=== PATIENT | female | born 1940 | race Caucasian/White ===

== ENCOUNTER 2019-03-17 21:21 | Inpatient (IN) ==
[2019-03-17 21:36] LABS: Basophils % 0.5 % (0.1-2.0); Eosinophils # 0.1 K/mm3 (0.0-0.4); Eosinophils % 1.5 % (0.1-12.0); Hemoglobin 13.2 g/dL (12.2-16.2); Lymphocytes # 1.2 K/mm3 (0.7-4.5); Lymphocytes % 20.3 % (10-50); Mean Corpuscular HGB Conc 34.8 g/dL (31.8-35.4); Mean Corpuscular Hemoglobin 29.3 pg (27.0-31.2); Mean Corpuscular Volume 84.2 fl (81-99); Monocytes # 0.4 K/mm3 (0.1-1.0); Monocytes % 6.9 % (1.7-9.3); Neutrophils # 4.1 K/mm3 (1.8-7.8); Neutrophils % 70.8 % (37.0-80.0); Platelet Count 175 K/mm3 (142-424); Red Blood Count 4.51 M/mm3 (4.20-5.40); Red Cell Distribution Width 13.1 % (11.5-17.5); White Blood Count 5.8 K/mm3 (4.8-10.8)
--- NOTE | 2019-03-17 21:46 | Emergency Department Note ---
ED Disposition Clinical Impression: Renal insufficiency, LBBB (left bundle branch block), Hypokalemia Hip fracture Qualifiers: Encounter type: initial encounter Fracture type: closed Laterality: right Qualified Code(s): S72.001A - Fracture of unspecified part of neck of right femur, initial encounter for closed fracture Disposition: Admitted As Inpatient Condition on Discharge: Good - Critical Care Critical Care Time: No Attestation: On 03/17/19, the high probability of a clinically significant, sudden or life threatening deterioration of the following system(s) required my full and direct attention, intervention and personal management. The time I documented below is in addition to time spent performing reported procedures but includes the following listed in this critical care notation. Medical Decision Making - Medical Records Medical records reviewed: Yes: I reviewed the patient's medical records. - David Inquiry Pt receiving controlled substance: No Vital Signs: 03/17/19 21:39 Temperature 98.1 F Temperature Source Oral Pulse Rate [Right] 91 H Respiratory Rate 18 Blood Pressure [Right Arm] 153/91 H Blood Pressure Mean [Right Arm] 111 Blood Pressure Source [Right Arm] Automatic Cuff Blood Pressure Position [Right Arm] Supine 02 Sat by Pulse Oximetry 98 Oxygen Delivery Method Room Air - Lab Data Lab results reviewed: Yes: I reviewed the patient's lab results. Lab Results 03/17/19 21:25: WBC 5.8, RBC 4.51, Hgb 13.2, Hct 38.0, MCV 84.2, MCH 29.3, MCHC 34.8, RDW 13.1, Plt Count 175, MPV 7.0 L, Neut % (Auto) 70.8, Lymph % (Auto) 20.3, [place] % (Auto) 6.9, Eos % (Auto) 1.5, Baso % (Auto) 0.5, Neut # (Auto) 4.1, Lymph # (Auto) 1.2, [place] # (Auto) 0.4, Eos # (Auto) 0.1, Baso # (Auto) 0.0 03/17/19 21:25: Sodium 139, Potassium 3.2 L, Chloride 104, Carbon Dioxide 22, Anion Gap 16.2 H, BUN 23 H, Creatinine 1.13 H, Estimated Creat Clear 37, Estimated GFR 47 L, Est GFR ( Amer) 56 L, Glucose 124 H, Calcium 8.7, Total Bilirubin 0.6, AST 13 L, ALT 24, Alkaline Phosphatase 77, Total Protein 6.8, Albumin 3.7, Globulin 3.1, Albumin/Globulin Ratio 1.2 Result diagrams: 03/17/19 21:25 03/17/19 21:25 Orders (Tests/Meds): ED MEDICATIONS Discontinued Medications Generic Name Dose Route Start Last Admin Trade Name Freq PRN Reason Stop Dose Admin Morphine Sulfate 2 mg 03/17/19 22:27 Morphine 2mg/Ml Syringe IV 03/17/19 22:28 ONCE ONE Ondansetron HCl 4 mg 03/17/19 22:28 Zofran 4mg/2ml Vial IV 03/17/19 22:29 ONCE ONE ORDERS Category Date Time Status CT cervical spine wo con Stat Cat Scan 03/17/19 21:[address] head/brain wo con Stat Cat Scan 03/17/19 21:22 Taken XR ankle RT min 3V Stat Exams 03/17/19 21:22 Taken XR chest AP Stat Exams 03/17/19 21:22 Taken XR hip RT 2-3V w/pelvis Stat Exams 03/17/19 21:22 Taken PT/PTT Stat Lab 03/17/19 21:25 Received Urinalysis and Microscopic Routine Lab 03/17/19 22:28 Ordered - Radiology Data #1 Image(s): Chest, Pelvis, Hip, Ankle Image Reviewed: Yes I reviewed the patient's radiology image Preliminary Findings: Abnormal (fx seen) - CT Data CT Scan: Head, C-Spine Time Received: 22:[address] Reviewed: Yes: I have viewed the radiologist's interpretation Preliminary Findings: No Fracture Seen - ECG Data Tracing #1 Normal Sinus Rhythm: Yes Conduction abnormalities present: LBBB Fall HPI - General Chief Complaint: Fall Stated Complaint: Fall Time Seen by Provider: 03/17/19 21:45 Mode of Arrival: EMS Source of Information: Patient, EMS, Medical Record Limitations: Physical Limitations Description of Symptoms (Recalled from ER Triage Doc. by RN): Pt fell in yard c/o right hip and ankle pain - History of Present Illness HPI Narrative: trip and fell in yard with rt hip pain - no chest pain MD complaint: fall Onset (ago): hour(s) Fall from: standing Fall witnessed: no Place fall occurred: home Loss of consciousness: none Prolonged down time: no Symptoms prior to fall: none Context: tripped/slipped Location of injury - extremities: Right: thigh, ankle Severity: moderate Associated symptoms (after fall): denies - Related Data Home Medications Medication Instructions Recorded Confirmed Amitriptyline HCl [Elavil 10mg 10 mg PO HS 03/17/19 03/17/19 tablet] Potassium Chloride 20 meq PO BID 03/17/19 03/17/19 Triamterene/Hydrochlorothiazid 1 each PO DAILY 03/17/19 03/17/19 [Maxzide 37.5 mg-25 mg Tablet] Zolpidem Tartrate [Ambien 10mg 10 mg PO HS 03/17/19 03/17/19 tablet] Allergies Allergy/AdvReac Type Severity Reaction Status Date / Time acetaminophen [From TYLENOL] Allergy Unknown Unverified 10/18/17 15:32 atenolol [ATENOLOL] Allergy Unknown Unverified 10/18/17 15:32 bismuth subsalicylate Allergy Unknown Unverified 10/18/17 15:32 [From PEPTO-BISMOL] cimetidine [From TAGAMET] Allergy Unknown Unverified 10/18/17 15:32 diazepam [From VALIUM] Allergy Unknown Unverified 10/18/17 15:32 dicyclomine [From BENTYL] Allergy Unknown Unverified 10/18/17 15:32 docusate [DOCUSATE] Allergy Unknown Unverified 10/18/17 15:32 escitalopram [From LEXAPRO] Allergy Unknown Unverified 10/18/17 15:32 famotidine [From PEPCID] Allergy Unknown Unverified 10/18/17 15:32 fenofibrate [From TRICOR] Allergy Unknown Unverified 10/18/17 15:32 fish oil [FISH OIL] Allergy Unknown Unverified 10/18/17 15:32 hydrocortisone [From LOCOID] Allergy Unknown Unverified 10/18/17 15:32 mirtazapine [From REMERON] Allergy Unknown Unverified 10/18/17 15:32 niacin [NIACIN] Allergy Unknown Unverified 10/18/17 15:32 nortriptyline [NORTRIPTYLINE] Allergy Unknown Unverified 10/18/17 15:32 omeprazole [From PRILOSEC] Allergy Unknown Unverified 10/18/17 15:32 pravastatin [From Pravachol] Allergy Unknown Unverified 10/18/17 15:32 promethazine [PROMETHAZINE] Allergy Unknown Unverified 10/18/17 15:32 rosuvastatin Allergy Unknown Unverified 10/18/17 15:32 simvastatin Allergy Unknown Unverified 10/18/17 15:32 Ewfnxqx-Ocj-Pua Reductase Allergy Unknown Unverified 10/18/17 15:32 Inhibitor Sulfa (Sulfonamide Allergy Unknown Unverified 10/18/17 15:32 Antibiotics) [SULFA (SULFONAMIDE ANTIBIOTICS)] sulfamethoxazole Allergy Unknown Unverified 10/18/17 15:32 [From BACTRIM] trimethoprim [From BACTRIM] Allergy Unknown Unverified 10/18/17 15:32 [facility] History - Hepatitis A Screen Drug use history?: No High risk sexual behaviors?: No History of sexually transmitted infection?: No Currently employed?: No Childcare worker?: No Do you have indoor plumbing?: Yes Do you have electricity?: Yes Attestation statement:: This patient has been screened for Hepatitis A risk factors. I have reviewed the patient's past medical history: Yes Medical History: Denies:: Diabetes Mellitus Type 1, Diabetes Mellitus Type 2 - Social History Alcohol Intake: never Occupational Status: retired - Psychiatric History Expresses thoughts of harming self/others: None Suicide Plan Description: No Plan ROS Obtained: Yes All systems reviewed & no additional complaints - Constitutional Constitutional: Denies fever(s) - Eyes Eyes: Denies change in vision - ENT Ears, Nose, Mouth, and Throat: Denies sore throat - Cardiovascular Cardiovascular: Denies chest pain at rest - Respiratory Respiratory: No cough - Gastrointestinal Gastrointestingal: Denies: abdominal pain - Genitourinary Female Genitourinary: Denies hematuria - Musculoskeletal Musculoskeletal: Reports as per HPI, Reports joint pain, Reports joint swelling, Reports limited range of motion, Denies neck pain - Integumentary/Breasts Skin/Breast: Denies rash - Neurologic Neurologic: Denies seizure-like activity Physical Exam - General General appearance: alert - Head Head exam: normocephalic - Eye Eye exam: Present: PERRL, EOMI - ENT ENT exam: Present: mucous membranes dry - Neck Neck exam: Present: trachea midline - Respiratory Respiratory exam: Present: normal lung sounds bilaterally - Cardiovascular Cardiovascular exam: Present: regular rate, systolic murmur - Abdominal Exam Abdominal exam: Present: soft - Expanded Lower Extremity Exam Right Hip/Pelvis exam: Present: tenderness, pelvis stable, pain on hip/pelvis palpation. Absent: full ROM Ankle exam: Present: tenderness - Neurological Exam Neurological exam: Present: alert, oriented X3, CN II-XII intact - Psychiatric Psychiatric exam: Present: normal affect - Skin Skin exam: Absent: rash
[2019-03-17 21:50] LABS: Albumin Level 3.7 gm/dL (3.4-5.0); Albumin/Globulin Ratio 1.2 (1.1-1.8); Anion Gap 16.2 mEq/L (5-15); Bilirubin,Total 0.6 mg/dL (0.2-1.0); Calcium 8.7 mg/dL (8.5-10.1); Globulin 3.1 gm/dl (1.3-3.2); Potassium 3.2 mmoL/L (3.5-5.1); Total Protein,Serum 6.8 gm/dL (6.4-8.2)
[2019-03-17 22:42] LABS: Activated Partial Thrombo Time 26.6 seconds (23.6-34.0); INR 1.06 (0.9-1.1)
[2019-03-17 22:53] LABS: Appearance,Urine CLEAR (Clear); Bilirubin,Urine Negative (Negative); Blood, Urine Negative (Negative); Color,Urine YELLOW (Yellow); Glucose,Urine (UA) Negative (Negative); Ketones,Urine Negative (Negative); Leukocyte Esterase,Urine Negative (Negative); Microscopic, Urine URINE MICROSCOPIC (MICROSCOPIC); Protein,Urine Negative (Negative); Urobilinogen,Urine 0.2 EU/dl (0.2)
[2019-03-17 22:55] LABS: Amorphous Sediment,Urine Trace /lpf; WBC,Urine Occasional #/hpf (0-3)
[2019-03-18 05:36] LABS: Basophils % 0.1 % (0.1-2.0); Eosinophils % 0.1 % (0.1-12.0); Hematocrit 37.5 % (37.0-47.0); Hemoglobin 13.3 g/dL (12.2-16.2); Lymphocytes # 0.5 K/mm3 (0.7-4.5); Lymphocytes % 6.7 % (10-50); Mean Corpuscular HGB Conc 35.4 g/dL (31.8-35.4); Mean Corpuscular Hemoglobin 29.8 pg (27.0-31.2); Mean Corpuscular Volume 84.1 fl (81-99); Monocytes # 0.4 K/mm3 (0.1-1.0); Platelet Count 157 K/mm3 (142-424); Red Blood Count 4.46 M/mm3 (4.20-5.40); Red Cell Distribution Width 13.1 % (11.5-17.5)
[2019-03-18 05:52] LABS: Anion Gap 17.1 mEq/L (5-15); Blood Urea Nitrogen 18 mg/dL (7-18); Calcium 8.4 mg/dL (8.5-10.1); Carbon Dioxide 22 mmol/L (21.0-32.0); Chloride 102 mmol/L (98-107); Glucose 144 mg/dL (74-106); Potassium 3.1 mmoL/L (3.5-5.1); Sodium 138 mmol/L (136-145)
[2019-03-18 06:02] LABS: Lymphocytes % 5 % (10-50); Monocytes % 4 % (2-9); Neutrophils % 85 % (42-76); Total Cells Counted 100
[2019-03-18 06:03] LABS: RBC Morphology Normal
--- NOTE | 2019-03-18 09:06 | History & Physical Report ---
*Admission Date: 03/18/19 *Chief complaint: Fall with hip fracture *History of present illness: 78-year-old white female who struggles with anxiety, OCD and chronic insomnia but otherwise has enjoyed very good health and lives independently, was watering her morris yesterday and tugging a garden hose when she slipped in some dirt and twisted to try to avoid falling but then fell, causing significant right leg/hip injury and was unable to walk. Came to the emergency department where she was found to have a right femoral neck fracture. Admitted to hospital for orthopedic consultation and further observation. She denies recent shortness of air, leg swelling over baseline, orthopnea or dyspnea with activity. She maintains excellent activity levels at home and has no cardiac history. [facility] History I have reviewed the patient's past medical history: Yes Medical History: Reports:: Hypertension Denies:: Cancer, Diabetes Mellitus Type 1, Diabetes Mellitus Type 2, MRSA *Have you ever received a pneumonia vaccine?: Yes *Have you received a flu vaccine this season?: Yes Laterality Cases: Bilateral: Tonsillectomy Other Surgeries: Yes: Cholecystectomy, Colonoscopy, Colon Resection Amputation: No - *Social History Educational Level: Completed High School Smoking Status: Never smoker Alcohol Intake: never *Occupational Status:: retired *Travel in the last 8 weeks: None - Psychiatric History Expresses thoughts of harming self/others: None Suicide Plan Description: No Plan Family Hx:: Asthma, Coronary Artery Disease, Diabetes, Heart Attack, Hyperlipidemia, Hypertension Review of Systems - Review of Systems Review of systems:: pertinent systems reviewed and negative unless documented below See HPI. Denies other organ system issues as noted. - *Neurologic Denies seizure-like activity Meds Home Medications Medication Instructions Recorded Confirmed Type Amitriptyline HCl [Elavil 10mg 10 mg PO HS 03/17/19 03/17/19 History tablet] Potassium Chloride 20 meq PO BID 03/17/19 03/17/19 History Triamterene/Hydrochlorothiazid 1 each PO DAILY 03/17/19 03/17/19 History [Maxzide 37.5 mg-25 mg Tablet] Zolpidem Tartrate [Ambien 10mg 10 mg PO HS 03/17/19 03/17/19 History tablet] Allergies Allergy/AdvReac Type Severity Reaction Status Date / Time acetaminophen [From TYLENOL] Allergy Unknown Verified 05/18/19 23:14 atenolol [ATENOLOL] Allergy Unknown Verified 03/17/19 23:14 bismuth subsalicylate Allergy Unknown Verified 03/17/19 23:14 [From PEPTO-BISMOL] cimetidine [From TAGAMET] Allergy Unknown Verified 03/17/19 23:14 diazepam [From VALIUM] Allergy Unknown Verified 03/17/19 23:14 dicyclomine [From BENTYL] Allergy Unknown Verified 03/17/19 23:14 docusate [DOCUSATE] Allergy Unknown Verified 03/17/19 23:14 escitalopram [From LEXAPRO] Allergy Unknown Verified 03/17/19 23:14 famotidine [From PEPCID] Allergy Unknown Verified 03/17/19 23:14 fenofibrate [From TRICOR] Allergy Unknown Verified 03/17/19 23:14 fish oil [FISH OIL] Allergy Unknown Verified 03/17/19 23:14 hydrocortisone [From LOCOID] Allergy Unknown Verified 03/17/19 23:14 mirtazapine [From REMERON] Allergy Unknown Verified 03/17/19 23:13 niacin [NIACIN] Allergy Unknown Verified 03/17/19 23:13 nortriptyline [NORTRIPTYLINE] Allergy Unknown Verified 03/17/19 23:13 omeprazole [From PRILOSEC] Allergy Unknown Verified 03/17/19 23:13 pravastatin [From Pravachol] Allergy Unknown Verified 03/17/19 23:13 promethazine [PROMETHAZINE] Allergy Unknown Verified 03/17/19 23:13 rosuvastatin Allergy Unknown Verified 03/17/19 23:13 simvastatin Allergy Unknown Verified 03/17/19 23:13 Stkobrq-Dvi-Eyy Reductase Allergy Unknown Verified 03/17/19 23:13 Inhibitor Sulfa (Sulfonamide Allergy Unknown Verified 03/17/19 23:13 Antibiotics) [SULFA (SULFONAMIDE ANTIBIOTICS)] sulfamethoxazole Allergy Unknown Verified 03/17/19 23:15 [From BACTRIM] trimethoprim [From BACTRIM] Allergy Unknown Verified 03/17/19 23:15 Exam Vital signs and Labs for Last 24 Hours: Temp Pulse Resp BP Pulse Ox 99.4 F 89 17 138/72 95 03/18/19 08:00 03/18/19 08:00 03/18/19 08:00 03/18/19 08:00 03/18/19 08:00 Laboratory Results - last 24 hr 03/17/19 21:25: WBC 5.8, RBC 4.51, Hgb 13.2, Hct 38.0, MCV 84.2, MCH 29.3, MCHC 34.8, RDW 13.1, Plt Count 175, MPV 7.0 L, Neut % (Auto) 70.8, Lymph % (Auto) 20.3, [place] % (Auto) 6.9, Eos % (Auto) 1.5, Baso % (Auto) 0.5, Neut # (Auto) 4.1, Lymph # (Auto) 1.2, [place] # (Auto) 0.4, Eos # (Auto) 0.1, Baso # (Auto) 0.0 03/17/19 21:25: Sodium 139, Potassium 3.2 L, Chloride 104, Carbon Dioxide 22, Anion Gap 16.2 H, BUN 23 H, Creatinine 1.13 H, Estimated Creat Clear 37, Estimated GFR 47 L, Est GFR ( Amer) 56 L, Glucose 124 H, Calcium 8.7, Total Bilirubin 0.6, AST 13 L, ALT 24, Alkaline Phosphatase 77, Total Protein 6.8, Albumin 3.7, Globulin 3.1, Albumin/Globulin Ratio 1.2 03/17/19 21:25: PT 11.0, INR 1.06, APTT 26.6 03/17/19 22:45: Urine Color Yellow, Urine Appearance Clear, Urine pH 7.0, Ur Specific [place] 1.020, Urine Protein Negative, Urine Glucose (UA) Negative, Urine Ketones Negative, Urine Blood Negative, Urine Nitrate Negative, Urine Bilirubin Negative, Urine Urobilinogen 0.2, Ur Leukocyte Esterase Negative, Urine WBC Occasional, Amorphous Sediment Trace 03/18/19 02:00: Troponin I < 0.02 03/18/19 05:10: Sodium 138, Potassium 3.1 L, Chloride 102, Carbon Dioxide 22, Anion Gap 17.1 H, BUN 18, Creatinine 1.12 H, Estimated Creat Clear 37, Estimated GFR 47 L, Est GFR ( Amer) 57 L, Glucose 144 H, Calcium 8.4 L, Magnesium 1.9, Troponin I < 0.02 03/18/19 05:10: WBC 8.0 D, RBC 4.46, Hgb 13.3, Hct 37.5, MCV 84.1, MCH 29.8, MCHC 35.4, RDW 13.1, Plt Count 157, MPV 7.0 L, Neut % (Auto) 88.0 H, Lymph % (Auto) 6.7 L, [place] % (Auto) 5.0, Eos % (Auto) 0.1, Baso % (Auto) 0.1, Neut # (Auto) 7.0, Lymph # (Auto) 0.5 L, [place] # (Auto) 0.4, Eos # (Auto) 0.0, Baso # (Auto) 0.0, Total Counted 100, Neutrophils % (Manual) 85 H, Band Neutrophils % 6.0, Lymphocytes % (Manual) 5 L, Monocytes % (Manual) 4, Platelet Estimate Normal, RBC Morphology Normal I & O for Last 24 hours: Intake & Output 03/15/19 03/16/19 03/17/19 03/18/19 11:59 11:59 11:59 11:59 Intake Total 193 / 193 Output Total 850 / 850 Balance -657 / -657 Weight 124 lb 7 oz Narrative: Patient is alert. Pleasant. ENT exam clear. Lungs have good air movement and are clear. Heart rate regular with 2/6 holosystolic murmur at baseline. Abdomen soft and nontender. No edema or clubbing. Right leg is shortened. Good distal pulses and warm extremities that are well perfused. Neurologic exam intact, oriented x3. Assessment and Plan (1) Fracture of femoral neck, right Current visit: Yes Status: Acute Category: Medical Code(s): S72.001A - Fracture of unspecified part of neck of right femur, initial encounter for closed fracture No contraindication to surgical fixation. Patient has done well with previous surgeries, no history of free bleeding, cardiac issues or difficulties with anesthesia. (2) Hypertension, essential Current visit: Yes Status: Acute Category: Medical Code(s): I10 - Essential (primary) hypertension Watch while in hospital. (3) Generalized anxiety disorder Current visit: Yes Status: Acute Category: Medical Code(s): F41.1 - Generalized anxiety disorder Comorbid psychiatric condition but otherwise stable (4) Chronic insomnia Current visit: Yes Status: Acute Category: Medical Code(s): F51.04 - Psychophysiologic insomnia
--- NOTE | 2019-03-18 09:44 | Progress Note ---
[facility] Anesthesia Checklist - Patient Identification Patient Identification: Arm Band, Verbal (Name & ) - Structural Data Admitted From: Inpatient Planned Operative Procedure/s: r hip hemiarthroplasty Consent for Planned Operative Procedure(s) Verified: Yes Verified Documents: History and Physical - NPO Status Verified Time NPO: 00:00 - Additional verifications Patient : No Anesthesia Reactions: No Hx Blood Transfusions: No Blood Transfusion Reaction: No Cephalosporin Allergy: No Previous Colonoscopy: Yes - Cardiovascular Assessment Heart Sounds: S1 & S2 Pulse Strength: Baseline Pulse Rhythm: Regular Peripheral Edema: No - Airway Assessment C-Spine Mobility Assessed: Yes TMJ Mobility Assessed: Yes Dentition: Good Dentition - Neurological Assessment Level of Consciousness: Awake, Alert, Appropriate Hx Seizures: No Numbness or tingling in extremities: No - Anesthesia Plan Anesthesia Risk discussed: Yes Anesthesia Plan: Verified ASA Class: II Anesthesia Type: General [facility] History I have reviewed the patient's past medical history: Yes Medical History: Reports:: Hypertension Denies:: Cancer, Diabetes Mellitus Type 1, Diabetes Mellitus Type 2, MRSA *Have you ever received a pneumonia vaccine?: Yes *Have you received a flu vaccine this season?: Yes Laterality Cases: Bilateral: Tonsillectomy Other Surgeries: Yes: Cholecystectomy, Colonoscopy, Colon Resection Amputation: No - *Social History Educational Level: Completed High School Smoking Status: Never smoker Alcohol Intake: never *Occupational Status:: retired *Travel in the last 8 weeks: None - Psychiatric History Expresses thoughts of harming self/others: None Suicide Plan Description: No Plan Family Hx:: Asthma, Coronary Artery Disease, Diabetes, Heart Attack, Hyperlipidemia, Hypertension
--- NOTE | 2019-03-18 12:36 | Progress Note ---
[facility] Anesthesia Record Part I Intake, IV Amount: 900 Estimated blood loss (mL): 100 Urine output (mL): 150 Blood Products used (#): none Blood Pressure: 130/70 SaO2: 93 Pulse Rate: 105 Respiratory Rate: 18 Temperature: 99.7 F Patient is:: Drowsy, Nasal O2, Stable Stable to PACU at:: 12:30
--- NOTE | 2019-03-18 12:37 | Progress Note ---
[facility] Anesthesia Record Part II Discharge Time: 13:00 Destination: Medical Surgical Department PACU nurse assessment reviewed?: Yes Patient Condition:: Good Anesthesia Complications:: None Swallowing reflex intact?: Yes Cyanosis?: No
--- NOTE | 2019-03-18 12:46 | Consult Report ---
*Admission Date: 03/18/19 *Chief complaint: R hip pain *History of present illness: 78yo F admitted overnight after sustaining a mechanical fall at home last night. She was watering her morris and attempting to pull the hose to the opposite side of her house, when she got her feet tangled up and fell to the ground. She had immediate pain in the right hip and was unable to ambulate. Denies chest pain, shortness of breath or dizziness either preceding the fall or in the interval since. She complains of pain in the right hip but no numbness or tingling distally. No anticoagulant use at baseline. Review of Systems - Review of Systems Review of systems:: pertinent systems reviewed and negative unless documented below - *Neurologic Denies seizure-like activity [facility] History I have reviewed the patient's past medical history: Yes Medical History: Reports:: Hypertension Denies:: Cancer, Diabetes Mellitus Type 1, Diabetes Mellitus Type 2, MRSA, Seizures *Have you ever received a pneumonia vaccine?: Yes *Have you received a flu vaccine this season?: Yes Other Medical History: Denies: Blood Transfusion Reaction Laterality Cases: Bilateral: Tonsillectomy Other Surgeries: Yes: Cholecystectomy, Colonoscopy, Colon Resection Amputation: No - *Social History Educational Level: Completed High School Smoking Status: Never smoker Alcohol Intake: never *Occupational Status:: retired *Travel in the last 8 weeks: None - Psychiatric History Expresses thoughts of harming self/others: None Suicide Plan Description: No Plan Family Hx:: Asthma, Coronary Artery Disease, Diabetes, Heart Attack, Hyperlipidemia, Hypertension Meds Home Medications Medication Instructions Recorded Confirmed Type Amitriptyline HCl [Elavil 10mg 10 mg PO HS 03/17/19 03/17/19 History tablet] Potassium Chloride 20 meq PO BID 03/17/19 03/17/19 History Triamterene/Hydrochlorothiazid 1 each PO DAILY 03/17/19 03/17/19 History [Maxzide 37.5 mg-25 mg Tablet] Zolpidem Tartrate [Ambien 10mg 10 mg PO HS 03/17/19 03/17/19 History tablet] Allergies Allergy/AdvReac Type Severity Reaction Status Date / Time acetaminophen [From TYLENOL] Allergy Unknown Verified 03/17/19 23:14 atenolol [ATENOLOL] Allergy Unknown Verified 03/17/19 23:14 bismuth subsalicylate Allergy Unknown Verified 03/17/19 23:14 [From PEPTO-BISMOL] cimetidine [From TAGAMET] Allergy Unknown Verified 03/17/19 23:14 diazepam [From VALIUM] Allergy Unknown Verified 03/17/19 23:14 dicyclomine [From BENTYL] Allergy Unknown Verified 03/17/19 23:14 docusate [DOCUSATE] Allergy Unknown Verified 03/17/19 23:14 escitalopram [From LEXAPRO] Allergy Unknown Verified 03/17/19 23:14 famotidine [From PEPCID] Allergy Unknown Verified 03/17/19 23:14 fenofibrate [From TRICOR] Allergy Unknown Verified 03/17/19 23:14 fish oil [FISH OIL] Allergy Unknown Verified 03/17/19 23:14 hydrocortisone [From LOCOID] Allergy Unknown Verified 03/17/19 23:14 mirtazapine [From REMERON] Allergy Unknown Verified 03/17/19 23:13 niacin [NIACIN] Allergy Unknown Verified 03/17/19 23:13 nortriptyline [NORTRIPTYLINE] Allergy Unknown Verified 03/17/19 23:13 omeprazole [From PRILOSEC] Allergy Unknown Verified 03/17/19 23:13 pravastatin [From Pravachol] Allergy Unknown Verified 03/17/19 23:13 promethazine [PROMETHAZINE] Allergy Unknown Verified 03/17/19 23:13 rosuvastatin Allergy Unknown Verified 03/17/19 23:13 simvastatin Allergy Unknown Verified 03/17/19 23:13 Cyhxgmi-Joe-Inf Reductase Allergy Unknown Verified 03/17/19 23:13 Inhibitor Sulfa (Sulfonamide Allergy Unknown Verified 03/17/19 23:13 Antibiotics) [SULFA (SULFONAMIDE ANTIBIOTICS)] sulfamethoxazole Allergy Unknown Verified 03/17/19 23:15 [From BACTRIM] trimethoprim [From BACTRIM] Allergy Unknown Verified 03/17/19 23:15 Exam Vital signs and Labs for Last 24 Hours: Temp Pulse Resp BP Pulse Ox 99.7 F H 105 H 18 130/70 95 03/18/19 12:36 03/18/19 12:36 03/18/19 12:36 03/18/19 12:36 03/18/19 08:00 Laboratory Results - last 24 hr 03/17/19 21:25: WBC 5.8, RBC 4.51, Hgb 13.2, Hct 38.0, MCV 84.2, MCH 29.3, MCHC 34.8, RDW 13.1, Plt Count 175, MPV 7.0 L, Neut % (Auto) 70.8, Lymph % (Auto) 20.3, [place] % (Auto) 6.9, Eos % (Auto) 1.5, Baso % (Auto) 0.5, Neut # (Auto) 4.1, Lymph # (Auto) 1.2, [place] # (Auto) 0.4, Eos # (Auto) 0.1, Baso # (Auto) 0.0 03/17/19 21:25: Sodium 139, Potassium 3.2 L, Chloride 104, Carbon Dioxide 22, Anion Gap 16.2 H, BUN 23 H, Creatinine 1.13 H, Estimated Creat Clear 37, Estimated GFR 47 L, Est GFR ( Amer) 56 L, Glucose 124 H, Calcium 8.7, Total Bilirubin 0.6, AST 13 L, ALT 24, Alkaline Phosphatase 77, Total Protein 6.8, Albumin 3.7, Globulin 3.1, Albumin/Globulin Ratio 1.2 03/17/19 21:25: PT 11.0, INR 1.06, APTT 26.6 03/17/19 22:45: Urine Color Yellow, Urine Appearance Clear, Urine pH 7.0, Ur Specific [place] 1.020, Urine Protein Negative, Urine Glucose (UA) Negative, Urine Ketones Negative, Urine Blood Negative, Urine Nitrate Negative, Urine Bilirubin Negative, Urine Urobilinogen 0.2, Ur Leukocyte Esterase Negative, Urine WBC Occasional, Amorphous Sediment Trace 03/18/19 02:00: Troponin I < 0.02 03/18/19 05:10: Sodium 138, Potassium 3.1 L, Chloride 102, Carbon Dioxide 22, Anion Gap 17.1 H, BUN 18, Creatinine 1.12 H, Estimated Creat Clear 37, Estimated GFR 47 L, Est GFR ( Amer) 57 L, Glucose 144 H, Calcium 8.4 L, Magnesium 1.9, Troponin I < 0.02 03/18/19 05:10: WBC 8.0 D, RBC 4.46, Hgb 13.3, Hct 37.5, MCV 84.1, MCH 29.8, MCHC 35.4, RDW 13.1, Plt Count 157, MPV 7.0 L, Neut % (Auto) 88.0 H, Lymph % (Auto) 6.7 L, [place] % (Auto) 5.0, Eos % (Auto) 0.1, Baso % (Auto) 0.1, Neut # (Auto) 7.0, Lymph # (Auto) 0.5 L, [place] # (Auto) 0.4, Eos # (Auto) 0.0, Baso # (Auto) 0.0, Total Counted 100, Neutrophils % (Manual) 85 H, Band Neutrophils % 6.0, Lymphocytes % (Manual) 5 L, Monocytes % (Manual) 4, Platelet Estimate Normal, RBC Morphology Normal I & O for Last 24 hours: Intake & Output 03/16/19 03/17/19 03/18/19 03/19/19 11:59 11:59 11:59 11:59 Intake Total 243 / 243 900 / 900 Output Total 850 / 850 Balance -607 / -607 900 / 900 Weight 124 lb 7 oz - Constitutional no acute distress, average body habitus, cooperative - *Routine HEENT Exam Head: Present: normocephalic, atraumatic Eye: Present: EOMI ENT: Present: mucous membranes moist - *Routine Respiratory Exam Present: CTA bilaterally. Absent: accessory muscle use, wheezes - *Routine Cardiovascular Exam Present: RRR - *Routine Abdominal Exam Present: soft. Absent: tenderness - *Routine Extremities Exam Comments: RLE shortened and externally rotated no abrasions, lacerations, ecchymosis or other lesions over the R hip tender over R groin/lateral hip +DF/PF/EHL RLE SILT distally RLE R calf soft, non-tender palpable pedal pulses RLE, foot warm/well-perfused - *Routine Skin Exam Present: intact, dry, warm. Absent: lesions, ecchymosis - *Routine Neurological Exam Present: alert, oriented X3, normal tone. Absent: sensory deficit, motor deficit, altered mental status - Routine Psychiatric Exam Present: normal affect Results - Labs Result Diagrams: 03/18/19 05:10 03/18/19 05:10 Labs: Abnormal lab results 03/17/19 03/17/19 03/18/19 Range/Units 21:25 21:25 05:10 MPV 7.0 L (7.4-10.4) fl Neut % (Auto) (37.0-80.0) % Lymph % (Auto) (10-50) % Lymph # (Auto) (0.7-4.5) K/mm3 Neutrophils % (Manual) (42-76) % Lymphocytes % (Manual) (10-50) % Potassium 3.2 L 3.1 L (3.5-5.1) mmoL/L Anion Gap 16.2 H 17.1 H (5-15) mEq/L BUN 23 H (7-18) mg/dL Creatinine 1.13 H 1.12 H (0.55-1.02) mg/dL Estimated GFR 47 L 47 L (>60) ml/min Est GFR ( Amer) 56 L 57 L (>60) ML/MIN Glucose 124 H 144 H (74-106) mg/dL Calcium 8.4 L (8.5-10.1) mg/dL AST 13 L (15-37) U/L 03/18/19 Range/Units 05:10 MPV 7.0 L (7.4-10.4) fl Neut % (Auto) 88.0 H (37.0-80.0) % Lymph % (Auto) 6.7 L (10-50) % Lymph # (Auto) 0.5 L (0.7-4.5) K/mm3 Neutrophils % (Manual) 85 H (42-76) % Lymphocytes % (Manual) 5 L (10-50) % Potassium (3.5-5.1) mmoL/L Anion Gap (5-15) mEq/L BUN (7-18) mg/dL Creatinine (0.55-1.02) mg/dL Estimated GFR (>60) ml/min Est GFR ( Amer) (>60) ML/MIN Glucose (74-106) mg/dL Calcium (8.5-10.1) mg/dL AST (15-37) U/L H & H 03/17/19 03/18/19 Range/Units 21:25 05:10 Hgb 13.2 13.3 (12.2-16.2) g/dL Hct 38.0 37.5 (37.0-47.0) % Coagulation 03/17/19 Range/Units 21:25 INR 1.06 (0.9-1.1) All other labs normal. - Diagnostic results Hip x-ray: image reviewed (displaced R femoral neck fracture ) Assessment and Plan (1) Fracture of femoral neck, right Current visit: Yes Status: Acute Category: Medical Code(s): S72.001A - Fracture of unspecified part of neck of right femur, initial encounter for closed fracture (2) Hypertension, essential Current visit: Yes Status: Acute Category: Medical Code(s): I10 - Essential (primary) hypertension (3) Generalized anxiety disorder Current visit: Yes Status: Acute Category: Medical Code(s): F41.1 - Generalized anxiety disorder (4) Chronic insomnia Current visit: Yes Status: Acute Category: Medical Code(s): F51.04 - Psychophysiologic insomnia - Assessment and plan all Dx Assessment and Plan for all problems:: 78yo F with displaced R femoral neck fracture -- recommend surgical intervention, risks/benefits of surgery discussed with the patient. I recommend hemiarthroplasty; the procedure was discussed with the patient, including the risk of: bleeding, infection, fracture, dislocation, persistent pain and/or limp, need for later conversion to total hip arthroplasty, and the risks of anesthesia. The patient vocalized understanding and provided informed consent. -- no family at bedside; she lives alone in a home next door to her son, who was with her at the hospital until late last night. Phone call to him was attempted but voicemail reached. Dereck Sylvester [phone] -- to OR this morning for R hip hemiarthroplasty
--- NOTE | 2019-03-18 12:54 | Operative Note ---
Date of procedure: 03/18/19 Pre-op Diagnosis:: R femoral neck fracture Post-op Diagnosis:: R femoral neck fracture Procedure performed:: R hip hemiarthroplasty Surgeon:: Hazel Gonzalez MD Air Compressor Mechanic(s):: Deirdre Galeana CST INDEPENDENT LIVING INSTRUCTOR:: Jamie Carter Anesthesia: GETA Estimated blood loss (mL): 100 Clinical Note:: 78yo F admitted overnight after sustaining a mechanical fall at home last night. She was watering her morris and attempting to pull the hose to the opposite side of her house, when she got her feet tangled up and fell to the ground. She had immediate pain in the right hip and was unable to ambulate. Denies chest pain, shortness of breath or dizziness either preceding the fall or in the interval since. She complains of pain in the right hip but no numbness or tingling distally. No anticoagulant use at baseline. I recommend surgical intervention, risks/benefits of surgery discussed with the patient. I recommend hemiarthroplasty; the procedure was discussed with the patient, including the risk of: bleeding, infection, fracture, dislocation, persistent pain and/or limp, need for later conversion to total hip arthroplasty, and the risks of anesthesia. The patient vocalized understanding and provided informed consent. Operative findings:: displaced R femoral neck fracture implants: [place] hip hemiarthroplasty system Accolade II 127 degree neck angle hip stem, size 4 w/35mm neck UHR universal head/bipolar component, 47mm OD LFIT V40 femoral head, 28mm OD, +0 offset Operative note:: The patient was identified in preoperative holding and the R hip signed by myself. She was then taken to the operating room where 1g Ancef was infused intravenously and general anesthesia induced. Once the patient was asleep, she was placed in the left lateral decubitus position with a muhammad bag positioner, and the right hip prepped and draped in the usual sterile fashion. Timeout was performed, identifying the correct patient, correct procedure and correct site. The procedure was begun by making a longitudinal, curvilinear incision over the posterolateral aspect the the right hip, centered over the greater trochanter. Subcutaneous tissue was dissected with cautery until fascia was encountered. The fascia was incised in line with the shaft of the femur distally and curved proximally; fibers of the gluteus netta were bluntly spread with finger dissection. Charnley retractor was placed under the fascia. The hip joint was visualized and there was moderate fracture hematoma present. This was evacuated and the short external rotators identified. The piriformis was tagged and reflected off the femur. Capsulotomy was completed and leaflets tagged. Corkscrew was inserted into the femoral head and it was removed intact; it measured around 46-47mm in diameter. It fit well through the 47mm hole on the sizer. A size 46mm femoral head trial was placed into the acetabulum and found to be too small; a 47 trial was used and appeared to give a good fit; 48mm appeared too large. Oscillating saw was then used to clean up the femoral neck fracture site; the neck was not resected any lower than the fracture line, but the edges cleaned up and excess bone removed. Cookie cutter was used to remove bone proximally in the femoral neck/greater trochanter and create a lateralized starting point for my broach. Canal finder was passed to find/open the femoral canal, followed by lateralizing reamer. Size 0 broach was then passed, taking care to retain the patient's natural femoral anteversion. Broaches of increasing size were sequentially passed, until a size 4 appeared to give the best fit in the proximal femur. This was the desired femoral stem size. Next, a trial neck of standard length was placed on the stem/broach and size 47 trial head placed on the neck. The hip was then reduced and taken through a range of motion; it was found to be stable in full extension and did not dislocate until around 60 degrees internal rotation with the hip flexed to 90 degrees. The hip felt very stable, so we decided upon this configuration of components for the final implants. All trial implants were removed, the wound irrigated with pulsivac, and the final components were placed: size 4 femoral stem with standard neck, 47mm bipolar head with +0 offset. The head was impacted into place and the hip reduced. Piriformis and capsule were repaired with drill holes in the greater trochanter and tied over a bone bridge. The wound was closed in a layered fashion using dayne on the skin. Sterile dressing was applied to the hip and an abduction pillow placed between the patient's legs. She was then extubated, transferred to her bed and taken to PACU in good condition. There were no complications during this case Tourniquet time (min): 0 Condition: stable Disposition: PACU Specimens:: R femoral head Complications:: none
--- NOTE | 2019-03-18 12:56 | Pharmacy Consult Notes ---
[facility] Pharmacy VTE Monitoring - Patient Demographics Admission date: 03/18/19 Report Date: 03/18/19 Time: 12:55 Allergies/Adverse Reactions: Patient Allergies acetaminophen [From TYLENOL] Allergy (Unknown, Verified 03/17/19 23:14) atenolol [ATENOLOL] Allergy (Unknown, Verified 03/17/19 23:14) bismuth subsalicylate [From PEPTO-BISMOL] Allergy (Unknown, Verified 03/17/19 23:14) cimetidine [From TAGAMET] Allergy (Unknown, Verified 03/17/19 23:14) diazepam [From VALIUM] Allergy (Unknown, Verified 03/17/19 23:14) dicyclomine [From BENTYL] Allergy (Unknown, Verified 03/17/19 23:14) docusate [DOCUSATE] Allergy (Unknown, Verified 03/17/19 23:14) escitalopram [From LEXAPRO] Allergy (Unknown, Verified 03/17/19 23:14) famotidine [From PEPCID] Allergy (Unknown, Verified 03/17/19 23:14) fenofibrate [From TRICOR] Allergy (Unknown, Verified 03/17/19 23:14) fish oil [FISH OIL] Allergy (Unknown, Verified 03/17/19 23:14) hydrocortisone [From LOCOID] Allergy (Unknown, Verified 03/17/19 23:14) mirtazapine [From REMERON] Allergy (Unknown, Verified 03/17/19 23:13) niacin [NIACIN] Allergy (Unknown, Verified 03/17/19 23:13) nortriptyline [NORTRIPTYLINE] Allergy (Unknown, Verified 03/17/19 23:13) omeprazole [From PRILOSEC] Allergy (Unknown, Verified 03/17/19 23:13) pravastatin [From Pravachol] Allergy (Unknown, Verified 03/17/19 23:13) promethazine [PROMETHAZINE] Allergy (Unknown, Verified 03/17/19 23:13) rosuvastatin Allergy (Unknown, Verified 03/17/19 23:13) simvastatin Allergy (Unknown, Verified 03/17/19 23:13) Nrqsfai-Tar-Khq Reductase Inhibitor Allergy (Unknown, Verified 03/17/19 23:13) Sulfa (Sulfonamide Antibiotics) [SULFA (SULFONAMIDE ANTIBIOTICS)] Allergy (Unknown, Verified 03/17/19 23:13) sulfamethoxazole [From BACTRIM] Allergy (Unknown, Verified 03/17/19 23:15) trimethoprim [From BACTRIM] Allergy (Unknown, Verified 03/17/19 23:15) Height: 1.68 m Weight: 56.444 kg Patient Problems: Current Active Problems (Updated 03/18/19 @ 09:06 by Jamie Belle MD) Hip fracture (Acute) Renal insufficiency (Acute) LBBB (left bundle branch block) (Acute) Hypokalemia (Acute) Fracture of femoral neck, right (Acute) Hypertension, essential (Acute) Generalized anxiety disorder (Acute) Chronic insomnia (Acute) - VTE Risk Labs: VTE Related Lab Results Hgb 13.3 g/dL (12.2-16.2) 03/18/19 05:10 Hct 37.5 % (37.0-47.0) 03/18/19 05:10 Plt Count 157 K/mm3 (142-424) 03/18/19 05:10 PT 11.0 seconds (9.4-11.8) 03/17/19 21:25 INR 1.06 (0.9-1.1) 03/17/19 21:25 APTT 26.6 seconds (23.6-34.0) 03/17/19 21:25 BUN 18 mg/dL (7-18) 03/18/19 05:10 Creatinine 1.12 mg/dL (0.55-1.02) H 03/18/19 05:10 Estimated Creat Clear 37 mL/min (50-200) 03/18/19 05:10 Was VTE Risk Assessment Performed: No VTE Score: 3 VTE Risk Level: Low Risk - Prophylaxis VTE Prophylaxis Ordered?: Yes Types of VTE Prophylaxis: IPCS Thigh High Location of Applied Device: Bilateral Lower Extremeties - VTE Diagnosis Confirmed Treatment or plan recommended: Continue Current Treatment
[2019-03-19 06:04] LABS: Hematocrit 33.3 % (37.0-47.0); Hemoglobin 11.8 g/dL (12.2-16.2); Lymphocytes # 0.5 K/mm3 (0.7-4.5); Lymphocytes % 5.7 % (10-50); Mean Corpuscular HGB Conc 35.6 g/dL (31.8-35.4); Mean Corpuscular Hemoglobin 30.4 pg (27.0-31.2); Mean Corpuscular Volume 85.4 fl (81-99); Mean Platelet Volume 7.1 fl (7.4-10.4); Monocytes # 0.7 K/mm3 (0.1-1.0); Monocytes % 7.7 % (1.7-9.3); Neutrophils # 7.4 K/mm3 (1.8-7.8); Neutrophils % 86.6 % (37.0-80.0); Platelet Count 152 K/mm3 (142-424); White Blood Count 8.6 K/mm3 (4.8-10.8)
[2019-03-19 06:10] LABS: Calcium 7.8 mg/dL (8.5-10.1)
--- NOTE | 2019-03-19 07:59 | Progress Note ---
Internal Medicine - PN: Subj *Date: 03/19/19 *Time: 07:57 Interval history: Patient did well overnight and states "I feel like I could get out of bed and run." Exam Vital signs and Labs for Last 24 Hours: Temp Pulse Resp BP Pulse Ox 98.4 F 98 H 16 116/62 94 L 03/19/19 03:59 03/19/19 03:59 03/19/19 03:59 03/19/19 03:59 03/19/19 07:50 Laboratory Results - last 24 hr 03/19/19 05:41: WBC 8.6, RBC 3.90 L, Hgb 11.8 L, Hct 33.3 L, MCV 85.4, MCH 30.4, MCHC 35.6 H, RDW 13.0, Plt Count 152, MPV 7.1 L, Neut % (Auto) 86.6 H, Lymph % (Auto) 5.7 L, [place] % (Auto) 7.7, Eos % (Auto) 0.0 L, Baso % (Auto) 0.0 L, Neut # (Auto) 7.4, Lymph # (Auto) 0.5 L, [place] # (Auto) 0.7, Eos # (Auto) 0.0, Baso # (Auto) 0.0 03/19/19 05:41: Sodium 139, Potassium 3.0 L, Chloride 104, Carbon Dioxide 25, Anion Gap 13.0, BUN 15, Creatinine 1.00, Estimated Creat Clear 42, Estimated GFR 54 L, Est GFR ( Amer) 65, Glucose 149 H, Calcium 7.8 L I & O for Last 24 hours: Intake & Output 03/16/19 03/17/19 03/18/19 03/19/19 11:59 11:59 11:59 11:59 Intake Total 243 / 243 1122 / 1122 Output Total 850 / 850 1050 / 1050 Balance -607 / -607 72 / 72 Weight 124 lb 7 oz 124 lb 7 oz Narrative: Patient is pleasant and talkative. [place] catheter in place, draining clear yellow urine. Heart rate regular. No JVD. Oropharynx clear. Lungs clear in the anterior hale. Able to move toes well without pain. Feet are warm and well-perfused. Assessment and Plan (1) Fracture of femoral neck, right Current visit: Yes Status: Acute Category: Medical Code(s): S72.001A - Fracture of unspecified part of neck of right femur, initial encounter for closed fracture (2) Hypertension, essential Current visit: Yes Status: Acute Category: Medical Code(s): I10 - Essential (primary) hypertension (3) Generalized anxiety disorder Current visit: Yes Status: Acute Category: Medical Code(s): F41.1 - Generalized anxiety disorder (4) Chronic insomnia Current visit: Yes Status: Acute Category: Medical Code(s): F51.04 - Psychophysiologic insomnia - Assessment and plan all Dx Assessment and Plan for all problems:: Overall patient is doing very nicely. Continue current post fracture repair management. PT/OT evaluation today.
[2019-03-19 08:57] LABS: Lymphocytes % 5 % (10-50); Monocytes % 6 % (2-9); Neutrophils % 85 % (42-76); Total Cells Counted 100
[2019-03-19 08:58] LABS: RBC Morphology Normal
--- NOTE | 2019-03-19 12:56 | Progress Note ---
Subjective Date: 03/19/19 Time: 10:00 Principal diagnosis: s/p R hip hemiarthroplasty Interval history: The patient had nausea overnight with IV morphine, which improved after phernergan and switching to oral norco. She was very happy when I saw her and said her pain was much better today. She expressed eagerness to work with PT and get out of bed, but when they evaluated her she refused to get out of bed at all. PN: Obj Ex Vital signs: Temp Pulse Resp BP Pulse Ox 98.5 F 89 17 118/58 L 96 03/19/19 11:18 03/19/19 11:18 03/19/19 11:18 03/19/19 11:18 03/19/19 11:18 - Routine Extremities Exam Comments: AAOx3, NAD R hip dressing c/d/i, no strikethrough/drainage abduction pillow in place +DF/PF/EHL RLE R calf soft, non-tender; negative Homans SILT distally RLE R foot warm, well-perfused, palpable pedal pulses - Urinary Catheter Management Arevalo Cath placed during this visit: yes Urethral indwelling: Yes Reason for continuing: Decision to DC catheter Insertion date: 03/17/19 Insertion time: 22:45 Progress Note: A&P (1) Fracture of femoral neck, right Status: Acute Current Visit: Yes (2) Hypertension, essential Status: Acute Current Visit: Yes (3) Generalized anxiety disorder Status: Acute Current Visit: Yes (4) Chronic insomnia Status: Acute Current Visit: Yes Assessment and Plan for All Diagnoses:: 78yo F POD 1 s/p R hip hemiarthroplasty for femoral neck fracture -- WBAT RLE, posterior hip precautions, PT/OT -- ice pack to R hip PRN -- arevalo out this morning -- finish 24hr antbx prophy -- encourage IS -- SCDs BLE -- DVT prophy: lovenox -- dispo planning: strongly recommend SNF, care mgmt to eval
--- NOTE | 2019-03-19 23:33 | Discharge Summary ---
General - General Admission date:: 03/17/19 Discharge date: 03/20/19 HPI HPI: 78-year-old white female who struggles with anxiety, OCD and chronic insomnia but otherwise has enjoyed very good health and lives independently, was watering her morris yesterday and tugging a garden hose when she slipped in some dirt and twisted to try to avoid falling but then fell, causing significant right leg/hip injury and was unable to walk. Came to the emergency department where she was found to have a right femoral neck fracture. Admitted to hospital for orthopedic consultation and further observation. She denies recent shortness of air, leg swelling over baseline, orthopnea or dyspnea with activity. She maintains excellent activity levels at home and has no cardiac history. Hospital Course Hospital Course: Admitted for Right femoral neck fracture. Ortho consulted for surgical fixation. Due to fracture location, partial hip replacement performed. Patient tolerated procedure well. Started on Lovenox for DVT prophy during admission. PT assessed and recommended placement for rehab. Accepted to [facility] for therapy and nursing. Medically stable, no fever, wound CDI. Meeting criteria for DC to [facility]. Plan for transition to ASA 325mg daily at time of DC for DVT prophy. Objective Vital signs: Temp Pulse Resp BP Pulse Ox 98.8 F 88 20 127/64 97 03/19/19 20:00 03/19/19 20:00 03/19/19 20:00 03/19/19 20:00 03/19/19 20:00 Narrative: Patient is pleasant and talkative. Wakefield catheter in place, draining clear yellow urine. Heart rate regular. No JVD. Oropharynx clear. Lungs clear in the anterior hale. no wheeze or rhonchi Able to move toes well without pain. Feet are warm and well-perfused. Alert and oriented x 3 Results Labs on day of discharge: Labs from last 24 hours 03/19/19 03/19/19 05:41 05:41 WBC 8.6 RBC 3.90 L Hgb 11.8 L Hct 33.3 L MCV 85.4 MCH 30.4 MCHC 35.6 H RDW 13.0 Plt Count 152 MPV 7.1 L Neut % (Auto) 86.6 H Lymph % (Auto) 5.7 L Spencer % (Auto) 7.7 Eos % (Auto) 0.0 L Baso % (Auto) 0.0 L Neut # (Auto) 7.4 Lymph # (Auto) 0.5 L Spencer # (Auto) 0.7 Eos # (Auto) 0.0 Baso # (Auto) 0.0 Total Counted 100 Neutrophils % (Manual) 85 H Band Neutrophils % 4.0 Lymphocytes % (Manual) 5 L Monocytes % (Manual) 6 Platelet Estimate Normal RBC Morphology Normal Sodium 139 Potassium 3.0 L Chloride 104 Carbon Dioxide 25 Anion Gap 13.0 BUN 15 Creatinine 1.00 Estimated Creat Clear 42 Estimated GFR 54 L Est GFR ( Amer) 65 Glucose 149 H Calcium 7.8 L DS: Diagnosis - Discharge Diagnosis (1) Fracture of femoral neck, right Status: Acute (2) Hypertension, essential Status: Chronic (3) Generalized anxiety disorder Status: Chronic (4) Chronic insomnia Status: Chronic Discharge Plan - Patient Discharge Instructions ACTIVITY: Ambulate as tolerated DIET: continue same diet Patient Instructions: How to Care for a Surgical Wound, DI for Hip Fracture, DI for Surgical Site Infection - Follow up Plan Follow up with: Jamie Belle MD [Staff Physician] - Hazel Gonzalez MD [Physician] - Disposition: er [facility] Home Medications: Home Medications Medication Instructions Recorded Confirmed Type Amitriptyline HCl [Elavil 10mg 10 mg PO HS 03/17/19 03/17/19 History tablet] Potassium Chloride 20 meq PO BID 03/17/19 03/17/19 History Triamterene/Hydrochlorothiazid 1 each PO DAILY 03/17/19 03/17/19 History [Maxzide 37.5 mg-25 mg Tablet] Zolpidem Tartrate [Ambien 10mg 10 mg PO HS 03/17/19 03/17/19 History tablet] Hydrocodone/Acetaminophen 1 each PO Q6HP PRN 5 Days #20 03/20/19 Rx [Hydrocodone-Acetamin 5-325 mg] tablet Prescriptions/Medication Reconciliation: New Acetaminophen [Acetaminophen 325mg tab] 650 mg PO Q6HP PRN tablet PRN Reason: Mild To Moderate Pain Continued Zolpidem Tartrate [Ambien 10mg tablet] 10 mg PO HS Triamterene/Hydrochlorothiazid [Maxzide 37.5 mg-25 mg Tablet] 1 each PO DAILY Potassium Chloride 20 meq PO BID Amitriptyline HCl [Elavil 10mg tablet] 10 mg PO HS
[2019-03-20 07:20] LABS: Basophils % 0.4 % (0.1-2.0); Eosinophils # 0.1 K/mm3 (0.0-0.4); Eosinophils % 1.5 % (0.1-12.0); Hematocrit 31.3 % (37.0-47.0); Hemoglobin 10.9 g/dL (12.2-16.2); Lymphocytes % 13.9 % (10-50); Mean Corpuscular HGB Conc 34.9 g/dL (31.8-35.4); Mean Platelet Volume 7.2 fl (7.4-10.4); Monocytes # 0.6 K/mm3 (0.1-1.0); Monocytes % 7.6 % (1.7-9.3); Neutrophils # 5.5 K/mm3 (1.8-7.8); Neutrophils % 76.7 % (37.0-80.0); Platelet Count 141 K/mm3 (142-424); Red Blood Count 3.64 M/mm3 (4.20-5.40); Red Cell Distribution Width 13.1 % (11.5-17.5); White Blood Count 7.2 K/mm3 (4.8-10.8)
[2019-03-20 07:24] LABS: Anion Gap 12.2 mEq/L (5-15); Calcium 7.6 mg/dL (8.5-10.1); Potassium 3.2 mmoL/L (3.5-5.1)
--- NOTE | 2019-03-20 09:06 | Progress Note ---
Subjective Date: 03/20/19 Time: 08:00 Principal diagnosis: s/p R hip hemiarthroplasty Interval history: The patient is cheerful this morning, reports little pain in the hip while in bed. Pain increases with activity, and she has not been able to do much with therapy because of the pain. She is not happy with PT and think they're trying to make her do too much too fast; she has been resistant to participating in therapy. PN: Obj Ex Vital signs: Temp Pulse Resp BP Pulse Ox 98.4 F 89 18 116/67 95 03/20/19 08:00 03/20/19 08:00 03/20/19 08:00 03/20/19 08:00 03/20/19 08:00 - Routine Extremities Exam Comments: AAOx3, NAD R hip dressing c/d/i, no drainage --> removed, incision w/o erythema or drainage, fresh dressing applied abduction pillow in place +DF/PF/EHL RLE R calf soft, non-tender; negative Homans SILT distally RLE R foot warm, well-perfused, palpable pedal pulses - Urinary Catheter Management Wakefield Cath placed during this visit: yes Urethral indwelling: Yes Reason for continuing: Not indwelling catheter Insertion date: 03/17/19 Insertion time: 22:45 Progress Note: A&P (1) Fracture of femoral neck, right Status: Acute Current Visit: Yes (2) Hypertension, essential Status: Chronic Current Visit: Yes (3) Generalized anxiety disorder Status: Chronic Current Visit: Yes (4) Chronic insomnia Status: Chronic Current Visit: Yes Assessment and Plan for All Diagnoses:: 78yo F POD 2 s/p R hip hemiarthroplasty for femoral neck fracture -- ok to d/c to SNF today from ortho standpoint -- continue WBAT, posterior hip precautions, abduction pillow -- PT/OT to continue at SNF -- change dressing daily, apply ice to hip PRN -- DVT prophy per PCP; I am ok with ASA -- f/u with me in 2 weeks
== END 2019-03-20 12:40 | DRG 470 ==
LOC: ER 21:21 → 2ND 22:33
PROVIDERS: ADMIT Emergency Medicine; ATTEND Internal Medicine Adolescent Medicine
CPT/HCPCS: 36415; 70450; 71010; 71045; 72125; 72170; 73502; 73600; 73610; 80048; 80053; 81001; 83735; 84484; 85007; 85025; 85610; 85730; 93005; 96374; 96375; 97161; 97166; 97535; 99284; C1713; C1776; J2405

== ENCOUNTER → 2019-03-30 12:25 | Outpatient (CLI) | payer MEDICARE, BC, SELFPAY ==
--- NOTE | 2019-03-30 12:32 | XR_ITS ---
XR hip RT 2-3V w/pelvis HISTORY: : Follow-up hip replacement ITS.REASON: 2 views standing ORDERING PHYSICIAN: Hazel Gonzalez MD PATIENT AGE: 78 years COMPARISON: 03/18/2019 FINDINGS: Status post bipolar prosthesis placement with good alignment. No evidence of dislocation. There is some residual soft tissue gas. Skin clips are present. IMPRESSION: Good alignment status post bipolar prosthesis placement
== END ==
PROVIDERS: Visit Provider Orthopaedic Surgery
DX: S72.009A Fracture of unspecified part of neck of unspecified femur, initial encounter for closed fracture (principal)
CPT/HCPCS: 73502

== ENCOUNTER → 2019-06-11 13:35 | Outpatient (CLI) | payer MEDICARE, BC, SELFPAY ==
--- NOTE | 2019-06-11 13:40 | XR_ITS ---
XR hip RT 2-3V w/pelvis HISTORY: Follow-up surgery ITS.REASON: s/p hip sx ORDERING PHYSICIAN: Hazel Gonzalez MD PATIENT AGE: 78 years COMPARISON: 03/30/2019. FINDINGS: Good alignment status post bipolar prosthesis placement. No acute fracture or dislocation. Skin clips of been removed. IMPRESSION: Good alignment status post bipolar prosthesis placement
--- NOTE | 2019-06-11 14:49 | XR_ITS ---
EXAM: XR lumbar spine min 4V HISTORY: ITS.REASON: back pain ORDERING PHYSICIAN: Hazel Gonzalez MD PATIENT AGE: 78 years COMPARISON: None FINDINGS: Mild lumbar curvature convex right. Multilevel degenerative disc disease from T12 to S1 worse at the L2-L3 level. There is mild retrolisthesis of L3 on L4 of 3 mm. No fracture or dislocation. No lytic or blastic change. There is slight straightening of the lumbar lordosis. IMPRESSION: Multilevel degenerative disc disease
--- NOTE | 2019-06-11 14:49 | XR_ITS ---
XR sacroiliac joint BI min 3V CLINICAL INDICATION: ITS.REASON: back pain ORDERING PHYSICIAN: Hazel Gonzalez MD PATIENT AGE: 78 years Comparison: None FINDINGS: The SI joints have an unremarkable appearance. No fusion or lytic change. IMPRESSION: Unremarkable SI joints
== END ==
PROVIDERS: PCP Internal Medicine Adolescent Medicine; Visit Provider Orthopaedic Surgery
DX: Z96.649 Presence of unspecified artificial hip joint (principal); M54.9 Dorsalgia, unspecified
CPT/HCPCS: 72110; 72202; 73502

== ENCOUNTER → 2019-06-18 17:41 | Outpatient (CLI) | payer MEDICARE, BC, SELFPAY ==
[2019-06-18 18:02] LABS: Basophils # 0.1 K/mm3 (0-0.2); Basophils % 1.1 % (0.1-2.0); Eosinophils # 0.2 K/mm3 (0.0-0.4); Eosinophils % 3.7 % (0.1-12.0); Hemoglobin 14.1 g/dL (12.2-16.2); Lymphocytes # 1.4 K/mm3 (0.7-4.5); Lymphocytes % 30.4 % (10-50); Mean Corpuscular HGB Conc 33.5 g/dL (31.8-35.4); Mean Corpuscular Hemoglobin 28.6 pg (27.0-31.2); Mean Corpuscular Volume 85.4 fl (81-99); Mean Platelet Volume 7.2 fl (7.4-10.4); Monocytes # 0.4 K/mm3 (0.1-1.0); Monocytes % 8.2 % (1.7-9.3); Neutrophils # 2.7 K/mm3 (1.8-7.8); Neutrophils % 56.6 % (37.0-80.0); Platelet Count 189 K/mm3 (142-424); Red Blood Count 4.92 M/mm3 (4.20-5.40); Red Cell Distribution Width 14.3 % (11.5-17.5); White Blood Count 4.7 K/mm3 (4.8-10.8)
[2019-06-18 21:49] LABS: Alanine Aminotransferase 27 U/L (12-78); Albumin Level 4.2 gm/dL (3.4-5.0); Albumin/Globulin Ratio 1.4 (1.1-1.8); Alkaline Phosphatase 72 U/L (46-116); Anion Gap 15.6 mEq/L (5-15); Aspartate Amino Transferase 18 U/L (15-37); Bilirubin,Total 0.6 mg/dL (0.2-1.0); Blood Urea Nitrogen 21 mg/dL (7-18); Calcium 9.4 mg/dL (8.5-10.1); Carbon Dioxide 25 mmol/L (21.0-32.0); Chloride 105 mmol/L (98-107); Creatinine,Serum 1.05 mg/dL (0.55-1.02); Estimated Glomerular Filt Rate 51 ml/min (>60); Ferritin 289 ng/mL (8-388); GFR (African American) 61 ML/MIN (>60); Globulin 2.9 gm/dl (1.3-3.2); Glucose 90 mg/dL (74-106); Potassium 3.6 mmoL/L (3.5-5.1); Sodium 142 mmol/L (136-145); Total Protein,Serum 7.1 gm/dL (6.4-8.2)
[2019-06-20 08:18] LABS: Iron 67 ug/dL (27-139); UIBC 207 ug/dL (118-369)
[2019-06-21 06:06] LABS: Iron Saturation 24 % (15-55); Vitamin B12 769 pg/mL (232-1245)
== END ==
PROVIDERS: Visit Provider Nurse Practitioner Family
DX: D64.9 Anemia, unspecified (principal)
CPT/HCPCS: 36415; 80053; 82607; 82728; 83540; 83550; 85025

== ENCOUNTER → 2019-08-23 14:25 | Outpatient (CLI) | payer MEDICARE, BC, SELFPAY ==
--- NOTE | 2019-08-23 14:35 | XR_ITS ---
PROCEDURE: XR DEXA AXIAL SKELETON CLINICAL HISTORY: POST MENOPAUSAL COMPARISON: No exams were available for comparison FINDINGS: L1-L4 bone density is 1.047 grams/centimeter sq with a T-score of -1.1 consistent with osteopenia. Left femoral neck density is 0.689 grams/centimeters sq with a T-score of -2.5 consistent with osteoporosis. Radius 33 percent density is 0.554 grams/centimeters squared with a T-score of -3.8 consistent with osteoporosis. IMPRESSION: Osteoporosis with high fracture risk. Treatment advised. Suggest follow-up exam July 2020 Dictated by: Paulo Astorga MD 08/23/2019 15:16 Electronically signed by Paulo Astorga MD in [facility] 08/23/2019 15:16
[2019-08-23 18:01] LABS: Basophils # 0.1 K/mm3 (0-0.2); Basophils % 1.1 % (0.1-2.0); Eosinophils # 0.1 K/mm3 (0.0-0.4); Eosinophils % 2.7 % (0.1-12.0); Hematocrit 44.9 % (37.0-47.0); Hemoglobin 15.3 g/dL (12.2-16.2); Lymphocytes # 1.5 K/mm3 (0.7-4.5); Lymphocytes % 28.4 % (10-50); Mean Corpuscular Hemoglobin 29.8 pg (27.0-31.2); Mean Corpuscular Volume 87.5 fl (81-99); Monocytes # 0.4 K/mm3 (0.1-1.0); Monocytes % 8.2 % (1.7-9.3); Neutrophils % 59.7 % (37.0-80.0); Platelet Count 224 K/mm3 (142-424); Red Blood Count 5.13 M/mm3 (4.20-5.40); Red Cell Distribution Width 13.9 % (11.5-17.5); White Blood Count 5.1 K/mm3 (4.8-10.8)
[2019-08-23 19:14] LABS: Alanine Aminotransferase 22 U/L (12-78); Albumin Level 4.3 gm/dL (3.4-5.0); Albumin/Globulin Ratio 1.4 (1.1-1.8); Alkaline Phosphatase 89 U/L (46-116); Anion Gap 14.8 mEq/L (5-15); Aspartate Amino Transferase 15 U/L (15-37); Bilirubin,Total 0.7 mg/dL (0.2-1.0); Blood Urea Nitrogen 22 mg/dL (7-18); Calcium 9.5 mg/dL (8.5-10.1); Carbon Dioxide 24 mmol/L (21.0-32.0); Chloride 104 mmol/L (98-107); Creatinine,Serum 1.03 mg/dL (0.55-1.02); Erythrocyte Sedimentation Rate 15 mm/hr (0-30); Estimated Glomerular Filt Rate 52 ml/min (>60); GFR (African American) 63 ML/MIN (>60); Globulin 3.1 gm/dl (1.3-3.2); Glucose 103 mg/dL (74-106); Potassium 3.8 mmoL/L (3.5-5.1); Sodium 139 mmol/L (136-145); Total Protein,Serum 7.4 gm/dL (6.4-8.2)
[2019-08-23 19:17] LABS: C-Reactive Protein < 0.2 mg/dL (0.0-0.9)
[2019-08-27 11:14] LABS: Sjogren's Anti-SS-A <0.2 AI (0.0-0.9)
[2019-08-28 12:54] LABS: Sjogren's Anti-SS-B <0.2 AI (0.0-0.9)
[2019-08-28 12:56] LABS: Antinuclear Antibodies, IFA Negative (.)
== END ==
PROVIDERS: PCP Nurse Practitioner Family; Visit Provider Nurse Practitioner Family
DX: M81.0 Age-related osteoporosis without current pathological fracture (principal); R68.2 Dry mouth, unspecified; H04.123 Dry eye syndrome of bilateral lacrimal glands; Z79.899 Other long term (current) drug therapy
CPT/HCPCS: 36415; 77080; 80053; 85025; 85651; 86038; 86140; 86235

== ENCOUNTER → 2021-03-28 12:03 | Outpatient (CLI) | payer MEDICARE, BC, SELFPAY ==
[2021-03-28 12:41] LABS: Basophils # 0.1 K/mm3 (0-0.2); Basophils % 1.6 % (0.1-2.0); Eosinophils # 0.2 K/mm3 (0.0-0.4); Eosinophils % 4.4 % (0.1-12.0); Hematocrit 43.7 % (37.0-47.0); Hemoglobin 15.1 g/dL (12.2-16.2); Lymphocytes # 1.8 K/mm3 (0.7-4.5); Lymphocytes % 39.7 % (10-50); Mean Corpuscular HGB Conc 34.6 g/dL (31.8-35.4); Mean Corpuscular Hemoglobin 30.2 pg (27.0-31.2); Mean Corpuscular Volume 87.3 fl (81-99); Mean Platelet Volume 7.7 fl (7.4-10.4); Monocytes # 0.4 K/mm3 (0.1-1.0); Monocytes % 8.1 % (1.7-9.3); Neutrophils # 2.1 K/mm3 (1.8-7.8); Neutrophils % 46.2 % (37.0-80.0); Platelet Count 161 K/mm3 (142-424); Red Cell Distribution Width 13.3 % (11.5-17.5); White Blood Count 4.5 K/mm3 (4.8-10.8)
[2021-03-28 12:50] LABS: Chloride 107 mmol/L (98-107)
[2021-03-28 12:51] LABS: Potassium 4.5 mmoL/L (3.5-5.1); Sodium 139 mmol/L (136-145)
[2021-03-28 12:53] LABS: Alanine Aminotransferase 19 U/L (12-78); Aspartate Amino Transferase 28 U/L (14-36); Blood Urea Nitrogen 18 mg/dl (7-17); Estimated Glomerular Filt Rate 48 ml/min (>60); GFR (African American) 58 ML/MIN (>60)
[2021-03-28 12:54] LABS: Albumin Level 4.6 g/dl (3.5-5.0); Albumin/Globulin Ratio 1.8 (1.1-1.8); Alkaline Phosphatase 95 U/L (38-126); Anion Gap 12.5 mEq/L (5-15); Bilirubin,Total 1.1 mg/dl (0.2-1.3); Calcium 9.5 mg/dl (8.4-10.2); Carbon Dioxide 24 mmol/L (22.0-30.0); Chol/HDL Ratio 5.7 (1-3.5); Cholesterol 205 mg/dl (140-200); Globulin 2.5 g/dL (1.3-3.2); Glucose 108 mg/dl (74-100); HDL Cholesterol 36 mg/dl (40-60); Total Protein,Serum 7.1 g/dl (6.3-8.2)
[2021-03-28 13:01] LABS: Triglycerides 570 mg/dl (30-150)
[2021-03-28 13:05] LABS: Direct LDL Cholesterol 60.59 mg/dL (100-129)
== END ==
PROVIDERS: Visit Provider Nurse Practitioner Family
DX: I10 Essential (primary) hypertension (principal); E78.1 Pure hyperglyceridemia
CPT/HCPCS: 80053; 80061; 85025

== ENCOUNTER → 2021-11-10 15:07 | Outpatient (POV) | payer MEDICARE, BC, SELFPAY | PROVIDERS: Visit Provider Dermatology | DX: Z00.00 Encounter for general adult medical examination without abnormal findings (principal) ==

== ENCOUNTER → 2022-01-26 15:06 | Outpatient (POV) | payer MEDICARE, BC, SELFPAY | PROVIDERS: Visit Provider Dermatology | DX: Z00.00 Encounter for general adult medical examination without abnormal findings (principal) ==

== ENCOUNTER → 2022-03-24 13:11 | Outpatient (CLI) | payer MEDICARE, BC, SELFPAY ==
--- NOTE | 2022-03-24 13:29 | XR_ITS ---
FINAL REPORT CLINICAL HISTORY: . cough FINDINGS: PA and lateral views of the chest are obtained. There is no prior exam for comparison. The cardiac and mediastinal silhouettes are within normal limits. Note is made of emphysema. There is no pleural effusion, pneumothorax, or acute osseous abnormality. IMPRESSION: No radiographic evidence of acute cardiac or pulmonary disease. Reviewed, Interpreted and Dictated by Danyell Vinson MD Transcribed by Penny Calderon Authenticated by Danyell Vinson MD on 03/24/2022 04:00:54 PM [facility]
[2022-03-24 14:01] LABS: Basophils # 0.1 K/mm3 (0-0.2); Basophils % 2.1 % (0.1-2.0); Eosinophils # 0.5 K/mm3 (0.0-0.4); Eosinophils % 10.5 % (0.1-12.0); Hematocrit 42.5 % (37.0-47.0); Hemoglobin 14.8 g/dL (12.2-16.2); Lymphocytes # 1.6 K/mm3 (0.7-4.5); Lymphocytes % 32.6 % (10-50); Mean Corpuscular HGB Conc 34.8 g/dL (31.8-35.4); Mean Corpuscular Hemoglobin 30.5 pg (27.0-31.2); Mean Corpuscular Volume 87.7 fl (81-99); Mean Platelet Volume 7.7 fl (7.4-10.4); Monocytes # 0.4 K/mm3 (0.1-1.0); Monocytes % 8.2 % (1.7-9.3); Neutrophils # 2.3 K/mm3 (1.8-7.8); Neutrophils % 46.7 % (37.0-80.0); Platelet Count 205 K/mm3 (142-424); Red Blood Count 4.84 M/mm3 (4.20-5.40)
[2022-03-24 15:13] LABS: Chloride 104 mmol/L (98-107); Sodium 138 mmol/L (136-145)
[2022-03-24 15:16] LABS: Blood Urea Nitrogen 18 mg/dl (7-17); Estimated Glomerular Filt Rate 53 ml/min (>60); GFR (African American) 65 ML/MIN (>60)
[2022-03-24 15:17] LABS: Carbon Dioxide 26 mmol/L (22.0-30.0); Glucose 106 mg/dl (74-100)
== END ==
PROVIDERS: PCP Nurse Practitioner Family; Visit Provider Nurse Practitioner Family
DX: R05.9 Cough, unspecified (principal)
CPT/HCPCS: 36415; 71046; 80048; 85025

== ENCOUNTER 2022-04-21 16:11 | Emergency (ER) | payer MEDICARE, BC, SELFPAY ==
--- NOTE | 2022-04-21 16:36 | HMH.EDGENADL ---
ED Disposition Clinical Impression: Cough Disposition: Home, Self-Care Condition on Discharge: Good Additional Instructions: Cough medication as prescribed. Prednisone as prescribed. Follow-up with program review director, Dr. Rios, call for appointment. Prescriptions: Codeine Phosphate/Guaifenesin [Codeine-Guaifen 10-100 mg/5 ml] 10 ml PO Q4HP PRN #240 ml PRN Reason: Cough Transmission Status: Sent to [facility] predniSONE [Prednisone 20mg Tab] 20 mg PO BID #10 tab Transmission Status: Pending to [facility] Referrals: Naomi Saldana APRN [Primary Care Provider] - Nadira Rios MD [Physician] - - Critical Care Critical Care Time: No Attestation: On , the high probability of a clinically significant, sudden or life threatening deterioration of the following system(s) required my full and direct attention, intervention and personal management. The time I documented below is in addition to time spent performing reported procedures but includes the following listed in this critical care notation. Medical Decision Making - David Inquiry Pt receiving controlled substance: No Vital Signs: 04/21/22 16:37 04/21/22 17:58 04/21/22 18:00 Temperature 98.7 F Temperature Source Oral Pulse Rate 79 67 Pulse Rate [Right Radial] 100 H Respiratory Rate 20 Blood Pressure 152/82 H 143/74 H Blood Pressure [Right Arm] 158/100 H Blood Pressure Mean 104 97 Blood Pressure Mean [Right Arm] 119 Blood Pressure Source [Right Arm] Automatic Cuff Blood Pressure Position [Right Arm] Sitting 02 Sat by Pulse Oximetry 93 L 96 95 Oxygen Delivery Method Room Air Room Air Room Air - Lab Data Lab Results 04/21/22 18:00: WBC 6.2, RBC 5.03, Hgb 15.2, Hct 43.5, MCV 86.3, MCH 30.2, MCHC 35.0, RDW 13.9, Plt Count 187, MPV 7.7, Neut % (Auto) 57.0, Lymph % (Auto) 28.3, Hanson % (Auto) 8.4, Eos % (Auto) 6.3, Baso % (Auto) 4.6 H, Neut # (Auto) 3.5, Lymph # (Auto) 1.8, Hanson # (Auto) 0.5, Eos # (Auto) 0.4, Baso # (Auto) 0.3 H 04/21/22 18:00: Sodium 136, Potassium 3.7, Chloride 102, Carbon Dioxide 23, Anion Gap 14.7, BUN 15, Creatinine 1.00, Estimated Creat Clear 42, Estimated GFR 53 L, Est GFR ( Amer) 65, Glucose 114 H, Calcium 10.2, Total Bilirubin 0.6, AST 34, ALT 25, Alkaline Phosphatase 87, Total Protein 7.3, Albumin 4.3, Globulin 3.0, Albumin/Globulin Ratio 1.4 Result diagrams: 04/21/22 18:00 04/21/22 18:00 Orders (Tests/Meds): ORDERS Category Date Time Status Full Resp Panel w/COVID ([facility]) Routine Lab 04/21/22 17:50 Received - CT Data CT Scan: Chest Time Received: 18:[address] Reviewed: Yes: I have viewed the radiologist's interpretation Findings Narrative: PROCEDURE INFORMATION: Exam: CT Chest Without Contrast; Diagnostic Exam date and time: 04/21/2022 5:02 PM Age: 81 years old Clinical indication: Cough; Additional info: Cough and SOA for 50 days TECHNIQUE: Imaging protocol: Diagnostic computed tomography of the chest without contrast. Radiation optimization: All CT scans at this facility use at least one of these dose optimization techniques: automated exposure control; mA and/or kV adjustment per patient size (includes targeted exams where dose is matched to clinical indication); or iterative reconstruction. COMPARISON: CR XR CHEST 2V 03/24/2022 1:46 PM FINDINGS: Lungs: No acute findings. There is no pulmonary consolidation. No masses. Patchy subsegmental atelectasis or scarring at the lung bases right greater than left. Pleural spaces: Unremarkable. No significant pleural effusion. No pneumothorax. Heart: The heart is not enlarged. Small pericardial effusion, low-density fluid. Multiple coronary artery calcifications are present. Lymph nodes: No significantly enlarged lymph nodes by short axis criteria. Vasculature: Tortuous thoracic aorta. Borderline dilated aortic root up to 4 cm, no significant aortic aneurysm. Mi
[2022-04-21 16:37] VITALS: BP 158/100; PULSE 100; RESP 20; TEMP 37.1; O2SAT 93; BMI 20.9
--- NOTE | 2022-04-21 16:46 | CT_ITS ---
PROCEDURE INFORMATION: Exam: CT Chest Without Contrast; Diagnostic Exam date and time: 04/21/2022 5:02 PM Age: 81 years old Clinical indication: Cough; Additional info: Cough and SOA for 50 days TECHNIQUE: Imaging protocol: Diagnostic computed tomography of the chest without contrast. Radiation optimization: All CT scans at this facility use at least one of these dose optimization techniques: automated exposure control; mA and/or kV adjustment per patient size (includes targeted exams where dose is matched to clinical indication); or iterative reconstruction. COMPARISON: CR XR CHEST 2V 03/24/2022 1:46 PM FINDINGS: Lungs: No acute findings. There is no pulmonary consolidation. No masses. Patchy subsegmental atelectasis or scarring at the lung bases right greater than left. Pleural spaces: Unremarkable. No significant pleural effusion. No pneumothorax. Heart: The heart is not enlarged. Small pericardial effusion, low-density fluid. Multiple coronary artery calcifications are present. Lymph nodes: No significantly enlarged lymph nodes by short axis criteria. Vasculature: Tortuous thoracic aorta. Borderline dilated aortic root up to 4 cm, no significant aortic aneurysm. Minimal calcified plaques. A 1 cm rim calcified splenic hilar lesion, possible small chronic calcified aneurysm or cyst, series 3, image 81, incompletely characterized without IV contrast. Bones/joints: Bones appear diffusely demineralized suggesting osteopenia.There are spinal degenerative changes, with multilevel disc narrrowing and spondylosis. No acute appearing fracture or high-grade listhesis. Soft tissues: Minimal nonspecific breast calcifications, not accurately characterized on CT. There are no soft tissue masses or fluid collections. IMPRESSION: 1. No acute cardiopulmonary findings. 2. Patchy subsegmental atelectasis or scarring at the lung bases right greater than left. No consolidation or mass. 3. Coronary artery disease. Small pericardial effusion. No findings of vascular congestion. 4. Additional nonemergency and chronic findings as above.
[2022-04-21 17:58] VITALS: BP 152/82; PULSE 79; O2SAT 96
[2022-04-21 17:58] LABS: Adenovirus,PCR Not Detected (NotDetected); Bordetella Pertussis Not Detected (NotDetected); Chlamydophila Pneumoniae, PCR Not Detected (NotDetected); Coronavirus 19, PCR Not Detected (NotDetected); Coronavirus 229E Not Detected (NotDetected); Coronavirus NL63 Not Detected (NotDetected); Coronavirus OC43 Not Detected (NotDetected); Coronovirus HKU1,PCR Not Detected (NotDetected); Human Metapneumovirus Not Detected (NotDetected); Influenza A, PCR Not Detected (NotDetected); Influenza AH1, 2009 Not Detected (NotDetected); Influenza AH1, PCR Not Detected (NotDetected); Influenza AH3,PCR Not Detected (NotDetected); Influenza B, PCR Not Detected (NotDetected); Mycoplasma Pneumoniae, PCR Not Detected (NotDetected); Parainfluenza 1, PCR Not Detected (NotDetected); Parainfluenza 2, PCR Not Detected (NotDetected); Parainfluenza 3, PCR Not Detected (NotDetected); Parainfluenza 4, PCR Not Detected (NotDetected); Respiratory Syncytial Virus Not Detected (NotDetected); Rhinovirus/Enterovirus Not Detected (NotDetected)
[2022-04-21 18:00] VITALS: BP 143/74; PULSE 67; O2SAT 95
[2022-04-21 18:07] LABS: Basophils # 0.3 K/mm3 (0-0.2); Basophils % 4.6 % (0.1-2.0); Eosinophils # 0.4 K/mm3 (0.0-0.4); Eosinophils % 6.3 % (0.1-12.0); Hematocrit 43.5 % (37.0-47.0); Hemoglobin 15.2 g/dL (12.2-16.2); Lymphocytes # 1.8 K/mm3 (0.7-4.5); Lymphocytes % 28.3 % (10-50); Mean Corpuscular Hemoglobin 30.2 pg (27.0-31.2); Mean Corpuscular Volume 86.3 fl (81-99); Mean Platelet Volume 7.7 fl (7.4-10.4); Monocytes # 0.5 K/mm3 (0.1-1.0); Monocytes % 8.4 % (1.7-9.3); Neutrophils # 3.5 K/mm3 (1.8-7.8); Platelet Count 187 K/mm3 (142-424); Red Blood Count 5.03 M/mm3 (4.20-5.40); Red Cell Distribution Width 13.9 % (11.5-17.5); White Blood Count 6.2 K/mm3 (4.8-10.8)
[2022-04-21 18:20] LABS: Alanine Aminotransferase 25 U/L (12-78); Albumin Level 4.3 g/dl (3.5-5.0); Albumin/Globulin Ratio 1.4 (1.1-1.8); Alkaline Phosphatase 87 U/L (38-126); Anion Gap 14.7 mEq/L (5-15); Aspartate Amino Transferase 34 U/L (14-36); Bilirubin,Total 0.6 mg/dl (0.2-1.3); Blood Urea Nitrogen 15 mg/dl (7-17); Calcium 10.2 mg/dl (8.4-10.2); Carbon Dioxide 23 mmol/L (22.0-30.0); Chloride 102 mmol/L (98-107); Creatinine Clearance Estimated 42 mL/min (50-200); Estimated Glomerular Filt Rate 53 ml/min (>60); GFR (African American) 65 ML/MIN (>60); Glucose 114 mg/dl (74-100); Potassium 3.7 mmoL/L (3.5-5.1); Sodium 136 mmol/L (136-145); Total Protein,Serum 7.3 g/dl (6.3-8.2)
--- NOTE | 2022-04-21 18:44 | PC.NURSE ---
has been paged.
--- NOTE | 2022-04-21 19:25 | PC.NURSE ---
ED doctor on phone with Dr. Miranda
[2022-04-21 20:05] VITALS: BP 129/70; PULSE 68; RESP 16; TEMP 37.1; O2SAT 95
--- NOTE | 2022-04-22 13:44 | PC.NURSE ---
called and reported negative urp results to pt's tim. kathy
== END 2022-04-21 20:06 | disposition home or self-care (01) ==
PROVIDERS: Emergency Provider Emergency Medicine; PCP Nurse Practitioner Family
DX: R05.9 Cough, unspecified (principal); R53.1 Weakness; R09.89 Other specified symptoms and signs involving the circulatory and respiratory systems
CPT/HCPCS: 71250; 80053; 85025; 87581; 87632; 87798; 99283; 99284; C9803; U0003; U0005

== ENCOUNTER → 2022-05-17 17:52 | Outpatient (CLI) | payer MEDICARE, BC, SELFPAY ==
[2022-05-17 17:59] LABS: Adenovirus,PCR Not Detected (NotDetected); Bordetella Pertussis Not Detected (NotDetected); Chlamydophila Pneumoniae, PCR Not Detected (NotDetected); Coronavirus 229E Not Detected (NotDetected); Coronavirus NL63 Not Detected (NotDetected); Coronavirus OC43 Not Detected (NotDetected); Coronovirus HKU1,PCR Not Detected (NotDetected); Human Metapneumovirus Not Detected (NotDetected); Influenza A, PCR Not Detected (NotDetected); Influenza AH1, 2009 Not Detected (NotDetected); Influenza AH1, PCR Not Detected (NotDetected); Influenza AH3,PCR Not Detected (NotDetected); Influenza B, PCR Not Detected (NotDetected); Mycoplasma Pneumoniae, PCR Not Detected (NotDetected); Parainfluenza 1, PCR Not Detected (NotDetected); Parainfluenza 2, PCR Not Detected (NotDetected); Parainfluenza 3, PCR Not Detected (NotDetected); Parainfluenza 4, PCR Not Detected (NotDetected); Respiratory Syncytial Virus Not Detected (NotDetected); Rhinovirus/Enterovirus Not Detected (NotDetected)
== END ==
PROVIDERS: PCP Nurse Practitioner Family; Visit Provider Nurse Practitioner Family
DX: Z20.822 Contact with and (suspected) exposure to COVID-19 (principal); R05.2 Subacute cough
CPT/HCPCS: 87486; 87581; 87632; 87798

== ENCOUNTER 2022-07-14 20:56 | Emergency (ER) | payer MEDICARE, BC, SELFPAY ==
[2022-07-14 20:58] VITALS: BP 152/76; PULSE 62; RESP 21; TEMP 36.6; O2SAT 97; BMI 24.1
--- NOTE | 2022-07-14 21:08 | HMH.EDGENADL ---
Discharge Plan Disposition Patient Disposition: Home, Self-Care Condition: Good Prescriptions Prescriptions: New prednisone 20 mg tablet 20 mg PO DAILY Qty: 5 0RF No Action gabapentin 100 mg capsule 100 mg PO DAILY buspirone 5 mg tablet 5 mg PO DAILY pantoprazole 40 mg tablet,delayed release (DR/EC) 40 mg PO DAILY Qty: 30 2RF budesonide-formoterol [Symbicort] 160-4.5 mcg/actuation HFA aerosol inhaler 2 puff IH BID 90 Days Qty: 10.2 3RF amitriptyline 10 MG tablet 10 mg PO HS triamterene-hydrochlorothiazid 1 EACH tablet 1 each PO DAILY zolpidem 10 MG tablet 10 mg PO HS potassium chloride 20 MEQ tablet extended release 20 meq PO BID acetaminophen 325 MG tablet 650 mg PO Q6HP PRN (Reason: Mild To Moderate Pain) 0RF prednisone 20 MG tablet 20 mg PO BID Qty: 10 0RF codeine-guaifenesin 120 ML liquid 10 ml PO Q4HP PRN (Reason: Cough) Qty: 240 0RF Referrals Follow up/Referrals: Naomi Saldana APRN [Primary Care Provider] - See instructions Activity Restrictions/Add. Instructions Additional Instructions/Restrictions: You have been evaluated for cough, chest congestion. Please take 5 days of steroids. Continue using cough medication as needed. Use your inhaler. Follow-up with your family doctor. Return to the emergency department once for any new or worsening symptoms, chest pain, difficulty breathing, other concerns. Clinical Impressions Clinical Impression: Bronchitis, Chest congestion Discharge ED Provider: Huma Rehman Adult HPI General Stated complaint: SOA,cough,weakness Time Seen by Provider: 07/14/22 21:09 Mode of Arrival: Ambulatory Source of Information: Patient Limitations: No Limitations History of Present Illness HPI narrative: 82-year-old female presenting to the emergency department with cough and chest congestion. She has had the symptoms for the last 3 weeks. Initially started as an upper respiratory infection, bronchitis. Has not gotten any better. She has seen her primary care physician as well as pulmonology, Dr. Garcia. She has sinus congestion as well as chest congestion. Cough is worse at night. She is unable to sleep. She has been trying [id number] cough and cold medication with some relief. Is using Symbicort inhaler as well as seasonal allergy medication. No chest pain. No shortness of breath. No recent antibiotics or steroids. She has had significant relief with steroid shots before. Related Data Home Medications Medication Instructions Recorded Confirmed amitriptyline 10 mg tablet 10 mg PO HS Insomnia 03/17/19 06/02/22 potassium chloride 20 mEq 20 meq PO BID Supplement 03/17/19 06/02/22 tablet,extended release triamterene 37.5 1 each PO DAILY Hypertension 03/17/19 06/02/22 mg-hydrochlorothiazide 25 mg tablet zolpidem 10 mg tablet 10 mg PO HS Insomnia 03/17/19 06/02/22 buspirone 5 mg tablet 5 mg PO DAILY 12/29/21 06/02/22 gabapentin 100 mg capsule 100 mg PO DAILY 12/29/21 06/02/22 Previous Rx's Medication Instructions Recorded acetaminophen 325 mg tablet 650 mg PO Q6HP PRN Mild To 03/19/19 Moderate Pain codeine 10 mg-guaifenesin 100 mg/5 10 ml PO Q4HP PRN Cough #240 mL 04/21/22 mL oral liquid prednisone 20 mg tablet 20 mg PO BID #10 tabs 04/21/22 pantoprazole 40 mg tablet,delayed 40 mg PO DAILY #30 tabs 06/02/22 release Symbicort 160 mcg-4.5 2 puff inhalation BID 90 days 06/14/22 mcg/actuation HFA aerosol inhaler #10.2 grams (budesonide-formoterol) prednisone 20 mg tablet 20 mg PO DAILY #5 tabs 07/14/22 Allergies Allergy/AdvReac Type Severity Reaction Status Date / Time atenolol [ATENOLOL] Allergy Unknown Verified 06/02/22 15:52 bismuth subsalicylate Allergy Unknown Verified 06/02/22 15:52 [From PEPTO-BISMOL] cimetidine [From TAGAMET] Allergy Unknown Verified 06/02/22 15:52 diazepam [From VALIUM] Allergy Unknown Verified 06/02/22 15:52 dicyclomine
--- NOTE | 2022-07-14 21:54 | PC.NURSE ---
pt son came to nurses station for info on discharge she was feeling better. advised she would work on getting them out.
[2022-07-14 22:17] VITALS: BP 149/76; PULSE 65; RESP 20; TEMP 36.6; O2SAT 97
== END 2022-07-14 22:20 | disposition home or self-care (01) ==
PROVIDERS: Emergency Provider Emergency Medicine; PCP Nurse Practitioner Family
DX: J40 Bronchitis, not specified as acute or chronic (principal); Z79.899 Other long term (current) drug therapy; Z88.1 Allergy status to other antibiotic agents; Z88.2 Allergy status to sulfonamides; Z88.8 Allergy status to other drugs, medicaments and biological substances; I10 Essential (primary) hypertension; F51.04 Psychophysiologic insomnia; F41.1 Generalized anxiety disorder; I44.7 Left bundle-branch block, unspecified
CPT/HCPCS: 99283

== ENCOUNTER 2022-08-12 19:10 | Emergency (ER) | payer MEDICARE, BC, SELFPAY ==
[2022-08-12 19:11] VITALS: BP 165/98; PULSE 98; RESP 16; TEMP 36.7; O2SAT 97; BMI 18.8
--- NOTE | 2022-08-12 19:20 | ECG_ITS ---
APPROVED REPORT Exam: Resting ECG HR:81 bpm ECG Measurements Heart Rate 81 AXES OH 157 P 83 QRSd 138 QRS 77 QT 419 T 96 QTc 456 Conclusion SINUS RHYTHM WITH OCCASIONAL SUPRAVENTRICULAR PREMATURE COMPLEXES INTRAVENTRICULAR CONDUCTION DELAY [130+ ms QRS DURATION] ABNORMAL ECG UNCONFIRMED REPORT Electronically signed by : Jamie Belle MD 08/13/2022 15:25:13
[2022-08-12 19:30] VITALS: BP 128/105; PULSE 75; O2SAT 98
--- NOTE | 2022-08-12 19:38 | XR_ITS ---
PROCEDURE INFORMATION: Exam: XR Chest Exam date and time: 08/12/2022 8:05 PM Age: 82 years old Clinical indication: Shortness of breath; Additional info: SOA TECHNIQUE: Imaging protocol: Radiologic exam of the chest. Views: 1 view. COMPARISON: CT CHEST WO CON 04/21/2022 5:02 PM FINDINGS: Lungs: No consolidation. Pleural spaces: No pneumothorax. Heart/Mediastinum: No cardiomegaly. Diaphragm: Mild elevation of the right hemidiaphragm. Bones/joints: Degenerative changes of the shoulders. IMPRESSION: No acute findings.
[2022-08-12 19:54] LABS: Coronavirus 19, PCR Not Detected (NotDetected); Influenza A, PCR Not Detected (NotDetected); Influenza B, PCR Not Detected (NotDetected)
[2022-08-12 20:02] VITALS: BP 142/88; PULSE 77; O2SAT 98
[2022-08-12 20:10] LABS: Basophils # 0.1 K/mm3 (0-0.2); Basophils % 2.2 % (0.1-2.0); Eosinophils # 0.3 K/mm3 (0.0-0.4); Eosinophils % 4.9 % (0.1-12.0); Hematocrit 43.9 % (37.0-47.0); Lymphocytes # 1.8 K/mm3 (0.7-4.5); Lymphocytes % 30.6 % (10-50); Mean Corpuscular Hemoglobin 30.1 pg (27.0-31.2); Mean Corpuscular Volume 88.4 fl (81-99); Mean Platelet Volume 7.9 fl (7.4-10.4); Monocytes # 0.6 K/mm3 (0.1-1.0); Monocytes % 9.4 % (1.7-9.3); Neutrophils # 3.1 K/mm3 (1.8-7.8); Platelet Count 248 K/mm3 (142-424); Red Blood Count 4.97 M/mm3 (4.20-5.40); Red Cell Distribution Width 14.3 % (11.5-17.5); White Blood Count 5.9 K/mm3 (4.8-10.8)
[2022-08-12 20:16] LABS: Chloride 107 mmol/L (98-107); Potassium 3.3 mmoL/L (3.5-5.1); Sodium 141 mmol/L (136-145)
[2022-08-12 20:18] LABS: Blood Urea Nitrogen 17 mg/dl (7-17); Creatinine Clearance Estimated 38 mL/min (50-200); Estimated Glomerular Filt Rate 53 ml/min (>60); GFR (African American) 64 ML/MIN (>60)
[2022-08-12 20:19] LABS: Alanine Aminotransferase 24 U/L (12-78); Albumin Level 4.5 g/dl (3.5-5.0); Albumin/Globulin Ratio 1.4 (1.1-1.8); Alkaline Phosphatase 217 U/L (38-126); Anion Gap 17.3 mEq/L (5-15); Aspartate Amino Transferase 35 U/L (14-36); Bilirubin,Total 1.3 mg/dl (0.2-1.3); Calcium 9.5 mg/dl (8.4-10.2); Carbon Dioxide 20 mmol/L (22.0-30.0); Globulin 3.3 g/dL (1.3-3.2); Glucose 106 mg/dl (74-100); Total Protein,Serum 7.8 g/dl (6.3-8.2)
[2022-08-12 20:28] LABS: NT Pro Brain Natriuretic Pep. 105 pg/mL (0-450)
[2022-08-12 20:30] VITALS: BP 124/80; PULSE 69; O2SAT 98
[2022-08-12 20:30] LABS: Troponin I < 0.01 ng/ml (0.00-0.034)
--- NOTE | 2022-08-12 20:33 | HMH.EDSOB ---
Discharge Plan Disposition Patient Disposition: Home, Self-Care Chief Complaint: Shortness of Breath/Dyspnea Prescriptions Prescriptions: No Action albuterol sulfate [Ventolin HFA] 90 mcg/actuation HFA aerosol inhaler 2 puff inhalation Q4-6H PRN azelastine 137 mcg (0.1 %) aerosol,spray 2 spray intranasal BID 90 Days Qty: 30 3RF Rx Instructions: administer into each nostril gabapentin 100 mg capsule 100 mg PO DAILY budesonide 0.5 mg/2 mL suspension for nebulization 0.5 mg inhalation Q12H Qty: 180 3RF ipratropium-albuterol 0.5 mg-3 mg(2.5 mg base)/3 mL solution for nebulization 3 ml inhalation Q6H PRN (Reason: shortness of breath or wheezing) Qty: 180 3RF formoterol fumarate [Perforomist] 20 mcg/2 mL solution for nebulization 2 ml inhalation BID 90 Days Qty: 180 3RF Spiriva with HandiHaler 18 mcg capsule, w/inhalation device 1 cap inhalation DAILY 90 Days Qty: 90 3RF Rx Instructions: puncture 1 cap using device; one dose = 2 inhalations triamterene-hydrochlorothiazid 1 EACH tablet 1 each PO DAILY zolpidem 10 MG tablet 10 mg PO HS potassium chloride 20 MEQ tablet extended release 20 meq PO BID acetaminophen 325 MG tablet 650 mg PO Q6HP PRN (Reason: Mild To Moderate Pain) 0RF Referrals Follow up/Referrals: Jamie Belle MD [Primary Care Provider] - See instructions Clinical Impressions Clinical Impression: Chronic cough, Cough variant asthma Instructions Patient Instructions: Cough Discharge ED Provider: Heath Giraldo Resp/SOB HPI General Chief Complaint: Shortness of Breath/Dyspnea Stated Complaint: PROBLEMS BREATHING Time Seen by Provider: 08/12/22 20:33 Mode of Arrival: Ambulatory Source of Information: Patient and Medical Record Limitations: No Limitations Description of Symptoms (Recalled from ER Triage Doc. by RN): pt states has been sick since february and has have several er visits, seen by pcp and lung specalist. pt c/o cough,SOA, weakness. History of Present Illness cough and sob which has been ongoing and intermittent - has seen pcp and pul - no def inc or dec factors - MD Complaint: shortness of breath and cough Onset (ago): week(s) Severity: moderate Known history of: asthma Associated symptoms: cough Treatment prior to arrival: bronchodilator Related Data Home oxygen amount: none Home Medications Medication Instructions Recorded Confirmed potassium chloride 20 mEq 20 meq PO BID Supplement 03/17/19 07/28/22 tablet,extended release triamterene 37.5 1 each PO DAILY Hypertension 03/17/19 07/28/22 mg-hydrochlorothiazide 25 mg tablet zolpidem 10 mg tablet 10 mg PO HS Insomnia 03/17/19 07/28/22 gabapentin 100 mg capsule 100 mg PO DAILY 12/29/21 07/28/22 albuterol sulfate 90 mcg/actuation 2 puff inhalation Q4-6H PRN 07/28/22 07/28/22 aerosol inhaler (Ventolin HFA) Previous Rx's Medication Instructions Recorded acetaminophen 325 mg tablet 650 mg PO Q6HP PRN Mild To 03/19/19 Moderate Pain azelastine 137 mcg (0.1 %) nasal 2 spray intranasal BID 90 days #30 07/28/22 spray aerosol mL budesonide 0.5 mg/2 mL suspension 0.5 mg (2 mL) inhalation Q12H #180 08/02/22 for nebulization mL formoterol fumarate 20 mcg/2 mL 2 ml inhalation BID 90 days #180 mL 08/02/22 solution for nebulization (Perforomist) ipratropium 0.5 mg-albuterol 3 mg 3 ml inhalation Q6H PRN shortness 08/02/22 (2.5 mg base)/3 mL nebulization of breath or wheezing #180 mL soln tiotropium bromide 18 mcg capsule 1 cap inhalation DAILY 90 days #90 08/06/22 with inhalation device (Spiriva puffs with HandiHaler) Allergies Allergy/AdvReac Type Severity Reaction Status Date / Time atenolol [ATENOLOL] Allergy Unknown Verified 06/02/22 15:52 bismuth subsalicylate Allergy Unknown Verified 06/02/22 15:52 [From PEPTO-BISMOL] cimetidine [From TAGAMET] Allergy Unknown Verified 06/02/22 15:52 diazepam [From VALIUM] Allergy Unknown Verified
--- NOTE | 2022-08-12 20:51 | PC.NURSE ---
ER in room speaking with pt at this time
[2022-08-12 21:04] VITALS: BP 126/87; PULSE 69; RESP 16; TEMP 36.7; O2SAT 98
== END 2022-08-12 21:19 | disposition home or self-care (01) ==
PROVIDERS: Emergency Medicine; Emergency Provider Emergency Medicine; PCP Internal Medicine Adolescent Medicine
DX: J45.991 Cough variant asthma (principal); R05.3 Chronic cough; Z79.899 Other long term (current) drug therapy; I10 Essential (primary) hypertension; G47.00 Insomnia, unspecified; Z88.2 Allergy status to sulfonamides; Z88.8 Allergy status to other drugs, medicaments and biological substances; Z87.19 Personal history of other diseases of the digestive system; D70.9 Neutropenia, unspecified; Z83.3 Family history of diabetes mellitus; Z82.3 Family history of stroke; Z82.5 Family history of asthma and other chronic lower respiratory diseases
CPT/HCPCS: 71045; 80053; 83880; 84484; 85025; 93005; 99285; C9803; U0003; U0005

== ENCOUNTER 2022-09-11 10:33 | Emergency (ER) | payer MEDICARE, BC, SELFPAY ==
[2022-09-11] VITALS (8 sets, daily range): BP systolic 138–155; BP diastolic 71–78; PULSE 58–66; RESP 16–20; TEMP 36.7; O2SAT 97–100; BMI 15.6
--- NOTE | 2022-09-11 10:34 | PC.NURSE ---
1030 ED MD AT BEDSIDE FOR EVALUATION
--- NOTE | 2022-09-11 10:35 | CT_ITS ---
PROCEDURE INFORMATION: Exam: CT Abdomen And Pelvis With Contrast Exam date and time: 09/11/2022 12:05 PM Age: 82 years old Clinical indication: Abdominal pain; Prior surgery; Surgery date: 3-7 days post-operative; Surgery type: Scope TECHNIQUE: Imaging protocol: Computed tomography of the abdomen and pelvis with contrast. Radiation optimization: All CT scans at this facility use at least one of these dose optimization techniques: automated exposure control; mA and/or kV adjustment per patient size (includes targeted exams where dose is matched to clinical indication); or iterative reconstruction. Contrast material: ISOVUE; Contrast volume: 75 ml; Contrast route: IV; COMPARISON: CR XR HIP RT 2-3V W/PELVIS 06/11/2019 1:48 PM FINDINGS: Lungs: Atelectatic changes noted within both lung bases. Liver: There is a diffuse decrease in hepatic parenchymal density, consistent with mild fatty infiltration. Cystic changes noted within the left lobe of the liver. Gallbladder and bile ducts: There has been a cholecystectomy. Pancreas: Normal. No ductal dilation. Spleen: Normal. No splenomegaly. Adrenal glands: Normal. No mass. Kidneys and ureters: Nonspecific low-density foci of the kidneys statistically favor benign cysts, no further follow-up needed, as large as 4.8 cm on the right. Stomach and bowel: A large amount of stool is noted throughout the colon. Postoperative changes noted within the rectosigmoid colon. Appendix: No evidence of appendicitis. Intraperitoneal space: Normal. No significant fluid collection. Vasculature: Unremarkable. No abdominal aortic aneurysm. Lymph nodes: No mesenteric or retroperitoneal lymphadenopathy. Urinary bladder: Unremarkable as visualized. Reproductive: Unremarkable as visualized. Bones/joints: Status post right total hip replacement without evidence of complications. The lumbar spine demonstrates mild degenerative changes at multiple levels. Compression deformity of L3 is present. Age is indeterminate. Soft tissues: Soft tissues are normal. IMPRESSION: 1. Atelectatic changes noted within both lung bases. 2. There is a diffuse decrease in hepatic parenchymal density, consistent with mild fatty infiltration. 3. Nonspecific low-density foci of the kidneys statistically favor benign cysts, no further follow-up needed, as large as 4.8 cm on the right. 4. No mesenteric or retroperitoneal lymphadenopathy. 5. A large amount of stool is noted throughout the colon. 6. Postoperative changes noted within the rectosigmoid colon. 7. The lumbar spine demonstrates mild degenerative changes at multiple levels. 8. Compression deformity of L3 is present. Age is indeterminate. COMMENTS: Consistent with the [employer]'s Incidental Findings Committee white paper (J Am Romina Radiol 2018): Any incidental renal lesion less than 1 cm or classified as too small to characterize, or any incidental cystic renal lesion characterized as simple-appearing, is likely benign. No follow-up imaging is recommended for these lesions per consensus recommendations based on imaging criteria.
[2022-09-11 10:50] LABS: Basophils # 0.1 K/mm3 (0-0.2); Eosinophils # 0.1 K/mm3 (0.0-0.4); Eosinophils % 3.3 % (0.1-12.0); Hematocrit 43.3 % (37.0-47.0); Hemoglobin 14.7 g/dL (12.2-16.2); Lymphocytes # 1.1 K/mm3 (0.7-4.5); Lymphocytes % 26.7 % (10-50); Mean Corpuscular HGB Conc 33.9 g/dL (31.8-35.4); Mean Corpuscular Volume 88.4 fl (81-99); Mean Platelet Volume 7.8 fl (7.4-10.4); Monocytes # 0.3 K/mm3 (0.1-1.0); Monocytes % 7.1 % (1.7-9.3); Neutrophils # 2.6 K/mm3 (1.8-7.8); Neutrophils % 60.9 % (37.0-80.0); Platelet Count 208 K/mm3 (142-424); Red Blood Count 4.89 M/mm3 (4.20-5.40); Red Cell Distribution Width 14.4 % (11.5-17.5); White Blood Count 4.2 K/mm3 (4.8-10.8)
[2022-09-11 10:55] LABS: Alanine Aminotransferase 23 U/L (12-78); Albumin Level 4.5 g/dl (3.5-5.0); Albumin/Globulin Ratio 1.6 (1.1-1.8); Alkaline Phosphatase 143 U/L (38-126); Anion Gap 22.4 mEq/L (5-15); Aspartate Amino Transferase 27 U/L (14-36); Bilirubin,Total 2.3 mg/dl (0.2-1.3); Blood Urea Nitrogen 24 mg/dl (7-17); Carbon Dioxide 19 mmol/L (22.0-30.0); Chloride 107 mmol/L (98-107); Creatinine Clearance Estimated 32 mL/min (50-200); Estimated Glomerular Filt Rate 69 ml/min (>60); GFR (African American) 83 ML/MIN (>60); Globulin 2.8 g/dL (1.3-3.2); Glucose 88 mg/dl (74-100); Lipase 253 U/L (23-300); Potassium 3.4 mmoL/L (3.5-5.1); Sodium 145 mmol/L (136-145); Total Protein,Serum 7.3 g/dl (6.3-8.2)
[2022-09-11 11:00] LABS: Lactic Acid 1.1 mmol/L (0.7-2.1)
[2022-09-11 11:02] LABS: C-Reactive Protein 0.9 mg/L (0-4)
--- NOTE | 2022-09-11 11:02 | PC.NURSE ---
RN @ BS with straight cath kit for urine and covid swab
--- NOTE | 2022-09-11 11:07 | PC.WOUNDNOTE ---
UA COLLECTED PER STERILE TECHNIQUE. COVID/FLU SWAB COLLECTED AND SENT TO LAB. POC DISCUSSED WITH PT, CALL LIGHT WITHIN REACH
--- NOTE | 2022-09-11 11:09 | PC.NURSE ---
PT TO CT AT THIS TIME
[2022-09-11 11:14] LABS: Procalcitonin 0.068 ng/mL (0.0-2.0)
[2022-09-11 11:16] LABS: Coronavirus 19, PCR Not Detected (NotDetected); Influenza A, PCR Not Detected (NotDetected); Influenza B, PCR Not Detected (NotDetected)
[2022-09-11 11:16] LABS: Microscopic, Urine URINE MICROSCOPIC (MICROSCOPIC)
[2022-09-11 11:17] LABS: Appearance,Urine CLEAR (Clear); Blood, Urine TRACE-I (Negative); Color,Urine YELLOW (Yellow); Glucose,Urine (UA) Negative (Negative); Ketones,Urine 3+ (Negative); Leukocyte Esterase,Urine Negative (Negative); Nitrate,Urine Negative (Negative); Protein,Urine 1+ (Negative); Specific Gravity, Urine >= 1.030 (1.005-1.030); Urobilinogen,Urine 0.2 EU/dl (0.2)
--- NOTE | 2022-09-11 11:18 | PC.NURSE ---
PT RETURNED FROM CT
[2022-09-11 11:20] LABS: Erythrocyte Sedimentation Rate 21 mm/hr (0-30)
[2022-09-11 11:27] LABS: Bilirubin,Urine 2+ (Negative)
[2022-09-11 11:41] LABS: Mucus,Urine Trace /lpf; WBC,Urine Occasional #/hpf (0-3)
--- NOTE | 2022-09-11 12:40 | PC.NURSE ---
BLOOD DRAWN AT THIS TIME
--- NOTE | 2022-09-11 12:41 | PC.NURSE ---
ED MD AT BEDSIDE TO DISCUSS POC WITH PT AND FAMILY
--- NOTE | 2022-09-11 13:03 | PC.NURSE ---
Called [facility] for transfer they will call back.
--- NOTE | 2022-09-11 13:16 | PC.NURSE ---
DR. HUTCHINS AT BEDSIDE TO DISCUSS POC WITH PT AND FAMILY
--- NOTE | 2022-09-11 13:36 | PC.NURSE ---
PT MEDICATED PER EMAR AT THIS TIME. FAMILY AT BEDSIDE. CALL LIGHT WITHIN REACH. NO NEEDS VOICED
--- NOTE | 2022-09-11 14:22 | PC.NURSE ---
ROUNDED ON PT, TOLERATING JELLO. SON AND PT HAVE DECIDED THAT PT WANTS TO GO HOME
--- NOTE | 2022-09-11 15:28 | HMH.EDGENADL ---
Discharge Plan Disposition Patient Disposition: Home, Self-Care Condition: Fair Prescriptions Prescriptions: No Action albuterol sulfate [Ventolin HFA] 90 mcg/actuation HFA aerosol inhaler 2 puff inhalation Q4-6H PRN (Reason: BREATHING) gabapentin 100 mg capsule 100 mg PO DAILY ipratropium-albuterol 0.5 mg-3 mg(2.5 mg base)/3 mL solution for nebulization 3 ml inhalation Q6H PRN (Reason: shortness of breath or wheezing) Qty: 180 3RF triamterene-hydrochlorothiazid 1 EACH tablet 1 each PO DAILY zolpidem 10 MG tablet 10 mg PO HS potassium chloride 20 MEQ tablet extended release 20 meq PO BID acetaminophen 325 MG tablet 650 mg PO Q6HP PRN (Reason: Mild To Moderate Pain) 0RF budesonide 0.5 mg/2 mL suspension for nebulization 0.5 mg inhalation Q12H azelastine 137 mcg (0.1 %) aerosol,spray 2 spray intranasal BID Rx Instructions: administer into each nostril Spiriva with HandiHaler 18 mcg capsule, w/inhalation device 1 cap inhalation DAILY Rx Instructions: puncture 1 cap using device; one dose = 2 inhalations formoterol fumarate [Perforomist] 20 mcg/2 mL solution for nebulization 2 ml inhalation BID Referrals Follow up/Referrals: Jamie Belle MD [Primary Care Provider] - See instructions Clinical Impressions Clinical Impression: Cough Instructions Patient Instructions: DI for Acute Abdominal Pain Discharge ED Provider: Servando Alejandro General Adult HPI General Chief complaint: Abdominal Pain Stated complaint: Nausea Time Seen by Provider: 09/11/22 10:35 Mode of Arrival: EMS Limitations: No Limitations Description of Symptoms (Recalled from ER Triage Doc. by RN): PT REPORTS ABD PAIN, PT HAD ENDOSCOPIC PROCEDURE ON TUESDAY. REPORTS COUGH AND CONGESTION History of Present Illness HPI narrative: Patient is a 82-year-old female with a past medical history of chronic cough, Schatzki's ring, hypertension, renal insufficiency who presents with concern for cough, abdominal pain. Patient states that she was seen at [facility] earlier this week. She had an endoscopy performed and was diagnosed with a hiatal hernia, Schatzki's ring. The evaluation was to assess for the reason why she is having so much mucus production. She was told in the past that it was from reflux. She has been seen multiple times for this over the last 6 months. She has been evaluated by pulmonology, gastroenterology, ENT. Today she complains of some abdominal pain that is worsened since her scope. She locates it diffusely throughout her abdomen. Denies any hematemesis. Denies any diarrhea. Related Data Home Medications Medication Instructions Recorded Confirmed potassium chloride 20 mEq 20 meq PO BID Supplement 03/17/19 09/11/22 tablet,extended release triamterene 37.5 1 each PO DAILY Hypertension 03/17/19 09/11/22 mg-hydrochlorothiazide 25 mg tablet zolpidem 10 mg tablet 10 mg PO HS Insomnia 03/17/19 09/11/22 gabapentin 100 mg capsule 100 mg PO DAILY Pain 12/29/21 09/11/22 albuterol sulfate 90 mcg/actuation 2 puff inhalation Q4-6H PRN 07/28/22 09/11/22 aerosol inhaler (Ventolin HFA) BREATHING azelastine 137 mcg (0.1 %) nasal 2 spray intranasal BID Allergy 09/11/22 09/11/22 spray aerosol symptoms budesonide 0.5 mg/2 mL suspension 0.5 mg inhalation Q12H Breathing 09/11/22 09/11/22 for nebulization problems formoterol fumarate 20 mcg/2 mL 2 ml inhalation BID Breathing 09/11/22 09/11/22 solution for nebulization problems (Perforomist) tiotropium bromide 18 mcg capsule 1 cap inhalation DAILY Breathing 09/11/22 09/11/22 with inhalation device (Spiriva problems with HandiHaler) Previous Rx's Medication Instructions Recorded acetaminophen 325 mg tablet 650 mg PO Q6HP PRN Mild To 03/19/19 Moderate Pain ipratropium 0.5 mg-albuterol 3 mg 3 ml inhalation Q6H PRN shortness 08/02/22 (2.5 mg base)/3 mL nebulization of breath or wheezing #180
== END 2022-09-11 15:35 | disposition home or self-care (01) ==
PROVIDERS: Emergency Provider Student in an Organized Health Care Education/Training Program; PCP Internal Medicine Adolescent Medicine
DX: R05.9 Cough, unspecified (principal); R10.9 Unspecified abdominal pain; R11.0 Nausea; Z98.890 Other specified postprocedural states; Z87.19 Personal history of other diseases of the digestive system; Z79.51 Long term (current) use of inhaled steroids; Z79.899 Other long term (current) drug therapy; Z88.2 Allergy status to sulfonamides; Z88.8 Allergy status to other drugs, medicaments and biological substances; I10 Essential (primary) hypertension; N28.9 Disorder of kidney and ureter, unspecified; F41.1 Generalized anxiety disorder; J45.991 Cough variant asthma; D72.10 Eosinophilia, unspecified
CPT/HCPCS: 74177; 80053; 81001; 83605; 83690; 84145; 85025; 85651; 86140; 96365; 99284; C9803; Q9967; U0003; U0005

== ENCOUNTER 2022-11-06 05:59 | Emergency (ER) | payer OTHER, SELFPAY ==
[2022-11-06] VITALS (10 sets, daily range): BP systolic 122–152; BP diastolic 74–90; PULSE 71–101; RESP 14–18; TEMP 36.6–36.8; O2SAT 91–93; BMI 17.2
--- NOTE | 2022-11-06 05:55 | PC.NURSE ---
called and spoke with hospice director organizational. triage nurse states pt received one dose of lactulose yesterday @ 5:30 but pt refused to take anymore. [employer] reports pt has had daily nurse visits an enema was given and check for impaction.
--- NOTE | 2022-11-06 06:04 | CT_ITS ---
PROCEDURE INFORMATION: Exam: CT Abdomen And Pelvis With Contrast Exam date and time: 11/06/2022 6:55 AM Age: 82 years old Clinical indication: Constipation; Additional info: No bm in 5 weeks TECHNIQUE: Imaging protocol: Computed tomography of the abdomen and pelvis with contrast. Radiation optimization: All CT scans at this facility use at least one of these dose optimization techniques: automated exposure control; mA and/or kV adjustment per patient size (includes targeted exams where dose is matched to clinical indication); or iterative reconstruction. Contrast material: ISOVUE; Contrast volume: 75 ml; Contrast route: IV; COMPARISON: CT ABDOMEN PELVIS W CON 09/11/2022 12:05 PM FINDINGS: Pleural spaces: Streaky consolidation in both costophrenic angles, most likely atelectasis. Liver: Normal. No mass. Gallbladder and bile ducts: Prior cholecystectomy again noted. Normal bile ducts. Pancreas: Normal. No ductal dilation. Spleen: Normal. No splenomegaly. Adrenal glands: Normal. No mass. Kidneys and ureters: Again noted are numerous simple renal cortical cysts, the largest measuring 5.5 cm. Small nonobstructing left renal collecting system stone. No obstructing stones or hydronephrosis. Stomach and bowel: Again noted is the 3.7 cm diverticulum of the 3rd portion of the duodenum and the 4.4 cm diverticulum of the 4th portion of the duodenum. Both are distended with gas. The stomach is normal. Large amount of stool within the rectum. 19 x 5 mm metallic foreign body in the rectum. Surgical anastomosis of the small bowel in the pelvis. The remaining intestine is unremarkable. No other inflammatory change. No obstruction. Appendix: No evidence for appendicitis. Normal diameter. No inflammation. Intraperitoneal space: Unremarkable. No free air. No significant fluid collection. Vasculature: Again noted is the 8 mm calcified splenic artery aneurysm. No aortic aneurysm or dissection. Lymph nodes: Unremarkable. No enlarged lymph nodes. Urinary bladder: Decompressed with a Wakefield catheter. Reproductive: Unremarkable as visualized. Bones/joints: Osteopenia of the spine. Moderately severe degenerative changes. No acute fractures. Again noted is the right hip prosthesis. Soft tissues: Unremarkable. IMPRESSION: 1. Large amount of stool in the rectum may be impacted. 2. No other acute changes in the abdomen or pelvis.
[2022-11-06 06:12] LABS: Basophils # 0.2 K/mm3 (0-0.2); Basophils % 3.4 % (0.1-2.0); Eosinophils # 0.2 K/mm3 (0.0-0.4); Eosinophils % 4.5 % (0.1-12.0); Hematocrit 45.4 % (37.0-47.0); Hemoglobin 14.9 g/dL (12.2-16.2); Lymphocytes # 1.4 K/mm3 (0.7-4.5); Lymphocytes % 26.4 % (10-50); Mean Corpuscular HGB Conc 32.9 g/dL (31.8-35.4); Mean Corpuscular Hemoglobin 29.5 pg (27.0-31.2); Mean Corpuscular Volume 89.6 fl (81-99); Monocytes # 0.5 K/mm3 (0.1-1.0); Monocytes % 9.3 % (1.7-9.3); Neutrophils # 2.9 K/mm3 (1.8-7.8); Neutrophils % 56.4 % (37.0-80.0); Platelet Count 250 K/mm3 (142-424); Red Blood Count 5.07 M/mm3 (4.20-5.40); Red Cell Distribution Width 14.5 % (11.5-17.5); White Blood Count 5.2 K/mm3 (4.8-10.8)
[2022-11-06 06:17] LABS: Alanine Aminotransferase 13 U/L (12-78); Albumin Level 3.5 g/dl (3.5-5.0); Albumin/Globulin Ratio 1.3 (1.1-1.8); Alkaline Phosphatase 102 U/L (38-126); Amylase 48 U/L (30-110); Anion Gap 14.4 mEq/L (5-15); Aspartate Amino Transferase 26 U/L (14-36); Bilirubin,Total 1.1 mg/dl (0.2-1.3); Blood Urea Nitrogen 11 mg/dl (7-17); Calcium 8.8 mg/dl (8.4-10.2); Carbon Dioxide 26 mmol/L (22.0-30.0); Chloride 100 mmol/L (98-107); Creatinine Clearance Estimated 35 mL/min (50-200); Estimated Glomerular Filt Rate 80 ml/min (>60); GFR (African American) 97 ML/MIN (>60); Globulin 2.8 g/dL (1.3-3.2); Glucose 126 mg/dl (74-100); Lipase 76 U/L (23-300); Potassium 3.4 mmoL/L (3.5-5.1); Sodium 137 mmol/L (136-145); Total Protein,Serum 6.3 g/dl (6.3-8.2)
[2022-11-06 06:38] LABS: Microscopic, Urine URINE MICROSCOPIC (MICROSCOPIC)
--- NOTE | 2022-11-06 06:42 | HMH.EDABDPAI ---
Discharge Plan Disposition Patient Disposition: Home, Self-Care Chief Complaint: Abdominal Pain Prescriptions Prescriptions: No Action albuterol sulfate [Ventolin HFA] 90 mcg/actuation HFA aerosol inhaler 2 puff inhalation Q4-6H PRN (Reason: BREATHING) gabapentin 100 mg capsule 100 mg PO DAILY ipratropium-albuterol 0.5 mg-3 mg(2.5 mg base)/3 mL solution for nebulization 3 ml inhalation Q6H PRN (Reason: shortness of breath or wheezing) Qty: 180 3RF triamterene-hydrochlorothiazid 1 EACH tablet 1 each PO DAILY zolpidem 10 MG tablet 10 mg PO HS potassium chloride 20 MEQ tablet extended release 20 meq PO BID acetaminophen 325 MG tablet 650 mg PO Q6HP PRN (Reason: Mild To Moderate Pain) 0RF budesonide 0.5 mg/2 mL suspension for nebulization 0.5 mg inhalation Q12H azelastine 137 mcg (0.1 %) aerosol,spray 2 spray intranasal BID Rx Instructions: administer into each nostril Spiriva with HandiHaler 18 mcg capsule, w/inhalation device 1 cap inhalation DAILY Rx Instructions: puncture 1 cap using device; one dose = 2 inhalations formoterol fumarate [Perforomist] 20 mcg/2 mL solution for nebulization 2 ml inhalation BID Referrals Follow up/Referrals: Jamie Belle MD [Primary Care Provider] - See instructions Clinical Impressions Clinical Impression: Fecal impaction in rectum, Acute urinary retention Instructions Patient Instructions: DI for Fecal Impaction Discharge ED Provider: Heath Giraldo Abdominal Pain HPI General Chief Complaint: Abdominal Pain Stated Complaint: Constipation Time Seen by Provider: 11/06/22 06:00 Mode of Arrival: EMS Source of Information: Patient and Medical Record Limitations: Physical Limitations Description of Symptoms (Recalled from ER Triage Doc. by RN): pt arrived per EMS the pt family stated the pt was screaming in pain from not having a bowel movement in 5 weeks. the pt was asleep upon arrival to ED. the pt is currently being medicated by family with dilaudid for hospice treatment. the pt family did not get a definitive reasoning why the pt was under hospice care nor did they give reason why they were not giving her the lactulose on a schedule. pt is unable to answer all questions as to being under the influance of the medication. History of Present Illness HPI narrative: reported hospice pt with esophageal strictures and has dilaudid - at home - no reported bm and sent by son for martha- complaint: abdominal pain Onset (ago): day(s) Consistency: intermittent Severity: moderate Associated symptoms: denies other symptoms Related Data Home Medications Medication Instructions Recorded Confirmed potassium chloride 20 mEq 20 meq PO BID Supplement 03/17/19 09/11/22 tablet,extended release triamterene 37.5 1 each PO DAILY Hypertension 03/17/19 09/11/22 mg-hydrochlorothiazide 25 mg tablet zolpidem 10 mg tablet 10 mg PO HS Insomnia 03/17/19 09/11/22 gabapentin 100 mg capsule 100 mg PO DAILY Pain 12/29/21 09/11/22 albuterol sulfate 90 mcg/actuation 2 puff inhalation Q4-6H PRN 07/28/22 09/11/22 aerosol inhaler (Ventolin HFA) BREATHING azelastine 137 mcg (0.1 %) nasal 2 spray intranasal BID Allergy 09/11/22 09/11/22 spray aerosol symptoms budesonide 0.5 mg/2 mL suspension 0.5 mg inhalation Q12H Breathing 09/11/22 09/11/22 for nebulization problems formoterol fumarate 20 mcg/2 mL 2 ml inhalation BID Breathing 09/11/22 09/11/22 solution for nebulization problems (Perforomist) tiotropium bromide 18 mcg capsule 1 cap inhalation DAILY Breathing 09/11/22 09/11/22 with inhalation device (Spiriva problems with HandiHaler) Previous Rx's Medication Instructions Recorded acetaminophen 325 mg tablet 650 mg PO Q6HP PRN Mild To 03/19/19 Moderate Pain ipratropium 0.5 mg-albuterol 3 mg 3 ml inhalation Q6H PRN shortness 08/02/22 (2.5 mg base)/3 mL nebulization of breath or wheezing #180 mL soln
[2022-11-06 06:48] LABS: Appearance,Urine CLEAR (Clear); Blood, Urine Negative (Negative); Color,Urine YELLOW (Yellow); Glucose,Urine (UA) Negative (Negative); Ketones,Urine 1+ (Negative); Leukocyte Esterase,Urine Negative (Negative); Nitrate,Urine Negative (Negative); Protein,Urine TRACE (Negative); Specific Gravity, Urine 1.025 (1.005-1.030); Urobilinogen,Urine 0.2 EU/dl (0.2)
[2022-11-06 06:59] LABS: Bilirubin,Urine 1+ (Negative)
[2022-11-06 07:04] LABS: WBC,Urine Occasional #/hpf (0-3)
--- NOTE | 2022-11-06 07:47 | PC.NURSE ---
Pt refusing to have any help with her fecal impaction to the MD. States to the doctor that she had enough of that today and she just wants to lay there. PT states she just wants to be put to a sleep.
--- NOTE | 2022-11-06 08:08 | PC.NURSE ---
Denied taking any lactulose or anything else to help her bowels at this time. MD pradhan
--- NOTE | 2022-11-06 08:11 | PC.NURSE ---
on the phone with
--- NOTE | 2022-11-06 08:45 | PC.NURSE ---
Discussed with Ml the nurse with hospice, pt is refusing any further care at our facility for her impaction and stating she wants to go home. Ml states that a nurse will be out later to today for further evaluation with pt
--- NOTE | 2022-11-06 08:49 | PC.NURSE ---
Son talked with pt who discussed with son that she was not doing that again to removed her impaction. PT aware of the continued pain from this will continue. PT states she understands and was not doing it again. States they can do it a little at a time. Son aware arevalo will be left in place for pt for further evaluation from hospice.
== END 2022-11-06 09:52 | disposition home or self-care (01) ==
PROVIDERS: Emergency Provider Emergency Medicine; PCP Internal Medicine Adolescent Medicine
DX: K59.00 Constipation, unspecified (principal); R10.9 Unspecified abdominal pain; J30.9 Allergic rhinitis, unspecified; R05.3 Chronic cough; J45.991 Cough variant asthma; D72.10 Eosinophilia, unspecified; Z87.19 Personal history of other diseases of the digestive system; Z83.3 Family history of diabetes mellitus; Z83.42 Family history of familial hypercholesterolemia; Z82.49 Family history of ischemic heart disease and other diseases of the circulatory system; Z82.5 Family history of asthma and other chronic lower respiratory diseases
CPT/HCPCS: 51702; 74177; 80053; 81001; 82150; 83690; 85025; 96360; 99285; Q9967

== ENCOUNTER → 2022-11-10 09:51 | Outpatient (CLI) | payer OTHER, SELFPAY ==
[2022-11-10 15:47] LABS: Microscopic, Urine URINE MICROSCOPIC (MICROSCOPIC)
[2022-11-10 16:13] LABS: Appearance,Urine CLEAR (Clear); Blood, Urine 3+ (Negative); Color,Urine YELLOW (Yellow); Glucose,Urine (UA) Negative (Negative); Ketones,Urine 2+ (Negative); Leukocyte Esterase,Urine TRACE (Negative); Nitrate,Urine Negative (Negative); PH,Urine 5.5 (5.0-8.5); Protein,Urine 2+ (Negative); Specific Gravity, Urine >= 1.030 (1.005-1.030)
[2022-11-10 16:22] LABS: Bilirubin,Urine 2+ (Negative)
[2022-11-10 16:24] LABS: Bacteria,Urine Trace /lpf; Calcium Oxalate Crystals,Urine Trace /lpf
== END ==
PROVIDERS: PCP Family Medicine Hospice and Palliative Medicine; Visit Provider Family Medicine Hospice and Palliative Medicine
DX: E46 Unspecified protein-calorie malnutrition (principal); N39.0 Urinary tract infection, site not specified
CPT/HCPCS: 81001; 87086

== ENCOUNTER 2022-11-22 21:03 | Emergency (ER) | payer OTHER, MEDICARE, BC, SELFPAY ==
[2022-11-22 21:03] VITALS: BP 138/101; PULSE 99; RESP 18; TEMP 36.8; O2SAT 98; BMI 16.4
--- NOTE | 2022-11-22 21:10 | CT_ITS ---
PROCEDURE INFORMATION: Exam: CT Abdomen And Pelvis With Contrast Exam date and time: 11/22/2022 10:16 PM Age: 82 years old Clinical indication: Abdominal pain TECHNIQUE: Imaging protocol: Computed tomography of the abdomen and pelvis with contrast. Radiation optimization: All CT scans at this facility use at least one of these dose optimization techniques: automated exposure control; mA and/or kV adjustment per patient size (includes targeted exams where dose is matched to clinical indication); or iterative reconstruction. Contrast material: ISOVUE; Contrast volume: 75 ml; Contrast route: IV; COMPARISON: CT ABDOMEN PELVIS W CON 11/06/2022 6:55 AM FINDINGS: Tubes, catheters and devices: Wakefield catheter in place. Air in the urinary bladder; likely iatrogenic. Lungs: Mild patchy opacification medial basilar left lower lobe. This may represent atelectasis/infiltrate. Coronary arteries: Moderate coronary artery calcifications. Liver: Small 5 mm low-density well demarcated lesion left hepatic lobe; likely cysts and unchanged compared with 11/06/2022. Gallbladder and bile ducts: Cholecystectomy clips. Pancreas: Normal. No ductal dilation. Spleen: Normal. No splenomegaly. Adrenal glands: Normal. No mass. Kidneys and ureters: Multiple simple cysts associated with the right kidney. Previously demonstrated small stone in the left collecting system is not well demonstrated. Mild prominence of the intrarenal collecting structures of the left kidney. Stomach and bowel: There is redemonstration of a 3.7 cm duodenal diverticulum of the 3rd portion of the duodenum and a duodenal diverticulum measuring approximately 4.4 cm of the 4th portion of the duodenum. Both are distended with gas. Retained stool in the colon. The rectum is distended with stool and there is mild rectal wall thickening and presacral space edema consistent with fecal impaction and proctitis. Redemonstration of metallic density in the rectum similar to 11/06/2022. Fluid-filled minimally dilated small bowel loops. Surgical anastomosis of the small bowel in the pelvis. Metallic density in the right colon. This is similar to the prior exam. Appendix: No evidence of appendicitis. Intraperitoneal space: Unremarkable. No free air. No significant fluid collection. Vasculature: The aorta demonstrates moderate atherosclerotic calcification. Redemonstration of calcified 8 mm splenic artery aneurysm. Lymph nodes: Unremarkable. No enlarged lymph nodes. Urinary bladder: See Tubes, catheters and devices finding. Reproductive: Unremarkable as visualized. Bones/joints: Right hip arthroplasty. The lumbar spine demonstrates moderate degenerative changes at multiple levels. L4 vertebral body hemangioma. Soft tissues: Unremarkable. IMPRESSION: 1. No free air or fluid or adenopathy. 2. Mild patchy opacification medial basilar left lower lobe. This may represent atelectasis/infiltrate. 3. The rectum is distended with stool and there is mild rectal wall thickening and presacral space edema consistent with fecal impaction and proctitis. Redemonstration of metallic density in the rectum similar to 11/06/2022. 4. Fluid-filled minimally dilated small bowel loops. 5. Surgical anastomosis of the small bowel in the pelvis. 6. Metallic density in the right colon. This is similar to the prior exam. 7. Other (less critical/noncritical/incidental) findings as above; please refer to the body of report for further details. COMMENTS: Consistent with the [employer]'s Incidental Findings Committee white paper (J Am Romina Radiol 2018): Any incidental renal lesion less than 1 cm or classifi
[2022-11-22 21:30] VITALS: BP 150/89; PULSE 86; O2SAT 95
[2022-11-22 21:36] LABS: Basophils # 0.1 K/mm3 (0-0.2); Basophils % 1.1 % (0.1-2.0); Eosinophils # 0.1 K/mm3 (0.0-0.4); Eosinophils % 1.2 % (0.1-12.0); Hematocrit 42.3 % (37.0-47.0); Hemoglobin 14.1 g/dL (12.2-16.2); Lymphocytes # 1.1 K/mm3 (0.7-4.5); Lymphocytes % 18.9 % (10-50); Mean Corpuscular HGB Conc 33.3 g/dL (31.8-35.4); Mean Corpuscular Hemoglobin 28.4 pg (27.0-31.2); Mean Corpuscular Volume 85.5 fl (81-99); Mean Platelet Volume 8.3 fl (7.4-10.4); Monocytes # 0.3 K/mm3 (0.1-1.0); Monocytes % 5.2 % (1.7-9.3); Neutrophils # 4.1 K/mm3 (1.8-7.8); Neutrophils % 73.6 % (37.0-80.0); Platelet Count 210 K/mm3 (142-424); Red Blood Count 4.95 M/mm3 (4.20-5.40); Red Cell Distribution Width 14.8 % (11.5-17.5); White Blood Count 5.6 K/mm3 (4.8-10.8)
[2022-11-22 21:47] LABS: Alanine Aminotransferase 17 U/L (12-78); Albumin Level 3.6 g/dl (3.5-5.0); Albumin/Globulin Ratio 1.2 (1.1-1.8); Alkaline Phosphatase 94 U/L (38-126); Anion Gap 11.6 mEq/L (5-15); Aspartate Amino Transferase 31 U/L (14-36); Bilirubin,Total 1.8 mg/dl (0.2-1.3); Blood Urea Nitrogen 17 mg/dl (7-17); Calcium 8.6 mg/dl (8.4-10.2); Carbon Dioxide 22 mmol/L (22.0-30.0); Chloride 105 mmol/L (98-107); Creatinine Clearance Estimated 33 mL/min (50-200); Estimated Glomerular Filt Rate 80 ml/min (>60); GFR (African American) 97 ML/MIN (>60); Glucose 132 mg/dl (74-100); Sodium 136 mmol/L (136-145); Total Protein,Serum 6.6 g/dl (6.3-8.2)
[2022-11-22 22:00] LABS: Potassium 2.6 mmoL/L (3.5-5.1)
--- NOTE | 2022-11-22 22:00 | PC.NURSE ---
Dr. Giraldo notified of critical potassium
--- NOTE | 2022-11-22 22:12 | PC.NURSE ---
pt to CT scan via stretcher
[2022-11-22 22:30] VITALS: BP 156/84; PULSE 88; O2SAT 94
[2022-11-22 23:00] VITALS: BP 142/82; PULSE 76; O2SAT 93
--- NOTE | 2022-11-22 23:08 | HMH.EDABDPAI ---
Discharge Plan Disposition Patient Disposition: Home, Self-Care Chief Complaint: Abdominal Pain Prescriptions Prescriptions: No Action albuterol sulfate [Ventolin HFA] 90 mcg/actuation HFA aerosol inhaler 2 puff inhalation Q4-6H PRN (Reason: BREATHING) gabapentin 100 mg capsule 100 mg PO DAILY ipratropium-albuterol 0.5 mg-3 mg(2.5 mg base)/3 mL solution for nebulization 3 ml inhalation Q6H PRN (Reason: shortness of breath or wheezing) Qty: 180 3RF triamterene-hydrochlorothiazid 1 EACH tablet 1 each PO DAILY zolpidem 10 MG tablet 10 mg PO HS potassium chloride 20 MEQ tablet extended release 20 meq PO BID acetaminophen 325 MG tablet 650 mg PO Q6HP PRN (Reason: Mild To Moderate Pain) 0RF budesonide 0.5 mg/2 mL suspension for nebulization 0.5 mg inhalation Q12H azelastine 137 mcg (0.1 %) aerosol,spray 2 spray intranasal BID Rx Instructions: administer into each nostril Spiriva with HandiHaler 18 mcg capsule, w/inhalation device 1 cap inhalation DAILY Rx Instructions: puncture 1 cap using device; one dose = 2 inhalations formoterol fumarate [Perforomist] 20 mcg/2 mL solution for nebulization 2 ml inhalation BID Referrals Follow up/Referrals: Juan Antonio Brewer MD [Primary Care Provider] - See instructions Clinical Impressions Clinical Impression: Fecal impaction in rectum Instructions Patient Instructions: DI for Constipation Discharge ED Provider: Heath Giraldo Abdominal Pain HPI General Chief Complaint: Abdominal Pain Stated Complaint: constipation Time Seen by Provider: 11/22/22 23:08 Mode of Arrival: EMS Source of Information: Relative and EMS Limitations: No Limitations Description of Symptoms (Recalled from ER Triage Doc. by RN): Per son patient has been constipated for prior 6 weeks. Patient had an episode of diarrhea on 11/06/21 but per son has not had any diarrhea since. Son states that patient was given a suppository today at 1545 and lactulose at 2000. Pt also has been having severe abdominal pain since receiving the suppository at 1545. History of Present Illness HPI narrative: pt with constipation over the last few weeks - has hx of assoc abd pain - pt is hospice pt complaint: abdominal pain Onset (ago): day(s) Consistency: intermittent Severity: moderate Associated symptoms: constipation Related Data Home Medications Medication Instructions Recorded Confirmed potassium chloride 20 mEq 20 meq PO BID Supplement 03/17/19 09/11/22 tablet,extended release triamterene 37.5 1 each PO DAILY Hypertension 03/17/19 09/11/22 mg-hydrochlorothiazide 25 mg tablet zolpidem 10 mg tablet 10 mg PO HS Insomnia 03/17/19 09/11/22 gabapentin 100 mg capsule 100 mg PO DAILY Pain 12/29/21 09/11/22 albuterol sulfate 90 mcg/actuation 2 puff inhalation Q4-6H PRN 07/28/22 09/11/22 aerosol inhaler (Ventolin HFA) BREATHING azelastine 137 mcg (0.1 %) nasal 2 spray intranasal BID Allergy 09/11/22 09/11/22 spray aerosol symptoms budesonide 0.5 mg/2 mL suspension 0.5 mg inhalation Q12H Breathing 09/11/22 09/11/22 for nebulization problems formoterol fumarate 20 mcg/2 mL 2 ml inhalation BID Breathing 09/11/22 09/11/22 solution for nebulization problems (Perforomist) tiotropium bromide 18 mcg capsule 1 cap inhalation DAILY Breathing 09/11/22 09/11/22 with inhalation device (Spiriva problems with HandiHaler) Previous Rx's Medication Instructions Recorded acetaminophen 325 mg tablet 650 mg PO Q6HP PRN Mild To 03/19/19 Moderate Pain ipratropium 0.5 mg-albuterol 3 mg 3 ml inhalation Q6H PRN shortness 08/02/22 (2.5 mg base)/3 mL nebulization of breath or wheezing #180 mL soln Allergies Allergy/AdvReac Type Severity Reaction Status Date / Time atenolol [ATENOLOL] Allergy Unknown Verified 06/02/22 15:52 bismuth subsalicylate Allergy Unknown Verified 06/02/22 15:52 [From PEPTO-BISMOL] cimetidine [From TAGAM
--- NOTE | 2022-11-22 23:10 | PC.NURSE ---
Addendum entered by Qi Gallagher RN 11/22/22 23:15: with A Radha HUTSON Original Note: MD at bedside
[2022-11-22 23:31] VITALS: BP 140/79; O2SAT 92
--- NOTE | 2022-11-23 | PC.NURSE ---
& Juan Antonio Garcia RN at bedside for fecal dissempaction
[2022-11-23 00:01] VITALS: BP 175/116; PULSE 88; O2SAT 94
[2022-11-23 00:30] VITALS: BP 154/100; PULSE 88; O2SAT 95
[2022-11-23 00:40] VITALS: BP 154/100; PULSE 87; RESP 16; TEMP 36.6; O2SAT 96
== END 2022-11-23 00:56 | disposition home or self-care (01) ==
PROVIDERS: Emergency Provider Emergency Medicine; PCP Family Medicine Hospice and Palliative Medicine
DX: K56.41 Fecal impaction (principal); J30.9 Allergic rhinitis, unspecified; J45.991 Cough variant asthma; R05.3 Chronic cough; D72.10 Eosinophilia, unspecified; Z87.19 Personal history of other diseases of the digestive system; Z83.3 Family history of diabetes mellitus; Z83.42 Family history of familial hypercholesterolemia; Z82.49 Family history of ischemic heart disease and other diseases of the circulatory system; Z82.5 Family history of asthma and other chronic lower respiratory diseases
CPT/HCPCS: 74177; 80053; 85025; 96361; 96374; 96375; 99285; Q9967

== ENCOUNTER 2022-11-28 00:58 | Emergency (ER) | payer OTHER, SELFPAY ==
[2022-11-28 01:01] VITALS: BP 169/94; PULSE 78; RESP 18; TEMP 36.5; O2SAT 98; BMI 21.1
--- NOTE | 2022-11-28 01:10 | ECG_ITS ---
APPROVED REPORT Exam: Resting ECG HR:70 bpm ECG Measurements Heart Rate 70 AXES PA 167 P 71 QRSd 136 QRS 52 QT 442 T 93 QTc 463 Conclusion SINUS RHYTHM INTRAVENTRICULAR CONDUCTION DELAY [130+ ms QRS DURATION] ABNORMAL ECG UNCONFIRMED REPORT Electronically signed by : Jamie Belle MD 11/28/2022 15:15:02
--- NOTE | 2022-11-28 01:10 | CT_ITS ---
PROCEDURE INFORMATION: Exam: CT Abdomen And Pelvis With Contrast Exam date and time: 11/28/2022 3:18 AM Age: 82 years old Clinical indication: Abdominal pain; Additional info: Abd pain TECHNIQUE: Imaging protocol: Computed tomography of the abdomen and pelvis with contrast. Radiation optimization: All CT scans at this facility use at least one of these dose optimization techniques: automated exposure control; mA and/or kV adjustment per patient size (includes targeted exams where dose is matched to clinical indication); or iterative reconstruction. Contrast material: ISOVUE; Contrast volume: 75 ml; Contrast route: IV; Other protocol: This patient has received 4 known CTs and 0 known cardiac nuclear medicine studies in the 12 months prior to the current study. COMPARISON: CT ABDOMEN PELVIS W CON 11/22/2022 10:16 PM FINDINGS: Pleural spaces: Small bilateral pleural effusions and bibasilar atelectasis. Liver: Normal. No mass. Gallbladder and bile ducts: Prior cholecystectomy. Pancreas: Normal. No ductal dilation. Spleen: Normal. No splenomegaly. Adrenal glands: Normal. No mass. Kidneys and ureters: Multiple bilateral renal cysts unchanged. Stomach and bowel: The rectum is distended with stool. There is evidence of rectal wall inflammation and perirectal edema is present. Stable metallic density previously noted in the right colon is now in the left colon. Appendix: No evidence of appendicitis. Intraperitoneal space: Unremarkable. No free air. No significant fluid collection. Vasculature: Unremarkable. No abdominal aortic aneurysm. Lymph nodes: Unremarkable. No enlarged lymph nodes. Urinary bladder: Unremarkable as visualized. Reproductive: Unremarkable as visualized. Bones/joints: Prior right hip arthroplasty. Soft tissues: Unremarkable. IMPRESSION: 1. 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 2. Metallic foreign body is moved from the right to the left colon. 3. Small bilateral pleural effusions and bibasilar atelectasis. 4. Multiple renal cysts. 5. Prior cholecystectomy and right hip arthroplasty.
[2022-11-28 01:28] VITALS: BP 149/84; PULSE 70; O2SAT 99
--- NOTE | 2022-11-28 01:43 | HMH.EDGENADL ---
Discharge Plan Disposition Patient Disposition: Home, Self-Care Condition: Fair Prescriptions Prescriptions: New mineral oil [Fleet Mineral Oil] Enema 118 ml NE BID Qty: 3192 0RF Rx Instructions: discard any unused portion No Action albuterol sulfate [Ventolin HFA] 90 mcg/actuation HFA aerosol inhaler 2 puff inhalation Q4-6H PRN (Reason: BREATHING) gabapentin 100 mg capsule 100 mg PO DAILY ipratropium-albuterol 0.5 mg-3 mg(2.5 mg base)/3 mL solution for nebulization 3 ml inhalation Q6H PRN (Reason: shortness of breath or wheezing) Qty: 180 3RF triamterene-hydrochlorothiazid 1 EACH tablet 1 each PO DAILY zolpidem 10 MG tablet 10 mg PO HS potassium chloride 20 MEQ tablet extended release 20 meq PO BID acetaminophen 325 MG tablet 650 mg PO Q6HP PRN (Reason: Mild To Moderate Pain) 0RF budesonide 0.5 mg/2 mL suspension for nebulization 0.5 mg inhalation Q12H azelastine 137 mcg (0.1 %) aerosol,spray 2 spray intranasal BID Rx Instructions: administer into each nostril Spiriva with HandiHaler 18 mcg capsule, w/inhalation device 1 cap inhalation DAILY Rx Instructions: puncture 1 cap using device; one dose = 2 inhalations formoterol fumarate [Perforomist] 20 mcg/2 mL solution for nebulization 2 ml inhalation BID Referrals Follow up/Referrals: Jamie Belle MD [Primary Care Provider] - See instructions Clinical Impressions Clinical Impression: Fecal impaction, Stercoral colitis Instructions Patient Instructions: DI for Acute Abdominal Pain, DI for Fecal Impaction, Sodium Phosphate Rectal Discharge ED Provider: Cody Fatima General Adult HPI General Chief complaint: Abdominal Pain Stated complaint: Abdominal Pain,Rectal Pain Time Seen by Provider: 11/28/22 01:03 Mode of Arrival: Wheelchair Source of Information: Patient, Relative and Medical Record Limitations: Altered Mental Status Description of Symptoms (Recalled from ER Triage Doc. by RN): Pt c/o ABD pain and rectal pain. States she is in hospice care for . Her son reports pt had liquid BM's through Tuesday, then none since. She is taking Senna, Align, Prune juice, dulcolax, and lactulose without effect. States she has been eating and drinking this week and voiding withuot issue. 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 He did give her Dilaudid 4mg @ 2330. Pt seen here on 11/22 and was given versed to dissempact a good amount of hard stool. History of Present Illness HPI narrative: 82-year-old female past medical history of urinary retention, hypokalemia, hypertension, prior fecal impaction in the rectum for which she has been seen previously for here. She is in hospice care as well. She presents today complaining of abdominal pain that started this evening as well as rectal pain. Her son reports that she has had liquid bowel movements through Tuesday however none since. She has been taking Senokot, align, prune juice, Dulcolax, lactulose without effect. She has been eating and drinking this week and voiding without issue prior to this episode. Pain started approximately 2 hours prior to arrival. Son gave her 4 mg of Dilaudid p.o. at around 1130. On 11/22, she was seen here and was disimpacted after having otherwise unremarkable CT scan. She denies any fevers, nausea, vomiting or other symptoms at this time Related Data Home Medications Medication Instructions Recorded Confirmed potassium chloride 20 mEq 20 meq PO BID Supplement 03/17/19 09/11/22 tablet,extended release triamterene 37.5 1 each PO DAILY Hypertension 03/17/19 09/11/22 mg-hydrochlorothiazide 25 mg tablet zolpidem 10 mg tablet 10 mg PO HS Insomnia 03/17/19 09/11/22 gabapentin 100 mg capsule 100 mg PO DAILY Pain 12/29/21 09/11/22 albuterol sulfate 90 mcg/actuation 2 puff inhalation Q4-6H PRN 07/28/22 09/11/22 aerosol inhaler (Ventolin HFA) BREATHING azelastine 137 mcg (0.1 %) nasal 2 spray
[2022-11-28 02:00] VITALS: BP 146/76; PULSE 68; O2SAT 95
[2022-11-28 02:30] VITALS: BP 150/85; PULSE 74; O2SAT 97
[2022-11-28 03:00] VITALS: BP 152/91; PULSE 68; O2SAT 99
--- NOTE | 2022-11-28 03:20 | PC.NURSE ---
patient to CT
[2022-11-28 03:47] LABS: Basophils % 0.6 % (0.1-2.0); Eosinophils # 0.1 K/mm3 (0.0-0.4); Eosinophils % 1.3 % (0.1-12.0); Hematocrit 37.4 % (37.0-47.0); Hemoglobin 12.7 g/dL (12.2-16.2); Lymphocytes # 1.4 K/mm3 (0.7-4.5); Lymphocytes % 28.5 % (10-50); Mean Corpuscular HGB Conc 34.1 g/dL (31.8-35.4); Mean Corpuscular Hemoglobin 29.5 pg (27.0-31.2); Mean Corpuscular Volume 86.6 fl (81-99); Mean Platelet Volume 8.6 fl (7.4-10.4); Monocytes # 0.3 K/mm3 (0.1-1.0); Monocytes % 5.5 % (1.7-9.3); Neutrophils # 3.1 K/mm3 (1.8-7.8); Neutrophils % 64.2 % (37.0-80.0); Platelet Count 186 K/mm3 (142-424); Red Blood Count 4.32 M/mm3 (4.20-5.40); Red Cell Distribution Width 14.6 % (11.5-17.5); White Blood Count 4.9 K/mm3 (4.8-10.8)
[2022-11-28 03:50] LABS: Chloride 107 mmol/L (98-107)
[2022-11-28 03:51] LABS: Potassium 3.3 mmoL/L (3.5-5.1); Sodium 138 mmol/L (136-145)
[2022-11-28 03:53] LABS: Alanine Aminotransferase 12 U/L (12-78); Aspartate Amino Transferase 24 U/L (14-36); Bilirubin,Total 1.1 mg/dl (0.2-1.3); Blood Urea Nitrogen 15 mg/dl (7-17); Creatinine Clearance Estimated 34 mL/min (50-200); Estimated Glomerular Filt Rate 69 ml/min (>60); GFR (African American) 83 ML/MIN (>60); Lactic Acid 1.5 mmol/L (0.7-2.1)
[2022-11-28 03:54] LABS: Albumin Level 3.2 g/dl (3.5-5.0); Albumin/Globulin Ratio 1.1 (1.1-1.8); Alkaline Phosphatase 78 U/L (38-126); Anion Gap 8.3 mEq/L (5-15); Calcium 8.5 mg/dl (8.4-10.2); Carbon Dioxide 26 mmol/L (22.0-30.0); Globulin 2.8 g/dL (1.3-3.2); Glucose 101 mg/dl (74-100); Lipase 289 U/L (23-300)
--- NOTE | 2022-11-28 04:34 | PC.NURSE ---
Dr. Li paged at this time
--- NOTE | 2022-11-28 04:35 | PC.NURSE ---
CLAUDE LOPES speaking with Dr. Li at this time
[2022-11-28 05:27] VITALS: BP 150/88; PULSE 68; RESP 18; TEMP 36.6; O2SAT 99
== END 2022-11-28 05:45 | disposition home or self-care (01) ==
PROVIDERS: Emergency Provider Emergency Medicine; PCP Internal Medicine Adolescent Medicine
DX: K56.41 Fecal impaction (principal); K62.6 Ulcer of anus and rectum; I10 Essential (primary) hypertension; J45.991 Cough variant asthma; Z87.19 Personal history of other diseases of the digestive system; Z83.3 Family history of diabetes mellitus; Z82.49 Family history of ischemic heart disease and other diseases of the circulatory system; Z83.42 Family history of familial hypercholesterolemia
CPT/HCPCS: 74177; 80053; 83605; 83690; 85025; 93005; 96360; 99285; Q9967

== ENCOUNTER 2023-04-12 01:53 | Emergency (ER) | payer MEDICARE, BC, SELFPAY ==
[2023-04-12] VITALS (15 sets, daily range): BP systolic 114–158; BP diastolic 74–96; PULSE 62–95; RESP 16–20; TEMP 36.5–36.7; O2SAT 91–95; BMI 16.2
--- NOTE | 2023-04-12 01:55 | XR_ITS ---
PROCEDURE INFORMATION: Exam: XR Chest Exam date and time: 04/12/2023 2:05 AM Age: 82 years old Clinical indication: Cough and shortness of breath; Patient HX: Chronic cough, C/O new onset SOA TECHNIQUE: Imaging protocol: Radiologic exam of the chest. Views: 1 view. COMPARISON: CR XR CHEST PORTABLE 08/12/2022 8:05 PM FINDINGS: Lungs: Unremarkable. No consolidation. Pleural spaces: Unremarkable. No pleural effusion. No pneumothorax. Heart/Mediastinum: Unremarkable. No cardiomegaly. Bones/joints: Unremarkable. IMPRESSION: No acute findings.
--- NOTE | 2023-04-12 02:13 | ECG_ITS ---
APPROVED REPORT Exam: Resting ECG HR:95 bpm ECG Measurements Heart Rate 95 AXES MA 177 P 84 QRSd 133 QRS 89 QT 406 T 99 QTc 459 Conclusion SINUS RHYTHM INTRAVENTRICULAR CONDUCTION DELAY [130+ ms QRS DURATION] ABNORMAL ECG UNCONFIRMED REPORT Electronically signed by : Jamie Belle MD 04/12/2023 20:06:11
[2023-04-12 02:17] LABS: Basophils % 0.4 % (0.1-2.0); Eosinophils # 0.3 K/mm3 (0.0-0.4); Eosinophils % 3.1 % (0.1-12.0); Hematocrit 43.6 % (37.0-47.0); Lymphocytes # 0.8 K/mm3 (0.7-4.5); Lymphocytes % 9.7 % (10-50); Mean Corpuscular HGB Conc 32.1 g/dL (31.8-35.4); Mean Corpuscular Hemoglobin 27.9 pg (27.0-31.2); Mean Corpuscular Volume 86.8 fl (81-99); Mean Platelet Volume 7.6 fl (7.4-10.4); Monocytes # 0.6 K/mm3 (0.1-1.0); Monocytes % 7.8 % (1.7-9.3); Neutrophils # 6.4 K/mm3 (1.8-7.8); Neutrophils % 79.1 % (37.0-80.0); Platelet Count 168 K/mm3 (142-424); Red Blood Count 5.03 M/mm3 (4.20-5.40); Red Cell Distribution Width 15.2 % (11.5-17.5)
[2023-04-12 02:23] LABS: Alanine Aminotransferase 15 U/L (12-78); Albumin Level 4.1 g/dl (3.5-5.0); Albumin/Globulin Ratio 1.2 (1.1-1.8); Alkaline Phosphatase 99 U/L (38-126); Aspartate Amino Transferase 22 U/L (14-36); Bilirubin,Total 1.2 mg/dl (0.2-1.3); Blood Urea Nitrogen 16 mg/dl (7-17); Carbon Dioxide 24 mmol/L (22.0-30.0); Chloride 102 mmol/L (98-107); Creatinine Clearance Estimated 33 mL/min (50-200); Estimated Glomerular Filt Rate 80 ml/min (>60); GFR (African American) 97 ML/MIN (>60); Globulin 3.5 g/dL (1.3-3.2); Glucose 152 mg/dl (74-100); Sodium 137 mmol/L (136-145); Total Protein,Serum 7.6 g/dl (6.3-8.2)
[2023-04-12 02:24] LABS: Lactic Acid 0.7 mmol/L (0.7-2.1)
--- NOTE | 2023-04-12 02:31 | PC.NURSE ---
notified anna marie of critical potassium 3.0
[2023-04-12 02:34] LABS: NT Pro Brain Natriuretic Pep. 3350 pg/mL (0-450)
[2023-04-12 02:37] LABS: Troponin I 0.03 ng/ml (0.00-0.034)
[2023-04-12 02:42] LABS: Procalcitonin 0.102 ng/mL (0.0-2.0)
[2023-04-12 02:46] LABS: Erythrocyte Sedimentation Rate 21 mm/hr (0-30)
--- NOTE | 2023-04-12 03:04 | HMH.EDSOB ---
Discharge Plan Disposition Patient Disposition: Admitted Clinical Impressions Clinical Impression: Acute exacerbation of chronic obstructive airways disease, Congestive heart failure Discharge ED Provider: Enzo (ED)Heath Resp/SOB HPI General Chief Complaint: Shortness of Breath/Dyspnea Stated Complaint: SOa Time Seen by Provider: 04/12/23 02:30 Mode of Arrival: EMS Source of Information: Patient, Relative, EMS and Medical Record Limitations: No Limitations Description of Symptoms (Recalled from ER Triage Doc. by RN): EMS reports pt has had difficulty breathing ongoing x1year that has been worse tonight. 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 pt was given an albuterol breathing treatment en route. pt states that helped some. pt has bilateral rhonchi History of Present Illness pt sent from [facility] with acute sob and cough with wheezing - no chest pain reported by pt - MD Complaint: shortness of breath and cough Onset (ago): hour(s) Severity: moderate Consistency/Duration: intermittent Known history of: COPD Associated symptoms: denies other symptoms Treatment prior to arrival: oxygen and bronchodilator Related Data Home oxygen amount: 2 liters Home Medications Medication Instructions Recorded Confirmed albuterol sulfate 2.5 mg/3 mL 2.5 mg inhalation BID Breathing 04/12/23 04/12/23 (0.083 %) solution for nebulization problems alprazolam 0.5 mg tablet 0.25 mg PO TID Anxiety 04/12/23 04/12/23 fentanyl 12 mcg/hr transdermal 1 patch transdermal Q72H Pain 04/12/23 04/12/23 patch guaifenesin 100 mg/5 mL oral liquid 100 mg PO Q4H PRN Cough 04/12/23 04/12/23 ipratropium bromide 0.02 % 1 ml inhalation QID Breathing 04/12/23 04/12/23 solution for inhalation problems trazodone 100 mg tablet 100 mg PO HS sleep 04/12/23 04/12/23 Previous Rx's Medication Instructions Recorded acetaminophen 325 mg tablet 650 mg PO Q6HP PRN Mild To 03/19/19 Moderate Pain Allergies Allergy/AdvReac Type Severity Reaction Status Date / Time atenolol [ATENOLOL] Allergy Unknown Verified 04/12/23 01:59 bismuth subsalicylate Allergy Unknown Verified 04/12/23 01:59 [From PEPTO-BISMOL] cimetidine [From TAGAMET] Allergy Unknown Verified 04/12/23 01:59 diazepam [From VALIUM] Allergy Unknown Verified 04/12/23 01:59 dicyclomine [From BENTYL] Allergy Unknown Verified 04/12/23 01:59 docusate [DOCUSATE] Allergy Unknown Verified 04/12/23 01:59 escitalopram [From LEXAPRO] Allergy Unknown Verified 04/12/23 01:59 famotidine [From PEPCID] Allergy Unknown Verified 04/12/23 01:59 fenofibrate [From TRICOR] Allergy Unknown Verified 04/12/23 01:59 fish oil [FISH OIL] Allergy Unknown Verified 04/12/23 01:59 hydrocortisone [From LOCOID] Allergy Unknown Verified 04/12/23 01:59 mirtazapine [From REMERON] Allergy Unknown Verified 04/12/23 01:59 niacin [NIACIN] Allergy Unknown Verified 04/12/23 01:59 nortriptyline [NORTRIPTYLINE] Allergy Unknown Verified 04/12/23 01:59 omeprazole [From PRILOSEC] Allergy Unknown Verified 04/12/23 01:59 pravastatin [From Pravachol] Allergy Unknown Verified 04/12/23 01:59 rosuvastatin Allergy Unknown Verified 04/12/23 01:59 simvastatin Allergy Unknown Verified 04/12/23 01:59 Rncufjj-XFK-MnY Reductase Allergy Unknown Verified 04/12/23 01:59 Inhibitor [Gzyqzcz-Its-Ezn Reductase Inhibitor] Sulfa (Sulfonamide Allergy Unknown Verified 04/12/23 01:59 Antibiotics) [SULFA (SULFONAMIDE ANTIBIOTICS)] sulfamethoxazole Allergy Unknown Verified 04/12/23 01:59 [From BACTRIM] trimethoprim [From BACTRIM] Allergy Unknown Verified 04/12/23 01:59 PFSH PFSH Disclaimer: The information contained in this section may have been updated after the patient was seen, as this information can be updated by other users. Medical History Allergic rhinitis Chronic cough Cough variant asthma Eosinoph
[2023-04-12 03:14] LABS: ABG Base Excess -1.8 mmol/L (-2.4-2.3); ABG HCO3 22.3 mmhg (22.0-26.0); ABG Oxygen Saturation 96 % (90-100); ABG PCO2 33.3 mmhg (35.0-45.0); ABG PH 7.44 mmol/L (7.35-7.45); ABG PO2 74.9 mmhg (80-100); ABG TCO2 23.3 mmhg (23-27)
[2023-04-12 03:15] LABS: Allen's Test Acceptable; Source Right Radial
[2023-04-12 03:16] LABS: Coronavirus 19, PCR Not Detected (NotDetected); Influenza A, PCR Not Detected (NotDetected); Influenza B, PCR Not Detected (NotDetected)
[2023-04-12 03:44] LABS: Microscopic, Urine URINE MICROSCOPIC (MICROSCOPIC)
[2023-04-12 03:47] LABS: Appearance,Urine CLEAR (Clear); Bilirubin,Urine Negative (Negative); Blood, Urine TRACE-I (Negative); Color,Urine YELLOW (Yellow); Glucose,Urine (UA) Negative (Negative); Ketones,Urine Negative (Negative); Leukocyte Esterase,Urine Negative (Negative); Nitrate,Urine Negative (Negative); Protein,Urine 1+ (Negative); Specific Gravity, Urine 1.025 (1.005-1.030); Urobilinogen,Urine 0.2 EU/dl (0.2)
[2023-04-12 04:10] LABS: Bacteria,Urine 1+ /lpf; Mucus,Urine 1+ /lpf
--- NOTE | 2023-04-12 04:49 | PC.NURSE ---
pt will be boarding in er. pt notified of this. pt ambulated to BR x1
[2023-04-12 05:02] LABS: Troponin I 0.04 ng/ml (0.00-0.034)
--- NOTE | 2023-04-12 05:50 | PC.NURSE ---
Pt resting in bed with eyes closed. No needs voiced.
--- NOTE | 2023-04-12 06:46 | PC.NURSE ---
Pt continues resting. Breakfast tray ordered.
--- NOTE | 2023-04-12 06:49 | PC.NURSE ---
vascular @ bedside for echo
--- NOTE | 2023-04-12 07:41 | PC.NURSE ---
called dietary for breakfast tray for pt.
--- NOTE | 2023-04-12 07:50 | PC.NURSE ---
green top tube sent to lab for repeat troponin
--- NOTE | 2023-04-12 08:08 | PC.NURSE ---
pt sitting up eating breakfast at this time. call [facility]wick within reach
[2023-04-12 08:16] LABS: Troponin I 0.03 ng/ml (0.00-0.034)
--- NOTE | 2023-04-12 08:42 | PC.NURSE ---
report called to rachid on second floor. nurse states that EVS is cleaning room, once finished she will send someone to get pt.
--- NOTE | 2023-04-12 09:02 | PC.NURSE ---
dr. vargas at for rounds on pt. after assessing pt and reviewing labs states he is going to d/c pt back to longterm, notified powerhouse attendant and second floor staff. Will keep pt in ER instead of sending to second floor-okayed per powerhouse attendant.
--- NOTE | 2023-04-12 09:24 | PC.NURSE ---
spoke with pt son who stated he would come and get the pt and [facility] once [facility] up and moving
--- NOTE | 2023-04-12 09:25 | SW/DCPLANNER ---
Patient currently resides at [facility] level of care. I have updated Lelo patel/ [facility] that the plan for this patient is to return today. I will fax updated patient information.
--- NOTE | 2023-04-12 09:40 | EXP.HPDC ---
General Admission date:: 04/12/23 Discharge date: 04/12/23 *Admission Date: 04/12/23 *Chief complaint: Cough spasm and dyspnea *History of present illness: 82-year-old longtime patient of my practice who is a resident at the [facility]. She has a host of medical problems including chronic COPD, diastolic CHF and chronic coughing. She also has chronic diarrhea, chronic bowel complaints and disabling and severe anxiety. She had been admitted to [facility] several months ago under [facility], but is actually done very well there and was discharged from hospice a couple weeks ago. She had been doing well but has been developing a cough, apparently early this morning she had a cough spasm and was transferred to the ER because the nurses and she were concerned about her totally losing her breath. In the ER she was given a neb treatment, levofloxacin, and decision to admit was made because of an elevated BNP level with a diagnosis of possible CHF. [facility] Disclaimer: The information contained in this section may have been updated after the patient was seen, as this information can be updated by other users. Medical History Allergic rhinitis Chronic cough Cough variant asthma Eosinophilia Surgical History History of colon resection History of colonoscopy History of tonsillectomy Hx of cholecystectomy Family History Other Asthma Coronary artery disease Diabetes Heart attack Hyperlipidemia Hypertension Social History Smoking Status: Never smoker alcohol intake: never current occupational status: retired Travel in the last 8 weeks: None caffeine: Yes Exam Data for Last 24 hours Vital signs and Labs for Last 24 Hours: Temp Pulse Resp BP Pulse Ox 97.7 F 74 20 124/74 93 L 04/12/23 01:51 04/12/23 06:30 04/12/23 01:51 04/12/23 06:30 04/12/23 06:30 Laboratory Results - last 24 hr 04/12/23 02:00: WBC 8.0, RBC 5.03, Hgb 14.0, Hct 43.6, MCV 86.8, MCH 27.9, MCHC 32.1, RDW 15.2, Plt Count 168, MPV 7.6, Neut % (Auto) 79.1, Lymph % (Auto) 9.7 L, Lynn % (Auto) 7.8, Eos % (Auto) 3.1, Baso % (Auto) 0.4, Neut # (Auto) 6.4, Lymph # (Auto) 0.8, Lynn # (Auto) 0.6, Eos # (Auto) 0.3, Baso # (Auto) 0.0, ESR 21 04/12/23 02:00: Sodium 137, Potassium 3.0 L, Chloride 102, Carbon Dioxide 24, Anion Gap 14.0, BUN 16, Creatinine 0.70, Estimated Creat Clear 33, Estimated GFR 80, Est GFR ( Amer) 97, Glucose 152 H, Calcium 9.0, Total Bilirubin 1.2, AST 22, ALT 15, Alkaline Phosphatase 99, Troponin I 0.03, C-Reactive Protein 54.0 H, Total Protein 7.6 D, Albumin 4.1, Globulin 3.5 H, Albumin/Globulin Ratio 1.2, Procalcitonin 0.102 04/12/23 02:00: NT-Pro-B Natriuret Pep 3350 H 04/12/23 02:00: Lactate 0.7 04/12/23 03:02: Specimen Source Right radial, O2 % 1 lpm n/c, ABG pH 7.44, ABG pCO2 33.3 L, ABG pO2 74.9 L, ABG HCO3 22.3, ABG Total CO2 23.3, ABG O2 Saturation 96, ABG Base Excess -1.8, Paulo Test Acceptable 04/12/23 03:14: SARS-CoV-2 (PCR) Not detected, Influenza A Untype (PCR) Not detected, Influenza Type B (PCR) Not detected 04/12/23 03:20: Urine Color Yellow, Urine Appearance Clear, Urine pH 6.0, Ur Specific [place] 1.025, Urine Protein 1+, Urine Glucose (UA) Negative, Urine Ketones Negative, Urine Blood Trace-i, Urine Nitrate Negative, Urine Bilirubin Negative, Urine Urobilinogen 0.2, Ur Leukocyte Esterase Negative, Urine RBC 3-5, Urine WBC 3-5, Ur Squamous Epith Cells 3-5, Urine Bacteria 1+, Hyaline Casts 3-5, Urine Mucus 1+ 04/12/23 04:30: Troponin I 0.04 H 04/12/23 07:44: Troponin I 0.03 I & O for Last 24 hours: Intake & Output 04/09/23 04/10/23 04/11/23 04/12/23 11:59 11:59 11:59 11:59 Weight 104 lb Constitutional Constitutional: no acute distress and th
--- NOTE | 2023-04-12 10:17 | PC.NURSE ---
report called to tracee at [facility] at this time.
== END 2023-04-12 11:21 ==
LOC: ER 02:25 → 2ND 05:30 → ER 11:17
PROVIDERS: Emergency Provider Emergency Medicine; PCP Internal Medicine Adolescent Medicine
DX: I50.9 Heart failure, unspecified (principal); J44.9 Chronic obstructive pulmonary disease, unspecified; R06.02 Shortness of breath
CPT/HCPCS: 71045; 80053; 81001; 82803; 83605; 83880; 84145; 84484; 85025; 85651; 86140; 87040; 87635; 87636; 93005; 93306; 96374; 96375; 99285; C9803; J1956; U0003; U0005

== ENCOUNTER 2023-09-22 21:47 | Observation (INO) | payer MEDICARE, BC, SELFPAY ==
[2023-09-22 21:47] VITALS: BP 169/93; PULSE 95; RESP 22; TEMP 38.2; O2SAT 87; O2SAT 95; BMI 21.0
[2023-09-22 22:00] VITALS: BP 169/93; PULSE 96; O2SAT 96
--- NOTE | 2023-09-22 22:00 | XR_ITS ---
PROCEDURE INFORMATION: Exam: XR Chest Exam date and time: 09/22/2023 10:12 PM Age: 83 years old Clinical indication: Cough and shortness of breath; Additional info: Fall TECHNIQUE: Imaging protocol: Radiologic exam of the chest. Views: 1 view. COMPARISON: CR XR CHEST PORTABLE 04/12/2023 2:05 AM FINDINGS: Lungs: Bibasilar mixed interstitial and airspace opacities [id number]. Lungs otherwise clear. Pleural spaces: Unremarkable. No pleural effusion. No pneumothorax. Heart/Mediastinum: Unremarkable. No cardiomegaly. Bones/joints: Unremarkable. IMPRESSION: Bibasilar opacity suggesting possible developing infiltrates. Advise short-term follow-up chest x-rays to ensure resolution.
--- NOTE | 2023-09-22 22:00 | ECG_ITS ---
APPROVED REPORT Exam: Resting ECG HR:97 bpm ECG Measurements Heart Rate 97 AXES NH 144 P 44 QRSd 143 QRS 58 QT 401 T 109 QTc 456 Conclusion SINUS RHYTHM WITH FREQUENT SUPRAVENTRICULAR PREMATURE COMPLEXES LEFT BUNDLE BRANCH BLOCK [120+ ms QRS DURATION, 80+ ms Q/S IN V1/V2, 85+ ms R IN I/aVL/V5/V6] ABNORMAL ECG UNCONFIRMED REPORT Electronically signed by : Jamie Belle MD 09/23/2023 08:52:30
--- NOTE | 2023-09-22 22:04 | HMH.EDGENADL ---
Discharge Plan Disposition Patient Disposition: Admitted Condition: Fair Prescriptions Prescriptions: No Action albuterol sulfate 2.5 mg /3 mL (0.083 %) solution for nebulization 2.5 mg inhalation BID PRN (Reason: Breathing Problems) guaifenesin 100 mg/5 mL Liquid 100 mg PO Q4H PRN (Reason: Cough) alprazolam 0.5 mg tablet 0.25 mg PO TID trazodone 100 mg tablet 100 mg PO HS ipratropium bromide 0.02 % solution 1 ml inhalation QID PRN (Reason: Breathing Problems) fentanyl 12 mcg/hr Patch 72 Hour 1 patch TRANSDERMAL Q72H acetaminophen 325 MG tablet 650 mg PO Q6HP PRN (Reason: Pain) levofloxacin [levofloxacin] 500 mg tablet 500 mg PO DAILY Qty: 5 0RF Referrals Follow up/Referrals: Provider,Referral, MD [Primary Care Provider] - See instructions Clinical Impressions Clinical Impression: Acute exacerbation of chronic obstructive airways disease Discharge ED Provider: Richi Nobles General Adult HPI General Chief complaint: Fever Stated complaint: cough,congestion,fever Time Seen by Provider: 09/22/23 21:55 History of Present Illness HPI narrative: 83-year-old female with a long history of COPD, CHF, hypertension, left bundle branch block who [facility] from [facility] with complaints of shortness of breath and fatigue. Patient notes that for the past 3 days, she has been having progressively worsening fevers, chills, cough, shortness of breath, and exertional fatigue. Tonight, patient's cough and shortness of breath progressively worsened and thus EMS was called. On EMS arrival, the patient was hypoxic and was requiring 2 L nasal cannula to maintain oxygenation. Patient had a fever to 101. Related Data Home Medications Medication Instructions Recorded Confirmed acetaminophen 325 mg tablet 650 mg PO Q6HP PRN Pain 04/12/23 04/12/23 albuterol sulfate 2.5 mg/3 mL 2.5 mg inhalation BID PRN 04/12/23 04/12/23 (0.083 %) solution for nebulization Breathing Problems alprazolam 0.5 mg tablet 0.25 mg PO TID Anxiety 04/12/23 04/12/23 fentanyl 12 mcg/hr transdermal 1 patch transdermal Q72H Pain 04/12/23 04/12/23 patch guaifenesin 100 mg/5 mL oral liquid 100 mg PO Q4H PRN Cough 04/12/23 04/12/23 ipratropium bromide 0.02 % 1 ml inhalation QID PRN Breathing 04/12/23 04/12/23 solution for inhalation Problems trazodone 100 mg tablet 100 mg PO HS Sleep 04/12/23 04/12/23 Previous Rx's Medication Instructions Recorded levofloxacin 500 mg tablet 500 mg PO DAILY #5 tabs 04/12/23 Allergies Allergy/AdvReac Type Severity Reaction Status Date / Time atenolol [ATENOLOL] Allergy Unknown Verified 09/22/23 22:45 bismuth subsalicylate Allergy Unknown Verified 09/22/23 22:45 [From PEPTO-BISMOL] cimetidine [From TAGAMET] Allergy Unknown Verified 09/22/23 22:45 diazepam [From VALIUM] Allergy Unknown Verified 09/22/23 22:45 dicyclomine [From BENTYL] Allergy Unknown Verified 09/22/23 22:45 docusate [DOCUSATE] Allergy Unknown Verified 09/22/23 22:45 escitalopram [From LEXAPRO] Allergy Unknown Verified 09/22/23 22:45 famotidine [From PEPCID] Allergy Unknown Verified 09/22/23 22:45 fenofibrate [From TRICOR] Allergy Unknown Verified 09/22/23 22:45 fish oil [FISH OIL] Allergy Unknown Verified 09/22/23 22:45 hydrocortisone [From LOCOID] Allergy Unknown Verified 09/22/23 22:45 mirtazapine [From REMERON] Allergy Unknown Verified 09/22/23 22:45 niacin [NIACIN] Allergy Unknown Verified 09/22/23 22:45 nortriptyline [NORTRIPTYLINE] Allergy Unknown Verified 09/22/23 22:45 omeprazole [From PRILOSEC] Allergy Unknown Verified 09/22/23 22:45 pravastatin [From Pravachol] Allergy Unknown Verified 09/22/23 22:45 rosuvastatin Allergy Unknown Verified 09/22/23 22:45 simvastatin Allergy Unknown Verified 09/22/23 22:45 [id number]-[id number] Reductase Allergy Unknown Verified 09/22/23 22:45 Inhibitor [Amghuiq-Vna-Grf Reductase Inhibitor] Sulfa (Sulfonamide Allergy Un
[2023-09-22 22:06] LABS: Coronavirus 19, PCR Not Detected (NotDetected); Influenza A, PCR Not Detected (NotDetected); Influenza B, PCR Not Detected (NotDetected)
[2023-09-22 22:11] LABS: VBG Base Excess -3.6 mmol/L (-2.4-2.3); VBG HCO3 20.7 mmol/L (23-30); VBG Oxygen Saturation 76.4 % (50-70); VBG PCO2 31.7 mmol/L (35-51); VBG PH 7.43 mmol/L (7.31-7.41); VBG PO2 38.6 mmol/L (28-40); VBG Total CO2 21.7 mmol/L (23-27)
[2023-09-22 22:20] LABS: Basophils % 0.3 % (0.1-2.0); Eosinophils # 0.2 K/mm3 (0.0-0.4); Hematocrit 38.4 % (37.0-47.0); Hemoglobin 13.2 g/dL (12.2-16.2); Lymphocytes % 11.4 % (10-50); Mean Corpuscular HGB Conc 34.4 g/dL (31.8-35.4); Mean Corpuscular Hemoglobin 28.7 pg (27.0-31.2); Mean Corpuscular Volume 83.6 fl (81-99); Mean Platelet Volume 8.2 fl (7.4-10.4); Monocytes # 0.5 K/mm3 (0.1-1.0); Monocytes % 5.3 % (1.7-9.3); Neutrophils # 7.3 K/mm3 (1.8-7.8); Neutrophils % 81.1 % (37.0-80.0); Platelet Count 171 K/mm3 (142-424); Red Blood Count 4.59 M/mm3 (4.20-5.40); Red Cell Distribution Width 14.3 % (11.5-17.5)
[2023-09-22 22:29] LABS: Lactic Acid 1.2 mmol/L (0.7-2.1)
[2023-09-22 22:30] LABS: Alanine Aminotransferase 34 U/L (12-78); Albumin/Globulin Ratio 1.1 (1.1-1.8); Alkaline Phosphatase 116 U/L (38-126); Anion Gap 13.2 mEq/L (5-15); Aspartate Amino Transferase 39 U/L (14-36); Blood Urea Nitrogen 11 mg/dl (7-17); Calcium 8.5 mg/dl (8.4-10.2); Carbon Dioxide 23 mmol/L (22.0-30.0); Chloride 101 mmol/L (98-107); Creatinine Clearance Estimated 39 mL/min (50-200); Estimated Glomerular Filt Rate 69 ml/min (>60); GFR (African American) 83 ML/MIN (>60); Globulin 3.6 g/dL (1.3-3.2); Glucose 128 mg/dl (74-100); Potassium 3.2 mmoL/L (3.5-5.1); Sodium 134 mmol/L (136-145); Total Protein,Serum 7.6 g/dl (6.3-8.2)
[2023-09-22 22:41] LABS: NT Pro Brain Natriuretic Pep. 1180 pg/mL (0-450)
[2023-09-22 22:42] LABS: Troponin I < 0.01 ng/ml (0.00-0.034)
--- NOTE | 2023-09-22 22:48 | EXP.HP ---
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 Patient noted that for the past 3 days, she has been having progressively worsening fevers, chills, cough, shortness of breath, and exertional fatigue. Tonight, patient's cough and shortness of breath progressively worsened and thus EMS was called. On EMS arrival, the patient was hypoxic and was requiring 2 L nasal cannula to maintain oxygenation. Patient had a fever to 101. Admitted for management and treatment. [facility] Disclaimer: The information contained in this section may have been updated after the patient was seen, as this information can be updated by other users. Medical History Allergic rhinitis Chronic cough Cough variant asthma Eosinophilia Surgical History History of colon resection History of colonoscopy History of tonsillectomy Hx of cholecystectomy Family History Other Asthma Coronary artery disease Diabetes Heart attack Hyperlipidemia Hypertension Social History (Updated 09/23/23 @ 00:15 by Keila Armstrong RN) Smoking Status: Never smoker alcohol intake: never current occupational status: retired Travel in the last 8 weeks: None caffeine: Yes Review of Systems Review of Systems Review of systems:: pertinent systems reviewed and negative unless documented below Meds Home Medications and Allergies Home Medications Medication Instructions Recorded Confirmed Type acetaminophen 325 mg tablet 650 mg PO Q6HP PRN Mild Pain 04/12/23 09/23/23 History (Scale Score 1-4) alprazolam 0.5 mg tablet 0.25 mg PO TID Anxiety 04/12/23 09/23/23 History trazodone 100 mg tablet 100 mg PO HS Sleep 04/12/23 09/23/23 History cetirizine 5 mg tablet 5 mg PO HS Allergy Symptoms 09/23/23 09/23/23 History docusate sodium 100 mg capsule 100 mg PO DAILY Constipation 09/23/23 09/23/23 History (Colace) fluticasone propionate 50 1 spray intranasal HS Allergy 09/23/23 09/23/23 History mcg/actuation nasal Symptoms spray,suspension ipratropium 0.5 mg-albuterol 3 mg 3 ml inhalation QID 30 days #0 mL 09/23/23 09/23/23 Rx (2.5 mg base)/3 mL nebulization soln sennosides 8.6 mg tablet (senna) 8.6 mg PO BID PRN Constipation 09/23/23 09/23/23 History New Prescriptions to Start Prescriptions: Allergies Allergy/AdvReac Type Severity Reaction Status Date / Time atenolol [ATENOLOL] Allergy Unknown Verified 09/22/23 22:45 bismuth subsalicylate Allergy Unknown Verified 09/22/23 22:45 [From PEPTO-BISMOL] cimetidine [From TAGAMET] Allergy Unknown Verified 09/22/23 22:45 diazepam [From VALIUM] Allergy Unknown Verified 09/22/23 22:45 dicyclomine [From BENTYL] Allergy Unknown Verified 09/22/23 22:45 docusate [DOCUSATE] Allergy Unknown Verified 09/22/23 22:45 escitalopram [From LEXAPRO] Allergy Unknown Verified 09/22/23 22:45 famotidine [From PEPCID] Allergy Unknown Verified 09/22/23 22:45 fenofibrate [From TRICOR] Allergy Unknown Verified 09/22/23 22:45 fish oil [FISH OIL] Allergy Unknown Verified 09/22/23 22:45 hydrocortisone [From LOCOID] Allergy Unknown Verified 09/22/23 22:45 mirtazapine [From REMERON] Allergy Unknown Verified 09/22/23 22:45 niacin [NIACIN] Allergy Unknown Verified 09/22/23 22:45 nortriptyline [NORTRIPTYLINE] Allergy Unknown Verified 09/22/23 22:45 omeprazole [From PRILOSEC] Allergy Unknown Verified 09/22/23 22:45 pravastatin [From Pravachol] Allergy Unknown Verified 09/22/23 22:45 rosuvastatin Allergy Unknown Verified 09/22/23 22:45 simvastatin Allergy Unkno
--- NOTE | 2023-09-22 22:48 | PC.NURSE ---
I called the greenhouse manager, Faustino HUTSON, to request a bed for COPD exacerbation admission.
--- NOTE | 2023-09-22 22:53 | PC.NURSE ---
Admitting notified for Acute admission r/t COPD Exacerbation with O2 <88% to hospitalist[facility]
[2023-09-22 23:22] VITALS: BP 125/71; PULSE 102; RESP 25; TEMP 37; O2SAT 94
--- NOTE | 2023-09-22 23:30 | PC.NURSE ---
Pt arrived to the floor via stretcher @ [id number]
[2023-09-22 23:46] VITALS: BP 128/66; PULSE 99; RESP 22; TEMP 36.8; O2SAT 92
[2023-09-22 23:55] VITALS: RESP 20
[2023-09-23 01:44] LABS: Troponin I < 0.01 ng/ml (0.00-0.034)
[2023-09-23 04:00] VITALS: BP 105/57; PULSE 64; RESP 20; TEMP 36.9; O2SAT 94
[2023-09-23 04:48] VITALS: PULSE 70; PULSE 74; O2SAT 94
[2023-09-23 07:07] LABS: Basophils % 0.1 % (0.1-2.0); Eosinophils % 0.1 % (0.1-12.0); Hematocrit 35.3 % (37.0-47.0); Hemoglobin 12.1 g/dL (12.2-16.2); Lymphocytes # 0.4 K/mm3 (0.7-4.5); Lymphocytes % 7.5 % (10-50); Mean Corpuscular HGB Conc 34.1 g/dL (31.8-35.4); Mean Corpuscular Hemoglobin 28.7 pg (27.0-31.2); Mean Corpuscular Volume 84.2 fl (81-99); Mean Platelet Volume 8.4 fl (7.4-10.4); Monocytes # 0.1 K/mm3 (0.1-1.0); Monocytes % 1.5 % (1.7-9.3); Neutrophils % 90.9 % (37.0-80.0); Platelet Count 180 K/mm3 (142-424); Red Blood Count 4.19 M/mm3 (4.20-5.40); Red Cell Distribution Width 14.1 % (11.5-17.5); White Blood Count 5.6 K/mm3 (4.8-10.8)
[2023-09-23 07:10] LABS: Alanine Aminotransferase 29 U/L (12-78); Albumin Level 3.5 g/dl (3.5-5.0); Albumin/Globulin Ratio 1.1 (1.1-1.8); Alkaline Phosphatase 99 U/L (38-126); Anion Gap 10.6 mEq/L (5-15); Aspartate Amino Transferase 29 U/L (14-36); Bilirubin,Total 0.5 mg/dl (0.2-1.3); Blood Urea Nitrogen 11 mg/dl (7-17); Carbon Dioxide 22 mmol/L (22.0-30.0); Chloride 108 mmol/L (98-107); Creatinine Clearance Estimated 37 mL/min (50-200); Estimated Glomerular Filt Rate 69 ml/min (>60); GFR (African American) 83 ML/MIN (>60); Globulin 3.1 g/dL (1.3-3.2); Glucose 205 mg/dl (74-100); Magnesium 2.1 mg/dl (1.6-2.3); Potassium 3.6 mmoL/L (3.5-5.1); Sodium 137 mmol/L (136-145); Total Protein,Serum 6.6 g/dl (6.3-8.2)
[2023-09-23 07:13] LABS: MANUAL DIFFERENTIAL MANUAL DIFFERENTIAL (MANUAL DIFF)
[2023-09-23 07:28] LABS: Lymphocytes % 9 % (10-50); Monocytes % 2 % (2-9); Neutrophils % 89 % (42-76); Platelet Estimate Normal; RBC Morphology Normal; Total Cells Counted 100
[2023-09-23 07:35] VITALS: BP 162/93; PULSE 78; RESP 20; TEMP 36.2; O2SAT 96
--- NOTE | 2023-09-23 08:11 | CARE MANAGER ---
Patient resides at [facility] at [facility] level of care. Updates sent to Lelo there.
--- NOTE | 2023-09-23 08:14 | HMH.PHAINT1 ---
Pharmacy Intervention Comments: MEDICATION RECONCILIATION COMPLETED ON PATIENT USING EXTERNAL FILL HISTORY FROM PHARMACY. -SABRINA HENRY, MALLORYD
--- NOTE | 2023-09-23 09:07 | EXP.DC.SUM ---
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 Patient noted that for the past 3 days, she has been having progressively worsening fevers, chills, cough, shortness of breath, and exertional fatigue. Tonight, patient's cough and shortness of breath progressively worsened and thus EMS was called. On EMS arrival, the patient was hypoxic and was requiring 2 L nasal cannula to maintain oxygenation. Patient had a fever to 101. Admitted for management and treatment. 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 Upon arrival patient presented hypoxic and was requiring 2 L nasal cannula to maintain oxygenation. ER reported patient had a fever to 101, but hemodynamically stable, in no respiratory distress, and nontoxic in appearance. CXR notable for bilateral air space opacities. Elevated BNP on admission. Chart review concerning for history of CHF. Presentation secondary to CHF exacerbation versus pneumonia. Stable in the morning. Discussion with patient and family about transitioning back to half-way for continued antibiotic and diuretic treatment. Stable for discharge. Problems addressed during hospitalization as follows: -Bilateral lower opacity likely consequent with pnemonia versus CHF and volume overload: -Hypertension: Well-controlled Admit patient for med-surg, observed overnight. History from patient with report of cough for a year and a half. Worse when she lays flat. Started on azithromycin and ceftriaxone. Will complete 5-day course of azithromycin for bronchitis/pneumonia component. However have strong concern that her cough is related to CHF. Review of chart shows that her BNP has been elevated for some time, almost 2000 on admission this visit. Echo obtained in March showing EF of 35%. Given bilateral component of opacification on her lungs and oxygen requirement, suspect she has a significant CHF component with orthopnea causing her cough. Initiated on Lasix 40 mg IV x 1 during admission, had good diuresis. Will continue Lasix 40 mg p.o. daily at discharge. Recommend CMP and magnesium levels in 1 week. Magnesium 2.1 and potassium 3.6 on day of discharge. Continue supplemental oxygen as needed for goal saturation greater 90%. Continue 2 L at this time. Stable to discharge back to nursing facility for continued care. -COPD: Continue inhalers and oxygen. No further indication for steroids at discharge Anxiety: continued home alprazolam and trazadon at night for sleep disturbance Spent 30 minutes in discharge counseling, documentation, discussion with family, chart review, and direct care with patient. Exam Data for Last 24 hours Vital signs and Labs for Last 24 Hours: Temp Pulse Resp BP Pulse Ox O2 Del Method O2 Flow Rate 97.2 F L 78 20 162/93 H 96 Nasal Cannula 2 09/23/23 07:35 09/23/23 07:35 09/23/23 07:35 09/23/23 07:35 09/23/23 07:35 09/23/23 08:55 09/23/23 08:55 Laboratory Results - last 24 hr 09/22/23 21:50: SARS-CoV-2 (PCR) Not detected, Influenza A Untype (PCR) Not detected, Influenza Type B (PCR) Not detected 09/22/23 21:58: WBC 9.0, RBC 4.59, Hgb 13.2, Hct 38.4, MCV 83.6, MCH 28.7, MCHC 34.4, RDW 14.3, Plt Count 171, MPV 8.2, Neut % (Auto) 81.1 H, Lymph % (Auto) 11.4, George % (Auto) 5.3, Eos % (Auto) 2.0, Baso % (Auto) 0.3, Neut # (Auto) 7.3, Lymph # (Auto) 1.0, George # (Auto) 0.5, Eos # (Auto) 0.2, Baso # (Auto) 0.0, Sodium 134 L, Potassium 3.2 L, Chloride 101, Carbon Dioxide 23, Anion Gap 13.2, BUN 11, Creatinine 0.8
--- NOTE | 2023-09-23 10:20 | HMH.PTEV ---
Physical Therapy Evaluation Rehab PT IP Evaluation Start: 09/23/23 06:59 Freq: ONCE Status: Active Protocol: Document 09/23/23 09:10 CAITLIN (Rec: 09/23/23 10:20 CAITLIN [id number]) Subjective/History History History Pt is an 83 y/o female who presented to [facility] ED from [facility] on . 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 Patient noted that for the past 3 days, she has been having progressively worsening fevers, chills, cough, shortness of breath, and exertional fatigue. Tonight, patient's cough and shortness of breath progressively worsened and thus EMS was called. On EMS arrival, the patient was hypoxic and was requiring 2 L nasal cannula to maintain oxygenation. Patient had a fever to 101. Admitted for management and treatment. Medical History: Allergic rhinitis, Chronic cough, Cough variant asthma, Eosinophilia Pt on 2L NC Subjective Subjective Pt reports she resides at [facility] and moved here from [place] so her son could take care of her . Pt states she has had a cough for years. Pt reports she does not use oxygen at baseline at the [facility]. Pt reports she has a walker but sometimes she just drags it behind her instead of using it. Pt denies current SOB or pain, pt ambulated with hand hold assist and without NC well without complaints of SOB
--- NOTE | 2023-09-23 11:11 | HMH.OTEV ---
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 Patient noted that for the past 3 days, she has been having progressively worsening fevers, chills, cough, shortness of breath, and exertional fatigue. Tonight, patient's cough and shortness of breath progressively worsened and thus EMS was called. On EMS arrival, the patient was hypoxic and was requiring 2 L nasal cannula to maintain oxygenation. Patient had a fever to 101. Admitted for management and treatment. Patient is a resident at [facility]. Requires assistance for ADLs and medication. Patient stated to use a RW at times. Subjective I can get up. Analysis Patient's functional mobility and ADLs during session. Patient completed all tasks with CGA. No LOB noted. Patient ambulated within [facility] up to 25ft. Patient required verbal cueing for safety. Objective Patient Orientation Person,Place,Name,Age,Year Right Upper Extremity Gross ROM WFL Left Upper Extremity Gross ROM WFL Bed Mobility bed mobility - supine/sit Assist Level Contact Guard/Hand Hold Transfer Training Sit/Stand/Pivot Transfer Assist Level Contact Guard/Hand Hold Chair Transfer Ability Contact Guard/Hand Hold Chair Transfer Technique Sit to/from Ambulatory Chair Transfer Assistive Devices
[2023-09-23 12:13] VITALS: O2SAT 94
--- NOTE | 2023-09-23 14:30 | EXP.EVENT.NO ---
Advance care planning note: Active diagnosis: Heart failure with reduced ejection fraction (EF 30%), chronic cough, COPD, hypertension, generalized anxiety The patient's active diagnoses are of sufficient risk that focused discussion on advanced care planning is indicated in order to allow the patient to thoughtfully consider personal goals of care; and, if situations arise that prevent the ability to personally give input, to ensure appropriate representation of their personal desires through documentation or informed surrogate decision makers. Discussion: Persons present and participating in discussion: Patient and her son Discussion: Extensive discussion about patient's conditions/diagnoses, and progressive debility over the past year. Discussed goals of care and treatment options. Patient has been struggling with her progressive decline. Wants to continue to try rehab at the senior living to get back home but understands that she has worsening heart failure. Still interested in treatments at this time but does reiterate her DNR CODE STATUS. Discussed goal of adjustments in medications including addition of diuretic to treat heart failure and see if this helps her cough which has been very problematic and prolonged over the past year and a half. Son in agreement with plan. Time spent: Total time spent [id number] in education and discussion directly related to advance care plannin minutes Jean Marie Miranda 09/23/2023 1-1:25 PM
== END 2023-09-23 13:52 ==
LOC: ER 22:48 → 2ND 23:03
PROVIDERS: Nurse Practitioner Family; Admitting Provider Internal Medicine Adolescent Medicine; Emergency Provider Emergency Medicine; PCP Internal Medicine Adolescent Medicine; Visit Provider Internal Medicine Adolescent Medicine
DX: J18.9 Pneumonia, unspecified organism (principal); R05.2 Subacute cough; J44.1 Chronic obstructive pulmonary disease with (acute) exacerbation; E87.8 Other disorders of electrolyte and fluid balance, not elsewhere classified; I11.0 Hypertensive heart disease with heart failure; F41.1 Generalized anxiety disorder; I50.23 Acute on chronic systolic (congestive) heart failure; Z79.899 Other long term (current) drug therapy
CPT/HCPCS: 36415; 71045; 80053; 82803; 83605; 83735; 83880; 84484; 85007; 85025; 87040; 87636; 93005; 94640; 97162; 97165; 99285; G0378; J0456; J0696

== ENCOUNTER 2023-10-15 18:48 | Inpatient (IN) | payer MEDICARE, MEDICAID, BC, SELFPAY ==
[2023-10-15] VITALS (14 sets, daily range): BP systolic 111–163; BP diastolic 60–85; PULSE 76–105; RESP 18–26; TEMP 36.7–36.8; O2SAT 92–97; BMI 20.5; BMI 20.9
--- NOTE | 2023-10-15 | ECG_ITS ---
APPROVED REPORT Exam: Resting ECG HR:80 bpm ECG Measurements Heart Rate 80 AXES DC 164 P 73 QRSd 150 QRS 74 QT 419 T 82 QTc 455 Conclusion SINUS RHYTHM LEFT BUNDLE BRANCH BLOCK [120+ ms QRS DURATION, 80+ ms Q/S IN V1/V2, 85+ ms R IN I/aVL/V5/V6] ABNORMAL ECG UNCONFIRMED REPORT Electronically signed by : Jamie Belle MD 10/16/2023 07:33:05
--- NOTE | 2023-10-15 19:31 | XR_ITS ---
PROCEDURE INFORMATION: Exam: XR Chest Exam date and time: 10/15/2023 7:33 PM Age: 83 years old Clinical indication: Shortness of breath; Additional info: SOA TECHNIQUE: Imaging protocol: Radiologic exam of the chest. Views: 1 view. COMPARISON: CR XR CHEST PORTABLE 09/22/2023 10:12 PM FINDINGS: Lungs: There is mild coarsening of the bronchovascular markings with hyperinflation suggesting underlying obstructive airways disease. Pleural spaces: No evidence of pleural effusion, pneumothorax, or pleural thickening in the visualized pleural spaces. Heart/Mediastinum: Stable cardiac and mediastinal contours. Vasculature: There are calcifications of the aortic arch. Bones/joints: No evidence of acute osseous abnormalities within the visualized portions of the thoracic spine and ribs. Osseous structures appear appropriate for patient age. IMPRESSION: No dense parenchymal consolidation, pleural effusion, or pneumothorax.
--- NOTE | 2023-10-15 19:39 | HMH.EDCP ---
Discharge Plan Disposition Patient Disposition: Admitted Chief Complaint: Shortness of Breath/Dyspnea Clinical Impressions Clinical Impression: COVID-19, Acute hypoxemic respiratory failure Discharge ED Provider: Josh Braxton HPI General Chief Complaint: Shortness of Breath/Dyspnea Stated Complaint: soa Time Seen by Provider: 10/15/23 18:50 Mode of Arrival: EMS Source of Information: Patient Limitations: No Limitations Description of Symptoms (Recalled from ER Triage Doc. by RN): Nursing and patient reports that the patient has had a chronic cough with a history of COPD and recent diagnosis of CHF. Patient has been getting around the clock neb treatments with no relief of symptoms. Patient requested to come to the ER for evaluation. History of Present Illness HPI narrative: 83-year-old male tension, hyperal Shameka, CHF, COPD presenting with shortness of breath. Patient states that started 2 or 3 days ago, has been getting nebulizers at her nursing facility, but has not gotten any better. Today because she has not gotten any better, decided she wanted to come to the emergency department, so called ambulance. Patient denies chest pain, nausea or vomiting, fevers or chills. Also having cough, but it is nonproductive. No lower extremity swelling. Has multiple sick contacts with COVID. Related Data Home Medications Medication Instructions Recorded Confirmed acetaminophen 325 mg tablet 650 mg PO Q6HP PRN Mild Pain 04/12/23 10/15/23 (Scale Score 1-4) alprazolam 0.5 mg tablet 0.25 mg PO TID Anxiety 04/12/23 10/15/23 trazodone 100 mg tablet 100 mg PO HS Sleep 04/12/23 10/15/23 cetirizine 5 mg tablet 5 mg PO HS Allergy Symptoms 09/23/23 10/15/23 docusate sodium 100 mg capsule 100 mg PO DAILY Constipation 09/23/23 10/15/23 (Colace) fluticasone propionate 50 1 spray intranasal HS Allergy 09/23/23 10/15/23 mcg/actuation nasal Symptoms spray,suspension sennosides 8.6 mg tablet (senna) 8.6 mg PO BID PRN Constipation 09/23/23 10/15/23 Previous Rx's Medication Instructions Recorded azithromycin 250 mg tablet 250 mg PO DAILY 3 days #3 tabs 09/23/23 furosemide 40 mg tablet (Lasix) 40 mg PO DAILY 30 days #30 tabs 09/23/23 ipratropium 0.5 mg-albuterol 3 mg 3 ml inhalation QID 30 days #0 mL 09/23/23 (2.5 mg base)/3 mL nebulization soln Allergies Allergy/AdvReac Type Severity Reaction Status Date / Time atenolol [ATENOLOL] Allergy Unknown Verified 09/22/23 22:45 bismuth subsalicylate Allergy Unknown Verified 09/22/23 22:45 [From PEPTO-BISMOL] cimetidine [From TAGAMET] Allergy Unknown Verified 09/22/23 22:45 diazepam [From VALIUM] Allergy Unknown Verified 09/22/23 22:45 dicyclomine [From BENTYL] Allergy Unknown Verified 09/22/23 22:45 docusate [DOCUSATE] Allergy Unknown Verified 09/22/23 22:45 escitalopram [From LEXAPRO] Allergy Unknown Verified 09/22/23 22:45 famotidine [From PEPCID] Allergy Unknown Verified 09/22/23 22:45 fenofibrate [From TRICOR] Allergy Unknown Verified 09/22/23 22:45 fish oil [FISH OIL] Allergy Unknown Verified 09/22/23 22:45 hydrocortisone [From LOCOID] Allergy Unknown Verified 09/22/23 22:45 mirtazapine [From REMERON] Allergy Unknown Verified 09/22/23 22:45 niacin [NIACIN] Allergy Unknown Verified 09/22/23 22:45 nortriptyline [NORTRIPTYLINE] Allergy Unknown Verified 09/22/23 22:45 omeprazole [From PRILOSEC] Allergy Unknown Verified 09/22/23 22:45 pravastatin [From Pravachol] Allergy Unknown Verified 09/22/23 22:45 rosuvastatin Allergy Unknown Verified 09/22/23 22:45 simvastatin Allergy Unknown Verified 09/22/23 22:45 [id number]-[id number] Reductase Allergy Unknown Verified 09/22/23 22:45 Inhibitor [Fdhvsdy-Hne-Zkm Reductase Inhibitor] Sulfa (Sulfonamide Allergy Unknown Verified 09/22/23 22:45 Antibiotics) [SULFA (SULFONAMIDE ANTIBIOTICS)] sulfamethoxazole Allergy Unknown Verified 09/22/23 22:45 [From BACTRIM] trimethoprim [From BACTRIM] Al
[2023-10-15 20:01] LABS: VBG Base Excess -1.4 mmol/L (-2.4-2.3); VBG HCO3 22.5 mmol/L (23-30); VBG Oxygen Saturation 78.6 % (50-70); VBG PCO2 32.6 mmol/L (35-51); VBG PH 7.46 mmol/L (7.31-7.41); VBG Total CO2 23.5 mmol/L (23-27)
[2023-10-15 20:17] LABS: NT Pro Brain Natriuretic Pep. 3930 pg/mL (0-450)
[2023-10-15 20:20] LABS: Troponin I < 0.01 ng/ml (0.00-0.034)
[2023-10-15 20:28] LABS: Basophils % 0.9 % (0.1-2.0); Eosinophils % 1.1 % (0.1-12.0); Hematocrit 40.9 % (37.0-47.0); Hemoglobin 14.1 g/dL (12.2-16.2); Lymphocytes # 0.2 K/mm3 (0.7-4.5); Lymphocytes % 8.7 % (10-50); Mean Corpuscular HGB Conc 34.6 g/dL (31.8-35.4); Mean Corpuscular Hemoglobin 28.9 pg (27.0-31.2); Mean Corpuscular Volume 83.7 fl (81-99); Mean Platelet Volume 8.2 fl (7.4-10.4); Monocytes # 0.1 K/mm3 (0.1-1.0); Neutrophils # 1.9 K/mm3 (1.8-7.8); Neutrophils % 83.4 % (37.0-80.0); Platelet Count 143 K/mm3 (142-424); Red Blood Count 4.89 M/mm3 (4.20-5.40); Red Cell Distribution Width 14.9 % (11.5-17.5); White Blood Count 2.3 K/mm3 (4.8-10.8)
--- NOTE | 2023-10-15 20:40 | PC.NURSE ---
Noted on the monitor that patient oxygen saturation was 79% with good waveform. Checked patient who was resting quietly, easily aroused. Oxygen saturation slowly trended back to 92% with respiratory rate of 40. Notified provider of bedside finding. Placed patient on 2LNC per provider, and placed on nurse monitoring.
--- NOTE | 2023-10-15 21:06 | CT_ITS ---
PROCEDURE INFORMATION: Exam: CTA Chest With Contrast Exam date and time: 10/15/2023 9:27 PM Age: 83 years old Clinical indication: Shortness of breath; Additional info: SOA hypoxemia TECHNIQUE: Imaging protocol: Computed tomographic angiography of the chest with contrast. Exam focused on the arteries. 3D rendering (Not supervised by radiologist): MIP and/or 3D reconstructed images were created by the technologist. Radiation optimization: All CT scans at this facility use at least one of these dose optimization techniques: automated exposure control; mA and/or kV adjustment per patient size (includes targeted exams where dose is matched to clinical indication); or iterative reconstruction. Contrast material: ISOVUE; Contrast volume: 70 ml; Contrast route: INTRAVENOUS (IV); REPORTING DATA: Count of CT and Cardiac NM exams in prior 12 months: This patient has received 3 known CTs and 0 known cardiac nuclear medicine studies in the 12 months prior to the current study. COMPARISON: 1. CT CHEST WO CON 04/21/2022 5:02 PM 2. CR XR CHEST PORTABLE 10/15/2023 7:33 PM 3. CR XR CHEST PORTABLE 09/22/2023 10:12 PM FINDINGS: Pulmonary arteries: There is fair opacification of the pulmonary arterial tree. No central pulmonary arterial filling defect is seen. Aorta: Ectatic but nonaneurysmal ascending thoracic aorta. Other arteries: Subsegmental vessels are not well evaluated due to contrast timing. Thyroid: There is heterogeneity of the thyroid gland for which nonemergent thyroid ultrasound should be considered. Lungs: There are consolidations at the lung bases concerning for infection. Evaluation for small pulmonary nodules is precluded by patient condition. Fleischner Society guidelines are n/a. Pleural spaces: Unremarkable. No pneumothorax. No pleural effusion. Heart: There is a small pericardial effusion. Coronary arteries: There is mild coronary atherosclerotic disease/calcification although evaluation is limited secondary to the non gated nature of the study. Lymph nodes: There are mildly prominent mediastinal lymph nodes which are nonenlarged. Gallbladder and bile ducts: The patient is status post cholecystectomy. Bones/joints: Unremarkable. No acute fracture. Soft tissues: Unremarkable. Other findings: Motion artifact mildly limits evaluation. IMPRESSION: 1. No central pulmonary arterial filling defect is seen. Subsegmental vessels are not well evaluated due to contrast timing. 2. There are consolidations at the lung bases concerning for infection. 3. There is heterogeneity of the thyroid gland for which nonemergent thyroid ultrasound should be considered.
--- NOTE | 2023-10-15 21:08 | PC.NURSE ---
received call from lisa mckenna; stated that it was needed. verbal order rec'd. notified lab and spoke with anurag
--- NOTE | 2023-10-15 21:09 | PC.NURSE ---
covid swab sent to lab
[2023-10-15 21:11] LABS: Influenza A, PCR Not Detected (NotDetected); Influenza B, PCR Not Detected (NotDetected)
[2023-10-15 21:14] LABS: Chloride 104 mmol/L (98-107); Potassium 3.2 mmoL/L (3.5-5.1); Sodium 137 mmol/L (136-145)
[2023-10-15 21:16] LABS: Blood Urea Nitrogen 14 mg/dl (7-17); Creatinine Clearance Estimated 39 mL/min (50-200); Estimated Glomerular Filt Rate 60 ml/min (>60); GFR (African American) 73 ML/MIN (>60)
[2023-10-15 21:17] LABS: Alanine Aminotransferase 21 U/L (12-78); Albumin Level 4.5 g/dl (3.5-5.0); Albumin/Globulin Ratio 1.3 (1.1-1.8); Alkaline Phosphatase 104 U/L (38-126); Anion Gap 12.2 mEq/L (5-15); Aspartate Amino Transferase 38 U/L (14-36); Calcium 8.8 mg/dl (8.4-10.2); Carbon Dioxide 24 mmol/L (22.0-30.0); Globulin 3.4 g/dL (1.3-3.2); Glucose 127 mg/dl (74-100); Total Protein,Serum 7.9 g/dl (6.3-8.2)
--- NOTE | 2023-10-15 21:25 | PC.NURSE ---
Patient at CT
--- NOTE | 2023-10-15 21:38 | PC.NURSE ---
Back from CT
[2023-10-15 21:41] LABS: Coronavirus 19, PCR Detected (NotDetected)
--- NOTE | 2023-10-15 21:52 | EXP.HP ---
History of Present Illness *Admission Date: 10/15/23 *Reason for visit:: SOB *History of present illness: This is an 83-year-old female with PMHx of HTN, COPD, recent diagnosis of CHF presenting with shortness of breath. patient was recently discharged form our facility after been treated for COPD exacerbation and pneumonia Patient stated has been getting nebulizers around the clock with not release, Today because she has not gotten any better, decided she wanted to come to the emergency department, so called ambulance. Patient denies chest pain, nausea or vomiting, fevers or chills. Also having cough, but it is nonproductive. No lower extremity swelling. Has multiple sick contacts with COVID. Admitted for treatment and management. [facility] Disclaimer: The information contained in this section may have been updated after the patient was seen, as this information can be updated by other users. Medical History Allergic rhinitis Chronic cough Cough variant asthma Eosinophilia Surgical History History of colon resection History of colonoscopy History of tonsillectomy Hx of cholecystectomy Family History Other Asthma Coronary artery disease Diabetes Heart attack Hyperlipidemia Hypertension Social History (Updated 10/15/23 @ 22:54 by Elinor Hui RN) Smoking Status: Never smoker alcohol intake: never current occupational status: retired Travel in the last 8 weeks: None caffeine: Yes Review of Systems Review of Systems Review of systems:: pertinent systems reviewed and negative unless documented below Meds Home Medications and Allergies Home Medications Medication Instructions Recorded Confirmed Type acetaminophen 325 mg tablet 650 mg PO Q6HP PRN Mild Pain 04/12/23 10/16/23 History (Scale Score 1-4) trazodone 100 mg tablet 100 mg PO HS Sleep 04/12/23 10/16/23 History cetirizine 5 mg tablet 5 mg PO HS Allergy Symptoms 09/23/23 10/16/23 History docusate sodium 100 mg capsule 100 mg PO DAILY Constipation 09/23/23 10/16/23 History (Colace) fluticasone propionate 50 1 spray intranasal HS Allergy 09/23/23 10/16/23 History mcg/actuation nasal Symptoms spray,suspension furosemide 40 mg tablet (Lasix) 40 mg PO DAILY 30 days #30 tabs 09/23/23 10/16/23 Rx ipratropium 0.5 mg-albuterol 3 mg 3 ml inhalation QID 30 days #0 mL 09/23/23 10/16/23 Rx (2.5 mg base)/3 mL nebulization soln sennosides 8.6 mg tablet (senna) 8.6 mg PO BIDP Constipation 09/23/23 10/16/23 History alprazolam 0.25 mg tablet 0.25 mg PO TID Anxiety 10/16/23 10/16/23 History New Prescriptions to Start Prescriptions: Allergies Allergy/AdvReac Type Severity Reaction Status Date / Time atenolol [ATENOLOL] Allergy Unknown Verified 09/22/23 22:45 bismuth subsalicylate Allergy Unknown Verified 09/22/23 22:45 [From PEPTO-BISMOL] cimetidine [From TAGAMET] Allergy Unknown Verified 09/22/23 22:45 diazepam [From VALIUM] Allergy Unknown Verified 09/22/23 22:45 dicyclomine [From BENTYL] Allergy Unknown Verified 09/22/23 22:45 docusate [DOCUSATE] Allergy Unknown Verified 09/22/23 22:45 escitalopram [From LEXAPRO] Allergy Unknown Verified 09/22/23 22:45 famotidine [From PEPCID] Allergy Unknown Verified 09/22/23 22:45 fenofibrate [From TRICOR] Allergy Unknown Verified 09/22/23 22:45 fish oil [FISH OIL] Allergy Unknown Verified 09/22/23 22:45 hydrocortisone [From LOCOID] Allergy Unknown Verified 09/22/23 22:45 mirtazapine [From REMERON] Allergy Unknown Verified 09/22/23 22:45 niacin [NIACIN] Allergy Unknown Verified 09/22/23 22:45 nortriptyline [NORTRIPTYLINE] Allergy Unknown Verified 09/22/23 22:45 omeprazole [From PRILOSEC] Allergy Unknown Verified 09/22/23 22:45 pravastatin [From Pravachol] Allergy Unknown Verified 09/22/23 22:45 rosuvastatin Edwin
--- NOTE | 2023-10-15 21:54 | PC.NURSE ---
called and updated [facility] to admit status.
--- NOTE | 2023-10-15 22:05 | PC.NURSE ---
Patient has been to bathroom 3 times
--- NOTE | 2023-10-15 22:14 | PC.NURSE ---
Report called to HARESH Frazier
--- NOTE | 2023-10-15 22:36 | PC.NURSE ---
pt arrived via wheelchair @ 22;40
--- NOTE | 2023-10-15 23:11 | PC.NURSE ---
Zenon le contacted [facility] at this time to request a med record on pt. They state they will will fax it over.
[2023-10-15 23:28] LABS: Troponin I < 0.01 ng/ml (0.00-0.034)
[2023-10-16] VITALS (11 sets, daily range): BP systolic 127–150; BP diastolic 72–82; PULSE 70–90; RESP 17–24; TEMP 36.6–36.8; O2SAT 92–97; BMI 20.9
[2023-10-16 03:16] LABS: Troponin I 0.01 ng/ml (0.00-0.034)
[2023-10-16 08:20] LABS: Chloride 104 mmol/L (98-107); Sodium 137 mmol/L (136-145)
[2023-10-16 08:22] LABS: Alanine Aminotransferase 43 U/L (12-78); Aspartate Amino Transferase 49 U/L (14-36); Blood Urea Nitrogen 18 mg/dl (7-17); Creatinine Clearance Estimated 40 mL/min (50-200); Estimated Glomerular Filt Rate 53 ml/min (>60); GFR (African American) 64 ML/MIN (>60)
[2023-10-16 08:23] LABS: Albumin Level 4.3 g/dl (3.5-5.0); Albumin/Globulin Ratio 1.4 (1.1-1.8); Alkaline Phosphatase 83 U/L (38-126); Bilirubin,Total 0.6 mg/dl (0.2-1.3); Calcium 8.2 mg/dl (8.4-10.2); Carbon Dioxide 19 mmol/L (22.0-30.0); Globulin 3.1 g/dL (1.3-3.2); Glucose 235 mg/dl (74-100); Magnesium 1.9 mg/dl (1.6-2.3); Total Protein,Serum 7.4 g/dl (6.3-8.2)
[2023-10-16 08:40] LABS: Basophils % 0.2 % (0.1-2.0); Eosinophils % 0.1 % (0.1-12.0); Hemoglobin 13.7 g/dL (12.2-16.2); Lymphocytes # 0.3 K/mm3 (0.7-4.5); Lymphocytes % 18.7 % (10-50); Mean Corpuscular HGB Conc 35.1 g/dL (31.8-35.4); Mean Corpuscular Hemoglobin 29.1 pg (27.0-31.2); Mean Corpuscular Volume 83.1 fl (81-99); Monocytes # 0.1 K/mm3 (0.1-1.0); Monocytes % 3.9 % (1.7-9.3); Neutrophils # 1.1 K/mm3 (1.8-7.8); Neutrophils % 77.1 % (37.0-80.0); Platelet Count 133 K/mm3 (142-424); Red Cell Distribution Width 14.9 % (11.5-17.5); White Blood Count 1.4 K/mm3 (4.8-10.8)
--- NOTE | 2023-10-16 09:54 | P.CONPHA_ITS ---
Pharmacy Intervention Comments: MEDICATION RECONCILIATION COMPLETED ON PATIENT USING MAR FROM [facility]. -SABRINA HENRY, MALLORYD
--- NOTE | 2023-10-16 09:54 | HMH.PHAINT1 ---
Pharmacy Intervention Comments: MEDICATION RECONCILIATION COMPLETED ON PATIENT USING MAR FROM [facility]. -SABRINA HENRY, MALLORYD
--- NOTE | 2023-10-16 16:47 | EXP.ACUTE.PN ---
Subjective *Date: 10/16/23 *Time: 17:49 Interval history: Equal morning rounds. Requiring 2 L nasal cannula oxygen. Still irritable appearing. Patient complaining of mild cough. No nausea or vomiting. By afternoon rounds, up in chair at bedside. Was eating dinner. Feeling somewhat better. Cough a little improved with cough medicine. Denies any chest pain, fever, confusion. Appears at baseline mentation. Medical Exam Vital signs and Labs for Last 24 Hours: Vital Signs Temp Pulse Pulse Resp BP BP Pulse Ox 10/16/23 15:00 10/16/23 14:22 81 10/16/23 14:22 78 10/16/23 14:22 96 10/16/23 12:00 70 10/16/23 13:00 10/16/23 11:00 10/16/23 09:00 10/16/23 07:00 10/16/23 11:37 97.9 F 83 18 128/72 93 L 10/16/23 10:10 74 10/16/23 10:10 78 10/16/23 10:10 95 10/16/23 08:00 80 10/16/23 08:00 10/16/23 08:00 97.9 F 87 20 127/72 92 L 10/16/23 06:40 74 10/16/23 06:40 71 10/16/23 06:40 94 L 10/16/23 04:00 76 10/16/23 05:00 10/16/23 04:00 98.3 F 83 22 140/82 96 10/16/23 03:00 10/16/23 01:00 10/16/23 00:00 88 10/16/23 00:00 98.0 F 80 24 150/73 H 97 10/15/23 22:45 98.0 F 76 26 H 125/60 10/15/23 23:48 10/15/23 22:54 98.3 F 88 19 131/74 10/15/23 22:16 85 22 120/64 97 10/15/23 22:05 80 24 133/67 96 10/15/23 22:55 10/15/23 21:16 78 22 111/71 97 10/15/23 20:47 105 H 22 117/63 94 L 10/15/23 20:45 100 H 18 120/67 94 L 10/15/23 20:30 99 H 20 120/72 93 L 10/15/23 20:16 101 H 127/63 95 10/15/23 20:00 101 H 140/68 92 L 10/15/23 20:08 89 10/15/23 20:07 87 10/15/23 19:15 85 152/81 H 95 10/15/23 18:49 98.0 F 90 22 163/85 H 95 O2 Del Method O2 Flow Rate 10/16/23 15:00 Nasal Cannula 2 10/16/23 14:22 10/16/23 14:22 10/16/23 14:22 Nasal Cannula 2 10/16/23 12:00 10/16/23 13:00 Nasal Cannula 2 10/16/23 11:00 Nasal Cannula 10/16/23 09:00 Nasal Cannula 10/16/23 07:00 Nasal Cannula 2 10/16/23 11:37 Nasal Cannula 2 10/16/23 10:10 10/16/23 10:10 10/16/23 10:10 Nasal Cannula 2 10/16/23 08:00 10/16/23 08:00 Nasal Cannula 10/16/23 08:00 Nasal Cannula 2 10/16/23 06:40 10/16/23 06:40 10/16/23 06:40 Nasal Cannula 10/16/23 04:00 10/16/23 05:00 Nasal Cannula 2 10/16/23 04:00 Nasal Cannula 2 10/16/23 03:00 Nasal Cannula 2 10/16/23 01:00 Nasal Cannula 2 10/16/23 00:00 10/16/23 00:00 Nasal Cannula 2 10/15/23 22:45 Nasal Cannula 2 10/15/23 23:48 Nasal Cannula 2 10/15/23 22:54 Nasal Cannula 2 10/15/23 22:16 Nasal Cannula 10/15/23 22:05 Nasal Cannula 10/15/23 22:55 Nasal Cannula 2 10/15/23 21:16 Nasal Cannula 10/15/23 20:47 Nasal Cannula 10/15/23 20:45 Nasal Cannula 10/15/23 20:30 Room Air 10/15/23 20:16 Room Air 10/15/23 20:00 Room Air 10/15/23 20:08 10/15/23 20:07 10/15/23 19:15 Room Air 10/15/23 18:49 Room Air Intake and Output 10/16/23 10/16/23 10/16/23 07:59 15:59 23:59 Intake Total 480 / 480 Output Total 0 / 0 0 / 0 Balance 0 / 480 480 / 480 Intake: Intake, Oral Amount 480 / 480 Output: Output, Urine Amount 0 / 0 0 / 0 Other: Number of Voids 0 Number of Unmeasured Voids 1 2 Number of Bowel Movements 1 1 Weight 57.691 kg Patient Weight 10/16/23 23:59 Weight 57.691 kg Laboratory Results - last 24 hr 10/15/23 19:32: VBG pH 7.46 H, VBG pCO2 32.6 L, VBG pO2 40.0, VBG HCO3 22.5 L, VBG Total CO2 23.5, VBG O2 Saturation 78.6 H, VBG Base Excess -1.4 10/15/23 19:50: WBC 2.3 L, RBC 4.89, Hgb 14.1, Hct 40.9, MCV 83.7, MCH 28.9, MCHC 34.6, RDW 14.9, Plt Count 143, MPV 8.2, Neut % (Auto) 83.4 H, Lymph % (Auto) 8.7 L, [place] % (Auto) 6.0, Eos % (Auto) 1.1, Baso % (Auto) 0.9, Neut # (Auto) 1.9,
--- NOTE | 2023-10-16 17:11 | PC.NURSE ---
pts room air saturation @ rest 96%
--- NOTE | 2023-10-16 18:57 | PC.NURSE ---
pt has done well this shift. She has ambulated around the room multiple times. Has tolerated room air this afternoon. no c/o SOA. saturation has been stable
[2023-10-17] VITALS (13 sets, daily range): BP systolic 99–138; BP diastolic 57–81; PULSE 60–90; RESP 16–26; TEMP 36.3–37.4; O2SAT 89–94; BMI 20.2
[2023-10-17 07:10] LABS: Chloride 106 mmol/L (98-107)
[2023-10-17 07:11] LABS: Potassium 3.6 mmoL/L (3.5-5.1); Sodium 136 mmol/L (136-145)
[2023-10-17 07:13] LABS: Alanine Aminotransferase 21 U/L (12-78); Alkaline Phosphatase 73 U/L (38-126); Anion Gap 9.6 mEq/L (5-15); Aspartate Amino Transferase 46 U/L (14-36); Bilirubin,Total 0.6 mg/dl (0.2-1.3); Blood Urea Nitrogen 25 mg/dl (7-17); Carbon Dioxide 24 mmol/L (22.0-30.0); Creatinine Clearance Estimated 38 mL/min (50-200); Estimated Glomerular Filt Rate 53 ml/min (>60); GFR (African American) 64 ML/MIN (>60)
[2023-10-17 07:14] LABS: Albumin Level 3.6 g/dl (3.5-5.0); Albumin/Globulin Ratio 1.2 (1.1-1.8); Calcium 7.9 mg/dl (8.4-10.2); Globulin 2.9 g/dL (1.3-3.2); Glucose 103 mg/dl (74-100); Total Protein,Serum 6.5 g/dl (6.3-8.2)
[2023-10-17 07:41] LABS: Basophils % 0.1 % (0.1-2.0); Eosinophils % 0.1 % (0.1-12.0); Hematocrit 39.2 % (37.0-47.0); Hemoglobin 13.5 g/dL (12.2-16.2); Lymphocytes # 0.8 K/mm3 (0.7-4.5); Lymphocytes % 28.5 % (10-50); Mean Corpuscular HGB Conc 34.4 g/dL (31.8-35.4); Mean Corpuscular Volume 84.2 fl (81-99); Mean Platelet Volume 7.4 fl (7.4-10.4); Monocytes # 0.3 K/mm3 (0.1-1.0); Monocytes % 12.6 % (1.7-9.3); Neutrophils # 1.6 K/mm3 (1.8-7.8); Neutrophils % 58.8 % (37.0-80.0); Platelet Count 135 K/mm3 (142-424); Red Blood Count 4.66 M/mm3 (4.20-5.40); Red Cell Distribution Width 14.7 % (11.5-17.5); White Blood Count 2.7 K/mm3 (4.8-10.8)
--- NOTE | 2023-10-17 08:02 | EXP.DC.SUM ---
General Admission date:: 10/15/23 Discharge date: 10/17/23 HPI HPI HPI: This is an 83-year-old female with PMHx of HTN, COPD, recent diagnosis of CHF presenting with shortness of breath. patient was recently discharged form our facility after been treated for COPD exacerbation and pneumonia Patient stated has been getting nebulizers around the clock with not release, Today because she has not gotten any better, decided she wanted to come to the emergency department, so called ambulance. Patient denies chest pain, nausea or vomiting, fevers or chills. Also having cough, but it is nonproductive. No lower extremity swelling. Has multiple sick contacts with COVID. Admitted for treatment and management. Hospital Course Hospital Course Hospital Course: 83-year-old female with PMHx of HTN, COPD, recent diagnosis of CHF presenting with shortness of breath. Patient stated that started 2 or 3 days ago, has been getting nebulizers around the clock with not release. Initial ER evaluation included CTA of chest, imaging reviewed. There is low concern for PE. findings are consistent with bilateral lower lobe pneumonia. Patient also COVID positive. patient underwent on couple rounds of Neb and solumedrol IV with little to no improvement. Others labs findings are positive for elevated BNP, mild leukopenia, and hypokalemia. Findings are discussed with ER provider. Agreed for admission. Weaning oxygen today, still requiring 1 L by afternoon rounds for sats greater 90%. Initiated on treatment for COVID. Tolerating diuretics. Continues to require inpatient management. Problems addressed as follows: -COVID Pneumonia of the both lower lobe: -COPD Continue cefepime 2 g every 12 hours. Given oxygen requirement, will initiate on remdesivir IV, zinc supplement, vitamin D supplement, and vitamin C supplement. sputum culture pending guaifenesin for cough Goal oxygenation greater than 90%, continues to require 1 L nasal cannula. droplet precaution DuoNebs every 6 hours schedule - Acute exacerbation of CHF: -Hypokalemia BNP elevated on admission at 3930. Tolerating diuresis. EF on most recent echo was 30%. 40 mg Lasix IV daily Goal -1 L today. Monitor electrolytes closely given diuresis. Potassium 3.0, replacing p.o. 40 mg twice daily Magnesium 1.9. CBC, CMP, magnesium ordered for the morning. Anxiety: on alprazolam TID per home regimen Exam Data for Last 24 hours Vital signs and Labs for Last 24 Hours: Temp Pulse Resp BP Pulse Ox O2 Del Method O2 Flow Rate 99.3 F 72 24 138/81 93 L Nasal Cannula 1 10/17/23 04:00 10/17/23 06:20 10/17/23 04:00 10/17/23 04:00 10/17/23 04:00 10/17/23 06:04 10/17/23 06:04 FiO2 28 10/16/23 22:51 Laboratory Results - last 24 hr 10/16/23 08:00: WBC 1.4 L* D, RBC 4.70, Hgb 13.7, Hct 39.0, MCV 83.1, MCH 29.1, MCHC 35.1, RDW 14.9, Plt Count 133 L, MPV 8.0, Neut % (Auto) 77.1, Lymph % (Auto) 18.7, [place] % (Auto) 3.9, Eos % (Auto) 0.1, Baso % (Auto) 0.2, Neut # (Auto) 1.1 L, Lymph # (Auto) 0.3 L, [place] # (Auto) 0.1, Eos # (Auto) 0.0, Baso # (Auto) 0.0, Sodium 137, Potassium 3.0 L, Chloride 104, Carbon Dioxide 19 L, Anion Gap 17.0 H, BUN 18 H D, Creatinine 1.00, Estimated Creat Clear 40, Estimated GFR 53 L, Est GFR ( Amer) 64, Glucose 235 H D, Calcium 8.2 L, Magnesium 1.9, Total Bilirubin 0.6, AST 49 H D, ALT 43 D, Alkaline Phosphatase 83, Total Protein 7.4, Albumin 4.3, Globulin 3.1, Albumin/Globulin Ratio 1.4 10/17/23 06:20: WBC 2.7 L D, RBC 4.66, Hgb 13.5, Hct 39.2, MCV 84.2, MCH 29.0, MCHC 34.4, RDW 14.7, Plt Count 135 L, MPV 7.4, Neut % (Auto) 58.8, Lymph % (Auto) 28.5, [place] % (Auto) 12.6 H, Eos % (Auto) 0.1, Baso % (Auto) 0.1, Neut # (Auto) 1.6 L, Lymph # (Auto) 0.8, [place] # (Auto) 0.3, Eos # (Auto) 0.0, Baso # (Auto) 0.0, Sodium 136, Potassium 3.6, Chloride 106, Carbon Dioxide 24, Anion Gap 9.6, BUN 25 H D, Creatinine 1.00, Estimated Creat Clear 38, Estimated GFR 53 L, Est GFR ( Amer) 64, Glucos
--- NOTE | 2023-10-17 08:08 | SW/DCPLANNER ---
Addendum entered by Porsche Juarez 10/18/23 15:31: I have updated Lelo patel/ [facility] know that patient will return today. Addendum entered by Porsche Juarez 10/18/23 07:55: Updated patient information has been faxed to Lelo patel/ [facility]. Addendum entered by Porsche Juarez 10/17/23 10:06: I updated Lelo patel/ [facility] that discharged has been cancelled for this patient. Original Note: This patient currently resides at [facility] level of care. I have updated Lelo patel/ [facility] that patient will return today.
--- NOTE | 2023-10-17 09:40 | EXP.ACUTE.PN ---
Subjective *Date: 10/17/23 *Time: 23:21 Interval history: Patient appears more ill this morning. Having a significant coughing fit. Increased rhonchi in lungs. Tolerating 1 to 2 L nasal cannula oxygen. Eating okay. Reports some diarrhea this morning. No fever overnight. No nausea or vomiting. No chest pain. Medical Exam Vital signs and Labs for Last 24 Hours: Vital Signs Temp Pulse Pulse Resp BP Pulse Ox O2 Del Method 10/17/23 08:00 98.4 F 76 17 138/77 94 L Nasal Cannula 10/17/23 06:20 72 10/17/23 06:20 71 10/17/23 06:04 Nasal Cannula 10/16/23 20:00 80 10/17/23 04:00 90 10/17/23 04:00 99.3 F 76 24 138/81 93 L Nasal Cannula 10/17/23 04:46 Nasal Cannula 10/17/23 03:00 Room Air 10/16/23 22:51 Nasal Cannula 10/17/23 01:00 Room Air 10/17/23 00:00 98.4 F 73 18 136/76 90 L Room Air 10/16/23 22:59 Nasal Cannula 10/16/23 21:00 Nasal Cannula 10/16/23 20:00 Nasal Cannula 10/16/23 20:00 98.1 F 76 18 141/78 H 92 L Nasal Cannula 10/16/23 18:58 90 10/16/23 18:58 90 10/16/23 16:00 97.8 F 83 17 130/82 96 Room Air 10/16/23 17:00 Room Air 10/16/23 16:00 80 10/16/23 15:00 Nasal Cannula 10/16/23 14:22 81 10/16/23 14:22 78 10/16/23 14:22 96 Nasal Cannula 10/16/23 12:00 70 10/16/23 13:00 Nasal Cannula 10/16/23 11:00 Nasal Cannula 10/16/23 11:37 97.9 F 83 18 128/72 93 L Nasal Cannula 10/16/23 10:10 74 10/16/23 10:10 78 10/16/23 10:10 95 Nasal Cannula O2 Flow Rate FiO2 10/17/23 08:00 2 10/17/23 06:20 10/17/23 06:20 10/17/23 06:04 1 10/16/23 20:00 10/17/23 04:00 10/17/23 04:00 1 10/17/23 04:46 1 10/17/23 03:00 10/16/23 22:51 2 28 10/17/23 01:00 10/17/23 00:00 2 10/16/23 22:59 2 10/16/23 21:00 2 10/16/23 20:00 2 10/16/23 20:00 2 10/16/23 18:58 10/16/23 18:58 10/16/23 16:00 10/16/23 17:00 10/16/23 16:00 10/16/23 15:00 2 10/16/23 14:22 10/16/23 14:22 10/16/23 14:22 2 10/16/23 12:00 10/16/23 13:00 2 10/16/23 11:00 10/16/23 11:37 2 10/16/23 10:10 10/16/23 10:10 10/16/23 10:10 2 Intake and Output 10/16/23 10/17/23 10/17/23 23:59 07:59 15:59 Intake Total 270 / 990 240 / 710 470 / 710 Output Total 0 / 0 0 / 0 Balance 270 / 990 240 / 710 470 / 710 Intake: Intake, Oral Amount 270 / 990 240 / 710 470 / 710 Output: Output, Urine Amount 0 / 0 0 / 0 Other: Number of Voids 0 Number of Unmeasured Voids 1 1 Weight 55.905 kg Patient Weight 10/17/23 23:59 Weight 55.905 kg Laboratory Results - last 24 hr 10/17/23 06:20: WBC 2.7 L D, RBC 4.66, Hgb 13.5, Hct 39.2, MCV 84.2, MCH 29.0, MCHC 34.4, RDW 14.7, Plt Count 135 L, MPV 7.4, Neut % (Auto) 58.8, Lymph % (Auto) 28.5, [place] % (Auto) 12.6 H, Eos % (Auto) 0.1, Baso % (Auto) 0.1, Neut # (Auto) 1.6 L, Lymph # (Auto) 0.8, [place] # (Auto) 0.3, Eos # (Auto) 0.0, Baso # (Auto) 0.0, Sodium 136, Potassium 3.6, Chloride 106, Carbon Dioxide 24, Anion Gap 9.6, BUN 25 H D, Creatinine 1.00, Estimated Creat Clear 38, Estimated GFR 53 L, Est GFR ( Amer) 64, Glucose 103 H D, Calcium 7.9 L, Magnesium 2.0, Total Bilirubin 0.6, AST 46 H, ALT 21 D, Alkaline Phosphatase 73, Total Protein 6.5, Albumin 3.6 D, Globulin 2.9, Albumin/Globulin Ratio 1.2 I & O for Labs for Last 24 Hours: Intake & Output 10/14/23 10/15/23 10/16/23 10/17/23 23:59 23:59 23:59 23:59 Intake Total 220 / 220 750 / 990 710 / 710 Output Total 0 / 0 0 / 0 0 / 0 Balance 220 / 220 750 / 990 710 / 710 Weight 57.691 kg 57.691 kg 55.905 kg Constitutional: Present mild distress, thin, chronically ill appearing and cooperative Head: Present atraumatic and normocephalic ENT: Present normal exam Neck: Present normal inspection Respiratory: Present crackles (Posterior
--- NOTE | 2023-10-17 12:19 | PC.NURSE ---
Patient with complaint of nausea with large liquid emesis. Zofran administered.
--- NOTE | 2023-10-17 18:07 | PC.NURSE ---
Patient alert and oriented. VSS. Up with 1 to BR for voids and multiple loose BM's. Dr. Miranda aware. Zofran for nausea with improvement of symptoms. Denies pain. Frequent unproductive cough. Antibiotics infusing per orders.
[2023-10-18] VITALS (9 sets, daily range): BP systolic 95–119; BP diastolic 51–71; PULSE 50–85; RESP 16–22; TEMP 36.6–36.7; O2SAT 92–97; BMI 20.7
[2023-10-18 06:41] LABS: Basophils % 0.6 % (0.1-2.0); Chloride 107 mmol/L (98-107); Eosinophils % 0.2 % (0.1-12.0); Hematocrit 40.5 % (37.0-47.0); Hemoglobin 13.5 g/dL (12.2-16.2); Lymphocytes # 0.8 K/mm3 (0.7-4.5); Lymphocytes % 40.4 % (10-50); Mean Corpuscular HGB Conc 33.3 g/dL (31.8-35.4); Mean Corpuscular Hemoglobin 28.4 pg (27.0-31.2); Mean Corpuscular Volume 85.1 fl (81-99); Mean Platelet Volume 7.5 fl (7.4-10.4); Monocytes # 0.3 K/mm3 (0.1-1.0); Monocytes % 14.6 % (1.7-9.3); Neutrophils # 0.9 K/mm3 (1.8-7.8); Neutrophils % 44.1 % (37.0-80.0); Platelet Count 130 K/mm3 (142-424); Potassium 4.2 mmoL/L (3.5-5.1); Red Blood Count 4.76 M/mm3 (4.20-5.40); Red Cell Distribution Width 14.9 % (11.5-17.5); Sodium 137 mmol/L (136-145)
[2023-10-18 06:43] LABS: Alanine Aminotransferase 22 U/L (12-78); Aspartate Amino Transferase 41 U/L (14-36); Blood Urea Nitrogen 28 mg/dl (7-17); Creatinine Clearance Estimated 39 mL/min (50-200); Estimated Glomerular Filt Rate 53 ml/min (>60); GFR (African American) 64 ML/MIN (>60)
[2023-10-18 06:44] LABS: Albumin Level 3.6 g/dl (3.5-5.0); Albumin/Globulin Ratio 1.3 (1.1-1.8); Alkaline Phosphatase 66 U/L (38-126); Anion Gap 11.2 mEq/L (5-15); Bilirubin,Total 0.5 mg/dl (0.2-1.3); Calcium 7.9 mg/dl (8.4-10.2); Carbon Dioxide 23 mmol/L (22.0-30.0); Globulin 2.8 g/dL (1.3-3.2); Glucose 104 mg/dl (74-100); Magnesium 2.1 mg/dl (1.6-2.3); Total Protein,Serum 6.4 g/dl (6.3-8.2)
--- NOTE | 2023-10-18 15:39 | EXP.DC.SUM ---
General Admission date:: 10/15/23 Discharge date: 10/18/23 HPI HPI HPI: 83-year-old female with PMHx of HTN, COPD, recent diagnosis of CHF presenting with shortness of breath. Patient stated that started 2 or 3 days ago, has been getting nebulizers around the clock with not release. Initial ER evaluation included CTA of chest, imaging reviewed. There is low concern for PE. findings are consistent with bilateral lower lobe pneumonia. Patient also COVID positive. patient underwent on couple rounds of Neb and solumedrol IV with little to no improvement. Others labs findings are positive for elevated BNP, mild leukopenia, and hypokalemia. Findings are discussed with ER provider. Agreed for admission. Hospital Course Hospital Course Hospital Course: Patient was seen and evaluated at the bedside on the day of discharge. Patient is stable for discharge. Patient wishes to be discharged. All patient questions were answered and patient was given time to ask questions. Patient was discharged in stable condition. Patient understands that she can return to ER in case of any sudden changes in health. Total time spent on DC - 38 mins 83-year-old female with PMHx of HTN, COPD, recent diagnosis of CHF presenting with shortness of breath. Patient stated that started 2 or 3 days ago, has been getting nebulizers around the clock with not release. Initial ER evaluation included CTA of chest, imaging reviewed. There is low concern for PE. findings are consistent with bilateral lower lobe pneumonia. Patient also COVID positive. patient underwent on couple rounds of Neb and solumedrol IV with little to no improvement. Others labs findings are positive for elevated BNP, mild leukopenia, and hypokalemia. Findings are discussed with ER provider. Agreed for admission. Continues to require inpatient management Still on 2L this morning, increased coughing. Problems addressed as follows: -COVID Pneumonia of the both lower lobe: DC on oral Abx Cefdinir -COPD zinc supplement, vitamin D supplement, and vitamin C supplement. guaifenesin for cough Goal oxygenation greater than 90%, continues to require 2 L nasal cannula. droplet precaution DuoNebs every 6 hours schedule - Acute exacerbation of CHF: improved -Hypokalemia resolved BNP elevated on admission at 3930. Tolerating diuresis. EF on most recent echo was 30%. 40 mg Lasix IV daily Goal -1 L today. Monitor electrolytes closely given diuresis. Potassium 3.6, replacing p.o. 40 mg twice daily Magnesium 2.0. CBC, CMP, magnesium ordered for the morning. Anxiety: on alprazolam TID per home regimen Lovenox for DVT ppx. Exam Data for Last 24 hours Vital signs and Labs for Last 24 Hours: Temp Pulse Resp BP Pulse Ox O2 Del Method O2 Flow Rate 98.1 F 63 18 102/51 L 97 Nasal Cannula 1 10/18/23 12:00 10/18/23 15:10 10/18/23 15:10 10/18/23 15:10 10/18/23 15:10 10/18/23 15:11 10/18/23 15:11 FiO2 28 10/16/23 22:51 Laboratory Results - last 24 hr 10/18/23 05:53: WBC 2.0 L D, RBC 4.76, Hgb 13.5, Hct 40.5, MCV 85.1, MCH 28.4, MCHC 33.3, RDW 14.9, Plt Count 130 L, MPV 7.5, Neut % (Auto) 44.1, Lymph % (Auto) 40.4, [place] % (Auto) 14.6 H, Eos % (Auto) 0.2, Baso % (Auto) 0.6, Neut # (Auto) 0.9 L*, Lymph # (Auto) 0.8, [place] # (Auto) 0.3, Eos # (Auto) 0.0, Baso # (Auto) 0.0, Sodium 137, Potassium 4.2, Chloride 107, Carbon Dioxide 23, Anion Gap 11.2, BUN 28 H, Creatinine 1.00, Estimated Creat Clear 39, Estimated GFR 53 L, Est GFR ( Amer) 64, Glucose 104 H, Calcium 7.9 L, Magnesium 2.1, Total Bilirubin 0.5, AST 41 H, ALT 22, Alkaline Phosphatase 66, Total Protein 6.4, Albumin 3.6, Globulin 2.8, Albumin/Globulin Ratio 1.3 I & O for Last 24 hours: Intake & Output 10/15/23 10/16/23 10/17/23 10/18/23 23:59 23:59 23:59 23:59 Intake Total 220 / 220 750 / 990 1630 / 1630 720 / 720 Output Total 0 / 0 0 / 0 0 / 0 0 / 0 Balance 220 / 220 750 / 990 1630 / 1630 720 / 720 Weight 57.691 kg 57.691 kg 55.9
== END 2023-10-18 17:35 | DRG 177 ==
LOC: ER 19:31 → 2ND 22:00
PROVIDERS: Nurse Practitioner Family; Admitting Provider Internal Medicine Adolescent Medicine; Emergency Provider Emergency Medicine; PCP Internal Medicine Adolescent Medicine; Visit Provider Internal Medicine Adolescent Medicine
DX: U07.1 COVID-19 (principal); I50.23 Acute on chronic systolic (congestive) heart failure; J12.82 Pneumonia due to coronavirus disease 2019; J96.01 Acute respiratory failure with hypoxia; J44.0 Chronic obstructive pulmonary disease with (acute) lower respiratory infection; I11.0 Hypertensive heart disease with heart failure; F41.1 Generalized anxiety disorder; E87.6 Hypokalemia; F41.9 Anxiety disorder, unspecified
CPT/HCPCS: 36415; 71045; 71275; 80053; 82803; 83735; 83880; 84484; 85025; 87070; 87205; 87636; 93005; 94640; 94760; 99285; J0456; J0696; J2405; Q9967

== ENCOUNTER 2023-11-24 18:36 | Emergency (ER) | payer MEDICARE, BC, MEDICAID, SELFPAY ==
[2023-11-24 19:00] VITALS: BP 176/93; PULSE 86; RESP 20; O2SAT 99
--- NOTE | 2023-11-24 19:17 | XR_ITS ---
PROCEDURE INFORMATION: Exam: XR Chest Exam date and time: 11/24/2023 7:36 PM Age: 83 years old Clinical indication: Cough; Additional info: Cough, SOA TECHNIQUE: Imaging protocol: Radiologic exam of the chest. Views: 1 view. COMPARISON: CT ANGIO CHEST PE PROTOCOL 10/15/2023 9:27 PM FINDINGS: Lungs: Minimal left retrocardiac opacity could be atelectasis or pneumonia. Remainder of the lungs are clear. Pleural spaces: Normal No pleural effusion. No pneumothorax. Heart/Mediastinum: Normal. No cardiomegaly. Vasculature: Tortuous atherosclerotic thoracic aorta. Bones/joints: Osteopenia. IMPRESSION: Minimal left retrocardiac opacity could be atelectasis or pneumonia.
[2023-11-24 19:21] VITALS: BP 176/93; PULSE 85; RESP 18; TEMP 36.8; O2SAT 98; BMI 23.9
--- NOTE | 2023-11-24 19:22 | HMH.EDGENADL ---
Discharge Plan Disposition Patient Disposition: Xfer SNF Condition: Good Prescriptions Prescriptions: New doxycycline hyclate 100 mg capsule 100 mg PO BID 14 Days Qty: 28 0RF No Action trazodone 100 mg tablet 100 mg PO HS acetaminophen 325 MG tablet 650 mg PO Q6HP PRN (Reason: Mild Pain (Scale Score 1-4)) sennosides [senna] 8.6 mg Tablet 8.6 mg PO BIDP cetirizine 5 mg Tablet 5 mg PO HS docusate sodium [Colace] 100 mg Capsule 100 mg PO DAILY fluticasone propionate 50 mcg/actuation spray,suspension 1 spray INTRANASAL HS ipratropium-albuterol 0.5 mg-3 mg(2.5 mg base)/3 mL solution for nebulization 3 ml INHALATION QID 30 Days Qty: 0 0RF furosemide [Lasix] 40 mg tablet 40 mg PO DAILY 30 Days Qty: 30 0RF alprazolam 0.25 mg Tablet 0.25 mg PO TID potassium chloride [Klor-Con M20] 20 mEq Tablet,Er Particles/Crystals 20 meq PO BID Qty: 0 0RF ascorbic acid (vitamin C) [Vitamin C] 500 mg Tablet 500 mg PO DAILY 30 Days Qty: 0 0RF zinc sulfate 50 mg zinc (220 mg) Capsule 220 mg PO DAILY 30 Days Qty: 0 0RF azithromycin 500 mg tablet 500 mg PO DAILY 3 Days Qty: 3 0RF Rx Instructions: first dose 10/18/23 cefdinir 300 mg capsule 300 mg PO BID 3 Days Qty: 5 0RF Rx Instructions: first dose evening of 10/17/23 Referrals Follow up/Referrals: Provider,Referral, MD [Primary Care Provider] - See instructions Activity Restrictions/Add. Instructions Additional Instructions/Restrictions: This patient was evaluated in the emergency department today. X-ray is concerning for possible pneumonia, so doxycycline was prescribed. This was already given in the emergency department today. Encourage hydration, medication compliance, and activity. Continue administering breathing treatments. Return to the emergency department for new or worsening symptoms. Clinical Impressions Clinical Impression: Pneumonia, COPD (chronic obstructive pulmonary disease), Sadness Instructions Patient Instructions: DI for Chronic Obstructive Pulmonary Disease, DI for Pneumonia -- Adult Discharge ED Provider: Lelo Benton General Adult HPI General Chief complaint: Shortness of Breath/Dyspnea Stated complaint: anxiety Time Seen by Provider: 11/24/23 18:40 History of Present Illness HPI narrative: This patient is an 83-year-old female with COPD, CHF, hypertension, left bundle branch block who presents to the ED by EMS from [facility] with concern because she is sad. She states that she is 83 years old and she does not understand why she has to keep living being sick. She states that she either wants to get well and get over her COPD and stop coughing, where she wishes the Lord would take her home. She denies any thoughts of hurting herself, killing herself, or hurting anyone else. She said I might have said I wanted the Lord to take me home, but I am 83. I don't want to hurt myself. She states that she refused her medications today, including her breathing treatment, as it makes her cough. She states that she is upset because she feels like no one explains anything to her. She denies any other concerns or complaints at this time and states that she is not feeling short of breath right now. Per nursing facility, they were planning to treat the patient COPD with nebs and to get an x-ray to evaluate for pneumonia given increased cough, however the patient refused. They note that her son typically comes in and calms her down and get her to comply with treatment, however today he did not. Per EMS, the patient was stable en route. Patient is asking if we can get her son to come, as she came here in hopes he would meet her here. Related Data Home Medications Medication Instructions Recorded Confirmed acetaminophen 325 mg tablet 650 mg PO Q6HP PRN Mild Pain 04/12/23 10/16/23 (Scale Score 1-4) trazodone 100 mg tablet 100 mg PO HS Sleep 04/12/23 10/16/23 cetirizine 5 mg tablet 5 mg PO HS Allergy Symptoms 09/23/23 10/16/23 docusate sodium 100 mg capsule 100 mg PO DAILY Constipation 09/23/23 10/16/23 (Colace) fluticasone propionate 50 1 spray intranasal HS Allergy 09/23/23 10/16/23 mcg/actuation nasal Symptoms spray,suspension sennosides 8.6 mg tablet (senna) 8.6 mg PO BIDP Constipation 09/23/23 10/16/23 alprazolam 0.25 mg tablet 0.25 mg PO TID Anxiety 10/16/23 10/16/23 Previous Rx's Medication Instructions Recorded furosemide 40 mg tablet (Lasix) 40 mg PO DAILY 30 days #30 tabs 09/23/23 ipratropium 0.5 mg-albuterol 3 mg 3 ml inhalation QID 30 days #0 mL 09/23/23 (2.5 mg base)/3 mL nebulization soln ascorbic acid (vitamin C) 500 mg 500 mg PO DAILY 30 days #0 tabs 10/17/23 tablet (Vitamin C) azithromycin 500 mg tablet 500 mg PO DAILY 3 days #3 tabs 10/17/23 cefdinir 300 mg capsule 300 mg PO BID 3 days #5 caps 10/17/23 potassium chloride 20 mEq 20 meq PO BID #0 tabs 10/17/23 tablet,extended release(part/cryst) (Klor-Con M) zinc sulfate 50 mg zinc (220 mg) 220 mg PO DAILY 30 days #0 caps 10/17/23 capsule doxycycline hyclate 100 mg capsule 100 mg PO BID 14 days #28 caps 11/24/23 Allergies Allergy/AdvReac Type Severity Reaction Status Date / Time atenolol [ATENOLOL] Allergy Unknown Verified 09/22/23 22:45 bismuth subsalicylate Allergy Unknown Verified 09/22/23 22:45 [From PEPTO-BISMOL] cimetidine [From TAGAMET] Allergy Unknown Verified 09/22/23 22:45 diazepam [From VALIUM] Allergy Unknown Verified 09/22/23 22:45 dicyclomine [From BENTYL] Allergy Unknown Verified 09/22/23 22:45 docusate [DOCUSATE] Allergy Unknown Verified 09/22/23 22:45 escitalopram [From LEXAPRO] Allergy Unknown Verified 09/22/23 22:45 famotidine [From PEPCID] Allergy Unknown Verified 09/22/23 22:45 fenofibrate [From TRICOR] Allergy Unknown Verified 09/22/23 22:45 fish oil [FISH OIL] Allergy Unknown Verified 09/22/23 22:45 hydrocortisone [From LOCOID] Allergy Unknown Verified 09/22/23 22:45 mirtazapine [From REMERON] Allergy Unknown Verified 09/22/23 22:45 niacin [NIACIN] Allergy Unknown Verified 09/22/23 22:45 nortriptyline [NORTRIPTYLINE] Allergy Unknown Verified 09/22/23 22:45 omeprazole [From PRILOSEC] Allergy Unknown Verified 09/22/23 22:45 pravastatin [From Pravachol] Allergy Unknown Verified 09/22/23 22:45 rosuvastatin Allergy Unknown Verified 09/22/23 22:45 simvastatin Allergy Unknown Verified 09/22/23 22:45 Zyojwpr-AXF-RqA Reductase Allergy Unknown Verified 09/22/23 22:45 Inhibitor [Nsqkltq-Ufo-Mts Reductase Inhibitor] Sulfa (Sulfonamide Allergy Unknown Verified 09/22/23 22:45 Antibiotics) [SULFA (SULFONAMIDE ANTIBIOTICS)] sulfamethoxazole Allergy Unknown Verified 09/22/23 22:45 [From BACTRIM] trimethoprim [From BACTRIM] Allergy Unknown Verified 09/22/23 22:45 [facility] Disclaimer: The information contained in this section may have been updated after the patient was seen, as this information can be updated by other users. Medical History Acute urinary retention Allergic rhinitis Chest congestion Chronic cough Cough variant asthma Eosinophilia Fecal impaction Fecal impaction in rectum Fracture of femoral neck, right Hip fracture LBBB (left bundle branch block) Stercoral colitis Surgical History History of colon resection History of colonoscopy History of tonsillectomy Hx of cholecystectomy Family History Other Asthma Coronary artery disease Diabetes Heart attack Hyperlipidemia Hypertension Social History Smoking Status: Never smoker alcohol intake: never current occupational status: retired Travel in the last 8 weeks: None caffeine: Yes ROS Obtained: Yes All systems reviewed & no additional complaints except as documented Physical Exam General General appearance: alert, in no apparent distress and anxious Comment: Tearful, anxious Head Head exam: atraumatic and normocephalic Eye Eye exam: Present normal appearance, PERRL and EOMI ENT ENT exam: Present normal exam, normal oropharynx, mucous membranes moist and normal external ear exam Neck Neck exam: Present normal inspection, full ROM and trachea midline; Absent tenderness Chest Chest inspection: Present normal inspection and symmetric chest wall rise; Absent tenderness Respiratory Respiratory exam: Present wheezes (Mild bilateral wheezing); Absent respiratory distress, stridor, accessory muscle use or prolonged expiratory phase Cardiovascular Cardiovascular exam: Present regular rate and normal rhythm Abdominal Exam Abdominal exam: Present soft; Absent distention, tenderness or guarding Extremities Exam Extremities exam: Present normal inspection, full ROM and normal capillary refill; Absent tenderness or edema Back Exam Back exam: Present normal inspection and full ROM; Absent tenderness Neurological Exam Neurological exam: Present alert, oriented X3, CN II-XII intact and normal gait; Absent motor sensory deficit Psychiatric Psychiatric exam: Present anxious Skin Skin exam: Present warm and dry Medical Decision Making Medical Records Medical records reviewed: Yes I reviewed the patient's medical records. David Inquiry Pt receiving controlled substance: No Vital Signs: 11/24/23 19:21 Temperature 98.3 F Temperature Source Oral Pulse Rate [Right Radial] 85 Respiratory Rate 18 Blood Pressure [Right Arm] 176/93 H Blood Pressure Mean [Right Arm] 120 02 Sat by Pulse Oximetry 98 Oxygen Delivery Method Room Air Lab Data Lab results reviewed: Yes I reviewed the patient's lab results. Orders (Tests/Meds): ED MEDICATIONS Generic Name Dose Route Start Last Admin Trade Name Freq PRN Reason Stop Dose Admin Doxycycline Hyclate 100 mg 11/24/23 19:59 Doxycycline Hycl 100 Mg Tablet PO 11/24/23 20:00 ONCE ONE Discontinued Medications Generic Name Dose Route Start Last Admin Trade Name Freq PRN Reason Stop Dose Admin Albuterol/Ipratropium 3 ml 11/24/23 19:17 11/24/23 19:30 Ipratropium/Albuterol 3 Ml Neb IH 11/24/23 19:18 3 ml ONCE ONE Administration ORDERS Category Date Time Status XR chest portable Stat Exams 11/24/23 19:17 Completed Medical Decision Narrative: In summary, this patient is a 83-year-old female presenting to the Emergency Department for evaluation of sadness from [facility]. They note that they are trying to treat her for her COPD but she is refusing. Differential diagnoses considered include but are not limited to anxiety, suicidal ideation, depression, COPD exacerbation, pneumonia. Ruling out the most morbid conditions drove assessment. On exam, the patient is tearful and sad, expressing that she just wants her son to come visit her. She is in no acute respiratory distress with reassuring vital signs on cardiac telemetry. No increased work of breathing. She does have faint wheezing, for which DuoNeb was ordered, as she typically has these scheduled at her nursing facility. X-ray of the chest was obtained and independently interpreted by myself that was concerning for possible pneumonia. Please see radiology read for final interpretation. For this, she was given oral doxycycline. I do not feel the labs or IV medications/interventions are indicated at this time given she is so well-appearing. She remains tearful, asking for her son multiple times. He has been notified but has not come to visit. At this time, I do not feel that there is medical necessity to give the patient the emergency department. She denies suicidal ideation. She was given prescription for doxycycline, and her facility was given strict return precautions. I feel she would benefit from therapy and/or psychiatric evaluation with concern for depression. The patient was discharged in stable condition. Critical Care Critical Care Time Critical Care Time: No
[2023-11-24 19:30] VITALS: BP 147/96; PULSE 84; RESP 18; O2SAT 99
[2023-11-24] MEDS: IPRATROPIUM/ALBUTEROL 3 ML NEB IH (19:30)
--- NOTE | 2023-11-24 19:38 | PC.NURSE ---
RT at bedside for breating treatment
[2023-11-24] MEDS: DOXYCYCLINE HYCL 100 MG TABLET PO (20:09)
[2023-11-24] MEDS: ALPRAZolam 0.5MG TABLET 0.5 MG PO (20:28)
[2023-11-24 20:30] VITALS: BP 148/103; PULSE 79; RESP 18; O2SAT 98
--- NOTE | 2023-11-24 20:54 | PC.NURSE ---
Called [facility]. Spoke to Fara, states they will be up in a moment. CR
[2023-11-24 21:00] VITALS: BP 146/86; PULSE 82; RESP 20; O2SAT 97
[2023-11-24 21:16] VITALS: BP 146/86; PULSE 76; RESP 18; TEMP 36.7; O2SAT 97
== END 2023-11-24 21:24 ==
PROVIDERS: Emergency Provider Emergency Medicine
DX: J44.9 Chronic obstructive pulmonary disease, unspecified (principal); R45.89 Other symptoms and signs involving emotional state; J18.9 Pneumonia, unspecified organism; R05.9 Cough, unspecified; I11.0 Hypertensive heart disease with heart failure; I50.9 Heart failure, unspecified; D72.10 Eosinophilia, unspecified
CPT/HCPCS: 71045; 99283

== ENCOUNTER 2024-04-03 13:30 | Outpatient (POV) | payer MEDICARE, BC, MEDICAID, SELFPAY | END 2024-04-03 23:59 | disposition home or self-care (01) | LOC: SC 13:31 | PROVIDERS: PCP Dermatology; Visit Provider Dermatology | DX: Z00.00 Encounter for general adult medical examination without abnormal findings (principal) ==

== ENCOUNTER 2024-04-24 10:02 | Outpatient (POV) | payer MEDICARE, BC, MEDICAID, SELFPAY | END 2024-04-24 23:59 | disposition home or self-care (01) | LOC: SC 10:03 | PROVIDERS: Visit Provider Specialist/Technologist | DX: Z00.00 Encounter for general adult medical examination without abnormal findings (principal) ==

== ENCOUNTER 2024-04-24 10:45 | Outpatient (CLI) | payer MEDICARE, BC, MEDICAID, SELFPAY ==
--- NOTE | 2024-04-24 10:50 | CT_ITS ---
FINAL REPORT TECHNIQUE: Multiple axial CT sections were performed through the face without IV contrast. Coronal and sagittal reconstruction images were performed. This study was performed with techniques to keep radiation doses as low as reasonably achievable (ALARA). Individualized dose reduction techniques using automated exposure control or adjustment of mA and/or kV according to the patient's size were employed. CLINICAL HISTORY: Chronic Cough AND CONGESTION COMPARISON: None FINDINGS: CT SINUSES: Paranasal sinuses, nasal passages and mastoid air cells: There is an air-fluid level in the right maxillary sinus, with partial opacification of the left maxillary air cells. There is near complete opacification of the bilateral sphenoid air cells. There is a mucous retention cyst in the left maxillary sinus measuring 12 mm in diameter. There is opacification of the right ostiomeatal unit, with partial obstruction. There is 2 mm deviation to the right of the nasal septum. IMPRESSION: There is an air-fluid level in the right maxillary sinus, with near complete opacification of the sphenoid air cells bilaterally and partial opacification of the left maxillary air cells. There is opacification of the right ostiomeatal unit, consistent with partial obstruction. Reviewed, Interpreted and Dictated by Alva Alvarez MD Transcribed by Johanne Kerr Authenticated and [facility]
== END 2024-04-24 23:59 | disposition home or self-care (01) ==
PROVIDERS: Visit Provider Otolaryngology
DX: R05.3 Chronic cough (principal)
CPT/HCPCS: 70486

== ENCOUNTER 2024-06-28 13:03 | Outpatient (CLI) | payer MEDICARE, BC, MEDICAID, SELFPAY ==
--- NOTE | 2024-06-28 13:03 | CT_ITS ---
FINAL REPORT CLINICAL HISTORY: sinus congestion COMPARISON: 04/24/2024 FINDINGS: CT SINUSES: There is extensive bilateral maxillary mucoperiosteal thickening, with bilateral air-fluid levels, worse than seen on the prior exam of 04/24. There is now complete opacification of the frontal sinuses, significantly more severe than seen on the prior exam. There is also worsening of the ethmoid sinus opacification. Bilateral sphenoid soft tissue thickening is present, slightly improved since the prior exam. There is also worsened opacification of the right mastoid air cells. IMPRESSION: Extensive sinusitis, significantly worsened since the prior exam of April 24. There is also increased opacification of the right mastoid air cells since the prior exam. Reviewed, Interpreted and Dictated by Tomi Medrano MD Transcribed by Johanne Kerr Authenticated and [facility]
== END 2024-06-28 23:59 | disposition home or self-care (01) ==
LOC: RAD 13:03
PROVIDERS: PCP Pediatrics; Visit Provider Otolaryngology
DX: R05.3 Chronic cough (principal); R06.02 Shortness of breath
CPT/HCPCS: 70486

== ENCOUNTER 2024-08-27 09:41 | Outpatient (CLI) | payer MEDICARE, BC, MEDICAID, SELFPAY ==
--- NOTE | 2024-08-27 09:48 | FL_ITS ---
FINAL REPORT CLINICAL HISTORY: sniff test, cough fluoro :22 DAP 280.68 FINDINGS: SNIFF TEST HISTORY: cough. FINDINGS: A sniff test was performed under fluoroscopy. No paradoxical movement was noted with either diaphragm. Fluoro time: 22 seconds DAP: 280.68 uGy.m2 IMPRESSION: Unremarkable sniff test. Films reviewed , interpreted and dictated by Dr. Lopez. Transcribed by Manuelito Mehta PA-C. Reviewed, Interpreted and Dictated by Teja Lopez III, MD Transcribed by HERBERTH Gibson Authenticated and [facility]
[2024-08-27 11:40] VITALS: PULSE 69; PULSE 74
[2024-08-27] MEDS: ALBUTEROL 0.083% 2.5 MG/3 ML NEB IH (11:40)
--- NOTE | 2024-08-27 12:16 | CT_ITS ---
PROCEDURE INFORMATION: Exam: CTA Chest With Contrast Exam date and time: 08/27/2024 1:01 PM Age: 84 years old Clinical indication: Other: Hypoxia, tachy; Additional info: Hypoxia/tachycardia, cough TECHNIQUE: Imaging protocol: Computed tomographic angiography of the chest with contrast. Exam focused on the arteries. 3D rendering (Not supervised by radiologist): MIP and/or 3D reconstructed images were created by the technologist. Radiation optimization: All CT scans at this facility use at least one of these dose optimization techniques: automated exposure control; mA and/or kV adjustment per patient size (includes targeted exams where dose is matched to clinical indication); or iterative reconstruction. Contrast material: ISOVUE 370; Contrast volume: 70 ml; Contrast route: INTRAVENOUS (IV); COMPARISON: CT angio chest 10/15/2023. FINDINGS: Pulmonary arteries: No pulmonary embolism with good contrast in the ascending aorta with Hounsfield units of 460. Aorta: Ectatic ascending aorta 38 x 39 mm. Lungs: Hyperinflation and emphysematous changes. Bilateral infiltrates in the lower lungs with questionable associated areas of mucous plugging. This is increased slightly in the right base appears slightly improved in the left base although there is motion in the lung bases themselves. There is new linear subsegmental appearing atelectasis involving the middle lobe. Pleural spaces: Unremarkable. No pneumothorax. No pleural effusion. Heart: Anterior pericardial fluid versus pericardial thickening slightly increased. The anterior thickness is now 11 mm while previously it was only 7. Lymph nodes: Unremarkable. No enlarged lymph nodes. Stomach: Surgical suture line again seen in the stomach. Bones/joints: Interval compression fracture T11 and T12. The former is compressed 10% lateral over 50%. Soft tissues: Unremarkable. IMPRESSION: 1. No pulmonary embolism. 2. Slightly worsening infiltrate with mucous plugging in the right base with improvement in the left base. 3. Increasing anterior pericardial effusion versus pericardial thickening. 4. New atelectasis involving the middle lobe. 5. New compression fractures in the spine.
[2024-08-27 12:44] LABS: Blood Urea Nitrogen 16 mg/dl (7-17); Estimated Glomerular Filt Rate 60 ml/min (>60); GFR (African American) 72 ML/MIN (>60)
[2024-08-27] MEDS: SODIUM CHLORIDE 0.9% 10ML SYR (RAD ONLY) 10 ML IV (13:14)
[2024-08-27] MEDS: IOPAMIDOL-370 (76%);100ML BOTTLE 75 ML IV (13:14)
[2024-08-27] MEDS: 0.9 % SODIUM CHLORIDE 50 ML VIAL IV (13:14)
== END 2024-08-27 23:59 | disposition home or self-care (01) ==
PROVIDERS: PCP Pediatrics; Visit Provider Internal Medicine Pulmonary Disease
DX: J98.6 Disorders of diaphragm (principal); R07.9 Chest pain, unspecified; R06.09 Other forms of dyspnea; J45.909 Unspecified asthma, uncomplicated; D72.19 Other eosinophilia; J45.991 Cough variant asthma
CPT/HCPCS: 36415; 71275; 76000; 82565; 84520; 94060; 94618; 94640; 94727; 94729; J7613; Q9967

== ENCOUNTER 2024-09-04 13:24 | Inpatient (IN) | payer MEDICARE, BC, MEDICAID, SELFPAY ==
--- NOTE | 2024-09-04 13:36 | PC.NURSE ---
arrived by w/c from from [facility]
[2024-09-04 13:51] VITALS: PULSE 70
--- NOTE | 2024-09-04 13:58 | CA_ITS ---
APPROVED REPORT EXAM: Comprehensive 2D, Doppler, and color-flow Echocardiogram Claims Technician: Ania Schultz CRT Ht: 5 ft 7 in Wt: 134lbs BSA: 1.71 BP: 104/72 mmHg Indications: Abnormal ECG, Chest Pain, Congestive Heart Failure, Shortness of Breath, Cardiomyopathy EF 35% 04/12/23 ECHO, Pericardial effusion per CTA 08/23 2D Dimensions LA Volume 18.00 mL LA Volume Index 10.30 mL/m2 (M/F) 16-34 M-Mode Dimensions RVDd 2.44 cm (0.9-2.6) LA Diam 3.49 cm (1.9-4.0) LVDd 4.65 cm (3.5-5.7) LVDs 3.66 cm (3.5-5.7) IVSd 1.19 cm (0.6-1.1) PWd 1.03 cm (0.6-1.1) EF (Teich) 43.30% FS 21.30% EDV (Teich) 99.80 mL TAPSE 2.08 (<1.7) ESV (Teich) 56.60 mL LV Diastology E Decel Time 150 (160-240 msec) E/A Ratio 0.40 MED A' 6.90 cm/s LAT A' 14.50 cm/s Aortic Valve AO Peak GR. 3.80 mmHg Mitral Valve MV E Max Reuben. 36.0 (40-130 cm/s) MV A Velocity 89.0 (40-130 cm/s) E/A Ratio 0.40 MV PHT 44.0 ms Pulmonary Valve PV Peak Velocity 108.0 (50-150 cm/s) Tricuspid Valve TR P. Velocity 197.00 cm/s RAP Estimate 10.00 mmHg RVSP 25.50 mmHg Left Ventricle The left ventricle is normal size. The left ventricular systolic function is moderately to severely reduced. There is increased LV wall thickness. There is moderate to severe global hypokinesis present. The LV septal wall and inferoseptal LV perea are nearly akinetic. Grade 1 diastolic dysfunction is present. LVEF is 30%. Right Ventricle The right ventricle is normal size. The right ventricular systolic function is normal. Atria The left atrium is mildly dilated. The right atrium size is normal. There is no Doppler evidence of interatrial shunt. Aortic Valve The aortic valve is mildly thickened. There is no aortic valvular stenosis. Mild aortic regurgitation. Mitral Valve The mitral valve leaflets are mildly thickened. No evidence of mitral valve stenosis. Trace mitral regurgitation. Tricuspid Valve Tricuspid valve is grossly normal in structure and function. Mild tricuspid regurgitation. RVSP is 20-25 mmHg. Pulmonic Valve The pulmonary valve is normal in structure. Trace pulmonic regurgitation. Great Vessels The aortic root is normal in size. The ascending aorta is mildly dilated, measuring 4.0 cm in diameter. IVC is normal in size and collapses >50% with inspiration. Pericardium There is no pericardial effusion. Other Information Study Quality: Fair Conclusion Moderate to severe reduction in LV systolic function (LVEF 30%). The LV septal wall and inferoseptal LV perea are nearly akinetic. Mild LA dilation. Mild AI, mild TR. The ascending aorta is mildly dilated, measuring 4.0 cm in diameter. Electronically signed by : Denita Tyler MD 09/05/2024 11:32:51
[2024-09-04 14:09] LABS: Basophils # 0.1 K/mm3 (0-0.2); Basophils % 1.1 % (0.1-2.0); Eosinophils # 0.2 K/mm3 (0.0-0.4); Eosinophils % 2.9 % (0.1-12.0); Hematocrit 40.5 % (37.0-47.0); Hemoglobin 14.3 g/dL (12.2-16.2); Lymphocytes # 1.5 K/mm3 (0.7-4.5); Lymphocytes % 24.5 % (10-50); Mean Corpuscular HGB Conc 35.3 g/dL (31.8-35.4); Mean Corpuscular Hemoglobin 29.6 pg (27.0-31.2); Mean Corpuscular Volume 83.9 fl (81-99); Mean Platelet Volume 7.8 fl (7.4-10.4); Monocytes # 0.4 K/mm3 (0.1-1.0); Monocytes % 6.4 % (1.7-9.3); Neutrophils % 65.2 % (37.0-80.0); Platelet Count 175 K/mm3 (142-424); Red Blood Count 4.83 M/mm3 (4.20-5.40); Red Cell Distribution Width 14.8 % (11.5-17.5); White Blood Count 6.1 K/mm3 (4.8-10.8)
[2024-09-04] MEDS: FUROSEMIDE 40MG/4ML VIAL 80 MG IV (14:19)
--- NOTE | 2024-09-04 14:19 | HMH.PHAINT1 ---
Pharmacy Intervention Comments: Home medication list verified using list from outpatient pharmacy
[2024-09-04 14:34] LABS: Albumin Level 4.1 g/dl (3.5-5.0); Chloride 109 mmol/L (98-107); Sodium 139 mmol/L (136-145)
[2024-09-04 14:35] LABS: Potassium 3.8 mmoL/L (3.5-5.1)
--- NOTE | 2024-09-04 14:36 | P.CONCA_ITS ---
History of Present Illness History of Present Illness Consult date: 09/04/24 Requesting physician: Jean Marie Miranda Consult reason: congestive heart failure Chief complaint: HFrEF, cough Additional Medical History:: History of present illness: 84 yo WF admitted from the office for CHF, Cardiomyopathy and chronic cough with worsening pericardial effusion. Currently in NH but for unknown reason per patient. Previously DNR but patient does not know anything about that and at this time wants medical therapy but no CPR. Productive cough occasionally of yellow phlegm. No fever or chills. Echo from 03/2023 shows EF of 35% but not currently on GDMT and she states she was unaware of this diagnosis. She was sent back to the office today by Pulmonary due to need for pre-op evaluation for ENT surgery. Recent CT of chest shows worsening pericardial effusion. [facility] Disclaimer: The information contained in this section may have been updated after the patient was seen, as this information can be updated by other users. Medical History Abnormal electrocardiogram [ECG] [EKG] Chest pressure Pericardial effusion Cardiomyopathy Orthopnea HFrEF (heart failure with reduced ejection fraction) Asthma Hearing loss Chronic cough Chronic cough Shortness of breath Stercoral colitis Fecal impaction Acute urinary retention Fecal impaction in rectum Allergic rhinitis Eosinophilia Cough variant asthma Chest congestion Fracture of femoral neck, right LBBB (left bundle branch block) Hip fracture Surgical History History of right hip replacement History of stapedectomy History of dilation and curettage History of colon resection History of colonoscopy Hx of cholecystectomy History of tonsillectomy Family History Other Asthma Coronary artery disease Diabetes Heart attack Hyperlipidemia Hypertension Social History Smoking Status: Never smoker alcohol intake: never current occupational status: retired Travel in the last 8 weeks: None caffeine: Yes Review of Systems Review of Systems Review of systems:: pertinent systems reviewed and negative unless documented below *Cardiovascular Cardiovascular: Denies chest pain and Reports dyspnea on exertion *Respiratory Respiratory: Reports cough and Reports dyspnea on exertion Exam Data for Last 24 hours Vital signs and Labs for Last 24 Hours: O2 Del Method Room Air 09/04/24 13:43 Laboratory Results - last 24 hr 09/04/24 14:00: WBC 6.1, RBC 4.83, Hgb 14.3, Hct 40.5, MCV 83.9, MCH 29.6, MCHC 35.3, RDW 14.8, Plt Count 175, MPV 7.8, Neut % (Auto) 65.2, Lymph % (Auto) 24.5, [place] % (Auto) 6.4, Eos % (Auto) 2.9, Baso % (Auto) 1.1, Neut # (Auto) 4.0, Lymph # (Auto) 1.5, [place] # (Auto) 0.4, Eos # (Auto) 0.2, Baso # (Auto) 0.1 Constitutional Constitutional: mild distress *Routine Respiratory Exam Respiratory: Present rhonchi and wheezes *Routine Cardiovascular Exam Cardiovascular: Present RRR and murmur; Absent gallop or rubs *Routine Extremities Exam Extremities: Absent edema *Routine Neurological Exam Neurological: Present alert, oriented X3 and CN II-XII intact Meds Home Medications and Allergies Home Medications ?Medication ?Instructions ?Recorded ?Confirmed ?Type docusate sodium 100 mg capsule 100 mg PO DAILY 09/23/23 09/04/24 History (Colace) guaifenesin 600 mg tablet, 600 mg PO BID 07/19/24 09/04/24 History extended release 12 hr (Mucus Relief ER) ipratropium 0.5 mg-albuterol 3 mg 3 ml inhalation QID 30 days #180 mL 07/19/24 09/04/24 Rx (2.5 mg base)/3 mL nebulization soln albuterol sulfate 90 mcg/actuation 2 puff inhalation Q4-6H PRN 09/04/24 09/04/24 History aerosol inhaler Shortness Of Breath budesonide 0.25 mg/2 mL suspension 0.25 mg inhalation BID 09/04/24 09/04/24 History for nebulization fluticasone propionate 50 2 spray intranasal HS 09/04/24 09/04/24 History mcg/actuation nasal spray,suspension furosemide 40 mg tablet 40 mg PO DAILY 09/04/24 09/04/24 History melatonin 3 mg tablet 6 mg PO HS 09/04/24 09/04/24 History montelukast 10 mg tablet 10 mg PO PM 09/04/24 09/04/24 History polyethylene glycol 3350 17 17 g PO DAILY PRN Constipation 09/04/24 09/04/24 History gram/dose oral powder (Miralax) ramelteon 8 mg tablet (Rozerem) 8 mg PO HS 09/04/24 09/04/24 History sennosides 8.6 mg tablet (senna) 8.6 mg PO DAILY 09/04/24 09/04/24 History New Prescriptions to Start Prescriptions: Allergies Allergy/AdvReac Type Severity Reaction Status Date / Time atenolol [ATENOLOL] Allergy Unknown Verified 09/04/24 11:05 bismuth subsalicylate Allergy Unknown Verified 09/04/24 11:05 [From PEPTO-BISMOL] cimetidine [From TAGAMET] Allergy Unknown Verified 09/04/24 11:05 diazepam [From VALIUM] Allergy Unknown Verified 09/04/24 11:05 dicyclomine [From BENTYL] Allergy Unknown Verified 09/04/24 11:05 docusate [DOCUSATE] Allergy Unknown Verified 09/04/24 11:05 escitalopram [From LEXAPRO] Allergy Unknown Verified 09/04/24 11:05 famotidine [From PEPCID] Allergy Unknown Verified 09/04/24 11:05 fenofibrate [From TRICOR] Allergy Unknown Verified 09/04/24 11:05 fish oil [FISH OIL] Allergy Unknown Verified 09/04/24 11:05 hydrocortisone [From LOCOID] Allergy Unknown Verified 09/04/24 11:05 mirtazapine [From REMERON] Allergy Unknown Verified 09/04/24 11:05 niacin [NIACIN] Allergy Unknown Verified 09/04/24 11:05 nortriptyline [NORTRIPTYLINE] Allergy Unknown Verified 09/04/24 11:05 omeprazole [From PRILOSEC] Allergy Unknown Verified 09/04/24 11:05 pravastatin [From Pravachol] Allergy Unknown Verified 09/04/24 11:05 rosuvastatin Allergy Unknown Verified 09/04/24 11:05 simvastatin Allergy Unknown Verified 09/04/24 11:05 Mlaverl-PXF-PhZ Reductase Allergy Unknown Verified 09/04/24 11:05 Inhibitor [Mmiivpd-Vqe-Mzs Reductase Inhibitor] Sulfa (Sulfonamide Allergy Unknown Verified 09/04/24 11:05 Antibiotics) [SULFA (SULFONAMIDE ANTIBIOTICS)] sulfamethoxazole Allergy Unknown Verified 09/04/24 11:05 [From BACTRIM] trimethoprim [From BACTRIM] Allergy Unknown Verified 09/04/24 11:05 Assessment and Plan *Assessment and plan (1) Pericardial effusion: Status: Acute Category: Medical Code(s): I31.39 - Other pericardial effusion (noninflammatory) (2) HFrEF (heart failure with reduced ejection fraction): Status: Acute Category: Medical Code(s): I50.20 - Unspecified systolic (congestive) heart failure (3) Emphysema lung: Status: Acute Qualifiers: Emphysema type: unspecified Qualified Code(s): J43.9 - Emphysema, unspecified Category: Medical Code(s): J43.9 - Emphysema, unspecified (4) Chronic cough: Status: Acute Category: Medical Code(s): R05.3 - Chronic cough (5) Shortness of breath: Status: Acute Category: Medical Code(s): R06.02 - Shortness of breath (6) Generalized anxiety disorder: Status: Chronic Category: Medical Code(s): F41.1 - Generalized anxiety disorder Plan 1. Pericardial effusion, worsening on recent CT of chest -echo today -possible pericardiocentesis if needed 2. HFrEF/Cardiomyopathy -repeat echo today -diurese with IV Lasix -BNP 2960 -pt never had ischemic workup of her cardiomyopathy so will plan to proceed with [facility] tomorrow -Start Entresto 3. Emphysema with chronic cough -Never smoker -Secondhand smoke exposure due to dancing/down [place] -Right heart catheterization tomorrow in conjunction with left heart catheterization 4. Generalized anxiety disorder 5. Dyslipidemia -Intolerant to statins, fibrate's Right and left heart catheterization tomorrow Pending echo results she may need pericardiocentesis Start goal-directed medical therapy as tolerated for HFrEF
[2024-09-04 14:37] LABS: Alanine Aminotransferase 15 U/L (12-78); Albumin/Globulin Ratio 1.4 (1.1-1.8); Anion Gap 11.8 mEq/L (5-15); Aspartate Amino Transferase 24 U/L (14-36); Blood Urea Nitrogen 13 mg/dl (7-17); Carbon Dioxide 22 mmol/L (22.0-30.0); Estimated Glomerular Filt Rate 60 ml/min (>60); GFR (African American) 72 ML/MIN (>60); Globulin 2.9 g/dL (1.3-3.2)
[2024-09-04 14:38] LABS: Alkaline Phosphatase 75 U/L (38-126); Bilirubin,Total 0.8 mg/dl (0.2-1.3); Glucose 126 mg/dl (74-100); Magnesium 2.1 mg/dl (1.6-2.3)
[2024-09-04 14:40] VITALS: BP 174/88; PULSE 72; RESP 15; TEMP 36.7; O2SAT 97
[2024-09-04 14:45] LABS: NT Pro Brain Natriuretic Pep. 2960 pg/mL (0-450)
[2024-09-04] MEDS: SPIRONOLACTONE 25MG TABLET 25 MG PO (14:45)
[2024-09-04 16:00] VITALS: BP 139/103; PULSE 66; PULSE 80; RESP 18; TEMP 36.6; O2SAT 95
[2024-09-04] MEDS: FUROSEMIDE 40MG/4ML VIAL 40 MG IV (16:00)
--- NOTE | 2024-09-04 16:57 | P.HP_ITS ---
History of Present Illness *Admission Date: 09/04/24 *Reason for visit:: cough, chf *History of present illness: Ms. Sylvester is an 84-year-old female who was resided at [facility] for the past 21 months. Initially admitted due to failure to thrive with chronic pain and and was admitted on hospice. She was discharged from hospice 6 months later due to failure of progression of her condition. Has subsequently come off of pain medication. In discussion with her, she does not recall being on hospice nor does she recall how long she has been at the longterm. She was seen in cardiology clinic today due to persistent cough for which ENT was planning possible procedure on her sinuses. They needed pulmonology and cardiology clearance/optimization prior to proceeding with surgery. Was seen in pulmonology clinic little over a month ago and recommended to follow with cardiology due to history of heart failure. Patient reports she was unaware of this however this appears to have been diagnosed in March 2023 for an echo at [facility] showed an EF of 35% and documentation from previous hospitalizations clearly reports CHF and references this echo. Patient was discharged previously a year ago on diuretics but does not appear to be on them at this time. She denies any chest pain, nausea, vomiting. No oxygen requirement. Has persistent nonproductive cough that is going on for years per her report. Seen in cardiology clinic today, request admission for further workup and treatment of suspected heart failure. Patient is pleasant on interview. In no acute distress [facility] Disclaimer: The information contained in this section may have been updated after the patient was seen, as this information can be updated by other users. Medical History Abnormal electrocardiogram [ECG] [EKG] Chest pressure Pericardial effusion Cardiomyopathy Orthopnea HFrEF (heart failure with reduced ejection fraction) Asthma Hearing loss Chronic cough Chronic cough Shortness of breath Stercoral colitis Fecal impaction Acute urinary retention Fecal impaction in rectum Allergic rhinitis Eosinophilia Cough variant asthma Chest congestion Fracture of femoral neck, right LBBB (left bundle branch block) Hip fracture Surgical History History of right hip replacement History of stapedectomy History of dilation and curettage History of colon resection History of colonoscopy Hx of cholecystectomy History of tonsillectomy Family History Other Asthma Coronary artery disease Diabetes Heart attack Hyperlipidemia Hypertension Social History Smoking Status: Never smoker alcohol intake: never current occupational status: retired Travel in the last 8 weeks: None caffeine: Yes Other Medical History Have you received the Flu Vaccine for this season: No Have you received the Pneumonia Vaccine: Yes Review of Systems Review of Systems Review of systems (narrative): 14 point review of systems performed, pertinent positives and negatives as per [facility] Meds Home Medications and Allergies Home Medications ?Medication ?Instructions ?Recorded ?Confirmed ?Type docusate sodium 100 mg capsule 100 mg PO DAILY 09/23/23 09/04/24 History (Colace) guaifenesin 600 mg tablet, 600 mg PO BID 07/19/24 09/04/24 History extended release 12 hr (Mucus Relief ER) ipratropium 0.5 mg-albuterol 3 mg 3 ml inhalation QID 30 days #180 mL 07/19/24 09/04/24 Rx (2.5 mg base)/3 mL nebulization soln albuterol sulfate 90 mcg/actuation 2 puff inhalation Q4-6H PRN 09/04/24 09/04/24 History aerosol inhaler Shortness Of Breath budesonide 0.25 mg/2 mL suspension 0.25 mg inhalation BID 09/04/24 09/04/24 History for nebulization fluticasone propionate 50 2 spray intranasal HS 09/04/24 09/04/24 History mcg/actuation nasal spray,suspension furosemide 40 mg tablet 40 mg PO DAILY 09/04/24 09/04/24 History melatonin 3 mg tablet 6 mg PO HS 09/04/24 09/04/24 History montelukast 10 mg tablet 10 mg PO PM 09/04/24 09/04/24 History polyethylene glycol 3350 17 17 g PO DAILY PRN Constipation 09/04/24 09/04/24 History gram/dose oral powder (Miralax) ramelteon 8 mg tablet (Rozerem) 8 mg PO HS 09/04/24 09/04/24 History sennosides 8.6 mg tablet (senna) 8.6 mg PO DAILY 09/04/24 09/04/24 History New Prescriptions to Start Prescriptions: Allergies Allergy/AdvReac Type Severity Reaction Status Date / Time atenolol [ATENOLOL] Allergy Unknown Verified 09/04/24 11:05 bismuth subsalicylate Allergy Unknown Verified 09/04/24 11:05 [From PEPTO-BISMOL] cimetidine [From TAGAMET] Allergy Unknown Verified 09/04/24 11:05 diazepam [From VALIUM] Allergy Unknown Verified 09/04/24 11:05 dicyclomine [From BENTYL] Allergy Unknown Verified 09/04/24 11:05 docusate [DOCUSATE] Allergy Unknown Verified 09/04/24 11:05 escitalopram [From LEXAPRO] Allergy Unknown Verified 09/04/24 11:05 famotidine [From PEPCID] Allergy Unknown Verified 09/04/24 11:05 fenofibrate [From TRICOR] Allergy Unknown Verified 09/04/24 11:05 fish oil [FISH OIL] Allergy Unknown Verified 09/04/24 11:05 hydrocortisone [From LOCOID] Allergy Unknown Verified 09/04/24 11:05 mirtazapine [From REMERON] Allergy Unknown Verified 09/04/24 11:05 niacin [NIACIN] Allergy Unknown Verified 09/04/24 11:05 nortriptyline [NORTRIPTYLINE] Allergy Unknown Verified 09/04/24 11:05 omeprazole [From PRILOSEC] Allergy Unknown Verified 09/04/24 11:05 pravastatin [From Pravachol] Allergy Unknown Verified 09/04/24 11:05 rosuvastatin Allergy Unknown Verified 09/04/24 11:05 simvastatin Allergy Unknown Verified 09/04/24 11:05 Dfravnt-HUM-ElU Reductase Allergy Unknown Verified 09/04/24 11:05 Inhibitor [Vuidatl-Mva-Pdz Reductase Inhibitor] Sulfa (Sulfonamide Allergy Unknown Verified 09/04/24 11:05 Antibiotics) [SULFA (SULFONAMIDE ANTIBIOTICS)] sulfamethoxazole Allergy Unknown Verified 09/04/24 11:05 [From BACTRIM] trimethoprim [From BACTRIM] Allergy Unknown Verified 09/04/24 11:05 Exam Data for Last 24 hours Vital signs and Labs for Last 24 Hours: Temp Pulse Resp BP Pulse Ox O2 Del Method 97.8 F 66 18 139/103 H 95 Room Air 09/04/24 16:00 09/04/24 16:00 09/04/24 16:00 09/04/24 16:00 09/04/24 16:00 09/04/24 16:00 Laboratory Results - last 24 hr 09/04/24 14:00: WBC 6.1, RBC 4.83, Hgb 14.3, Hct 40.5, MCV 83.9, MCH 29.6, MCHC 35.3, RDW 14.8, Plt Count 175, MPV 7.8, Neut % (Auto) 65.2, Lymph % (Auto) 24.5, [place] % (Auto) 6.4, Eos % (Auto) 2.9, Baso % (Auto) 1.1, Neut # (Auto) 4.0, Lymph # (Auto) 1.5, [place] # (Auto) 0.4, Eos # (Auto) 0.2, Baso # (Auto) 0.1, Sodium 139, Potassium 3.8, Chloride 109 H, Carbon Dioxide 22, Anion Gap 11.8, BUN 13, Creatinine 0.90, Estimated GFR 60, Est GFR ( Amer) 72, Glucose 126 H, Calcium 9.0, Magnesium 2.1, Total Bilirubin 0.8, AST 24, ALT 15, Alkaline Phosphatase 75, NT-Pro-B Natriuret Pep 2960 H, Total Protein 7.0, Albumin 4.1, Globulin 2.9, Albumin/Globulin Ratio 1.4 I & O for Last 24 hours: Intake & Output 09/01/24 09/02/24 09/03/24 09/04/24 23:59 22:59 23:59 23:59 Output Total 0 / 0 Balance 0 / 0 Constitutional Constitutional: no acute distress, average body habitus, chronically ill appearing and cooperative *Routine HEENT Exam Head: Present normocephalic and atraumatic Eye: Present EOMI, PERRL and normal accommodation ENT: Present mucous membranes moist *Routine Neck Exam Neck: Present supple, full ROM and trachea midline *Routine Respiratory Exam Respiratory: Present prolonged expiratory phase, rhonchi and normal respiratory effort; Absent wheezes Comments: Transmitted upper airway sound *Routine Cardiovascular Exam Cardiovascular: Present RRR, Normal S1 and Normal S2 *Routine Abdominal Exam Abdominal: Present soft and normoactive bowel sounds; Absent organomegaly *Routine Rectal Exam Rectal:: deferred *Routine Genitalia Exam Genitalia:: deferred *Routine Extremities Exam Extremities: Present full ROM, pulses intact and normal capillary refill; Absent cyanosis, clubbing or edema *Routine Skin Exam Skin: Present intact, dry and warm *Routine Neurological Exam Neurological: Present alert, normal reflexes, moving all extremities and normal speech Comments: Appears to be oriented to self and place. Has poor recall of previous medical history. Does not recall having been on hospice which she was admitted to 18 months ago and then discharged. Does not recall history of heart failure though it has been documented in previous notes by myself personally and she commented on appreciating me going over her previous studies last time she was admitted (this would have included her echo showing heart failure). Does not recall her medications Routine Psychiatric Exam Psychiatric: Present normal thought process and cooperative Assessment and Plan *Assessment and plan (1) HFrEF (heart failure with reduced ejection fraction): Status: Acute Category: Medical Code(s): I50.20 - Unspecified systolic (congestive) heart failure (2) Orthopnea: Status: Acute Category: Medical Code(s): R06.01 - Orthopnea (3) Cardiomyopathy: Status: Acute Qualifiers: Cardiomyopathy type: other Qualified Code(s): I42.8 - Other cardiomyopathies Category: Medical Code(s): I42.9 - Cardiomyopathy, unspecified (4) Pericardial effusion: Status: Acute Category: Medical Code(s): I31.39 - Other pericardial effusion (noninflammatory) (5) Emphysema lung: Status: Acute Qualifiers: Emphysema type: unspecified Qualified Code(s): J43.9 - Emphysema, uns pecified Category: Medical Code(s): J43.9 - Emphysema, unspecified (6) Chronic cough: Status: Acute Category: Medical Code(s): R05.3 - Chronic cough (7) Hypertension, essential: Status: Chronic Category: Medical Code(s): I10 - Essential (primary) hypertension (8) Generalized anxiety disorder: Status: Chronic Category: Medical Code(s): F41.1 - Generalized anxiety disorder Plan 84-year-old female who presents from cardiology clinic with persistent cough and concern for acute on chronic CHF. Discussed case with cardiology PA, request admission for further management of her heart failure, diuresis, and possible heart caths. I agreed to admit for further management. On evaluation, patient stable on room air. Has persistent nonproductive cough. Labs and workup concerning for acute on chronic CHF. Problems addressed as follows: Acute on chronic CHF -Reviewed echo from April 2023, EF reduced to 35%. - Cardiology consulted, discussed case, will initiate goal-directed therapy with Entresto 24/26 mg twice daily, spironolactone 25 mg daily, Lasix IV 80 mg once. Continue 40 mg IV twice daily - BNP elevated at 3000 kidney function normal with BUN 13, creatinine 0.9. Potassium 3.8. Magnesium 2.1 - Repeat CBC, CMP, magnesium and lipid panel ordered for the morning. - Anticipate further workup with interventions tomorrow including possible right and left heart cath. - Chest imaging showing pericardial effusion. Does not appear to be in tamponade at this time. Further management pending cardiology recommendations with possible pericardiocentesis. - Repeat echo obtained, formal read pending COPD/emphysema: Chronic cough: - Review of recent CT shows emphysema on imaging. Continue budesonide 0.25 mg twice daily, DuoNebs every 6 hours scheduled. Singulair 10 mg daily. - Stable on room air, supplemental oxygen as needed if O2 sats drop below 88%. -Cough appears to be multifactorial. Has transmitted upper airway sounds from exam. Patient appears to be somewhat anxious, his occasion is. On any at this time. Extensive list of of allergies/intolerance of medications for anxiety/depression, antibiotics, statins. DNR Heparin 5000 units SQ 3 times daily Cardiac diet, n.p.o. at midnight
[2024-09-04] MEDS: MONTELUKAST SODIUM 10MG TAB 10 MG PO (17:07)
[2024-09-04] MEDS: IPRATROPIUM/ALBUTEROL 3 ML NEB IH ×2 (18:02→23:23)
[2024-09-04 19:02] VITALS: PULSE 81
[2024-09-04 20:00] VITALS: BP 141/86; PULSE 102; PULSE 120; RESP 18; TEMP 36.7; O2SAT 95
[2024-09-04] MEDS: HEPARIN SODIUM 5,000 UNIT/ML VIAL 5000 UNIT SUBCUT (20:21)
[2024-09-04] MEDS: SACUBITRIL/VALSARTAN 24-26MG TABLET 1 EACH PO (20:21)
[2024-09-04] MEDS: FLUTICASONE PROP 50MCG NASAL SPRAY 16GM 2 SPRAY NS (20:22)
[2024-09-04] MEDS: BUDESONIDE 0.25MG/2ML NEB 0.25 MG IH (23:23)
[2024-09-04 23:41] VITALS: PULSE 90
[2024-09-05] VITALS (28 sets, daily range): BP systolic 105–184; BP diastolic 60–105; PULSE 59–97; RESP 16–22; TEMP 36.4–37.2; O2SAT 92–97; BMI 21.2
--- NOTE | 2024-09-05 | IR_ITS ---
APPROVED REPORT Patient Location: Inpatient Rn Obgyn: KERRY Hernandez RT (R) PROCEDURES Right heart catheterization Left heart catheterization Drug-eluting stent deployment to the proximal mid and distal right coronary in a contiguous manner Informed consent was obtained prior to the procedure. COMPLICATIONS None Estimated Blood Loss: Less than 10 mls TECHNIQUE One percent lidocaine was used to anesthetize the right anterior aspect of the right wrist. The right radial artery was accessed via the Seldinger technique and a 6 Mauritian hydrophilic sheath was placed in the right radial artery. Following this one percent lidocaine was used to anesthetize the right anterior aspect of the right neck. The right internal jugular vein was accessed via the Seldinger technique and a 7 Mauritian sheath was placed in the right internal jugular vein. 1% lidocaine used to incise the right groin the right femoral artery was accessed to the center technique and a 4 Mauritian sheath is placed in the right femoral artery. A JL 4 JR4 catheter was used to perform left heart catheterization and selective coronary angiography. At the end the diagnostic angiogram therapeutic Was administered by therapeutic ACT and the 4 Mauritian sheath was exchanged for a 6 Mauritian sheath. A JR4 guide catheter was placed in the right coronary artery followed by Choice PT extra-support wire distally. A 3 mm x 38 mm Claudio frontier stent was deployed at 12 racquel in the proximal to mid right coronary artery reducing the severe stenosis to 0%. An additional 2.75 x 38 mm Viper frontier stent was placed distal to the for stent yet still overlapping and deployed at 12 racquel. The balloon was brought back and deployed at 18 racquel to post dilate and mesh the 2 stents. After achieving excellent angiographic results with ADRIENNE-3 flow being present before and after the procedure the apparatus was removed the groin is reprepped closure change sheath was removed good hemostasis was achieved using Perclose device patient was transferred to the postop putting in stable condition ANGIOGRAPHIC RESULTS The left main artery Normal The left anterior descending artery Is proximally normal followed by tapering in the midportion with diffuse 30 to 40% stenoses throughout the mid LAD in a concentric manner The circumflex artery Nondominant normal The right coronary artery Dominant with mid vessel concentric 80% stenosis followed by an additional 70% stenosis Right atrial pressure 2 mmHg Pulmonary artery pressure 25/10 mmHg Pulmonary artery occlusion pressure 5 mmHg Right atrial saturation 76% Pulmonary artery saturation 76% Aortic saturation 95% Hemoglobin 16.2 Cardiac output 5.1 L/min IMPRESSION Severe disease involving the mid and distal dominant right coronary as described above Successful stenting of the right coronary artery severe disease reduced to 0% with 2 contiguous drug-eluting stents Normal intracardial pulmonary filling pressures PLAN 1. Aspirin and Plavix 2. Patient may benefit from slight increase in IV fluids 3. Standard therapy for cardiomyopathy 4. LDL less than 55 achieved with high intensity statin 5. Avoidance of tobacco products 6. Risk factor modification Electronically signed by : Charli Starkey MD 09/05/2024 14:32:01
--- NOTE | 2024-09-05 06:04 | PC.NURSE ---
Patient is alert and oriented x4. Patient was observed to have eyes closed, respirations even and unlabored on room air, and no apparent distress throughout the majority of the night. Patient has expressed feeling anxious about her procedure this morning; patient was reassured and comforted by staff. Patient appeared to be short of breath around times when breathing treatments were due. Patient reported that the scheduled breathing treatments have been helpful for her. Upon auscultation, expiratory wheezing could be heard in her lungs. She reports having a long-term nonproductive cough. She was given peanut butter and honey with crackers for a bedtime snack prior to midnight; she has remained NPO since then. Her abdomen was noticed to be round and nontender with active bowel sounds; her right quadrants sounded more hypoactive compared to the left this shift. Patient has been ambulating independently (with supervision) in her room and to the bathroom; she tolerates ambulation well. She has been having frequent urinations. She has reported having a new onset of leg cramps that she stated has not happened prior to her admission here (nor at the group home). She also reported having discomfort on her bottom during wiping; barrier cream was provided. She received her scheduled medications per DEC; however, melatonin 6 mg and ramelteon were not available. Vital signs have been stable with soft blood pressures. At this time, the patient is resting in bed with no further complaints. No acute changes noted thus far. Call light within reach.
[2024-09-05] MEDS: IPRATROPIUM/ALBUTEROL 3 ML NEB IH ×4 (06:18→23:54)
[2024-09-05] MEDS: BUDESONIDE 0.25MG/2ML NEB 0.25 MG IH ×2 (06:21→18:09)
[2024-09-05 07:18] LABS: Alanine Aminotransferase 17 U/L (12-78); Albumin Level 4.3 g/dl (3.5-5.0); Albumin/Globulin Ratio 1.3 (1.1-1.8); Alkaline Phosphatase 82 U/L (38-126); Anion Gap 11.5 mEq/L (5-15); Aspartate Amino Transferase 27 U/L (14-36); Bilirubin,Total 0.9 mg/dl (0.2-1.3); Blood Urea Nitrogen 20 mg/dl (7-17); Calcium 9.1 mg/dl (8.4-10.2); Carbon Dioxide 28 mmol/L (22.0-30.0); Chloride 104 mmol/L (98-107); Chol/HDL Ratio 5.8 (1-3.5); Cholesterol 243 mg/dl (140-200); Creatinine Clearance Estimated 40 mL/min (50-200); Estimated Glomerular Filt Rate 53 ml/min (>60); GFR (African American) 64 ML/MIN (>60); Globulin 3.2 g/dL (1.3-3.2); Glucose 119 mg/dl (74-100); HDL Cholesterol 42 mg/dl (40-60); Magnesium 2.2 mg/dl (1.6-2.3); Potassium 3.5 mmoL/L (3.5-5.1); Sodium 140 mmol/L (136-145); Total Protein,Serum 7.5 g/dl (6.3-8.2); Triglycerides 259 mg/dl (30-150); VLDL Cholesterol 52 mg/dL (0-40)
[2024-09-05 07:29] LABS: Direct LDL Cholesterol 158.32 mg/dL (100-129)
[2024-09-05 08:14] LABS: Basophils # 0.1 K/mm3 (0-0.2); Basophils % 1.2 % (0.1-2.0); Eosinophils # 0.2 K/mm3 (0.0-0.4); Eosinophils % 2.5 % (0.1-12.0); Hematocrit 47.6 % (37.0-47.0); Lymphocytes # 2.2 K/mm3 (0.7-4.5); Lymphocytes % 30.7 % (10-50); Mean Corpuscular HGB Conc 33.9 g/dL (31.8-35.4); Mean Corpuscular Hemoglobin 29.3 pg (27.0-31.2); Mean Corpuscular Volume 86.4 fl (81-99); Mean Platelet Volume 7.5 fl (7.4-10.4); Monocytes # 0.7 K/mm3 (0.1-1.0); Monocytes % 9.2 % (1.7-9.3); Neutrophils % 56.4 % (37.0-80.0); Platelet Count 207 K/mm3 (142-424); Red Blood Count 5.51 M/mm3 (4.20-5.40); Red Cell Distribution Width 14.9 % (11.5-17.5); White Blood Count 7.2 K/mm3 (4.8-10.8)
[2024-09-05 08:30] LABS: Hemoglobin 16.2 g/dL (12.2-16.2)
[2024-09-05] MEDS: SACUBITRIL/VALSARTAN 24-26MG TABLET 1 EACH PO ×2 (08:56→20:42)
--- NOTE | 2024-09-05 10:17 | EXP.CARD.PN ---
Subjective Subjective Date: 09/05/24 Time: 10:17 Principal diagnosis: CHF, pericardial effusion, cough Interval history: 84-year-old white female in bed in no acute distress. She continues to have significant cough that is occasionally productive. IV Lasix given yesterday with minimal urine output over her intake. BUN did increase. Echocardiogram this admission shows EF around 30% (slightly less than previously in 2022 at 35%) with no evidence of cardiac tamponade despite pericardial effusion. No indication for pericardiocentesis. Discussed recommendation for right and left heart catheterization today. Patient is in agreement to proceed but is very anxious. Exam Data for Last 24 hours Vital signs and Labs for Last 24 Hours: Temp Pulse Resp BP Pulse Ox O2 Del Method 98.9 F 60 22 116/73 95 Room Air 09/05/24 07:29 09/05/24 08:00 09/05/24 07:29 09/05/24 07:29 09/05/24 07:29 09/05/24 09:00 Laboratory Results - last 24 hr 09/04/24 14:00: WBC 6.1, RBC 4.83, Hgb 14.3, Hct 40.5, MCV 83.9, MCH 29.6, MCHC 35.3, RDW 14.8, Plt Count 175, MPV 7.8, Neut % (Auto) 65.2, Lymph % (Auto) 24.5, [place] % (Auto) 6.4, Eos % (Auto) 2.9, Baso % (Auto) 1.1, Neut # (Auto) 4.0, Lymph # (Auto) 1.5, [place] # (Auto) 0.4, Eos # (Auto) 0.2, Baso # (Auto) 0.1, Sodium 139, Potassium 3.8, Chloride 109 H, Carbon Dioxide 22, Anion Gap 11.8, BUN 13, Creatinine 0.90, Estimated GFR 60, Est GFR ( Amer) 72, Glucose 126 H, Calcium 9.0, Magnesium 2.1, Total Bilirubin 0.8, AST 24, ALT 15, Alkaline Phosphatase 75, NT-Pro-B Natriuret Pep 2960 H, Total Protein 7.0, Albumin 4.1, Globulin 2.9, Albumin/Globulin Ratio 1.4 09/05/24 06:41: WBC 7.2, RBC 5.51 H, Hgb 16.2 D, Hct 47.6 H, MCV 86.4, MCH 29.3, MCHC 33.9, RDW 14.9, Plt Count 207, MPV 7.5, Neut % (Auto) 56.4, Lymph % (Auto) 30.7, [place] % (Auto) 9.2, Eos % (Auto) 2.5, Baso % (Auto) 1.2, Neut # (Auto) 4.0, Lymph # (Auto) 2.2, [place] # (Auto) 0.7, Eos # (Auto) 0.2, Baso # (Auto) 0.1, Sodium 140, Potassium 3.5, Chloride 104, Carbon Dioxide 28, Anion Gap 11.5, BUN 20 H D, Creatinine 1.00, Estimated Creat Clear 40, Estimated GFR 53 L, Est GFR ( Amer) 64, Glucose 119 H, Calcium 9.1, Magnesium 2.2, Total Bilirubin 0.9, AST 27, ALT 17, Alkaline Phosphatase 82, Total Protein 7.5, Albumin 4.3, Globulin 3.2, Albumin/Globulin Ratio 1.3, Triglycerides 259 H, Cholesterol 243 H, LDL Cholesterol Direct 158.32 H, VLDL Cholesterol 52 H, HDL Cholesterol 42, Cholesterol/HDL Ratio 5.8 H I & O for Last 24 hours: Intake & Output 09/02/24 09/03/24 09/04/24 09/05/24 10:59 11:59 11:59 11:59 Intake Total 600 / 600 Output Total 740 / 740 Balance -140 / -140 Weight 131 lb 12.8 oz Constitutional Constitutional: mild distress *Routine Respiratory Exam Respiratory: Present rhonchi *Routine Cardiovascular Exam Cardiovascular: Present RRR and murmur; Absent gallop or rubs *Routine Extremities Exam Extremities: Absent edema *Routine Neurological Exam Neurological: Present alert, oriented X3 and CN II-XII intact Progress Note: A&P Assessment and plan (1) Pericardial effusion: Status: Acute (2) HFrEF (heart failure with reduced ejection fraction): Status: Acute (3) Emphysema lung: Status: Acute (4) Chronic cough: Status: Acute (5) Shortness of breath: Status: Acute (6) Generalized anxiety disorder: Status: Chronic Assessment and Plan Assessment and Plan for All Diagnoses:: 1. Pericardial effusion, worsening on recent CT of chest -echo this admission shows EF around 30% with stable pericardial effusion with no evidence of pericardial tamponade 2. HFrEF/Cardiomyopathy -EF slightly reduced at 30% compared to last year -julye with IV Lasix -BNP 2960 -pt never had ischemic workup of her cardiomyopathy so will plan to proceed with [facility] -Start Entresto 3. Emphysema with chronic cough -Never smoker -Secondhand smoke exposure due to dancing/down [place] -Right heart catheterization today in conjunction with left heart catheterization 4. Generalized anxiety disorder 5. Dyslipidemia -Intolerant to statins, fibrate's Continue diuresis Right heart cath shows no evidence of pulmonary hypertension. KIMI to RCA was performed. DAPT with ASA and plavix. Add coreg 3.125 mg BID Recommend observing overnight with plans for discharge to [facility] in AM.
--- NOTE | 2024-09-05 10:32 | SW/DCPLANNER ---
Addendum entered by Porsche Juarez 09/06/24 10:02: I have updated Samira patel/ [facility] facility that patient will return today [facility] level of care. Original Note: This patient currently resides at [facility] level of care. Updated patient information has been faxed to Samira patel/ [facility]. Discharge date is unknown at this time.
[2024-09-05 11:37] LABS: Anion Gap 9.9 mEq/L (5-15); Blood Urea Nitrogen 20 mg/dl (7-17); Carbon Dioxide 29 mmol/L (22.0-30.0); Chloride 105 mmol/L (98-107); Creatinine Clearance Estimated 40 mL/min (50-200); Estimated Glomerular Filt Rate 53 ml/min (>60); GFR (African American) 64 ML/MIN (>60); Glucose 113 mg/dl (74-100); Potassium 3.9 mmoL/L (3.5-5.1); Sodium 140 mmol/L (136-145)
--- NOTE | 2024-09-05 13:12 | PC.NURSE ---
pt taken to [facility]
[2024-09-05] MEDS: LIDOCAINE 1% 10ML MDV 20 ML IJ (13:31)
[2024-09-05] MEDS: diphenhydrAMINE 50MG/ML VIAL 50 MG IV (13:31)
[2024-09-05] MEDS: HEPARIN 1,000 UNITS/ML 10ML VIAL (CATH LAB) 10000 UNIT IV (13:31)
[2024-09-05] MEDS: VERAPAMIL 2.5MG/ML 2ML VIAL 2.5 MG IV (13:31)
[2024-09-05] MEDS: FENTANYL 100MCG/2ML VIAL 50 MCG IV (13:35)
[2024-09-05] MEDS: MIDAZOLAM HCL 1MG/ML 5ML VIAL 1 MG IV (13:35)
[2024-09-05] MEDS: HEPARIN 1,000 UNITS/500ML NS (CATH LAB) 3000 UNIT IV (13:36)
[2024-09-05] MEDS: NITROGLYCERIN 800MCG/8ML SYR (CATH LAB) 800 MCG IA (13:40)
[2024-09-05] MEDS: CLOPIDOGREL 300MG TABLET 600 MG PO (14:28)
[2024-09-05] MEDS: IOPAMIDOL-370 (76%);100ML BOTTLE 85 ML IV (15:08)
--- NOTE | 2024-09-05 15:11 | PC.NURSE ---
pt arrived back from [facility] at 1500. after transferring pt from stretcher to bed, pt complained of feeling wet between her legs. this rn and mechanical shop laborer rn assessed pt to find slight, non pulsating bleeding at the rt femoral access site. dressing removed, pressure applied until no active bleeding was present, and new gauze/tegaderm applied. mechanical shop laborer rn advised to monitor site and apply pressure when needed for non pulsating bleeding. no bleeding currently present.
[2024-09-05 15:12] LABS: CATHL Arterial O2 SAT 76.4 % (90-100); CATHL Venous O2 SAT 76.5 % (75-80)
[2024-09-05 15:19] LABS: CATHL Activated Clotting Time 333 SEC (74-125)
--- NOTE | 2024-09-05 15:22 | P.PN_ITS ---
Subjective *Date: 09/05/24 *Time: 15:22 Interval history: Patient feeling somewhat better today. Denies any chest pain, shortness of breath beyond baseline, nausea or vomiting. Planning for left and right heart cath today. Medical Exam Vital signs and Labs for Last 24 Hours: Vital Signs Temp Pulse Pulse Resp BP Pulse Ox O2 Del Method 09/05/24 14:45 78 18 178/98 H 95 09/05/24 14:40 88 18 171/96 H 96 09/05/24 14:35 88 20 180/90 H 96 09/05/24 14:30 89 85 20 184/100 H 95 Room Air 09/05/24 13:00 Room Air 09/05/24 12:00 80 09/05/24 11:30 97.5 F L 71 20 129/66 96 Room Air 09/05/24 11:13 81 09/05/24 11:13 81 09/05/24 11:13 94 L Room Air 09/05/24 11:00 Room Air 09/05/24 09:00 Room Air 09/05/24 08:00 Room Air 09/05/24 08:00 60 09/05/24 07:29 98.9 F 90 22 116/73 95 Room Air 09/05/24 07:00 Room Air 09/05/24 06:24 93 H 09/05/24 06:24 96 H 09/05/24 05:00 Room Air 09/05/24 04:00 70 09/05/24 04:00 98.4 F 76 18 123/76 96 Room Air 09/05/24 03:00 Room Air 09/05/24 01:00 Room Air 09/05/24 00:00 80 09/05/24 00:00 98.3 F 84 16 107/60 L 97 Room Air 09/04/24 23:41 90 09/04/24 23:00 Room Air 09/04/24 21:00 Room Air 09/04/24 20:00 120 H 09/04/24 20:00 102 H 18 95 Room Air 09/04/24 20:00 98.0 F 102 H 18 141/86 H 95 Room Air 09/04/24 19:02 81 09/04/24 17:27 Room Air 09/04/24 16:00 80 09/04/24 16:00 97.8 F 66 18 139/103 H 95 Room Air 09/04/24 15:49 Room Air 09/04/24 15:48 Room Air Intake and Output 09/04/24 09/05/24 09/05/24 23:59 07:59 15:59 Intake Total 360 / 600 240 / 240 Output Total 400 / 400 0 / 340 340 / 340 Balance -40 / 200 240 / -100 -340 / -100 Intake: Intake, Oral Amount 360 / 600 240 / 240 Output: Output, Urine Amount 400 / 400 0 / 340 340 / 340 Other: Number of Voids 1 Number of Unmeasured Voids 0 1 1 Weight 59.783 kg Patient Weight 09/05/24 23:59 Weight 59.783 kg Laboratory Results - last 24 hr 09/05/24 06:41: WBC 7.2, RBC 5.51 H, Hgb 16.2 D, Hct 47.6 H, MCV 86.4, MCH 29.3, MCHC 33.9, RDW 14.9, Plt Count 207, MPV 7.5, Neut % (Auto) 56.4, Lymph % (Auto) 30.7, [place] % (Auto) 9.2, Eos % (Auto) 2.5, Baso % (Auto) 1.2, Neut # (Auto) 4.0, Lymph # (Auto) 2.2, [place] # (Auto) 0.7, Eos # (Auto) 0.2, Baso # (Auto) 0.1, Sodium 140, Potassium 3.5, Chloride 104, Carbon Dioxide 28, Anion Gap 11.5, BUN 20 H D, Creatinine 1.00, Estimated Creat Clear 40, Estimated GFR 53 L, Est GFR ( Amer) 64, Glucose 119 H, Calcium 9.1, Magnesium 2.2, Total Bilirubin 0.9, AST 27, ALT 17, Alkaline Phosphatase 82, Total Protein 7.5, Albumin 4.3, Globulin 3.2, Albumin/Globulin Ratio 1.3, Triglycerides 259 H, Cholesterol 243 H, LDL Cholesterol Direct 158.32 H, VLDL Cholesterol 52 H, HDL Cholesterol 42, Cholesterol/HDL Ratio 5.8 H 09/05/24 11:10: Sodium 140, Potassium 3.9, Chloride 105, Carbon Dioxide 29, Anion Gap 9.9, BUN 20 H, Creatinine 1.00, Estimated Creat Clear 40, Estimated GFR 53 L, Est GFR ( Amer) 64, Glucose 113 H, Calcium 9.0 09/05/24 14:13: ABG O2 Sat (Measured) 76.4 L, POC VBG O2 Sat (Caty) 76.5 09/05/24 15:04: Activated Clotting Time 333 H* I & O for Labs for Last 24 Hours: Intake & Output 09/02/24 09/03/24 09/04/24 09/05/24 22:59 23:59 23:59 23:59 Intake Total 360 / 600 240 / 240 Output Total 400 / 400 340 / 340 Balance -40 / 200 -100 / -100 Weight 59.783 kg Constitutional: Present no acute distress, thin, chronically ill appearing and cooperative Head: Present atraumatic and normocephalic ENT: Present normal exam Neck: Present normal inspection Respiratory: Present rhonchi and normal respiratory effort; Absent wheezes or crackles Comment:: Transmitted airway Cardiac: Present Reg Rate and Rhythm GI: Present soft and normal bowel sounds; Absent distention or tenderness Extremities: Present normal inspection and full ROM Skin: Present intact; Absent erythema Neuro: Present Grossly Intact, alert, awake and moves all extremities Comment:: Oriented to self and place. Assessment and Plan *Assessment and plan (1) HFrEF (heart failure with reduced ejection fraction): Status: Acute Category: Medical Code(s): I50.20 - Unspecified systolic (congestive) heart failure (2) Orthopnea: Status: Acute Category: Medical Code(s): R06.01 - Orthopnea (3) Cardiomyopathy: Status: Acute Qualifiers: Cardiomyopathy type: other Qualified Code(s): I42.8 - Other cardiomyopathies Category: Medical Code(s): I42.9 - Cardiomyopathy, unspecified (4) Pericardial effusion: Status: Acute Category: Medical Code(s): I31.39 - Other pericardial effusion (noninflammatory) (5) Emphysema lung: Status: Acute Qualifiers: Emphysema type: unspecified Qualified Code(s): J43.9 - Emphysema, unspecified Category: Medical Code(s): J43.9 - Emphysema, unspecified (6) Chronic cough: Status: Acute Category: Medical Code(s): R05.3 - Chronic cough (7) Hypertension, essential: Status: Chronic Category: Medical Code(s): I10 - Essential (primary) hypertension (8) Generalized anxiety disorder: Status: Chronic Category: Medical Code(s): F41.1 - Generalized anxiety disorder Plan 84-year-old female who presents from cardiology clinic with persistent cough and concern for acute on chronic CHF. Discussed case with cardiology PA, request admission for further management of her heart failure, diuresis, and possible heart caths. I agreed to admit for further management. On evaluation, patient stable on room air. Has persistent nonproductive cough. Labs and workup conc erning for acute on chronic CHF. Discussed case with cardiology today, planning on left and right heart cath. Further management pending findings. Problems addressed as follows: Acute on chronic CHF -Reviewed echo from April 2023, EF reduced to 35%. - Cardiology consulted, discussed case, going for left and right heart cath today. Continue goal-directed therapy with Entresto 24/26 mg twice daily, spironolactone 25 mg daily, Lasix IV 80 mg once. Continue 40 mg IV twice daily - BNP elevated at 3000 kidney function normal with BUN 20, creatinine 1.0. Potassium 3.5 with magnesium 2.2. - Repeat CBC, CMP, magnesium and lipid panel ordered for the morning. -Echo obtained showing moderate to severe reduction in LV function (EF 30%). Mild dilation of ascending aorta at 4 cm. Effusion with pocket largest size 0.8 cm. No tamponade or chamber collapse COPD/emphysema: Chronic cough: - Review of recent CT shows emphysema on imaging. Continue budesonide 0.25 mg twice daily, DuoNebs every 6 hours scheduled. Singulair 10 mg daily. - Stable on room air, supplemental oxygen as needed if O2 sats drop below 88%. -Cough appears to be multifactorial. Has transmitted upper airway sounds from exam. Patient appears to be somewhat anxious, his occasion is. On any at this time. Extensive list of of allergies/intolerance of medications for anxiety/depression, antibiotics, statins. DNR Heparin 5000 units SQ 3 times daily Cardiac diet Anticipate discharge back to nursing facility tomorrow after heart cath.
[2024-09-05] MEDS: FUROSEMIDE 40MG/4ML VIAL 40 MG IV (16:55)
[2024-09-05] MEDS: MONTELUKAST SODIUM 10MG TAB 10 MG PO (18:49)
--- NOTE | 2024-09-05 19:31 | PC.NURSE ---
pt resting supine in bed. pt had heart cath today with 2 stents placed to the RCA. pt recieved 3 cath sites- R RADIAL, R JUGULAR AND R FEMORAL. radial band removed per orders and gauze/tegaderm placed. all other sites have remained c/d/i. pt has not complained of pain. pt had one episode of vomiting, but she attributes this to eating too much too soon. pt denied the need for nausea medication. vss. purewick in place for pt comfort due to femoral site. no complaints at this time. call light within reach.
[2024-09-05] MEDS: CARVEDILOL 3.125MG TABLET 3.125 MG PO (20:42)
[2024-09-05] MEDS: MELATONIN 5MG TABLET 5 MG PO (20:43)
[2024-09-05] MEDS: FLUTICASONE PROP 50MCG NASAL SPRAY 16GM 2 SPRAY NS (20:43)
[2024-09-05] MEDS: HEPARIN SODIUM 5,000 UNIT/ML VIAL 5000 UNIT SUBCUT (20:43)
--- NOTE | 2024-09-05 23:40 | PC.NURSE ---
Patient complained of nausea after going to the bathroom around 23:36. Graciela CHANDLER was notified [id number] at this time that the patient is in need of an order for zofran. He stated that he will put an order in.
[2024-09-05] MEDS: ONDANSETRON 4MG ODT 4 MG SL (23:45)
[2024-09-06] VITALS: BP 123/66; PULSE 78; PULSE 90; RESP 16; TEMP 36.4; O2SAT 92
[2024-09-06 04:00] VITALS: BP 93/53; PULSE 69; PULSE 72; RESP 18; TEMP 36.7; O2SAT 91; BMI 20.9
[2024-09-06] MEDS: IPRATROPIUM/ALBUTEROL 3 ML NEB IH ×2 (05:54→11:15)
[2024-09-06] MEDS: BUDESONIDE 0.25MG/2ML NEB 0.25 MG IH (05:54)
[2024-09-06 05:56] VITALS: PULSE 76; PULSE 77; O2SAT 93
--- NOTE | 2024-09-06 06:59 | PC.NURSE ---
Patient is alert and oriented x4. Patient stated that she has felt quite weak since her heart cath. She had 3 sites (right jugular, right radial, right femoral) and dressings remained dry and intact thus far. Her post-angio assessment and vital signs were completed this shift; since completion, blood pressures have been hypotensive, and her oxygen saturations have maintained in the low 90s. Upon auscultation, her lung sounds were clear, S1/S2 heart sounds could be heard, and bowel sounds were hypoactive. She was able to have a bowel movement this shift. Patient was observed to have eyes closed, respirations even and unlabored on room air, and no apparent distress throughout the night. She has not had any complaints of pain but has complained of nausea a couple times this shift. She also stated that she has not had much of an appetite since vomiting after dinner during the previous shift. She was given zofran once per DEC. She received her scheduled medications and duonebs per DEC. She has not had any further complaints of leg cramps this shift. She was eager to try to walk during the evening to go to the bathroom instead of remain on a purewick. Patient tolerated ambulation well with standby assistance and holding onto staff. At this time, the patient is resting in bed. No acute changes noted thus far. Call light within reach.
[2024-09-06 07:05] LABS: Basophils # 0.1 K/mm3 (0-0.2); Basophils % 0.6 % (0.1-2.0); Eosinophils % 0.3 % (0.1-12.0); Hematocrit 43.4 % (37.0-47.0); Hemoglobin 14.7 g/dL (12.2-16.2); Lymphocytes # 1.5 K/mm3 (0.7-4.5); Lymphocytes % 15.9 % (10-50); Mean Corpuscular HGB Conc 33.9 g/dL (31.8-35.4); Mean Corpuscular Hemoglobin 28.6 pg (27.0-31.2); Mean Corpuscular Volume 84.5 fl (81-99); Mean Platelet Volume 7.3 fl (7.4-10.4); Monocytes # 0.9 K/mm3 (0.1-1.0); Monocytes % 9.1 % (1.7-9.3); Neutrophils % 74.1 % (37.0-80.0); Platelet Count 213 K/mm3 (142-424); Red Blood Count 5.13 M/mm3 (4.20-5.40); White Blood Count 9.4 K/mm3 (4.8-10.8)
[2024-09-06 07:06] LABS: Anion Gap 5.7 mEq/L (5-15); Blood Urea Nitrogen 25 mg/dl (7-17); Calcium 8.8 mg/dl (8.4-10.2); Carbon Dioxide 27 mmol/L (22.0-30.0); Chloride 110 mmol/L (98-107); Creatinine Clearance Estimated 28 mL/min (50-200); Estimated Glomerular Filt Rate 36 ml/min (>60); GFR (African American) 43 ML/MIN (>60); Glucose 123 mg/dl (74-100); Potassium 3.7 mmoL/L (3.5-5.1); Sodium 139 mmol/L (136-145)
--- NOTE | 2024-09-06 07:35 | EXP.DC.SUM ---
General Admission date:: 09/04/24 Discharge date: 09/06/24 HPI HPI HPI: Ms. Sylvester is an 84-year-old female who was resided at [facility] for the past 21 months. Initially admitted due to failure to thrive with chronic pain and and was admitted on hospice. She was discharged from hospice 6 months later due to failure of progression of her condition. Has subsequently come off of pain medication. In discussion with her, she does not recall being on hospice nor does she recall how long she has been at the halfway. She was seen in cardiology clinic today due to persistent cough for which ENT was planning possible procedure on her sinuses. They needed pulmonology and cardiology clearance/optimization prior to proceeding with surgery. Was seen in pulmonology clinic little over a month ago and recommended to follow with cardiology due to history of heart failure. Patient reports she was unaware of this however this appears to have been diagnosed in March 2023 for an echo at [facility] showed an EF of 35% and documentation from previous hospitalizations clearly reports CHF and references this echo. Patient was discharged previously a year ago on diuretics but does not appear to be on them at this time. She denies any chest pain, nausea, vomiting. No oxygen requirement. Has persistent nonproductive cough that is going on for years per her report. Seen in cardiology clinic today, request admission for further workup and treatment of suspected heart failure. Patient is pleasant on interview. In no acute distress Hospital Course Hospital Course Hospital Course: 84-year-old female who presents from cardiology clinic with persistent cough and concern for acute on chronic CHF. Discussed case with cardiology PA, request admission for further management of her heart failure, diuresis, and possible heart caths. I agreed to admit for further management. On evaluation, patient stable on room air. Has persistent nonproductive cough. Labs and workup concerning for acute on chronic CHF. Patient taken for left heart cath and right heart cath. Found to have CAD and received stent to RCA. No signs of right-sided failure. Overall doing well. Stable discharge back to nursing facility on goal-directed management. Problems addressed as follows: Acute on chronic CHF Pericardial effusion -Reviewed echo from April 2023, EF reduced to 35%. Cardiology was consulted. Patient taken for left and right heart cath on 09/05/2024. Repeat echo obtained during this admission with EF of 30% compared to last year. BNP was elevated at 2900 during admission. Patient started on goal-directed therapy including Entresto 24/26 mg twice daily, spironolactone 25 mg daily, Lasix 40mg daily, and carvedilol 3.125 mg twice daily. Effusion small at this time with no signs of tamponade. Will continue to observe at this time. Right heart cath shows no evidence of pulmonary hypertension. KIMI to RCA was performed. DAPT with ASA and plavix. COPD/emphysema: Chronic cough: - Review of recent CT shows emphysema on imaging. Continue budesonide 0.25 mg twice daily, DuoNebs every 6 hours scheduled. Singulair 10 mg daily. Will initiate Advair 250 twice daily due to findings of emphysema on imaging and respiratory symptoms with chronic cough. Patient remained stable on room air. No supplemental oxygen needed. Would recommend monitoring for response to treatment of her emphysema prior to considering surgery on her sinuses. Cough appears to be multifactorial. Has transmitted upper airway sounds from exam. Patient appears to be somewhat anxious. Extensive list of of allergies/intolerance of medications for anxiety/depression, antibiotics, statins. Total time spent on discharge 32 minutes in counseling, documentation, chart review, and direct care with patient. Exam Data for Last 24 hours Vital signs and Labs for Last 24 Hours: Temp Pulse Resp BP Pulse Ox O2 Del Method 97.5 F L 71 20 129/66 96 Room Air 09/05/24 11:30 09/05/24 11:30 09/05/24 11:30 09/05/24 11:30 09/05/24 11:30 09/05/24 11:30 Laboratory Results - last 24 hr 09/04/24 14:00: WBC 6.1, RBC 4.83, Hgb 14.3, Hct 40.5, MCV 83.9, MCH 29.6, MCHC 35.3, RDW 14.8, Plt Count 175, MPV 7.8, Neut % (Auto) 65.2, Lymph % (Auto) 24.5, [place] % (Auto) 6.4, Eos % (Auto) 2.9, Baso % (Auto) 1.1, Neut # (Auto) 4.0, Lymph # (Auto) 1.5, [place] # (Auto) 0.4, Eos # (Auto) 0.2, Baso # (Auto) 0.1, Sodium 139, Potassium 3.8, Chloride 109 H, Carbon Dioxide 22, Anion Gap 11.8, BUN 13, Creatinine 0.90, Estimated GFR 60, Est GFR ( Amer) 72, Glucose 126 H, Calcium 9.0, Magnesium 2.1, Total Bilirubin 0.8, AST 24, ALT 15, Alkaline Phosphatase 75, NT-Pro-B Natriuret Pep 2960 H, Total Protein 7.0, Albumin 4.1, Globulin 2.9, Albumin/Globulin Ratio 1.4 09/05/24 06:41: WBC 7.2, RBC 5.51 H, Hgb 16.2 D, Hct 47.6 H, MCV 86.4, MCH 29.3, MCHC 33.9, RDW 14.9, Plt Count 207, MPV 7.5, Neut % (Auto) 56.4, Lymph % (Auto) 30.7, [place] % (Auto) 9.2, Eos % (Auto) 2.5, Baso % (Auto) 1.2, Neut # (Auto) 4.0, Lymph # (Auto) 2.2, [place] # (Auto) 0.7, Eos # (Auto) 0.2, Baso # (Auto) 0.1, Sodium 140, Potassium 3.5, Chloride 104, Carbon Dioxide 28, Anion Gap 11.5, BUN 20 H D, Creatinine 1.00, Estimated Creat Clear 40, Estimated GFR 53 L, Est GFR ( Amer) 64, Glucose 119 H, Calcium 9.1, Magnesium 2.2, Total Bilirubin 0.9, AST 27, ALT 17, Alkaline Phosphatase 82, Total Protein 7.5, Albumin 4.3, Globulin 3.2, Albumin/Globulin Ratio 1.3, Triglycerides 259 H, Cholesterol 243 H, LDL Cholesterol Direct 158.32 H, VLDL Cholesterol 52 H, HDL Cholesterol 42, Cholesterol/HDL Ratio 5.8 H I & O for Last 24 hours: Intake & Output 09/02/24 09/03/24 09/04/24 09/05/24 22:59 23:59 23:59 23:59 Intake Total 360 / 600 240 / 240 Output Total 400 / 400 340 / 340 Balance -40 / 200 -100 / -100 Weight 59.783 kg Constitutional Constitutional: no acute distress, thin, chronically ill appearing and cooperative *Routine HEENT Exam Head: Present normocephalic Eye: Present EOMI and PERRL ENT: Present mucous membranes moist *Routine Neck Exam Neck: Present supple; Absent lymphadenopathy *Routine Respiratory Exam Respiratory: Present normal respiratory effort; Absent wheezes or crackles *Routine Cardiovascular Exam Cardiovascular: Present RRR *Routine Abdominal Exam Abdominal: Present soft and normoactive bowel sounds; Absent tenderness *Routine Rectal Exam Patient deferred: visual exam *Routine Exam Patient deferred: external exam *Routine Extremities Exam Extremities: Absent cyanosis, clubbing or edema *Routine Skin Exam Skin: Present intact and warm; Absent rash *Routine Neurological Exam Neurological: Present alert, oriented X3 and moving all extremities; Absent altered mental status Results Data Completed and Pending Labs on day of discharge: Labs from last 24 hours 09/05/24 09/04/24 06:41 14:00 WBC 7.2 6.1 RBC 5.51 H 4.83 Hgb 16.2 D 14.3 Hct 47.6 H 40.5 MCV 86.4 83.9 MCH 29.3 29.6 MCHC 33.9 35.3 RDW 14.9 14.8 Plt Count 207 175 MPV 7.5 7.8 Neut % (Auto) 56.4 65.2 Lymph % (Auto) 30.7 24.5 [place] % (Auto) 9.2 6.4 Eos % (Auto) 2.5 2.9 Baso % (Auto) 1.2 1.1 Neut # (Auto) 4.0 4.0 Lymph # (Auto) 2.2 1.5 [place] # (Auto) 0.7 0.4 Eos # (Auto) 0.2 0.2 Baso # (Auto) 0.1 0.1 Sodium 140 139 Potassium 3.5 3.8 Chloride 104 109 H Carbon Dioxide 28 22 Anion Gap 11.5 11.8 BUN 20 H D 13 Creatinine 1.00 0.90 Estimated Creat Clear 40 Estimated GFR 53 L 60 Est GFR ( Amer) 64 72 Glucose 119 H 126 H Calcium 9.1 9.0 Magnesium 2.2 2.1 Total Bilirubin 0.9 0.8 AST 27 24 ALT 17 15 Alkaline Phosphatase 82 75 NT-Pro-B Natriuret Pep 2960 H Total Protein 7.5 7.0 Albumin 4.3 4.1 Globulin 3.2 2.9 Albumin/Globulin Ratio 1.3 1.4 Triglycerides 259 H Cholesterol 243 H LDL Cholesterol Direct 158.32 H VLDL Cholesterol 52 H HDL Cholesterol 42 Cholesterol/HDL Ratio 5.8 H DS: Diagnosis Discharge Diagnosis (1) HFrEF (heart failure with reduced ejection fraction): Status: Acute Code(s): I50.20 - Unspecified systolic (congestive) heart failure (2) Pericardial effusion: Status: Acute Code(s): I31.39 - Other pericardial effusion (noninflammatory) (3) Emphysema lung: Status: Acute Code(s): J43.9 - Emphysema, unspecified Qualifiers: Emphysema type: unspecified Qualified Code(s): J43.9 - Emphysema, unspecified (4) Chronic cough: Status: Acute Code(s): R05.3 - Chronic cough (5) Shortness of breath: Status: Acute Code(s): R06.02 - Shortness of breath (6) Generalized anxiety disorder: Status: Chronic Code(s): F41.1 - Generalized anxiety disorder (7) CAD (coronary artery disease): Status: Acute Code(s): I25.10 - Atherosclerotic heart disease of [place] coronary artery without angina pectoris (8) COPD (chronic obstructive pulmonary disease): Status: Acute Code(s): J44.9 - Chronic obstructive pulmonary disease, unspecified Qualifiers: COPD type: unspecified COPD Qualified Code(s): J44.9 - Chronic obstructive pulmonary disease, unspecified Meds Home Medications and Allergies Home Medications ?Medication ?Instructions ?Recorded ?Confirmed ?Type docusate sodium 100 mg capsule 100 mg PO DAILY 09/23/23 09/04/24 History (Colace) guaifenesin 600 mg tablet, 600 mg PO BID 07/19/24 09/04/24 History extended release 12 hr (Mucus Relief ER) ipratropium 0.5 mg-albuterol 3 mg 3 ml inhalation QID 30 days #180 mL 07/19/24 09/04/24 Rx (2.5 mg base)/3 mL nebulization soln albuterol sulfate 90 mcg/actuation 2 puff inhalation Q4-6H PRN 09/04/24 09/04/24 History aerosol inhaler Shortness Of Breath budesonide 0.25 mg/2 mL suspension 0.25 mg inhalation BID 09/04/24 09/04/24 History for nebulization fluticasone propionate 50 2 spray intranasal HS 09/04/24 09/04/24 History mcg/actuation nasal spray,suspension furosemide 40 mg tablet 40 mg PO DAILY 09/04/24 09/04/24 History melatonin 3 mg tablet 6 mg PO HS 09/04/24 09/04/24 History montelukast 10 mg tablet 10 mg PO PM 09/04/24 09/04/24 History polyethylene glycol 3350 17 17 g PO DAILY PRN Constipation 09/04/24 09/04/24 History gram/dose oral powder (Miralax) ramelteon 8 mg tablet (Rozerem) 8 mg PO HS 09/04/24 09/04/24 History sennosides 8.6 mg tablet (senna) 8.6 mg PO DAILY 09/04/24 09/04/24 History aspirin 81 mg tablet,delayed 81 mg PO DAILY #30 tabs 09/06/24 Rx release carvedilol 3.125 mg tablet 3.125 mg PO BID 30 days #60 tabs 09/06/24 Rx clopidogrel 75 mg tablet 75 mg PO DAILY 30 days #30 tabs 09/06/24 Rx sacubitril 24 mg-valsartan 26 mg 1 tab PO BID 30 days #60 tabs 09/06/24 Rx tablet (Entresto) spironolactone 25 mg tablet 25 mg PO DAILY #30 tabs 09/06/24 Rx New Prescriptions to Start Prescriptions: aspirin Jean Marie Miranda carvedilol Jean Marie Miranda clopidogrel Jean Marie Miranda sacubitril-valsartan [Entresto] Jean Marie Miranda spironolactone Jean Marie Miranda Allergies Allergy/AdvReac Type Severity Reaction Status Date / Time atenolol [ATENOLOL] Allergy Unknown Verified 09/04/24 11:05 bismuth subsalicylate Allergy Unknown Verified 09/04/24 11:05 [From PEPTO-BISMOL] cimetidine [From TAGAMET] Allergy Unknown Verified 09/04/24 11:05 diazepam [From VALIUM] Allergy Unknown Verified 09/04/24 11:05 dicyclomine [From BENTYL] Allergy Unknown Verified 09/04/24 11:05 docusate [DOCUSATE] Allergy Unknown Verified 09/04/24 11:05 escitalopram [From LEXAPRO] Allergy Unknown Verified 09/04/24 11:05 famotidine [From PEPCID] Allergy Unknown Verified 09/04/24 11:05 fenofibrate [From TRICOR] Allergy Unknown Verified 09/04/24 11:05 fish oil [FISH OIL] Allergy Unknown Verified 09/04/24 11:05 hydrocortisone [From LOCOID] Allergy Unknown Verified 09/04/24 11:05 mirtazapine [From REMERON] Allergy Unknown Verified 09/04/24 11:05 niacin [NIACIN] Allergy Unknown Verified 09/04/24 11:05 nortriptyline [NORTRIPTYLINE] Allergy Unknown Verified 09/04/24 11:05 omeprazole [From PRILOSEC] Allergy Unknown Verified 09/04/24 11:05 pravastatin [From Pravachol] Allergy Unknown Verified 09/04/24 11:05 rosuvastatin Allergy Unknown Verified 09/04/24 11:05 simvastatin Allergy Unknown Verified 09/04/24 11:05 Yjuxaam-CEQ-CnJ Reductase Allergy Unknown Verified 09/04/24 11:05 Inhibitor [Fadsswy-Gqc-Viq Reductase Inhibitor] Sulfa (Sulfonamide Allergy Unknown Verified 09/04/24 11:05 Antibiotics) [SULFA (SULFONAMIDE ANTIBIOTICS)] sulfamethoxazole Allergy Unknown Verified 09/04/24 11:05 [From BACTRIM] trimethoprim [From BACTRIM] Allergy Unknown Verified 09/04/24 11:05 Discharge Plan Disposition Patient Disposition: Xfer Intermediate Care Fac Condition: Fair Discharge Order Discharge Orders: Discharge Order (Routine); Ordered 09/06/24 Ordered By: Jean Marie Miranda Follow up Plan Follow up with: Charli Starkey MD [Staff Physician] - Enter time for follow up Prescriptions/Medication Reconciliation: New aspirin 81 mg Tablet,Delayed Release (Dr/Ec) 81 mg PO DAILY Qty: 30 0RF clopidogrel 75 mg Tablet 75 mg PO DAILY 30 Days Qty: 30 0RF spironolactone 25 mg Tablet 25 mg PO DAILY Qty: 30 0RF carvedilol 3.125 mg Tablet 3.125 mg PO BID 30 Days Qty: 60 0RF Entresto 24-26 mg Tablet 1 tab PO BID 30 Days Qty: 60 0RF Continued melatonin 3 mg tablet 6 mg PO HS guaifenesin [Mucus Relief ER] 600 mg tablet extended release 12hr 600 mg PO BID ipratropium-albuterol 0.5 mg-3 mg(2.5 mg base)/3 mL solution for nebulization 3 ml INHALATION QID 30 Days Qty: 180 3RF polyethylene glycol 3350 [Miralax] 17 gram/dose powder 17 g PO DAILY PRN (Reason: Constipation) albuterol sulfate 90 mcg/actuation HFA aerosol inhaler 2 puff inhalation Q4-6H PRN (Reason: Shortness Of Breath) docusate sodium [Colace] 100 mg Capsule 100 mg PO DAILY sennosides [senna] 8.6 mg tablet 8.6 mg PO DAILY furosemide 40 mg tablet 40 mg PO DAILY budesonide 0.25 mg/2 mL suspension for nebulization 0.25 mg inhalation BID ramelteon [Rozerem] 8 mg tablet 8 mg PO HS montelukast 10 mg tablet 10 mg PO PM fluticasone propionate 50 mcg/actuation spray,suspension 2 spray INTRANASAL HS Problem Reconciliation Problems Reviewed?: Yes Patient Discharge Instructions ACTIVITY: Continue current activity DIET: continue same diet Patient Instructions: DI for Heart Failure, DI for Cardiac Catheterization, DI for Surgical Site Infection Print Language: [place] Providers Primary Care Provider: Gato Harrell Admit Provider: Jean Marie Miranda Attending Provider: Jean Marie Miranda
[2024-09-06 07:46] VITALS: BP 111/58; PULSE 82; RESP 16; TEMP 36.7; O2SAT 94
--- NOTE | 2024-09-06 08:27 | PC.NURSE ---
pt bed alarm going off, upon entering room, pt was found in bathroom combing hair, stated she needed to use bathroom, pt instructed to pull string in bathroom when she was done, pt stated she did not need help and said she didn't need to pull the string for help, pt educated on risks of falls and making sure she was safe, pt still insistent on not pulling string and not having help
--- NOTE | 2024-09-06 08:32 | EXP.CARD.PN ---
Subjective Subjective Date: 09/06/24 Time: 08:32 Principal diagnosis: CHF, pericardial effusion, cough Interval history: 84 yo WF in bed in NAD. She feels like her cough may be improved but it is still present. right neck, right radial and right groin sites all look good with some mild bruising noted. Exam Data for Last 24 hours Vital signs and Labs for Last 24 Hours: Temp Pulse Resp BP Pulse Ox O2 Del Method 98.1 F 82 16 111/58 L 94 L Room Air 09/06/24 07:46 09/06/24 07:46 09/06/24 07:46 09/06/24 07:46 09/06/24 07:46 09/06/24 07:46 Laboratory Results - last 24 hr 09/05/24 11:10: Sodium 140, Potassium 3.9, Chloride 105, Carbon Dioxide 29, Anion Gap 9.9, BUN 20 H, Creatinine 1.00, Estimated Creat Clear 40, Estimated GFR 53 L, Est GFR ( Amer) 64, Glucose 113 H, Calcium 9.0 09/05/24 14:13: ABG O2 Sat (Measured) 76.4 L, POC VBG O2 Sat (Caty) 76.5 09/05/24 15:04: Activated Clotting Time 333 H* 09/06/24 06:29: WBC 9.4 D, RBC 5.13, Hgb 14.7, Hct 43.4, MCV 84.5, MCH 28.6, MCHC 33.9, RDW 15.0, Plt Count 213, MPV 7.3 L, Neut % (Auto) 74.1, Lymph % (Auto) 15.9, [place] % (Auto) 9.1, Eos % (Auto) 0.3, Baso % (Auto) 0.6, Neut # (Auto) 7.0, Lymph # (Auto) 1.5, [place] # (Auto) 0.9, Eos # (Auto) 0.0, Baso # (Auto) 0.1, Sodium 139, Potassium 3.7, Chloride 110 H, Carbon Dioxide 27, Anion Gap 5.7, BUN 25 H, Creatinine 1.40 H D, Estimated Creat Clear 28, Estimated GFR 36 L, Est GFR ( Amer) 43 L D, Glucose 123 H, Calcium 8.8 I & O for Last 24 hours: Intake & Output 09/03/24 09/04/24 09/05/24 09/06/24 11:59 11:59 11:59 11:59 Intake Total 600 / 600 710 / 710 Output Total 740 / 740 900 / 900 Balance -140 / -140 -190 / -190 Weight 131 lb 12.8 oz 130 lb 11.2 oz Constitutional Constitutional: no acute distress *Routine Respiratory Exam Respiratory: Present CTA bilaterally *Routine Cardiovascular Exam Cardiovascular: Present RRR *Routine Neurological Exam Neurological: Present alert and CN II-XII intact Progress Note: A&P Assessment and plan (1) Pericardial effusion: Status: Acute (2) HFrEF (heart failure with reduced ejection fraction): Status: Acute (3) Emphysema lung: Status: Acute (4) Chronic cough: Status: Acute (5) Shortness of breath: Status: Acute (6) Generalized anxiety disorder: Status: Chronic Assessment and Plan Assessment and Plan for All Diagnoses:: 1. Pericardial effusion, worsening on recent CT of chest -echo this admission shows EF around 30% with stable pericardial effusion with no evidence of pericardial tamponade 2. HFrEF/Cardiomyopathy -EF slightly reduced at 30% compared to last year -minimal response to IV lasix but with increase renal functions -BNP 2960 -[facility] with KIMI to RCA this admission -Start Entresto, coreg, spironolactone 3. 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 Generalized anxiety disorder 5. Dyslipidemia -Listed intolerance to statins but pt states she is willing to try again Stable from cardiology standpoint for discharge. Home medication recommendations: Spironolactone 25 mg daily Entresto twice daily Plavix 75 mg daily Aspirin 81 mg daily Carvedilol 3.125 mg twice daily Atorvastatin 20 mg daily Hold Lasix for now but use 40 mg daily as needed edema Considering adding SGLT2 inhibitor at follow-up Follow-up in our office in 1 week.
[2024-09-06] MEDS: CLOPIDOGREL 75MG TAB 75 MG PO (09:14)
[2024-09-06] MEDS: SPIRONOLACTONE 25MG TABLET 25 MG PO (09:14)
[2024-09-06] MEDS: SACUBITRIL/VALSARTAN 24-26MG TABLET 1 EACH PO (09:14)
[2024-09-06] MEDS: ASPIRIN EC 81MG TABLET 81 MG PO (09:14)
[2024-09-06] MEDS: HEPARIN SODIUM 5,000 UNIT/ML VIAL 5000 UNIT SUBCUT (09:15)
[2024-09-06] MEDS: CARVEDILOL 3.125MG TABLET 3.125 MG PO (09:15)
[2024-09-06 11:16] VITALS: PULSE 78; PULSE 89
[2024-09-06 11:52] VITALS: BP 112/56; PULSE 68; RESP 18; TEMP 36.5; O2SAT 93
--- NOTE | 2024-09-06 13:37 | PC.NURSE ---
Intermediate RN educated that patient needs h&h and BMP prior to appt on 09/18 and that they need to bring results. [facility] RN also educated on D/C instructions from [employer] and how to care for patient appropriately.
== END 2024-09-06 13:59 | DRG 321 ==
PROVIDERS: Internal Medicine; Admitting Provider Internal Medicine Adolescent Medicine; PCP Pediatrics; Visit Provider Internal Medicine Adolescent Medicine
PROC: 4A023N8 Measurement of Cardiac Sampling and Pressure, Bilateral, Percutaneous Approach (ICD-10-PCS; principal; 2024-09-05 09:30)
DX: I11.0 Hypertensive heart disease with heart failure (principal); I50.23 Acute on chronic systolic (congestive) heart failure; I31.39 Other pericardial effusion (noninflammatory); I25.10 Atherosclerotic heart disease of native coronary artery without angina pectoris; I44.7 Left bundle-branch block, unspecified; R06.01 Orthopnea; I42.8 Other cardiomyopathies; J43.9 Emphysema, unspecified; R05.3 Chronic cough; F41.1 Generalized anxiety disorder; I42.9 Cardiomyopathy, unspecified; E78.5 Hyperlipidemia, unspecified; Z82.49 Family history of ischemic heart disease and other diseases of the circulatory system; Z83.438 Family history of other disorder of lipoprotein metabolism and other lipidemia; Z83.3 Family history of diabetes mellitus; Z82.5 Family history of asthma and other chronic lower respiratory diseases; Z79.899 Other long term (current) drug therapy; Z79.51 Long term (current) use of inhaled steroids; Z88.2 Allergy status to sulfonamides; Z88.8 Allergy status to other drugs, medicaments and biological substances; Z91.013 Allergy to seafood; Z66 Do not resuscitate
CPT/HCPCS: G0379; 36415; 80048; 80053; 80061; 82810; 83735; 83880; 85025; 85347; 93306; 94640; 99152; 99153; C1725; C1760; C1769; C1874; C1894; J1200; J1644; J1940; J2250; J3010; J7620; Q0162; Q9967

== ENCOUNTER 2024-11-06 23:40 | Emergency (ER) | payer MEDICARE, BC, MEDICAID, SELFPAY ==
[2024-11-06 23:40] VITALS: BP 146/90; PULSE 73; RESP 22; TEMP 37.2; O2SAT 94; BMI 19.8
--- NOTE | 2024-11-06 23:49 | XR_ITS ---
PROCEDURE INFORMATION: Exam: XR Chest Exam date and time: 11/06/2024 11:57 PM Age: 84 years old Clinical indication: Cough and shortness of breath; Additional info: Chronic cough TECHNIQUE: Imaging protocol: Radiologic exam of the chest. Views: 1 view. COMPARISON: CT ANGIO CHEST PE PROTOCOL 08/27/2024 1:01 PM FINDINGS: Lungs: Obscuration of the left hemidiaphragm may reflect a combination of effusion and consolidation. Pleural spaces: No large effusion or pneumothorax. Heart/Mediastinum: No evidence of mediastinal widening or cardiac silhouette enlargement; the mediastinum and heart appear within normal limits for contour and size. Bones/joints: No evidence of acute osseous abnormalities within the visualized portions of the thoracic spine and ribs. Osseous structures appear appropriate for patient age. IMPRESSION: Obscuration of the left hemidiaphragm may reflect a combination of effusion and consolidation.
[2024-11-07] MEDS: LIDOCAINE 2% 5ML PF VIAL 5 ML IH (00:02)
--- NOTE | 2024-11-07 00:04 | ED_ITS ---
Discharge Plan Disposition Patient Disposition: Home, Self-Care Prescriptions Prescriptions: New azithromycin 250 mg tablet See Rx Instructions .ROUTE .COMPLEX Qty: 6 0RF Rx Instructions: For 250 mg dose pack: take 500 mg today (day 1), then 250 mg for 4 days (days 2-5) amoxicillin-pot clavulanate 875-125 mg tablet 1 tab PO BID 7 Days Qty: 14 0RF fluconazole 150 mg tablet 150 mg PO DAILY Qty: 1 0RF Rx Instructions: administer on day 1 of therapy No Action melatonin 3 mg tablet 6 mg PO HS guaifenesin [Mucus Relief ER] 600 mg tablet extended release 12hr 600 mg PO BID ipratropium-albuterol 0.5 mg-3 mg(2.5 mg base)/3 mL solution for nebulization 3 ml INHALATION QID 30 Days Qty: 180 3RF polyethylene glycol 3350 [Miralax] 17 gram/dose powder 17 g PO DAILY PRN (Reason: Constipation) albuterol sulfate 90 mcg/actuation HFA aerosol inhaler 2 puff inhalation Q4-6H PRN (Reason: Shortness Of Breath) tramadol 50 mg tablet 50 mg PO Q6H PRN rosuvastatin [Crestor] 10 mg tablet 10 mg PO DAILY Qty: 90 2RF ibuprofen 200 mg tablet See Rx Instructions PO TID PRN (Reason: arm pain) Qty: 42 0RF Rx Instructions: 1-2 tabs orally three times a day PRN; docusate sodium [Colace] 100 mg Capsule 100 mg PO DAILY sennosides [senna] 8.6 mg tablet 8.6 mg PO DAILY furosemide 40 mg tablet 40 mg PO DAILY budesonide 0.25 mg/2 mL suspension for nebulization 0.25 mg inhalation BID ramelteon [Rozerem] 8 mg tablet 8 mg PO HS montelukast 10 mg tablet 10 mg PO PM fluticasone propionate 50 mcg/actuation spray,suspension 2 spray INTRANASAL HS aspirin 81 mg Tablet,Delayed Release (Dr/Ec) 81 mg PO DAILY Qty: 30 0RF clopidogrel 75 mg Tablet 75 mg PO DAILY 30 Days Qty: 30 0RF spironolactone 25 mg Tablet 25 mg PO DAILY Qty: 30 0RF carvedilol 3.125 mg Tablet 3.125 mg PO BID 30 Days Qty: 60 0RF Entresto 24-26 mg Tablet 1 tab PO BID 30 Days Qty: 60 0RF Referrals Follow up/Referrals: Provider,Referral, MD [Primary Care Provider] - See instructions Activity Restrictions/Add. Instructions Additional Instructions/Restrictions: Please follow-up with your primary care provider. Please return to the emergency department if you develop any new or worsening symptoms or become c oncerned for your health. Clinical Impressions Clinical Impression: Pneumonia, Chronic cough Print Language Print Language: Scottish Discharge ED Provider: Jordon Burrell General Adult HPI General Chief complaint: Upper Respiratory Infection Stated complaint: cough Time Seen by Provider: 11/06/24 23:40 Mode of Arrival: EMS Source of Information: Patient and EMS Limitations: No Limitations Description of Symptoms (Recalled from ER Triage Doc. by RN): Pt arrived via ems from [facility] for persistant cough ongoing for 3 years worsening today. hx of copd/chf. History of Present Illness HPI narrative: 84-year-old female presents for continued cough. She reports that has been present for the last 3 years and is not significantly different today. She reports she came to the ER today because she is so tired of coughing and just wants to get some rest. She reports that she has had a full cardiac and pulmonary evaluation by cards and pulmonology and they did not find anything that explains her cough. She reports that think it could be sinus related. Denies fever at home, reports her cough is intermittently productive but unchanged from baseline. Related Data Home Medications ?Medication ?Instructions ?Recorded ?Confirmed docusate sodium 100 mg capsule 100 mg PO DAILY 09/23/23 09/18/24 (Colace) guaifenesin 600 mg tablet, 600 mg PO BID 07/19/24 09/18/24 extended release 12 hr (Mucus Relief ER) albuterol sulfate 90 mcg/actuation 2 puff inhalation Q4-6H PRN 09/04/24 09/18/24 aerosol inhaler Shortness Of Breath budesonide 0.25 mg/2 mL suspension 0.25 mg inhalation BID 09/04/24 09/18/24 for nebulization fluticasone propionate 50 2 spray intranasal HS 09/04/24 09/18/24 mcg/actuation nasal spray,suspension furosemide 40 mg tablet 40 mg PO DAILY 09/04/24 09/18/24 melatonin 3 mg tablet 6 mg PO HS 09/04/24 09/18/24 montelukast 10 mg tablet 10 mg PO PM 09/04/24 09/18/24 polyethylene glycol 3350 17 17 g PO DAILY PRN Constipation 09/04/24 09/18/24 gram/dose oral powder (Miralax) ramelteon 8 mg tablet (Rozerem) 8 mg PO HS 09/04/24 09/18/24 sennosides 8.6 mg tablet (senna) 8.6 mg PO DAILY 09/04/24 09/18/24 tramadol 50 mg tablet 50 mg PO Q6H PRN 09/18/24 09/18/24 Previous Rx's ?Medication ?Instructions ?Recorded ipratropium 0.5 mg-albuterol 3 mg 3 ml inhalation QID 30 days #180 mL 07/19/24 (2.5 mg base)/3 mL nebulization soln aspirin 81 mg tablet,delayed 81 mg PO DAILY #30 tabs 09/06/24 release carvedilol 3.125 mg tablet 3.125 mg PO BID 30 days #60 tabs 09/06/24 clopidogrel 75 mg tablet 75 mg PO DAILY 30 days #30 tabs 09/06/24 sacubitril 24 mg-valsartan 26 mg 1 tab PO BID 30 days #60 tabs 09/06/24 tablet (Entresto) spironolactone 25 mg tablet 25 mg PO DAILY #30 tabs 09/06/24 ibuprofen 200 mg tablet See Rx Instructions PO TID PRN arm 09/18/24 pain #42 tabs rosuvastatin 10 mg tablet (Crestor) 10 mg PO DAILY #90 tabs 09/18/24 amoxicillin 875 mg-potassium 1 tab PO BID 7 days #14 tabs 11/07/24 clavulanate 125 mg tablet azithromycin 250 mg tablet See Rx Instructions PO .COMPLEX #6 11/07/24 tabs fluconazole 150 mg tablet 150 mg PO DAILY 1 dose #1 tab 11/07/24 Allergies Allergy/AdvReac Type Severity Reaction Status Date / Time atenolol (ATENOLOL) Allergy Unknown Verified 09/18/24 10:53 bismuth subsalicylate (From Allergy Unknown Verified 09/18/24 10:53 PEPTO-BISMOL) cimetidine (From TAGAMET) Allergy Unknown Verified 09/18/24 10:53 diazepam (From VALIUM) Allergy Unknown Verified 09/18/24 10:53 dicyclomine (From BENTYL) Allergy Unknown Verified 09/18/24 10:53 docusate (DOCUSATE) Allergy Unknown Verified 09/18/24 10:53 escitalopram (From LEXAPRO) Allergy Unknown Verified 09/18/24 10:53 famotidine (From PEPCID) Allergy Unknown Verified 09/18/24 10:53 fenofibrate (From TRICOR) Allergy Unknown Verified 09/18/24 10:53 fish oil (FISH OIL) Allergy Unknown Verified 09/18/24 10:53 hydrocortisone (From LOCOID) Allergy Unknown Verified 09/18/24 10:53 mirtazapine (From REMERON) Allergy Unknown Verified 09/18/24 10:53 niacin (NIACIN) Allergy Unknown Verified 09/18/24 10:53 nortriptyline (NORTRIPTYLINE) Allergy Unknown Verified 09/18/24 10:53 omeprazole (From PRILOSEC) Allergy Unknown Verified 09/18/24 10:53 pravastatin (From Pravachol) Allergy Unknown Verified 09/18/24 10:53 rosuvastatin Allergy Unknown Verified 09/18/24 10:53 simvastatin Allergy Unknown Verified 09/18/24 10:53 Aevgcvm-DBM-IhV Reductase Allergy Unknown Verified 09/18/24 10:53 Inhibitor (Fvvqmqk-Jlb-Guz Reductase Inhibitor) Sulfa (Sulfonamide Allergy Unknown Verified 09/18/24 10:53 Antibiotics) (SULFA (SULFONAMIDE ANTIBIOTICS)) sulfamethoxazole (From Allergy Unknown Verified 09/18/24 10:53 BACTRIM) trimethoprim (From BACTRIM) Allergy Unknown Verified 09/18/24 10:53 PFSH PFS Disclaimer: The information contained in this section may have been updated after the patient was seen, as this information can be updated by other users. Medical History (Updated 11/07/24 @ 01:15 by Jordon Burrell MD) Right arm pain Abnormal electrocardiogram [ECG] [EKG] Chest pressure Pericardial effusion Cardiomyopathy Orthopnea HFrEF (heart failure with reduced ejection fraction) Asthma Hearing loss Chronic cough Chronic cough Shortness of breath Stercoral colitis Fecal impaction Acute urinary retention Fecal impaction in rectum Allergic rhinitis Eosinophilia Cough variant asthma Chest congestion Fracture of femoral neck, right LBBB (left bundle branch block) Hip fracture Surgical History History of right hip replacement History of stapedectomy History of dilation and curettage History of colon resection History of colonoscopy Hx of cholecystectomy History of tonsillectomy Family History Other Asthma Coronary artery disease Diabetes Heart attack Hyperlipidemia Hypertension Social History Smoking Status: Unknown if ever smoked alcohol intake: never current occupational status: retired Travel in the last 8 weeks: None caffeine: Yes Other Medical History Have you received the Flu Vaccine for this season: No Have you received the Pneumonia Vaccine: Yes ROS Obtained: Yes All systems reviewed & no additional complaints except as documented Physical Exam General General appearance: alert and in no apparent distress Head Head exam: atraumatic and normocephalic Eye Eye exam: Present normal appearance, PERRL and EOMI ENT ENT exam: Present normal oropharynx and normal external ear exam Neck Neck exam: Present normal inspection and full ROM Chest Chest inspection: Present normal inspection and symmetric chest wall rise; Absent tenderness Respiratory Respiratory exam: Present normal lung sounds bilaterally; Absent respiratory distress Cardiovascular Cardiovascular exam: Present regular rate and normal rhythm Abdominal Exam Abdominal exam: Present soft; Absent distention, tenderness or guarding Extremities Exam Extremities exam: Present normal inspection; Absent edema or joint swelling Back Exam Back exam: Present normal inspection; Absent tenderness Neurological Exam Neurological exam: Present alert and oriented X3; Absent motor sensory deficit Psychiatric Psychiatric exam: Present normal affect and normal mood Skin Skin exam: Present warm, dry and normal color Lymphatic Lymphatic Findings: no adenopathy Medical Decision Making Medical Records Medical records reviewed: Yes I reviewed the patient's medical records. Screening: Per USPSTF and CDC recommendations, given the prevalence of disease in our region, it is our hospital?s policy to screen for HIV and viral Hepatitis for all patients aged 18 and over and those with ongoing risk factors. David Inquiry Pt receiving controlled substance: No David was queried for this patient: No Vital Signs: 11/06/24 23:40 11/07/24 00:30 11/07/24 01:01 Temperature 99.0 F Temperature Source Tympanic Pulse Rate 85 72 Pulse Rate [Apical] 73 Respiratory Rate 22 Blood Pressure 138/83 142/77 H Blood Pressure [Right Arm] 146/90 H Blood Pressure Mean 98 Blood Pressure Mean [Right Arm] 108 02 Sat by Pulse Oximetry 94 L 93 L 94 L Oxygen Delivery Method Room Air Lab Data Lab results reviewed: Yes I reviewed the patient's lab results. Orders (Tests/Meds): ED MEDICATIONS Discontinued Medications Generic Name Dose Route Start Last Admin Trade Name Radhames PRN Reason Stop Dose Admin Amoxicillin/Clavulanate Potassium 1 each 11/07/24 01:14 11/07/24 01:26 Amoxicillin/Clavulanate Potassium 875/125mg Tablet PO 11/07/24 01:15 1 each ONCE ONE Administration Azithromycin 500 mg 11/07/24 01:14 11/07/24 01:26 Azithromycin 250mg Tablet PO 11/07/24 01:15 500 mg ONCE ONE Administration Lidocaine HCl 5 ml 11/06/24 23:49 11/07/24 00:02 Lidocaine 2% 5ml Pf Vial IH 11/06/24 23:50 5 ml ONCE ONE Administration ORDERS Category Date Time Status CXR --portable [XR chest portable] Stat Exams 11/06/24 23:49 Completed Medical Decision Narrative: 84-year-old female with history of 3 years of chronic cough presents for continued cough. History was obtained via interactive discussion with patient, chart review. On arrival, patient is [afebrile, hemodynamically stable, satting appropriately, alert, oriented x4, GCS 15], moving all extremities spontaneously. Full physical exam performed and significant for clear lungs bi laterally Differential includes but is not limited to chronic cough, pneumonia, pneumothorax URI Patient was given lidocaine nebulizer treatment for symptomatic management and correction of underlying abnormalities. Workup initiated including chest x-ray On re-evaluation, patient [remains afebrile, HD stable.] Imaging independently interpreted by me and significant for obscuration of the left hemidiaphragm which could represent atelectasis, effusion or consolidation. See radiology read for full review of final results. Blood work, CT imaging, admission was considered, but deemed unnecessary due to history and exam. Given patient history, exam and workup, patient's presentation most likely represents chronic cough. Given possible abnormality noted on chest x-ray, we will treat as pneumonia. Patient given dose of Augmentin and azithromycin and discharged with prescription for same. Patient is also given a dose of fluconazole per her request because she always gets yeast infections if she takes antibiotics.. Procedures Risk/Benefits of Procedure(s) Were Explained: Yes Critical Care Critical Care Time Critical Care Time: No
[2024-11-07 00:30] VITALS: BP 138/83; PULSE 85; O2SAT 93
[2024-11-07 01:01] VITALS: BP 142/77; PULSE 72; O2SAT 94
--- NOTE | 2024-11-07 01:22 | PC.NURSE ---
Called Pt's son at 01:21 to notify pt is ready to be picked up
[2024-11-07] MEDS: AMOXICILLIN/CLAVULANATE POTASSIUM 875/125MG TABLET 1 EACH PO (01:26)
[2024-11-07] MEDS: AZITHROMYCIN 250MG TABLET 500 MG PO (01:26)
--- NOTE | 2024-11-07 01:40 | PC.NURSE ---
Son called per pt request for transport home s/p dc. pt ambulated w/ assistance to RR. now resting comfortably. snacks given.
[2024-11-07 02:10] VITALS: BP 142/77; PULSE 72; RESP 20; TEMP 36.6; O2SAT 94
== END 2024-11-07 02:13 | disposition home or self-care (01) ==
PROVIDERS: Emergency Provider Emergency Medicine
DX: J18.9 Pneumonia, unspecified organism (principal); R05.3 Chronic cough
CPT/HCPCS: 71045; 99283

== ENCOUNTER 2025-04-03 15:48 | Outpatient (CLI) | payer MEDICARE, BC, MEDICAID, SELFPAY ==
--- NOTE | 2025-04-03 15:52 | XR_ITS ---
FINAL REPORT CLINICAL HISTORY: cough,sob COMPARISON: 11/07/2024, 11/28/2022 FINDINGS: 2 views of the chest were obtained . The heart is normal in size. The mediastinum is within normal limits. There is bilateral lower lobe airspace disease with small pleural effusions, favor pneumonia. A compression fracture is seen of a lower thoracic vertebral body which is new from exam performed in 2022 but age-indeterminate. IMPRESSION: Bilateral lower lobe opacities with small pleural effusions, favor pneumonia. Although, similar findings were seen on prior exam from 2022. Recommend follow-up two-view chest x-ray or repeat chest CT. Lower thoracic compression fracture, age-indeterminate but new from 2022. Reviewed, Interpreted and Dictated by Danyell Vinson MD Transcribed by Bethanie Calix Authenticated and . [facility]
== END 2025-04-03 23:59 | disposition home or self-care (01) ==
LOC: LAB 15:49
PROVIDERS: PCP Pediatrics; Visit Provider Internal Medicine Pulmonary Disease
DX: J18.9 Pneumonia, unspecified organism (principal)
CPT/HCPCS: 71046; 87070; 87077; 87205

== ENCOUNTER 2025-04-15 14:59 | Outpatient (CLI) | payer MEDICARE, BC, MEDICAID, SELFPAY ==
--- OUTSIDE RECORDS SUMMARY | 2025-03-29 12:00 | XMS_ITS | Continuity of Care Document ---
Author Organization [address] [place] [address] [address] [place] [address] Phone Care Team Providers Care Toe Laster Name Role Phone Debbie ORDOÑEZHumphreyMckenna Unavailable Unavaila ble Allergies, Adverse Reactions, Alerts Substance Reaction Status Criticality No Known Allergies Active No Inform ation Medications Medication Instructions Dosage Effective Dates (start - stop) Status Comments budesonide 0.25 mg/2 mL suspension for nebulization - Active senna 8.6 mg tablet - Active amoxicillin 875 mg-potassium clavulanate 125 mg tablet - Active montelukast 10 mg tablet - A ctive fluticasone propionate 50 mcg/actuation nasal spray,suspension - Active docusate sodium 100 mg capsule - Active furosemide 40 mg tablet - Ac tive mirtazapine 15 mg tablet - A ctive prednisone 10 mg tablet - Ac tive prednisone 20 mg tablet - Ac tive ipratropium 0.5 mg-albuterol 3 mg (2.5 mg base)/3 mL nebulization soln - Active Sore Throat (benzocaine with menthol) 15 mg-3.6 mg lozenges - Active melatonin 3 mg tablet - Acti ve Mucus Relief ER 600 mg tablet, extended release - Active fluconazole 150 mg tablet - Active polyethylene glycol 3350 17 gram/dose oral powder - Active amoxicillin 875 mg tablet - Active budesonide 1 mg/2 mL suspension for nebulization - Active lactulose 10 gram/15 mL oral solution - Active lamotrigine 25 mg tablet - A ctive Combivent Respimat 20 mcg-10 0 mcg/actuation solution for inhalation - Active Constulose 10 gram/15 mL ora l solution - Active Lidocaine Pain Relief 4 % topical patch - Active melatonin 5 mg tablet - Acti ve potassium chloride ER 20 mEq tablet,extended release(part/cryst) - Active acetaminophen 500 mg tablet - Active trazodone 100 mg tablet - Ac tive alprazolam 0.5 mg tablet - A ctive mirtazapine 7.5 mg tablet - Active oseltamivir 75 mg capsule - Active Anti-Diarrheal (loperamide) 2 mg tablet - Active ondansetron HCl 4 mg tablet - Active Nystop 100,000 unit/gram topical powder - Active acetaminophen 325 mg tablet - Active albuterol sulfate HFA 90 mcg/actuation aerosol inhaler - Active Chest Congestion Relief 100 mg/5 mL oral liquid - Active doxycycline hyclate 100 mg tablet - Active Milk of Magnesia 400 mg/5 mL oral suspension - Active doxycycline hyclate 100 mg capsule - Active methylprednisolone 4 mg tablets in a dose pack - Active Vitamin C 500 mg tablet - Ac tive azithromycin 500 mg tablet - Active cefdinir 300 mg capsule - Ac tive azithromycin 250 mg tablet - Active promethazine-DM 6.25 mg-15 mg/5 mL oral syrup - Active Procedures Procedure Date Denture Impression House/Extended Care Facility Call [employer]GR[employer] COMPRE OPH EXAM NEW PT 1/> Extract Simple Erpted Th/Expsed Root Jan Extract Simple Erpted Th/Expsed Root Jan Extract Simple Erpted Th/Expsed Root Jan Extract Simple Erpted Th/Expsed Root Jan Extract Simple Erpted Th/Expsed Root Jan Extract Simple Erpted Th/Expsed Root Jan Compsve Oral Eval- New/Est Pat Complete Series Of Radiographic Images F Silver Diamine Flouride Treatment Silver Diamine Flouride Treatment Silver Diamine Flouride Treatment Silver Diamine Flouride Treatment Silver Diamine Flouride Treatment Prophylaxis - Adult 1ST NF CARE SF/LOW MDM 25 Advance Directives Directive Yes / No Effective Date File Name No Information Encounters Encounter Description Practice Location Reason(s) For Visit Diagnoses Date Provider Providers Copied on Encounter [address] [place] [address], [address] [place] [address], [id number], tel:[phone] [facility] Complete loss of teeth, unspecified cause, unspecified classEncounter for dental examination and cleaning without abnormal findings Debbie Andres. [address] [facility], [address], [place], [place], [id number], [place]. tel:[phone] Referring Provider: Gato Harrell. [address] [place] [address], [address] [facility] [address], [place], [place], [id number], tel:[phone] [facility] floater (chief complaint) Vitreous degeneration, left eyeOther chorioretinal scars, left eye [place], [place]. Referring Provider: Gato Harrell. [address] [place] [address], [address] [place] [address], [place], [place], [id number], tel:[phone] [facility] Dental caries, unspecified 5 Freeman Fuchsi. . Referring Provider: Gato Harrell. [address] [place] [address], [place], [place], [id number], tel:[phone] [facility] Encounter for dental examination and cleaning without abnormal findingsDental caries, unspecified 5 Freeman Heather. . Referring Provider: Jamie Belle. [address] [place] [address], [address] [place] [address], [place], [place], [id number], tel:[phone] [facility] No Information 4 Roger Martinez [address] [facility], [address], [place], [place], [facility], . 1ST NF CARE SF/LOW MDM [address] [place] [address], [place], [place], [id number], tel:[phone] [facility] Tinea unguiumNail dystrophyOther specified peripheral vascular diseases 4 Roger Martinez [address] [facility], [address], [place], [facility], . Referring Provider: Jamie Belle. Family History Family Member Type Diagnosis Age At Onset No Information Payers Payer name Insurance type Covered republican ID Lucila collins(s) DDS Medicaid [place] [id number] Social History Type Description Quantity Date Captured Comments Sex Female Smoking Status No Information Chief Complaint And Reason For Visit No Information Reason For Referral Reason For Referral No Information Plan Of Treatment Date Type Action Status Appointment Dee Dee Sylvester Medicaid Onl y. BOOKED History Of Present Illness Encounter Date Complaint History Of Prese nt Illness floater The 84 year old patient presents for evaluation of floater in the left eye. It occurs with no pattern. Patient denies: flashes and eye pain. Patient was treated unsure for Cataract OU by Outside Functional Status Date Functional Assessmen t No Information Instructions Date Instruction Additional Infor emilia Return in 12-15 zahraa hs for dilated fundus exam. 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 Related to Vitreous degeneration, left eye Follow up - Return i n 12-15 months for dilated fundus exam. 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 Photodocument. Monitor. Floater overlies scarring. Patient educated on signs and symptoms of retinal detachment and is to notify staff [facility] if she experiences any of them. 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 A full exam was performed. Follow up in 2 months. Related to Tinea unguium Assessments Type Assessment Date No Information Patient Care Teams Name Effective Dates (start - stop) Status Members No Information
[2025-04-15 14:59] LABS: Microscopic, Urine URINE MICROSCOPIC (MICROSCOPIC)
--- OUTSIDE RECORDS SUMMARY | 2025-04-15 15:02 | XMS_ITS ---
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 Name Role Phone Aure Hermosillo Unavailable Juan Antonio Brewer Unavailable [phone] Naomi Saldana Unavailable [phone] Jamie Belle Unavailable [phone] Functional Status No Results Mental Status Narrative Start Date End Date Oriented TueSep 16 07:00:00 EST 2021 Allergies and Intolerances Name Onset Date Reaction Severity No Known Drug Allergies (Allergy) TueSep 16 17: 46:00 EST 2021 Medications Medication Directions Start Date End Date senna 8.6 mg tablet 1 tablet TABLET Oral PRN 2 Times Daily Indication: bowel regimen TueDec 15 00:30:00 2022Dec 15 00:00:00 EST 2022 Bactrim DS 800 mg-160 mg tablet 1 tablet TABLET Oral 2 Times Daily Indication: UTI Tueb 10 00:00:00 EST 2022 Fri b 10 10:36:00 EST 2022 Bactrim DS 800 mg-160 mg tablet 1 tablet TABLET Oral 2 Times Daily for 7 Days Indication: UTI Tue Feb 10 00:00:00 2022 Feb 15 00:00:00 EST 2022 SEROqueL 25 mg tablet 1 tablet TABLET Or al PRN Every 6 Hours Indication: agitation Fri b 10 00:00:00 2022b 15 00:00:00 EST 2022 Xanax 0.25 mg tablet 1 tablet TABLET Ora l PRN Every 6 Hours Indication: anxiety TueNov 24 00:00:00 EST 2022Dec 15 00:00:00 EST 2022 senna 8.6 mg tablet 1 tablet TABLET Oral 2 Times Daily Indication: bowel regimen TueNov 22 00:00:00 EST 2022Dec 15 00:00:00 EST 2022 Dilaudid 4 mg tablet 1 tab TABLET Oral P RN Every 6 Hours Indication: pain/ Dose finding TueNov 15 00:00:00 EST 2022Dec 15 00:00:00 EST 2022 Fentanyl 25 mcg/hr Patch, Transdermal 25 mcg/hr 1 patch Transdermal Every 3 Days Indication: pain TueNov 15 00:00:00 EST 2022Dec 15 00:00:00 EST 2022 Dilaudid 2 mg tablet 2 tab TABLET Oral P RN Every 4 Hours Indication: pain/ Dose finding TueNov 08 00:00:00 EST 2022Nov 15 15:16:00 EST 2022 Fentanyl 25 mcg/hr Patch, Transdermal 25 mcg/hr 2 patch Transdermal Every 3 Days Indication: pain TueNov 08 00:00:00 EST 2022Nov 15 15:16:00 EST 2022 Fentanyl 25 mcg/hr Patch, Transdermal 25 mcg/hr 1 patch Transdermal Every 3 Days Indication: pain TueNov 04 00:00:00 EST 2022Nov 08 16:32:00 EST 2022 Dilaudid 2 mg tablet 2 tab TABLET Oral P RN Every 6 Hours Indication: pain TueOct 29 00:00:00 EST 2021Nov 08 16:32:00 EST 2022 lactulose 20 gram/30 mL oral solution 30 ml SOLUTION, ORAL Oral 1 Time Daily Indication: constipation TueOct 27 00:00:00 EST 2021Dec 10 17:13:00 EST 2022 bisacodyL 10 mg rectal suppository 1 SUPPOSITORY, RECTAL Rectal PRN 1 Time Daily Indication: constipation TueOct 27 00:00:00 EST 2021Dec 15 00:00:00 EST 2022 Zofran 4 mg tablet 2 tablet (8mg) TABLE T Oral PRN Every 6 Hours Indication: nausea/vomiting TueOct 09 00:00:00 EST 2021Dec 15 00:00:00 EST 2022 senna 8.6 mg capsule 1 tab CAPSULE Oral 2 Times Daily Indication: Bowel Regimen TueOct 09 00:00:00 EST 2021Oct 20 13:53:00 EST 2021 Colace 100 mg capsule 1 Cap CAPSULE Oral 2 Times Daily Indication: Bowel Regimen TueOct 09 00:00:2021Oct 20 13:53:00 EST 2021 Dilaudid 2 mg tablet 1 tab TABLET Oral P RN Every 6 Hours Indication: pain TueOct 09 00:00:00 2021Oct 29 11:17:00 EST 2021 Zofran 4 mg tablet 1 tablet TABLET Oral PRN Every 6 Hours Indication: nausea/vomiting TueOct 08 00:00:00 EST 2021Oct 09 18:37:00 EST 2021 traZODone 100 mg tablet 1 tablet TABLET Oral Every Evening Indication: sleep TueSep 28 00:00:00 2021Dec 15 00:00:00 2022 Dilaudid 2 mg tablet 0.5 TABLET Oral PRN Every 6 Hours Indication: pain TueSep 27 00:00:00 EST 2021Oct 09 18:40:00 EST 2021 Tessalon Perles 100 mg capsule 2 capsules CAPSULE Oral PRN Every 8 Hours Indication: cough TueSep 27 00:00:00 EST 2021Sep 28 14:04:00 EST 2021 morphine concentrate 100 mg/5 mL (20 mg/mL) oral solution 0.25ml SOLUTION, ORAL Oral PRN Every 6 Hours Indication: pain/SOA TueSep 16 00:00:00 2021Sep 28 14:06:00 2021 LORazepam 0.5 mg tablet 1 tablet TABLET Oral PRN Every 6 Hours Indication: anxiety/agitation TueSep 16 00:00:00 2021Dec 10 10:45:00 2022 Ambien 10 mg tablet 1 tablet TABLET Oral Every Evening Indication: Insomnia TueSep 16 00:00:00 2021Dec 15 00:00:00 EST 2022 Treatment Plan Goals Problem/Goal: Pain due to di sease progression - patient will verbalize/demonstrate knowledge of pain control measures including effective therapeutic regimen and side effects as evidenced by patient rating pain at an acceptable level 2/10 or less. Problem/Goal: Potential or a ctual falls due to weakness. Patient will be free of fall related injuries as evidenced by patient being free of falls. Problem/Goal: Decreased appe tite due to dysphagia - patient will verbalize improved appetite on current therapeutic regimen as evidenced by patient increasing her food intake. Pre-bereavement: Problem/Goa l: Anticipatory grief due to pt's decline. Pt will identify areas of loss as evidenced by open discussion and effective coping techniques. Psychosocial/Environmental: Problem/Goal: Adjustment to life changes due to disease progression of protein calorie malnutrition. Pt/family will verbalize/identify/demonstrate effective adjustment techniques as evidenced by established GOC and effectives support network EXISTENTIAL Spiritual risk d ue to loss related to loss of independence, ability to care for self, home, minimal spiritual disciplines, feeling as a burden, questions life's purpose and future medical interventions. - Dee Dee will experience increasing spiritual peace as relates to acceptance of losses as patient approaches end-of-life as evidenced by willingness to reflect, process spiritual hopes, challenges, EOL wishes and utilize spiritual resources in [place] building manner. Problem/Goal: Constipation d ue to pain medication/immobility- Patient will verbalize that constipation is controlled on current therapeutic regimen as evidenced by patient having BM every 1-3 days. Problems No Known Problems Goals Section Goals Problem/Goal: Pain due to di sease progression - patient will verbalize/demonstrate knowledge of pain control measures including effective therapeutic regimen and side effects as evidenced by patient rating pain at an acceptable level 2/10 or less. Problem/Goal: Potential or a ctual falls due to weakness. Patient will be free of fall related injuries as evidenced by patient being free of falls. Problem/Goal: Decreased appe tite due to dysphagia - patient will verbalize improved appetite on current therapeutic regimen as evidenced by patient increasing her food intake. Pre-bereavement: Problem/Goa l: Anticipatory grief due to pt's decline. Pt will identify areas of loss as evidenced by open discussion and effective coping techniques. Psychosocial/Environmental: Problem/Goal: Adjustment to life changes due to disease progression of protein calorie malnutrition. Pt/family will verbalize/identify/demonstrate effective adjustment techniques as evidenced by established GOC and effectives support network EXISTENTIAL Spiritual risk d ue to loss related to loss of independence, ability to care for self, home, minimal spiritual disciplines, feeling as a burden, questions life's purpose and future medical interventions. - Dee Dee will experience increasing spiritual peace as relates to acceptance of losses as patient approaches end-of-life as evidenced by willingness to reflect, process spiritual hopes, challenges, EOL wishes and utilize spiritual resources in [place]go building manner. Problem/Goal: Constipation d ue to pain medication/immobility- Patient will verbalize that constipation is controlled on current therapeutic regimen as evidenced by patient having BM every 1-3 days. Reason for Referral
--- NOTE | 2025-04-15 15:03 | XR_ITS ---
FINAL REPORT CLINICAL HISTORY: renal stones states possible stone seen on prior us exam FINDINGS: ABDOMEN SINGLE VIEW There is a nonspecific, nonobstructive bowel gas pattern. No abnormal dilatation is identified. Surgical clips are seen in the right upper quadrant from cholecystectomy. No definite renal stone is identified. There is lumbar scoliosis convex to the right measuring 12 degrees. Right hip prosthesis is identified. IMPRESSION: No definite renal stone identified. If clinical concern persists, recommend stone protocol CT to better evaluate. Reviewed, Interpreted and Dictated by Tomi Medrano MD Transcribed by Penny Calderon Authenticated and [facility]
[2025-04-15 15:29] LABS: Appearance,Urine CLEAR (Clear); Bilirubin,Urine Negative (Negative); Blood, Urine Negative (Negative); Color,Urine YELLOW (Yellow); Glucose,Urine (UA) Negative (Negative); Ketones,Urine TRACE (Negative); Leukocyte Esterase,Urine Negative (Negative); Nitrate,Urine Negative (Negative); Protein,Urine Negative (Negative); Specific Gravity, Urine >= 1.030 (1.005-1.030); Urobilinogen,Urine 0.2 EU/dl (0.2)
[2025-04-15 15:54] LABS: Amorphous Sediment,Urine 2+ /lpf; Bacteria,Urine Trace /lpf; Mucus,Urine 4+ /lpf; Squamous Epithelial Cell,Urine Occasional #/hpf (0-5)
[2025-04-15 18:23] LABS: Blood Urea Nitrogen 8 mg/dl (7-17); Estimated Glomerular Filt Rate 80 ml/min (>60); GFR (African American) 97 ML/MIN (>60)
== END 2025-04-15 23:59 | disposition home or self-care (01) ==
PROVIDERS: PCP Pediatrics; Visit Provider Urology
DX: N39.0 Urinary tract infection, site not specified (principal); N20.0 Calculus of kidney; T83.518A Infection and inflammatory reaction due to other urinary catheter, initial encounter
CPT/HCPCS: 36415; 74018; 81001; 82565; 84520; 87086

== ENCOUNTER 2025-08-29 13:41 | Outpatient (CLI) | payer MEDICARE, BC, MEDICAID, SELFPAY ==
--- NOTE | 2025-08-29 13:45 | CA_ITS ---
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 RVT Ht: 5 ft 7 in Wt: 130lbs BSA: 1.68 BP: 159/97 mmHg Indications: HFrEF,SHORTNESS OF BREATH 2D Dimensions IVSd 0.78 cm F: 0.6-1.0 LVEF (Visual) 43.40 % PWd 0.82 cm F: 0.6 - 1.0 LA Volume 22.10 mL LVDd 4.51 cm F: 3.9 - 5.3 LA Volume Index 13.08 mL/m2 (M/F) 16-34 LVDs 3.55 cm F: 2.2 - 3.5 EF AP4 39.80 % GL Strain 3.1 % M-Mode Dimensions RVDd 2.12 cm (0.9-2.6) LA Diam 2.08 cm (1.9-4.0) LVDd 3.83 cm (3.5-5.7) LVDs 2.77 cm (3.5-5.7) IVSd 1.52 cm (0.6-1.1) PWd 0.72 cm (0.6-1.1) EF (Teich) 54.40% FS 27.70% EDV (Teich) 63.10 mL ESV (Teich) 28.80 mL LV Diastology E Decel Time 253 (160-240 msec) E/A Ratio 0.8 Aortic Valve NOÉ Index 1.19 cm2/m2 AoV Peak Reuben. 135.0 (50-130 cm/s) AO Peak GR. 7.30 mmHg AO Mean GR. 4.20 (<5 mmHg) AO VTI 29.1 (18-25 cm) NOÉ (VTI) 2.05 (2.5-4.5 cm2) Mitral Valve MV E Max Reuben. 57.0 (40-130 cm/s) MV A Velocity 71.0 (40-130 cm/s) E/A Ratio 0.80 MV PHT 74.0 ms Pulmonary Valve PV Peak Velocity 81.0 (50-150 cm/s) Left Ventricle The left ventricle is normal size. Left ventricular systolic function is mildly reduced. There is increased left ventricular wall thickness. The septal, anteroseptal, and inferoseptal LV perea are severely hypokinetic. The left ventricular diastolic function is normal. LVEF is 40-45% Right Ventricle The right ventricle is mildly dilated. The right ventricular systolic function is normal. Atria The left atrium is mildly dilated. The right atrium size is normal. There is no color Doppler evidence of interatrial shunt. Aortic Valve The aortic valve is mildly thickened. There is no hemodynamically significant aortic valvular stenosis. Mild aortic regurgitation is present. Mitral Valve The mitral valve is normal in structure. No evidence of mitral valve stenosis. Trace mitral regurgitation is present. Tricuspid Valve The tricuspid valve leaflets are thin and pliable. Trace tricuspid regurgitation. There is insufficient TR jet to estimate RVSP. Pulmonic Valve The pulmonary valve is grossly normal in structure. Trace pulmonic valve regurgitation is present. Great Vessels The aortic root is normal in size. IVC is normal in size and collapses >50% with inspiration. Pericardium There is a small-sized, anterior, heterogeneous pericardial effusion. Largest pocket measures approximately 0.6 cm in diastole. No echo indications of tamponade. Other Information Study Quality: Technically Difficult Conclusion Mildly reduced LV systolic function (LVEF 40-45%). The septal, anteroseptal, and inferoseptal LV perea are severely hypokinetic. Mild RV dilation with normal RV function. Mild LA dilation. Mild AI. Small-sized, anterior, heterogeneous pericardial effusion. Largest pocket measures approximately 0.6 cm in diastole. No echo indications of tamponade. Compared to prior study from 09/04/2024, the LVEF is slightly improved. The pericardial effusion size remains unchanged or is slightly improved. Electronically signed by : Denita Tyler MD 09/01/2025 20:59:50
== END 2025-08-29 23:59 | disposition home or self-care (01) ==
LOC: RT 13:42
PROVIDERS: PCP Family Medicine; Visit Provider Physician Assistant
DX: I35.1 Nonrheumatic aortic (valve) insufficiency (principal); I31.39 Other pericardial effusion (noninflammatory); I50.20 Unspecified systolic (congestive) heart failure; I25.10 Atherosclerotic heart disease of native coronary artery without angina pectoris; R93.1 Abnormal findings on diagnostic imaging of heart and coronary circulation
CPT/HCPCS: 93306

== ENCOUNTER 2025-09-04 09:12 | Outpatient (CLI) | payer MEDICARE, BC, MEDICAID, SELFPAY ==
[2025-09-04 09:22] LABS: Hematocrit 37.7 % (37.0-47.0); Hemoglobin 12.4 g/dL (12.2-16.2); Immature Granulocytes % 0.2 %; Mean Corpuscular HGB Conc 32.9 g/dL (31.8-35.4); Mean Corpuscular Hemoglobin 28.9 pg (27.0-31.2); Mean Corpuscular Volume 87.9 fl (81-99); Nucleated Red Blood Cells % 0 %; Platelet Count 161 K/mm3 (142-424); Red Blood Count 4.29 M/mm3 (4.20-5.40); Red Cell Distribution Width-SD 44.9 fL; White Blood Count 4.1 K/mm3 (4.8-10.8)
[2025-09-04 09:58] LABS: Alanine Aminotransferase 8 U/L (12-78); Albumin Level 3.7 g/dl (3.5-5.0); Albumin/Globulin Ratio 1.4 (1.1-1.8); Alkaline Phosphatase 69 U/L (38-126); Anion Gap 9.7 mEq/L (5-15); Aspartate Amino Transferase 17 U/L (14-36); Bilirubin,Total 1.0 mg/dl (0.2-1.3); Blood Urea Nitrogen 11 mg/dl (7-17); Calcium 9.1 mg/dl (8.4-10.2); Carbon Dioxide 22 mmol/L (22.0-30.0); Chloride 110 mmol/L (98-107); Cholesterol 107 mg/dl (140-200); Creatinine,Serum 0.80 mg/dl (0.52-1.04); Estimated Glomerular Filt Rate 68 ml/min (>60); GFR (African American) 83 ML/MIN (>60); Globulin 2.7 g/dL (1.3-3.2); Glucose 102 mg/dl (74-100); HDL Cholesterol 32 mg/dl (40-60); Potassium 3.7 mmoL/L (3.5-5.1); Sodium 138 mmol/L (136-145); Total Protein,Serum 6.4 g/dl (6.3-8.2); Triglycerides 133 mg/dl (30-150)
== END 2025-09-04 23:59 | disposition home or self-care (01) ==
PROVIDERS: PCP Family Medicine; Visit Provider Family Medicine
DX: I25.10 Atherosclerotic heart disease of native coronary artery without angina pectoris (principal); I10 Essential (primary) hypertension; J44.9 Chronic obstructive pulmonary disease, unspecified
CPT/HCPCS: 36415; 80053; 80061; 85025

== ENCOUNTER 2025-09-25 13:47 | Outpatient (CLI) | payer MEDICARE, BC, MEDICAID, SELFPAY ==
--- NOTE | 2025-09-25 14:00 | CT_ITS ---
FINAL REPORT TECHNIQUE: Thin section axial images were obtained from the lung apices through the upper abdomen without contrast. High-resolution images were obtained. This study was performed with techniques to keep radiation doses as low as reasonably achievable (ALARA). Individualized dose reduction techniques using automated exposure control or adjustment of mA and/or kV according to the patient's size were employed. CLINICAL HISTORY: .exertional shortness of breath, copd, chronic cough COMPARISON: 08/27/2024 FINDINGS: There is a stable calcified right thyroid nodule and stable hypodense left thyroid nodule. There is no mediastinal, hilar, or axillary lymphadenopathy. Ascending aorta measures 39 mm and is unchanged. No pleural effusions. There is either a small pericardial effusion or pericardial thickening.. 3 mm left upper lobe nodule on series 2, image 25 is unchanged. There is bilateral lower lobe bronchiectasis with bronchial wall thickening. Ground-glass opacities and reticulonodular opacities are favored to be infectious or inflammatory. These are similar to slightly improved from the more recent exam. Chronic infection not excluded. High-resolution images add no additional information. No evidence of pulmonary fibrosis. Limited, unenhanced evaluation of the upper abdomen is without acute abnormality. There is no acute osseous abnormality. Chronic lower thoracic compression fracture noted. IMPRESSION: Persistent bronchiectasis, bronchial wall thickening, and lower lung opacities not typical of chronic interstitial lung disease but may indicate chronic infection or other inflammatory process. Consider bronchoscopy given presence for greater than 1 year. Stable 3 mm left upper lobe nodule. No evidence of UIP/IPF. Reviewed, Interpreted and Dictated by Danyell Vinson MD Transcribed by Brittanie Castellanos Authenticated and [facility]
== END 2025-09-25 23:59 | disposition home or self-care (01) ==
LOC: RAD 13:48
PROVIDERS: PCP Family Medicine; Visit Provider Internal Medicine Pulmonary Disease
DX: J47.9 Bronchiectasis, uncomplicated (principal); J84.9 Interstitial pulmonary disease, unspecified; R91.8 Other nonspecific abnormal finding of lung field; R91.1 Solitary pulmonary nodule
CPT/HCPCS: 71250

== ENCOUNTER 2025-10-09 11:12 | Outpatient (CLI) | payer MEDICARE, BC, MEDICAID, SELFPAY ==
[2025-10-09 11:39] LABS: Anion Gap 12.2 mEq/L (5-15); Blood Urea Nitrogen 15 mg/dl (7-17); Calcium 8.9 mg/dl (8.4-10.2); Carbon Dioxide 22 mmol/L (22.0-30.0); Chloride 110 mmol/L (98-107); Creatinine,Serum 0.90 mg/dl (0.52-1.04); Estimated Glomerular Filt Rate 60 ml/min (>60); GFR (African American) 72 ML/MIN (>60); Glucose 101 mg/dl (74-100); Potassium 3.2 mmoL/L (3.5-5.1); Sodium 141 mmol/L (136-145)
== END 2025-10-09 23:59 | disposition home or self-care (01) ==
LOC: LAB.DROPOF 11:13
PROVIDERS: PCP Family Medicine; Visit Provider Family Medicine
DX: R84.4 Abnormal immunological findings in specimens from respiratory organs and thorax (principal)
CPT/HCPCS: 36415; 80048

== ENCOUNTER 2025-10-16 08:37 | Outpatient (CLI) | payer MEDICARE, BC, MEDICAID, SELFPAY ==
[2025-10-16 09:49] LABS: Anion Gap 10.3 mEq/L (5-15); Blood Urea Nitrogen 16 mg/dl (7-17); Calcium 9.0 mg/dl (8.4-10.2); Carbon Dioxide 21 mmol/L (22.0-30.0); Chloride 111 mmol/L (98-107); Creatinine,Serum 0.80 mg/dl (0.52-1.04); Estimated Glomerular Filt Rate 68 ml/min (>60); GFR (African American) 83 ML/MIN (>60); Glucose 105 mg/dl (74-100); Potassium 3.3 mmoL/L (3.5-5.1); Sodium 139 mmol/L (136-145)
== END 2025-10-16 23:59 | disposition home or self-care (01) ==
LOC: LAB.DROPOF 08:37
PROVIDERS: PCP Family Medicine; Visit Provider Family Medicine
DX: I50.22 Chronic systolic (congestive) heart failure (principal)
CPT/HCPCS: 36415; 80048

== ENCOUNTER 2025-10-22 13:12 | Emergency (ER) | payer MEDICARE, BC, MEDICAID, SELFPAY ==
[2025-10-22] VITALS (8 sets, daily range): BP systolic 152–181; BP diastolic 73–86; PULSE 46–64; RESP 18–33; TEMP 35.1–36.6; O2SAT 94–97; BMI 20.3
--- NOTE | 2025-10-22 13:22 | ED_ITS ---
<Statement entered by Nickolas Sanchez MD - 10/25/25 23:37> I was consulted by the JENNIFER, and we discussed the complexity of the problems being addressed. I approved the treatment and management plan for this patient's care in the emergency department, thus performing a substantive portion of the medical decision making. Nickolas Sanchez MD, ANGELICA, FACEP Discharge Plan Disposition Patient Disposition: Home, Self-Care Condition: Good Prescriptions Prescriptions: New doxycycline hyclate 100 mg capsule 100 mg PO BID 5 Days Qty: 10 0RF prednisone 20 mg tablet 40 mg PO DAILY 5 Days Qty: 10 0RF No Action melatonin 3 mg tablet 6 mg PO HS guaifenesin [Mucus Relief ER] 600 mg tablet extended release 12hr 600 mg PO BID polyethylene glycol 3350 [Miralax] 17 gram/dose powder 17 g PO DAILY PRN (Reason: Constipation) albuterol sulfate 90 mcg/actuation HFA aerosol inhaler 2 puff inhalation Q4-6H PRN (Reason: Shortness Of Breath) ipratropium-albuterol 0.5 mg-3 mg(2.5 mg base)/3 mL solution for nebulization 3 ml INHALATION QID 30 Days Qty: 360 6RF montelukast 10 mg tablet 10 mg PO QPM 90 Days Qty: 90 2RF sacubitril-valsartan [Entresto] 49-51 mg tablet 1 tab PO BID Qty: 60 5RF furosemide [Lasix] 20 mg tablet 20 mg PO DAILY Qty: 30 5RF rosuvastatin [Crestor] 10 mg tablet 10 mg PO QHS clopidogrel [Plavix] 75 mg tablet 75 mg PO DAILY potassium chloride [K-Tab] 20 mEq tablet extended release 20 meq PO DAILY Qty: 30 2RF docusate sodium [Colace] 100 mg Capsule 100 mg PO DAILY sennosides [senna] 8.6 mg tablet 8.6 mg PO DAILY fluticasone propionate 50 mcg/actuation spray,suspension 2 spray INTRANASAL HS spironolactone 25 mg Tablet 25 mg PO DAILY Qty: 30 0RF carvedilol 3.125 mg Tablet 3.125 mg PO BID 30 Days Qty: 60 0RF Referrals Follow up/Referrals: Jamie Doherty MD [Primary Care Provider, Family Practice] - See instructions Activity Restrictions/Add. Instructions Additional Instructions/Restrictions: Please return to the emergency department with any worsening signs or symptoms. Please utilize your antibiotic and your steroid medication as prescribed. Please follow-up with your PCP, transportation driver and lung doctor in the upcoming days/weeks. Clinical Impressions Clinical Impression: COPD exacerbation Instructions Patient Instructions: DI for Chronic Obstructive Pulmonary Disease Print Language Print Language: Hungarian Discharge ED Provider: Nickolas Sanchez HPI General Chief Complaint: Shortness of Breath/Dyspnea Stated Complaint: CHF and increased respiratory rate Time Seen by Provider: 10/22/25 13:15 Mode of Arrival: EMS Source of Information: Patient and Medical Record Limitations: No Limitations History of Present Illness HPI narrative: 85-year-old female presents to the emergency department via EMS for a 2-day history of worsening shortness of breath, dry cough, patient states she has emphysema and is chronically short of breath, no supplemental oxygen at home, worsened over the last 2 days, denies any recent sick contacts, denies any fever or chills, denies any overt chest pain, denies any nausea vomiting constipation diarrhea no abdominal pain, no urinary symptomatology, patient is a non-smoker denies any alcohol or drug use, other past medical history is consistent CAD status post 2 stent placements, 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 Initial triage vitals are unremarkable. Please note that above description of symptoms, in this electronic medical record under categorization of recalled from ER triage doctor by RN are reflective of an initial nursing assessment, however, is not reflective of my full history and physical exam that was personally taken and clarified. Consequentially, this preceding description of symptoms, which may include the patient's categorized chief complaint in the EMR, do not reflect my personal clinical impression, and the ultimate description of history of present illness and patient stated complaints should be deferred to this section of the note. Unless stated otherwise or congruent with this section of the note, additional signs, symptoms, or incongruence should be interpreted as inaccurate with my clinical impression. complaint: other Onset (ago): day(s) Related Data Home Medications ?Medication ?Instructions ?Recorded ?Confirmed docusate sodium 100 mg capsule 100 mg PO DAILY 3 09/19/25 (Colace) guaifenesin 600 mg tablet, 600 mg PO BID 07/19/2409/01 extended release 12 hr (Mucus Relief ER) albuterol sulfate 90 mcg/actuation 2 puff inhalation Q 4-6H PRN 09/04/24 09/19/25 aerosol inhaler Shortness Of Breath fluticasone propionate 50 2 spray intranasal HS 09/19/25 mcg/actuation nasal spray,suspension melatonin 3 mg tablet 6 mg PO HS 09/04/24 09/19/25 polyethylene glycol 3350 17 17 g PO DAILY PRN Constipa tion 09/04/24 09/19/25 gram/dose oral powder (Miralax) sennosides 8.6 mg tablet (senna) 8.6 mg PO DAILY 09/0409/19/25 clopidogrel 75 mg tablet (Plavix) 75 mg PO DAILY 07/1209/19/25 rosuvastatin 10 mg tablet (Crestor) 10 mg PO QHS 08/0209/19/25 Previous Rx's ?Medication ?Instructions ?Recorded carvedilol 3.125 mg tablet 3.125 mg PO BID 30 days #60 tabs 09/06/24 spironolactone 25 mg tablet 25 mg PO DAILY #30 tabs ipratropium 0.5 mg-albuterol 3 mg 3 ml inhalation QID 30 days #360 mL 08/06/25 (2.5 mg base)/3 mL nebulization soln montelukast 10 mg tablet 10 mg PO QPM 90 days #90 tab s 08/06/25 sacubitril 49 mg-valsartan 51 mg 1 tab PO BID #60 tabs 08/20/25 tablet (Entresto) furosemide 20 mg tablet (Lasix) 20 mg PO DAILY dyspnea #30 tabs 09/19/25 potassium chloride 20 mEq 20 meq PO DAILY #30 tabs 08/24 tablet,extended release (K-Tab) doxycycline hyclate 100 mg capsule 100 mg PO BID 5 day s #10 caps 10/22/25 prednisone 20 mg tablet 40 mg (2 x 20 mg) PO DAILY 5 days 10/22/25 #10 tabs Allergies Allergy/AdvReac Type Severity Reaction Status Date / Time atenolol (ATENOLOL) Allergy Unknown Unknown Verified 09/19/25 15:06 allergy reaction bismuth subsalicylate (From Allergy Unknown Unknown Verified 09/19/25 15:06 PEPTO-BISMOL) allergy reaction cimetidine (From TAGAMET) Allergy Unknown Unknown Verified 09/19/25 15:06 allergy reaction diazepam (From VALIUM) Allergy Unknown Unknown Verified 09/19/25 15:06 allergy reaction dicyclomine (From BENTYL) Allergy Unknown Unknown Verified 09/19/25 15:06 allergy reaction escitalopram (From LEXAPRO) Allergy Unknown Unknown Verified 09/19/25 15:06 allergy reaction famotidine (From PEPCID) Allergy Unknown Unknown Verified 09/19/25 15:06 allergy reaction fenofibrate (From TRICOR) Allergy Unknown Unknown Verified 09/19/25 15:06 allergy reaction fish oil (FISH OIL) Allergy Unknown Unknown Verified 09/19/25 15:06 allergy reaction hydrocortisone (From LOCOID) Allergy Unknown Unknown Verified 09/19/25 15:06 allergy reaction mirtazapine (From REMERON) Allergy Unknown Unknown Verified 09/19/25 15:06 allergy reaction niacin (NIACIN) Allergy Unknown Unknown Verified 09/19/25 15:06 allergy reaction nortriptyline (NORTRIPTYLINE) Allergy Unknown Unknown Verified 09/19/25 15:06 allergy reaction omeprazole (From PRILOSEC) Allergy Unknown Unknown Verified 09/19/25 15:06 allergy reaction pravastatin (From Pravachol) Allergy Unknown Unknown Verified 09/19/25 15:06 allergy reaction simvastatin Allergy Unknown Unknown Verified 09/19/25 15:06 allergy reaction Mqrzyum-GWU-WxU Reductase Allergy Unknown Unknown Verified 09/19/25 15:06 Inhibitor (Upzwkav-Sxe-Rac allergy Reductase Inhibitor) reaction Sulfa (Sulfonamide Allergy Unknown Unknown Verified 09/19/25 15:06 Antibiotics) (SULFA allergy (SULFONAMIDE ANTIBIOTICS)) reaction sulfamethoxazole (From Allergy Unknown Unknown Verified 09/19/25 15:06 BACTRIM) allergy reaction trimethoprim (From BACTRIM) Allergy Unknown Unknown Verified 09/19/25 15:06 allergy reaction PFSH PFSH Disclaimer: The information contained in this section may have been updated after the patient was seen, as this information can be updated by other users. Medical History Recurrent pneumonia Skull fracture 1957 Pneumonia Other seasonal allergic rhinitis Insomnia, unspecified Squamous cell carcinoma of skin of other parts of face Dementia with mood disturbance Hyperlipidemia, unspecified Pericardial effusion Cardiomyopathy HFrEF (heart failure with reduced ejection fraction) LVEF 40-45% on ECHO 07/2025 Asthma Hearing loss Chronic cough Stercoral colitis Fecal impaction Acute urinary retention Allergic rhinitis Cough variant asthma Fracture of femoral neck, right LBBB (left bundle branch block) Surgical History History of right hip replacement 2018 H/O resection of stomach 2007, for stromal tumor H/O: hysterectomy 1975, without oophorectomy History of cataract surgery History of coronary artery stent placement History of stapedectomy History of dilation and curettage 1964 History of colon resection 2001, partial, left, non-cancerous History of colonoscopy Hx of cholecystectomy History of tonsillectomy 1947 Family History Other Asthma Coronary artery disease Diabetes Heart attack Hyperlipidemia Hypertension Social History Smoking Status: Never smoker alcohol intake: never current occupational status: retired Travel in the last 8 weeks?: None housing: senior living marital status: caffeine: Yes Have you lived/traveled outside [place] in past 30 days?: No Contact w/someone who lives/traveled outside US past 30 days?: No Exposure to someone with infectious disease in past 14 days?: No Do you have a fever (greater than 100.4 F or 38 C)?: No Have you tested positive for COVID-19?: No Exposed to someone with COVID-19 in past 14 days?: No Do you have a sore throat?: No Do you have a cough?: No Do you have any weakness?: No Do you have any diarrhea?: No Are you experiencing any unusual bleeding?: No Do you have any muscle aches/pain?: No Do you have any abdominal pain?: No Are you experiencing loss of taste or smell?: No Other Medical History Have you received the Flu Vaccine for this season: No Have you received the Pneumonia Vaccine: No ROS Obtained: Yes All systems reviewed & no additional complaints except as documented Physical Exam General General appearance: alert and in no apparent distress Head Head exam: atraumatic and normocephalic Eye Eye exam: Present PERRL and EOMI ENT ENT exam: Present mucous membranes moist Neck Neck exam: Present normal inspection Chest Chest inspection: Present normal inspection and symmetric chest wall rise Respiratory Respiratory exam: Present wheezes and other (Mild wheezes and moderate crackles noted throughout bilateral lung hale.); Absent normal lung sounds bilaterally or respiratory distress Cardiovascular Cardiovascular exam: Present regular rate and normal rhythm Abdominal Exam Abdominal exam: Present soft; Absent tenderness, guarding, rebound or rigidity Extremities Exam Extremities exam: Present normal inspection Neurological Exam Neurological exam: Present alert and oriented X3 Psychiatric Psychiatric exam: Present normal affect Skin Skin exam: Present warm and dry HEART Score HEART Score HEART Score assessment performed?: Yes HEART Score: 3 Critical Care Critical Care Time Critical Care Time: No Medical Decision Making Medical Records Medical records reviewed: Yes I reviewed the patient's medical records. David Inquiry Pt receiving controlled substance: No David was queried for this patient: No Vital Signs Vital Signs: 10/22/25 13:10 10/22/25 13:10 10/22/25 13:19 Temperature 98 F 98 F Temperature Source Oral Oral Pulse Rate 57 L 56 L Pulse Rate [Right] 57 L Respiratory Rate 26 H 26 H Blood Pressure 181/86 H 181/86 H Blood Pressure [Right Arm] 181/86 H Blood Pressure Mean [Right Arm] 117 Blood Pressure Source Automatic Cuff Blood Pressure Source [Right Arm] Automatic Cuff Blood Pressure Position Supine Blood Pressure Position [Right Arm] Supine 02 Sat by Pulse Oximetry 97 96 97 Oxygen Delivery Method Room Air Room Air 10/22/25 13:49 10/22/25 14:00 10/22/25 14:30 Temperature Temperature Source Pulse Rate 57 L 47 L Pulse Rate [Right] Respiratory Rate 21 33 H Blood Pressure 160/73 H Blood Pressure [Right Arm] Blood Pressure Mean [Right Arm] Blood Pressure Source Blood Pressure Source [Right Arm] Blood Pressure Position Blood Pressure Position [Right Arm] 02 Sat by Pulse Oximetry 97 97 97 Oxygen Delivery Method Room Air Lab Data Lab results reviewed: Yes I reviewed the patient's lab results. Labs: Lab Results 10/22/25 13:26: WBC 3.4 L, RBC 4.27, Hgb 12.8, Hct 37.5, MCV 87.8, MCH 30.0, MCHC 34.1, RDW 13.3, Plt Count 163, MPV 9.6, Neut % (Auto) 46.4, Lymph % (Auto) 33.4, [place] % (Auto) 12.0 H, Eos % (Auto) 6.7, Baso % (Auto) 1.2, Neut # (Auto) 1.6 L, Lymph # (Auto) 1.1, [place] # (Auto) 0.4, Eos # (Auto) 0.2, Baso # (Auto) 0.0, PT 11.9, INR 1.08, D-Dimer 0.56 H, Sodium 142, Potassium 4.2, Chloride 107, Carbon Dioxide 26, Anion Gap 13.2, BUN 12, Creatinine 0.90, Estimated GFR 60, Est GFR ( Amer) 72, Glucose 112 H, Calcium 9.7, Magnesium 2.3, Total Bilirubin 0.8, AST 19, ALT 11 L, Alkaline Phosphatase 77, Troponin I < 0.01, N T-Pro-B Natriuret Pep 548 H, Total Protein 7.3, Albumin 4.5, Globulin 2.8, Albumin/Globulin Ratio 1.6, Lipase 247 10/22/25 13:49: VBG pH 7.34, VBG pCO2 41.8, VBG pO2 39.2, VBG HCO3 22.2 L, VBG Total CO2 23.5, VBG O2 Saturation 72.7 H, VBG Base Excess -3.5 L, VBG Lactic Acid 1.5 10/22/25 13:52: SARS-CoV-2 (PCR) Not detected, Influenza A Untype (PCR) Not detected, Influenza Type B (PCR) Not detected 10/22/25 14:08: Urine Color Yellow, Urine Appearance Clear, Urine pH 5.5, Ur Specific [place] 1.010, Urine Protein Negative, Urine Glucose (UA) Negative, Urine Ketones Negative, Urine Blood Trace-i, Urine Nitrate Negative, Urine Bilirubin Negative, Urine Urobilinogen 0.2, Ur Leukocyte Esterase Negative, Urine RBC None, Urine WBC None, Ur Squamous Epith Cells None, Urine Bacteria None 10/22/25 : HCV Ab JAIRO w/Rflx PCR Qn Negative 10/22/25 13:26 10/22/25 13:26 Response Orders (Tests/Meds): ED MEDICATIONS Discontinued Medications Generic Name Dose Route Start Last Admin Trade Name Freq PRN Reason Stop Dose Admin Albuterol/Ipratropium 6 ml 10/22/25 13:49 10/22/25 14:10 Ipratropium/Albuterol 3 Ml Neb IH 10/22/25 13:50 6 ml ONCE ONE Administration Methylprednisolone Sodium Succinate 125 mg 10/22/25 13:52 10/22/25 14:09 Methylprednisolone Sod Succ 125mg Vial IV 10/22/25 13:53 125 mg ONCE ONE Administration ORDERS Category Date Time Status XR chest portable Stat Exams 10/22/25 13:29 Completed Complete Blood Count Auto Diff Stat Lab 10/22/25 13:26 Completed Comprehensive Metabolic Panel Stat Lab 10/22/25 13:26 Completed D-Dimer Stat Lab 10/22/25 13:26 Completed HIV Combo Stat Lab 10/22/25 Received Hepatitis C Ab Qual. W/ RFX Stat Lab 10/22/25 Completed Lipase Stat Lab 10/22/25 13:26 Completed Magnesium Stat Lab 10/22/25 13:26 Completed NT Pro Brain Natriuretic Pep. Stat Lab 10/22/25 13:26 Completed PT INR [Prothrombin Time INR] Stat Lab 10/22/25 13:26 Completed Rapid PCR Covid and Flu A/B Stat Lab 10/22/25 13:52 Completed Troponin I Q3H Lab 10/22/25 16:30 Ordered Troponin I Q3H Lab 10/22/25 19:30 Ordered Troponin I Stat Lab 10/22/25 13:26 Completed Urinalysis and Microscopic Stat Lab 10/22/25 14:08 Completed VBG [Venous Blood Gas] Stat RT 10/22/25 13:49 Completed MDM Narrative Medical Decision Narrative: 85-year-old female presents to the emergency department with shortness of breath dry cough for the last 2 days, differential diagnose include but not limited to, acute on chronic hypoxemic respiratory failure, CHF exacerbation, COPD exacerbation, pneumonia, URI, bronchitis, cardiac arrhythmia, electrolyte disturbance, pleural effusion, pulmonary edema among others. I discussed this patient's case with the attending physician Dr. Sanchez Will obtain basic lab studies, EKG, chest x-ray, D-dimer lipase magnesium level proBNP PT/INR, PCR COVID and flu, VBG, troponin and UA. CBC is notable for neutropenia at 3.4, which appears chronic Coags within normal limits CMP is unremarkable. Will give 6 mm DuoNeb. I reviewed the patient's EKG, at 1349, sinus bradycardia 47 bpm LA interval within normals, QT interval is 496/460, there is no ST segment changes or elevation. Will give 125 mg IV methylprednisone. Troponin is less than 0.01, proBNP is 548 otherwise unremarkable CMP VBG is notable for minimally decreased bicarb at 22.2 otherwise unremarkable D-dimer is minimally elevated at 0.56, however utilizing age-adjusted D-dimer criteria, and years criteria effectively rules out VTE/PE. COVID-19 and influenza are negative via PCR I reviewed the patient's chest x-ray along the corresponding radiologic report, no acute abnormality, there are emphysematous changes no evidence of effusion or pneumothorax. UA is notable for trace hematuria, negative nitrites, negative leukocyte esterase, no bacteria no RBCs no WBCs. Reexamination of the patient approximately 2:50 PM, patient resting In the bed, has remained hemodynamically stable throughout her time in the emergency department did have an episode of bradycardia, which appears to be her baseline according to EMS and previous EKGs. Patient dates she feels better as far as shortness of breath goes, will treat the patient for COPD exacerbation. With 40 mg p.o. prednisone twice daily, as well as 100 mg p.o. doxycycline twice daily for 5 days. Patient was given very strict ED return precautions. Patient voiced understanding and agreement with the current treatment plan/discharge plan. Will discharge back to senior living facility
--- NOTE | 2025-10-22 13:29 | XR_ITS ---
FINAL REPORT CLINICAL HISTORY: Shortness of breath and dry cough x few days COMPARISON: 04/03/2025 FINDINGS: A single frontal view of the chest was obtained. No acute pulmonary opacity is present. There are emphysematous changes. There is no evidence of effusion or pneumothorax. Mediastinum is unremarkable. Heart size is normal. IMPRESSION: No acute abnormality. Reviewed, Interpreted and Dictated by Alva Alvarez MD Transcribed by Brittanie Castellanos Authenticated and [facility]
[2025-10-22 13:34] LABS: Hematocrit 37.5 % (37.0-47.0); Hemoglobin 12.8 g/dL (12.2-16.2); Immature Granulocytes % 0.3 %; Mean Corpuscular HGB Conc 34.1 g/dL (31.8-35.4); Mean Corpuscular Hemoglobin 30.0 pg (27.0-31.2); Mean Corpuscular Volume 87.8 fl (81-99); Nucleated Red Blood Cells % 0 %; Platelet Count 163 K/mm3 (142-424); Red Blood Count 4.27 M/mm3 (4.20-5.40); Red Cell Distribution Width-SD 42.6 fL; White Blood Count 3.4 K/mm3 (4.8-10.8)
[2025-10-22 13:41] LABS: Albumin Level 4.5 g/dl (3.5-5.0); Chloride 107 mmol/L (98-107); Potassium 4.2 mmoL/L (3.5-5.1); Sodium 142 mmol/L (136-145)
[2025-10-22 13:43] LABS: Alanine Aminotransferase 11 U/L (12-78); Anion Gap 13.2 mEq/L (5-15); Aspartate Amino Transferase 19 U/L (14-36); Blood Urea Nitrogen 12 mg/dl (7-17); Carbon Dioxide 26 mmol/L (22.0-30.0); Creatinine,Serum 0.90 mg/dl (0.52-1.04); Estimated Glomerular Filt Rate 60 ml/min (>60); GFR (African American) 72 ML/MIN (>60)
[2025-10-22 13:44] LABS: Albumin/Globulin Ratio 1.6 (1.1-1.8); Alkaline Phosphatase 77 U/L (38-126); Bilirubin,Total 0.8 mg/dl (0.2-1.3); Calcium 9.7 mg/dl (8.4-10.2); Globulin 2.8 g/dL (1.3-3.2); Glucose 112 mg/dl (74-100); INR 1.08 (0.9-1.1); Lipase 247 U/L (23-300); Magnesium 2.3 mg/dl (1.6-2.3); Prothrombin Time 11.9 seconds (10.1-12.5); Total Protein,Serum 7.3 g/dl (6.3-8.2)
--- NOTE | 2025-10-22 13:48 | ECG_ITS ---
APPROVED REPORT Exam: Resting ECG HR:47 bpm ECG Measurements Heart Rate 47 AXES IN 196 P 87 QRSd 137 QRS 73 QT 496 T 61 QTc 460 Conclusion SINUS BRADYCARDIA INTRAVENTRICULAR CONDUCTION DELAY [130+ ms QRS DURATION] POSSIBLE ANTERIOR MYOCARDIAL INFARCTION , OF INDETERMINATE AGE [30 ms Q WAVE IN V3/V4, OR R < 0.2 mV IN V4] ABNORMAL ECG UNCONFIRMED REPORT Electronically signed by : Jean Marie Sanchez, 10/22/2025 14:55:04
[2025-10-22 13:53] LABS: NT Pro Brain Natriuretic Pep. 548 pg/mL (0-450)
[2025-10-22 13:54] LABS: Lactate Venous 1.5 mmol/L (0.4-2.0); VBG HCO3 22.2 mmol/L (23-30); VBG PCO2 41.8 mmol/L (35-51); VBG PH 7.34 mmol/L (7.31-7.41); VBG PO2 39.2 mmol/L (28-40)
[2025-10-22 13:56] LABS: Coronavirus 19, PCR Not Detected (NotDetected); Influenza A, PCR Not Detected (NotDetected); Influenza B, PCR Not Detected (NotDetected)
[2025-10-22 13:56] LABS: Troponin I < 0.01 ng/ml (0.00-0.034)
[2025-10-22 14:01] LABS: D-Dimer 0.56 ug/mL (0.0-0.5)
[2025-10-22] MEDS: METHYLPREDNISOLONE SOD SUCC 125MG VIAL 125 MG IV (14:09)
[2025-10-22] MEDS: IPRATROPIUM/ALBUTEROL 3 ML NEB 6 ML IH (14:10)
[2025-10-22 14:14] LABS: Microscopic, Urine URINE MICROSCOPIC (MICROSCOPIC)
[2025-10-22 14:19] LABS: Bilirubin,Urine Negative (Negative); Color,Urine YELLOW (Yellow); Glucose,Urine (UA) Negative (Negative); Ketones,Urine Negative (Negative); Leukocyte Esterase,Urine Negative (Negative); PH,Urine 5.5 (5.0-8.5); Protein,Urine Negative (Negative); Specific Gravity, Urine 1.010 (1.005-1.030); Urobilinogen,Urine 0.2 EU/dl (0.2)
[2025-10-22 14:49] LABS: Hepatitis C Ab Qual. W/ RFX NEGATIVE (Negative)
--- NOTE | 2025-10-22 15:38 | PC.NURSE ---
I called and requested a meal tray from [employer].
--- NOTE | 2025-10-22 15:40 | PC.NURSE ---
Spoke with the pt's son about transportation. pt's son states he is going to come and pick her up and take her back to [facility].
--- NOTE | 2025-10-22 15:45 | INFXCTL.NOTE ---
I took the pt her meal tray and helped set it up. no new complaints. no needs voiced. call [facility] in reach.
--- NOTE | 2025-10-22 17:01 | PC.NURSE ---
Called report to Anisa at [facility].
== END 2025-10-22 17:05 | disposition home or self-care (01) ==
PROVIDERS: Physician Assistant; Emergency Provider Student in an Organized Health Care Education/Training Program; PCP Family Medicine
DX: J44.1 Chronic obstructive pulmonary disease with (acute) exacerbation (principal); R00.1 Bradycardia, unspecified; I11.0 Hypertensive heart disease with heart failure; I50.20 Unspecified systolic (congestive) heart failure; Z86.79 Personal history of other diseases of the circulatory system; Z95.5 Presence of coronary angioplasty implant and graft
CPT/HCPCS: 71045; 80053; 81001; 82803; 83690; 83735; 83880; 84484; 85025; 85378; 85610; 86803; 87389; 87636; 93005; 96374; 99285; J2919

== ENCOUNTER 2025-10-25 09:35 | Outpatient (CLI) | payer MEDICARE, BC, MEDICAID, SELFPAY ==
[2025-10-25 10:11] LABS: Chloride 110 mmol/L (98-107); Potassium 3.5 mmoL/L (3.5-5.1); Sodium 141 mmol/L (136-145)
[2025-10-25 10:14] LABS: Anion Gap 11.5 mEq/L (5-15); Blood Urea Nitrogen 20 mg/dl (7-17); Carbon Dioxide 23 mmol/L (22.0-30.0); Creatinine,Serum 0.80 mg/dl (0.52-1.04); Estimated Glomerular Filt Rate 68 ml/min (>60); GFR (African American) 83 ML/MIN (>60)
[2025-10-25 10:15] LABS: Calcium 9.4 mg/dl (8.4-10.2); Glucose 91 mg/dl (74-100)
== END 2025-10-25 23:59 | disposition home or self-care (01) ==
LOC: LAB.DROPOF 09:35
PROVIDERS: PCP Family Medicine; Visit Provider Family Medicine
DX: I50.22 Chronic systolic (congestive) heart failure (principal)
CPT/HCPCS: 36415; 80048